=== PATIENT | female | born 1985 | race Two or more races ===

== ENCOUNTER 2020-04-07 09:06 | Outpatient (REF) | payer OTHER, SELFPAY ==
[2020-04-07 11:34] LABS: MANUAL DIFF FLAG NO
[2020-04-07 11:49] LABS: Basophils Percent Auto 0.7 % (0-2); Eosinophils Percent Auto 0.3 % (0-4); Hematocrit 39.8 % (37-47); Hemoglobin 13.2 g/dl (12.0-16.0); Imm Gran Abs Auto 0.01 X10*3/uL (0.00-0.03); Imm Gran Pct Auto 0.2 % (0.0-0.4); Lymphocytes Absolute Auto 1.6 X10*3/uL (1.2-4.9); Lymphocytes Percent Auto 26.5 % (20-40); Mean Corpuscular HGB Conc 33.2 g/dl (31.0-35.0); Mean Corpuscular Hemoglobin 29.9 pg (27.0-33.0); Mean Platelet Volume 12.8 fL (9.4-12.3); Monocytes Absolute Auto 0.4 X10*3/uL (0.1-1.2); Monocytes Percent Auto 7.3 % (2-11); Neutrophils Absolute Auto 3.8 X10*3/uL (2.0-8.3); Platelet Count 195 X10*3/uL (160-400); Red Blood Count 4.42 X10*6/uL (4.20-5.50); Red Cell Distribution Width 11.9 % (11.0-16.0); White Blood Count 5.9 X10*3/uL (4.8-10.8)
[2020-04-07 11:56] LABS: Alanine Aminotransferase 12 U/L (0-31); Albumin Level 4.3 g/dL (3.5-5.0); Alkaline Phosphatase 89 U/L (39-117); Anion Gap 10 (12-20); Aspartate Amino Transferase 13 U/L (5-31); Bilirubin Total 0.4 mg/dL (0.0-1.0); Blood Urea Nitrogen 14 mg/dL (9-16); C Reactive Protein 0.13 mg/dL (< or = 0.50); Calcium 9.6 mg/dL (8.4-10.2); Carbon Dioxide 27 mmol/L (22-29); Chloride 104 mmol/L (96-108); Estimated Glomerular Filt Rate > 60; Glucose Random 84 mg/dL (60-115); Potassium 4.2 mmol/l (3.3-5.1); Sodium 137 mmol/L (135-145); Total Protein 7.4 g/dL (6.5-8.0)
[2020-04-07 11:59] LABS: Glucose Urine UA NEG (NEG); Leukocyte Esterase Urine NEG (NEG); Nitrite Urine NEG (NEG); PH 6.5 (5.0-8.0); Specific Gravity - Urine 1.025 (1.005-1.025); Urine Blood TRACE (NEG); Urine Ketones NEG (NEG); Urine Protein NEG (NEG-TRACE)
[2020-04-07 12:04] LABS: Appearance Urine CLEAR; Color Urine YELLOW
[2020-04-07 12:40] LABS: RBC Urine 0-2 /HPF (0); Squamous Epithelial Cell Urine 1+ /LPF; WBC Urine 0 /HPF (0-4)
[2020-04-07 13:25] LABS: Erythrocyte Sedimentation Rate 5 MM/HR (0-20)
[2020-04-08 12:31] LABS: Complement C3 155 mg/dL (83-193)
[2020-04-09 11:57] LABS: Anti DNA DS Antibody <1 IU/mL
== END 2020-04-07 09:07 | disposition home or self-care (01) ==
LOC: HO.LAB 09:06
PROVIDERS: PCP Physician Assistant; Referring Provider Physician Assistant; Visit Provider Student in an Organized Health Care Education/Training Program
DX: M35.01 Sjogren syndrome with keratoconjunctivitis (principal)
CPT/HCPCS: 36415; 80053; 81001; 85025; 85652; 86140; 86160; 86225

== ENCOUNTER 2020-08-06 16:37 | Outpatient (REF) | payer OTHER, SELFPAY ==
[2020-08-06 18:04] LABS: MANUAL DIFF FLAG NO
[2020-08-06 18:06] LABS: Basophils Absolute Auto 0.1 X10*3/uL (0.0-0.2); Basophils Percent Auto 0.6 % (0-2); Eosinophils Percent Auto 0.2 % (0-4); Hemoglobin 13.4 g/dl (12.0-16.0); Imm Gran Abs Auto 0.03 X10*3/uL (0.00-0.03); Imm Gran Pct Auto 0.3 % (0.0-0.4); Lymphocytes Percent Auto 20.2 % (20-40); Mean Corpuscular HGB Conc 32.7 g/dl (31.0-35.0); Mean Corpuscular Hemoglobin 29.9 pg (27.0-33.0); Mean Corpuscular Volume 91.5 fL (80-98); Mean Platelet Volume 12.5 fL (9.4-12.3); Monocytes Absolute Auto 0.6 X10*3/uL (0.1-1.2); Monocytes Percent Auto 5.9 % (2-11); Neutrophils Absolute Auto 7.2 X10*3/uL (2.0-8.3); Neutrophils Percent Auto 72.8 % (45-73); Platelet Count 244 X10*3/uL (160-400); Red Blood Count 4.48 X10*6/uL (4.20-5.50); Red Cell Distribution Width 12.2 % (11.0-16.0); White Blood Count 9.8 X10*3/uL (4.8-10.8)
[2020-08-06 18:30] LABS: Alanine Aminotransferase 11 U/L (0-31); Albumin Level 4.2 g/dL (3.5-5.0); Alkaline Phosphatase 76 U/L (39-117); Anion Gap 13 (12-20); Aspartate Amino Transferase 15 U/L (5-31); Bilirubin Total 0.3 mg/dL (0.0-1.0); Blood Urea Nitrogen 14 mg/dL (9-16); C Reactive Protein 0.23 mg/dL (< or = 0.50); Calcium 9.4 mg/dL (8.4-10.2); Carbon Dioxide 26 mmol/L (22-29); Chloride 107 mmol/L (96-108); Estimated Glomerular Filt Rate > 60; Glucose Random 90 mg/dL (60-115); Potassium 4.6 mmol/L (3.3-5.1); Sodium 141 mmol/L (135-145); Total Protein 7.5 g/dL (6.5-8.0)
[2020-08-06 19:37] LABS: Erythrocyte Sedimentation Rate 7 MM/HR (0-20)
== END 2020-08-06 16:38 | disposition home or self-care (01) ==
LOC: HO.LAB 16:37
PROVIDERS: PCP Physician Assistant; Referring Provider Physician Assistant; Visit Provider Student in an Organized Health Care Education/Training Program
DX: M35.01 Sjogren syndrome with keratoconjunctivitis (principal)
CPT/HCPCS: 36415; 80053; 85025; 85652; 86140

== ENCOUNTER → 2020-08-20 15:24 | Outpatient (BNVA) | payer OTHER, SELFPAY | PROVIDERS: PCP Physician Assistant; Visit Provider Internal Medicine Cardiovascular Disease | DX: Z13.89 Encounter for screening for other disorder (principal) | CPT/HCPCS: 93005 ==

== ENCOUNTER 2020-09-24 13:18 | Outpatient (REF) | payer OTHER, SELFPAY ==
[2020-09-25 09:44] LABS: CT PCR NOT DETECTED (Not Detect.); NG PCR NOT DETECTED (Not Detect.)
[2020-09-25 11:56] LABS: BV Int Neg Control Negative (Negative); BV Int Pos Control Positive (Positive)
[2020-09-30 02:31] LABS: HPV mRNA E6/E7 rflx Not Detected (Not Detected)
== END 2020-09-24 13:19 | disposition home or self-care (01) ==
LOC: HO.LAB 13:18
PROVIDERS: PCP Physician Assistant; Visit Provider Advanced Practice Midwife
DX: Z01.419 Encounter for gynecological examination (general) (routine) without abnormal findings (principal); Z11.3 Encounter for screening for infections with a predominantly sexual mode of transmission; Z11.51 Encounter for screening for human papillomavirus (HPV); I49.3 Ventricular premature depolarization; R55 Syncope and collapse; M35.00 Sjogren syndrome, unspecified; Z88.2 Allergy status to sulfonamides; Z88.8 Allergy status to other drugs, medicaments and biological substances; Z97.5 Presence of (intrauterine) contraceptive device; Z79.899 Other long term (current) drug therapy
CPT/HCPCS: 87480; 87491; 87510; 87591; 87624; 87660; 88142

== ENCOUNTER 2020-12-11 16:07 | Outpatient (REF) | payer OTHER, SELFPAY ==
[2020-12-11 17:01] LABS: MANUAL DIFF FLAG NO
[2020-12-11 17:08] LABS: Basophils Percent Auto 0.7 % (0-2); Eosinophils Percent Auto 0.3 % (0-4); Hematocrit 38.9 % (37-47); Hemoglobin 12.8 g/dl (12.0-16.0); Imm Gran Abs Auto 0.01 X10*3/uL (0.00-0.03); Imm Gran Pct Auto 0.2 % (0.0-0.4); Lymphocytes Percent Auto 32.4 % (20-40); Mean Corpuscular HGB Conc 32.9 g/dl (31.0-35.0); Mean Corpuscular Volume 91.3 fL (80-98); Mean Platelet Volume 12.2 fL (9.4-12.3); Monocytes Absolute Auto 0.5 X10*3/uL (0.1-1.2); Neutrophils Absolute Auto 3.6 X10*3/uL (2.0-8.3); Neutrophils Percent Auto 58.4 % (45-73); Platelet Count 215 X10*3/uL (160-400); Red Blood Count 4.26 X10*6/uL (4.20-5.50); Red Cell Distribution Width 12.4 % (11.0-16.0); White Blood Count 6.1 X10*3/uL (4.8-10.8)
[2020-12-11 17:25] LABS: Glucose Urine UA NEG (NEG); Leukocyte Esterase Urine NEG (NEG); Nitrite Urine NEG (NEG); Specific Gravity - Urine >= 1.030 (1.005-1.025); Urine Blood NEG (NEG); Urine Ketones 5 MG/DL (NEG); Urine Protein NEG (NEG-TRACE)
[2020-12-11 17:29] LABS: Appearance Urine CLEAR; Color Urine YELLOW
[2020-12-11 17:35] LABS: Alanine Aminotransferase 15 U/L (0-31); Albumin Level 4.2 g/dL (3.5-5.0); Alkaline Phosphatase 69 U/L (39-117); Anion Gap 14 (12-20); Aspartate Amino Transferase 18 U/L (5-31); Bilirubin Total 0.2 mg/dL (0.0-1.0); Blood Urea Nitrogen 12 mg/dL (9-16); C Reactive Protein 0.17 mg/dL (< or = 0.50); Calcium 9.8 mg/dL (8.4-10.2); Carbon Dioxide 26 mmol/L (22-29); Chloride 106 mmol/L (96-108); Estimated Glomerular Filt Rate 59; Glucose Random 93 mg/dL (60-115); Potassium 4.3 mmol/L (3.3-5.1); Sodium 142 mmol/L (135-145); Total Protein 7.5 g/dL (6.5-8.0)
[2020-12-11 17:38] LABS: Alanine Aminotransferase 14 U/L (0-31); Albumin Level 4.2 g/dL (3.5-5.0); Alkaline Phosphatase 69 U/L (39-117); Anion Gap 13 (12-20); Aspartate Amino Transferase 19 U/L (5-31); Bilirubin Total < 0.2 mg/dL (0.0-1.0); Blood Urea Nitrogen 13 mg/dL (9-16); Calcium 9.7 mg/dL (8.4-10.2); Carbon Dioxide 25 mmol/L (22-29); Chloride 107 mmol/L (96-108); Estimated Glomerular Filt Rate 57; Glucose Fasting 95 mg/dL (60-99); Potassium 4.4 mmol/L (3.3-5.1); Sodium 141 mmol/L (135-145); Total Protein 7.5 g/dL (6.5-8.0)
[2020-12-11 17:39] LABS: Mucus Urine 3+ /LPF; RBC Urine 0 /HPF (0); Squamous Epithelial Cell Urine 3+ /LPF; WBC Urine 0 /HPF (0-4)
[2020-12-11 17:57] LABS: Erythrocyte Sedimentation Rate 4 MM/HR (0-20)
[2020-12-12 07:26] LABS: Estimated Average Glucose 88 mg/dL; Hemoglobin A1c % 4.7 %
[2020-12-12 14:07] LABS: Anti DNA DS Antibody <1 IU/mL
[2020-12-14 10:37] LABS: Complement C3 162 mg/dL (83-193)
== END 2020-12-11 16:08 | disposition home or self-care (01) ==
LOC: HO.LAB 16:07
PROVIDERS: Physician Assistant; Visit Provider Student in an Organized Health Care Education/Training Program
DX: M35.01 Sjogren syndrome with keratoconjunctivitis (principal); I10 Essential (primary) hypertension; Z79.899 Other long term (current) drug therapy; Z13.1 Encounter for screening for diabetes mellitus; Z13.29 Encounter for screening for other suspected endocrine disorder
CPT/HCPCS: 36415; 80053; 81001; 83036; 84443; 85025; 85652; 86140; 86160; 86225

== ENCOUNTER 2021-05-10 09:47 | Outpatient (REF) | payer OTHER, SELFPAY ==
[2021-05-10 10:27] LABS: Hematocrit 41.2 % (37.0-47.0); Hemoglobin 13.2 g/dl (12.0-16.0); Mean Corpuscular Hemoglobin 29.3 pg (27.0-33.0); Mean Corpuscular Volume 91.6 fL (80.0-98.0); Mean Platelet Volume 12.1 fL (9.4-12.3); Platelet Count 186 X10*3/uL (160-400); Red Cell Distribution Width 12.4 % (11.0-16.0); White Blood Count 7.1 X10*3/uL (4.8-10.8)
[2021-05-10 11:01] LABS: Estimated Average Glucose 94 mg/dL; Hemoglobin A1c % 4.9 %
[2021-05-10 11:13] LABS: Alanine Aminotransferase 12 U/L (0-31); Alkaline Phosphatase 88 U/L (39-117); Anion Gap 11 (12-20); Aspartate Amino Transferase 16 U/L (5-31); Bilirubin Total 0.6 mg/dL (0.0-1.0); Blood Urea Nitrogen 12 mg/dL (9-16); Calcium 9.3 mg/dL (8.4-10.2); Carbon Dioxide 26 mmol/L (22-29); Chloride 106 mmol/L (96-108); Estimated Glomerular Filt Rate > 60; Glucose Fasting 81 mg/dL (60-99); Iron 154 mcg/dL (30-160); Percent Iron Saturation 38 % (15-50); Potassium 4.5 mmol/L (3.3-5.1); Sodium 138 mmol/L (135-145); Total Iron Binding Capacity 404 mcg/dL (228-428); Total Protein 7.3 g/dL (6.5-8.0); Unsaturated Iron Binding 250 ug/dL
[2021-05-10 11:20] LABS: TSH reflex Free T4 0.83 uIU/mL (0.32-4.0)
== END 2021-05-10 09:48 | disposition home or self-care (01) ==
LOC: HO.LAB 09:47
PROVIDERS: PCP Physician Assistant; Visit Provider Physician Assistant
DX: D50.9 Iron deficiency anemia, unspecified (principal); R23.8 Other skin changes; Z13.1 Encounter for screening for diabetes mellitus; Z13.29 Encounter for screening for other suspected endocrine disorder
CPT/HCPCS: 36415; 80053; 83036; 83540; 84443; 85027

== ENCOUNTER → 2021-10-01 08:30 | Outpatient (BNVA) | payer OTHER, SELFPAY | PROVIDERS: PCP Physician Assistant; Visit Provider Advanced Practice Midwife | DX: Z13.89 Encounter for screening for other disorder (principal) ==

== ENCOUNTER 2021-11-27 07:11 | Outpatient (REF) | payer OTHER, SELFPAY ==
[2021-11-27 07:57] LABS: Hematocrit 38.9 % (37.0-47.0); Hemoglobin 12.7 g/dl (12.0-16.0); Mean Corpuscular HGB Conc 32.6 g/dl (31.0-35.0); Mean Corpuscular Volume 91.7 fL (80.0-98.0); Mean Platelet Volume 12.3 fL (9.4-12.3); Platelet Count 195 X10*3/uL (160-400); Red Blood Count 4.24 X10*6/uL (4.20-5.50); Red Cell Distribution Width 12.6 % (11.0-16.0); White Blood Count 5.4 X10*3/uL (4.8-10.8)
[2021-11-27 08:36] LABS: Alanine Aminotransferase 16 U/L (0-31); Albumin Level 3.9 g/dL (3.5-5.0); Alkaline Phosphatase 74 U/L (39-117); Anion Gap 12 (12-20); Aspartate Amino Transferase 17 U/L (5-31); Bilirubin Total 0.5 mg/dL (0.0-1.0); Blood Urea Nitrogen 15 mg/dL (9-16); Calcium 9.6 mg/dL (8.4-10.2); Carbon Dioxide 26 mmol/L (22-29); Chloride 107 mmol/L (96-108); Estimated Glomerular Filt Rate 59; Glucose Fasting 91 mg/dL (60-99); Potassium 4.9 mmol/L (3.3-5.1); Sodium 140 mmol/L (135-145); Total Protein 7.4 g/dL (6.5-8.0)
[2021-11-27 09:00] LABS: HCG Quantitative < 2 mIU/mL; TSH reflex Free T4 1.42 uIU/mL (0.32-4.0)
== END 2021-11-27 07:12 | disposition home or self-care (01) ==
LOC: HO.LAB 07:11
PROVIDERS: PCP Physician Assistant; Visit Provider Physician Assistant
DX: Z13.29 Encounter for screening for other suspected endocrine disorder (principal); I10 Essential (primary) hypertension; M35.01 Sjogren syndrome with keratoconjunctivitis; G43.909 Migraine, unspecified, not intractable, without status migrainosus
CPT/HCPCS: 36415; 80053; 84443; 84702; 85027

== ENCOUNTER 2022-02-25 09:48 | Outpatient (REF) | payer OTHER, SELFPAY ==
[2022-02-25 17:25] LABS: CT PCR NOT DETECTED (Not Detect.); NG PCR NOT DETECTED (Not Detect.)
== END 2022-02-25 09:49 | disposition home or self-care (01) ==
LOC: HO.LNP 09:48
PROVIDERS: PCP Physician Assistant; Visit Provider Advanced Practice Midwife
DX: Z30.430 Encounter for insertion of intrauterine contraceptive device (principal); Z32.02 Encounter for pregnancy test, result negative
CPT/HCPCS: 58300; 81025; 87491; 87591; J7298

== ENCOUNTER 2022-03-19 07:04 | Outpatient (REF) | payer OTHER, SELFPAY ==
--- NOTE | ~2022-03-19 | XR_ITS ---
EXAMINATION: XR ANKLE, RIGHT XR ANKLE, LEFT XR FOOT, RIGHT XR FOOT, LEFT CLINICAL INFORMATION: Pain in the joints of the bilateral ankles and feet. COMPARISON: None. TECHNIQUE: AP, lateral, and mortise views of each ankle and AP, lateral, and oblique views of each foot. FINDINGS: RIGHT ANKLE: No fracture. Alignment is anatomic. Ankle mortise is symmetric. Joint spaces are maintained. No ankle joint effusion. Soft tissues are normal. LEFT ANKLE: No fracture. Alignment is anatomic. Ankle mortise is symmetric. Joint spaces are maintained. No ankle joint effusion. Soft tissues are normal. RIGHT FOOT: Tiny marginal osteophytes are present at the 1st MTP joint. No joint space narrowing. Bone mineralization is normal. No fracture. Alignment is anatomic. No erosions. Moderate sized enthesopathic spur is present at the plantar fascial origin on the calcaneus. LEFT FOOT: Moderate hallux valgus on this non-weightbearing study. Bipartite medial hallux sesamoid. No fractures. Bone mineralization is normal. Joint spaces are well preserved. No erosions. Small enthesopathic spurs are present at the Achilles tendon insertion and plantar fascial origin on the calcaneus. XR/XR ankle RT min 3V IMPRESSION: Small bilateral calcaneal enthesopathic spurs. 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 Hallux valgus at the left foot. Normal radiographic appearance of the ankles.
--- NOTE | ~2022-03-19 | XR_ITS ---
EXAMINATION: XR ANKLE, RIGHT XR ANKLE, LEFT XR FOOT, RIGHT XR FOOT, LEFT CLINICAL INFORMATION: Pain in the joints of the bilateral ankles and feet. COMPARISON: None. TECHNIQUE: AP, lateral, and mortise views of each ankle and AP, lateral, and oblique views of each foot. FINDINGS: RIGHT ANKLE: No fracture. Alignment is anatomic. Ankle mortise is symmetric. Joint spaces are maintained. No ankle joint effusion. Soft tissues are normal. LEFT ANKLE: No fracture. Alignment is anatomic. Ankle mortise is symmetric. Joint spaces are maintained. No ankle joint effusion. Soft tissues are normal. RIGHT FOOT: Tiny marginal osteophytes are present at the 1st MTP joint. No joint space narrowing. Bone mineralization is normal. No fracture. Alignment is anatomic. No erosions. Moderate sized enthesopathic spur is present at the plantar fascial origin on the calcaneus. LEFT FOOT: Moderate hallux valgus on this non-weightbearing study. Bipartite medial hallux sesamoid. No fractures. Bone mineralization is normal. Joint spaces are well preserved. No erosions. Small enthesopathic spurs are present at the Achilles tendon insertion and plantar fascial origin on the calcaneus. XR/XR foot LT 2V IMPRESSION: Small bilateral calcaneal enthesopathic spurs. 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 Hallux valgus at the left foot. Normal radiographic appearance of the ankles.
--- NOTE | ~2022-03-19 | XR_ITS ---
EXAMINATION: XR ANKLE, RIGHT XR ANKLE, LEFT XR FOOT, RIGHT XR FOOT, LEFT CLINICAL INFORMATION: Pain in the joints of the bilateral ankles and feet. COMPARISON: None. TECHNIQUE: AP, lateral, and mortise views of each ankle and AP, lateral, and oblique views of each foot. FINDINGS: RIGHT ANKLE: No fracture. Alignment is anatomic. Ankle mortise is symmetric. Joint spaces are maintained. No ankle joint effusion. Soft tissues are normal. LEFT ANKLE: No fracture. Alignment is anatomic. Ankle mortise is symmetric. Joint spaces are maintained. No ankle joint effusion. Soft tissues are normal. RIGHT FOOT: Tiny marginal osteophytes are present at the 1st MTP joint. No joint space narrowing. Bone mineralization is normal. No fracture. Alignment is anatomic. No erosions. Moderate sized enthesopathic spur is present at the plantar fascial origin on the calcaneus. LEFT FOOT: Moderate hallux valgus on this non-weightbearing study. Bipartite medial hallux sesamoid. No fractures. Bone mineralization is normal. Joint spaces are well preserved. No erosions. Small enthesopathic spurs are present at the Achilles tendon insertion and plantar fascial origin on the calcaneus. XR/XR ankle LT min 3V IMPRESSION: Small bilateral calcaneal enthesopathic spurs. 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 Hallux valgus at the left foot. Normal radiographic appearance of the ankles.
--- NOTE | ~2022-03-19 | XR_ITS ---
EXAMINATION: XR ANKLE, RIGHT XR ANKLE, LEFT XR FOOT, RIGHT XR FOOT, LEFT CLINICAL INFORMATION: Pain in the joints of the bilateral ankles and feet. COMPARISON: None. TECHNIQUE: AP, lateral, and mortise views of each ankle and AP, lateral, and oblique views of each foot. FINDINGS: RIGHT ANKLE: No fracture. Alignment is anatomic. Ankle mortise is symmetric. Joint spaces are maintained. No ankle joint effusion. Soft tissues are normal. LEFT ANKLE: No fracture. Alignment is anatomic. Ankle mortise is symmetric. Joint spaces are maintained. No ankle joint effusion. Soft tissues are normal. RIGHT FOOT: Tiny marginal osteophytes are present at the 1st MTP joint. No joint space narrowing. Bone mineralization is normal. No fracture. Alignment is anatomic. No erosions. Moderate sized enthesopathic spur is present at the plantar fascial origin on the calcaneus. LEFT FOOT: Moderate hallux valgus on this non-weightbearing study. Bipartite medial hallux sesamoid. No fractures. Bone mineralization is normal. Joint spaces are well preserved. No erosions. Small enthesopathic spurs are present at the Achilles tendon insertion and plantar fascial origin on the calcaneus. XR/XR foot RT 2V IMPRESSION: Small bilateral calcaneal enthesopathic spurs. 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 Hallux valgus at the left foot. Normal radiographic appearance of the ankles.
[2022-03-19 08:03] LABS: Alanine Aminotransferase 13 U/L (0-31); Albumin Level 4.1 g/dL (3.5-5.0); Alkaline Phosphatase 72 U/L (39-117); Anion Gap 14 (12-20); Aspartate Amino Transferase 16 U/L (5-31); Bilirubin Total 0.3 mg/dL (0.0-1.0); Blood Urea Nitrogen 18 mg/dL (9-16); C Reactive Protein 0.13 mg/dL (< or = 0.50); Calcium 9.5 mg/dL (8.4-10.2); Carbon Dioxide 23 mmol/L (22-29); Chloride 108 mmol/L (96-108); Estimated Glomerular Filt Rate > 60; Glucose Random 91 mg/dL (60-115); Rheumatoid Factor 58.8 IU/mL (<15.0); Sodium 141 mmol/L (135-145); Total Protein 7.4 g/dL (6.5-8.0)
[2022-03-19 08:21] LABS: Erythrocyte Sedimentation Rate 8 MM/HR (0-20)
[2022-03-19 08:23] LABS: Thyroid Stimulating Hormone 1.54 uIU/mL (0.32-4.0)
[2022-03-19 09:17] LABS: Appearance Urine Clear; Color Urine Yellow; Glucose Urine UA Negative (Negative); Leukocyte Esterase Urine Trace (Negative); Nitrite Urine Negative (Negative); PH 5.5 (5.0-9.0); Specific Gravity - Urine 1.025 (1.005-1.025); UMIC TRIGGER UA YES; Urine Blood Moderate (2+) (Negative); Urine Ketones 15 mg/dL (Negative); Urine Protein Negative (Neg-Trace)
[2022-03-19 09:32] LABS: Bacteria Urine None Seen (None Seen); Hyaline Casts Urine 0-2 /LPF (0-2); WBC Urine 0-5 /HPF (0-5)
[2022-03-19 09:49] LABS: Creatinine Urine 171.35 mg/dL; Protein/Creatinine Ratio, Ur 0.07 (<0.2); Total Protein Urine Random 12 mg/dL (<12)
[2022-03-21 12:07] LABS: Complement C3 151 mg/dL (83-193)
[2022-03-21 16:21] LABS: Anti Nuclear Antibody Screen POSITIVE (NEGATIVE)
[2022-03-21 17:01] LABS: Cyclic Citrullinated Peptide <16 UNITS
[2022-03-21 21:07] LABS: Prot Elec - Albumin 3.9 g/dL (3.8-4.8); Prot Elec - Alpha1 0.3 g/dL (0.2-0.3); Prot Elec - Alpha2 0.6 g/dL (0.5-0.9); Prot Elec - Beta 1 0.5 g/dL (0.4-0.6); Prot Elec - Beta 2 0.5 g/dL (0.2-0.5); Prot Elec - Gamma 1.3 g/dL (0.8-1.7)
[2022-03-22 09:03] LABS: IgA 365 mg/dL (47-310); IgG 1394 mg/dL (600-1640); IgM 88 mg/dL (50-300)
[2022-03-22 22:52] LABS: Anti DNA DS Antibody <1 IU/mL; Antibody to SS-A Antigen >8.0 POS AI (<1.0 NEG); Antibody to SS-B Antigen <1.0 NEG AI (<1.0 NEG); SM/Ribonucleoprotein Ab <1.0 NEG AI (<1.0 NEG); Smith Protein <1.0 NEG AI (<1.0 NEG)
[2022-03-23 07:12] LABS: Beta-2 Glycoprotein IgA <2.0 U/mL (<20.0); Beta-2 Glycoprotein IgG <2.0 U/mL (<20.0); Beta-2 Glycoprotein IgM <2.0 U/mL (<20.0)
[2022-03-24 06:05] LABS: Cardiolipin IgG Ab <2.0 GPL-U/mL; Cardiolipin IgM Ab <2.0 MPL-U/mL
[2022-03-30 11:56] LABS: Cryoglobulin, Qual NONE DETECTED ((NDT))
[2022-04-06 11:36] LABS: PTT (LAC) Screen 39 sec (<=40)
== END 2022-03-19 07:05 | disposition home or self-care (01) ==
LOC: HO.XRAY 07:04
PROVIDERS: PCP Physician Assistant; Visit Provider Student in an Organized Health Care Education/Training Program
DX: M35.00 Sjogren syndrome, unspecified (principal); M25.571 Pain in right ankle and joints of right foot; M25.572 Pain in left ankle and joints of left foot
CPT/HCPCS: 36415; 73610; 73620; 80053; 81001; 82595; 82784; 84156; 84165; 84443; 85597; 85613; 85652; 85730; 86038; 86039; 86140; 86146; 86147; 86160; 86200; 86225; 86235; 86334; 86431

== ENCOUNTER 2022-04-14 11:17 | Outpatient (REF) | payer OTHER, SELFPAY ==
--- NOTE | ~2022-04-14 | US_ITS ---
EXAMINATION: US PELVIS COMPLETE US PELVIS ENDOVAGINAL CLINICAL INFORMATION: IUD insertion COMPARISON: None. TECHNIQUE: Transabdominal and transvaginal images of the pelvis were obtained. FINDINGS: UTERUS: Anteverted. Normal size and contour, measuring 8.2 x 4.9 x 7.0 cm (cervix to fundus x AP x transverse). Uniform, homogeneous endometrium measures 0.5 cm in width. Satisfactorily positioned IUD is seen in the endometrial canal. RIGHT OVARY: Normal size and echogenicity measuring 2.8 x 1.3 x 1.4 cm. LEFT OVARY: Normal size and echogenicity measuring 3.8 x 2.8 x 3.4 cm. FREE FLUID: No pelvic free fluid. US/US pelvic and transvaginal IMPRESSION: Normally positioned IUD seen in the endometrial canal.
== END 2022-04-14 11:18 | disposition home or self-care (01) ==
LOC: HO.US 11:17
PROVIDERS: Visit Provider Advanced Practice Midwife
DX: Z30.430 Encounter for insertion of intrauterine contraceptive device (principal); Z30.09 Encounter for other general counseling and advice on contraception
CPT/HCPCS: 76830; 76856

== ENCOUNTER 2022-05-11 13:53 | Outpatient (REF) | payer OTHER, SELFPAY ==
[2022-05-12 10:16] LABS: BV Int Neg Control Negative (Negative); BV Int Pos Control Positive (Positive)
== END 2022-05-11 13:54 | disposition home or self-care (01) ==
LOC: HO.LNP 13:53
PROVIDERS: Visit Provider Advanced Practice Midwife
DX: B37.9 Candidiasis, unspecified (principal)
CPT/HCPCS: 87480; 87510; 87660

== ENCOUNTER 2022-06-25 07:14 | Outpatient (REF) | payer OTHER, SELFPAY ==
[2022-06-25 07:28] LABS: MANUAL DIFF FLAG NO
[2022-06-25 08:00] LABS: Basophils Absolute Auto 0.1 X10*3/uL (0.0-0.2); Basophils Percent Auto 0.8 % (0-2); Eosinophils Percent Auto 0.1 % (0-4); Hematocrit 39.2 % (37.0-47.0); Hemoglobin 12.8 g/dl (12.0-16.0); Imm Gran Abs Auto 0.02 X10*3/uL (0.00-0.03); Imm Gran Pct Auto 0.3 % (0.0-0.4); Lymphocytes Absolute Auto 0.7 X10*3/uL (1.2-4.9); Lymphocytes Percent Auto 9.1 % (20-40); Mean Corpuscular HGB Conc 32.7 g/dl (31.0-35.0); Mean Corpuscular Hemoglobin 29.8 pg (27.0-33.0); Mean Corpuscular Volume 91.2 fL (80.0-98.0); Mean Platelet Volume 12.6 fL (9.4-12.3); Monocytes Absolute Auto 0.7 X10*3/uL (0.1-1.2); Monocytes Percent Auto 8.8 % (2-11); Neutrophils Absolute Auto 6.2 x10*3/uL (2.0-8.3); Neutrophils Percent Auto 80.9 % (45-73); Platelet Count 171 X10*3/uL (160-400); Red Cell Distribution Width 12.4 % (11.0-16.0); White Blood Count 7.7 X10*3/uL (4.8-10.8)
[2022-06-25 08:19] LABS: Appearance Urine Clear; Color Urine Yellow; Glucose Urine UA Negative (Negative); Leukocyte Esterase Urine Negative (Negative); Nitrite Urine Negative (Negative); Specific Gravity - Urine >= 1.030 (1.005-1.025); Urine Blood Negative (Negative); Urine Ketones Trace mg/dL (Negative); Urine Protein Trace mg/dL (Neg-Trace)
[2022-06-25 08:24] LABS: Bacteria Urine None Seen (None Seen); Hyaline Casts Urine 0-2 /LPF (0-2); RBC Urine 0-2 /HPF (0-2); WBC Urine 0-5 /HPF (0-5)
[2022-06-25 08:24] LABS: Alanine Aminotransferase 13 U/L (0-31); Albumin Level 4.3 g/dL (3.5-5.0); Alkaline Phosphatase 81 U/L (39-117); Anion Gap 10 (12-20); Aspartate Amino Transferase 16 U/L (5-31); Bilirubin Total 0.4 mg/dL (0.0-1.0); Blood Urea Nitrogen 14 mg/dL (9-16); C Reactive Protein 0.66 mg/dL (< or = 0.50); Calcium 9.6 mg/dL (8.4-10.2); Carbon Dioxide 26 mmol/L (22-29); Chloride 108 mmol/L (96-108); Estimated Glomerular Filt Rate > 60; Glucose Random 93 mg/dL (60-115); Potassium 3.8 mmol/L (3.3-5.1); Rheumatoid Factor 45.9 IU/mL (<15.0); Sodium 140 mmol/L (135-145); Total Protein 7.4 g/dL (6.5-8.0)
[2022-06-25 08:49] LABS: Creatinine Urine 260.93 mg/dL; Protein/Creatinine Ratio, Ur 0.06 (<0.2); Total Protein Urine Random 16 mg/dL (<12)
[2022-06-25 09:24] LABS: Erythrocyte Sedimentation Rate 8 MM/HR (0-20)
[2022-06-28 07:59] LABS: Complement C3 71 mg/dL (83-193)
[2022-07-01 09:32] LABS: Anti DNA DS Antibody <1 IU/mL
== END 2022-06-25 07:15 | disposition home or self-care (01) ==
LOC: HO.LAB 07:14
PROVIDERS: PCP Physician Assistant; Visit Provider Student in an Organized Health Care Education/Training Program
DX: M35.01 Sjogren syndrome with keratoconjunctivitis (principal)
CPT/HCPCS: 36415; 80053; 81001; 84156; 85025; 85652; 86140; 86160; 86225; 86431

== ENCOUNTER → 2022-07-01 07:24 | Outpatient (BNVA) | payer OTHER, SELFPAY | PROVIDERS: PCP Physician Assistant; Visit Provider Student in an Organized Health Care Education/Training Program | DX: Z13.89 Encounter for screening for other disorder (principal) ==

== ENCOUNTER 2022-07-15 08:40 | Inpatient (IN) | payer OTHER, SELFPAY ==
--- NOTE | ~2022-07-15 | US_ITS ---
EXAMINATION: US ABDOMEN LIMITED CLINICAL INFORMATION: Abnormal liver function tests. COMPARISON: None TECHNIQUE: Real-time imaging of the right upper quadrant abdominal viscera. FINDINGS: PANCREAS: Normal. LIVER: Normal. The liver is normal in size. The liver contour is normal. Parenchymal echogenicity is normal. No focal hepatic lesion. There is no intrahepatic biliary duct dilatation seen. GALLBLADDER: Normal. The gallbladder is physiologically distended without evidence of stones, sludge, polyps, wall thickening or pericholecystic fluid. COMMON BILE DUCT: Normal in caliber measuring 0.3 cm in diameter. RIGHT KIDNEY: Normal. No hydronephrosis. No renal calculi or focal parenchymal lesions. The kidney measures 10.3 cm in maximum dimension. FREE FLUID: None. US/US abdomen limited IMPRESSION: Normal right upper quadrant ultrasound.
[2022-07-15 08:48] VITALS: BP 118/36; PULSE 96; RESP 20; TEMP 36.7; O2SAT 98; BMI 22.1
--- NOTE | 2022-07-15 09:05 | ED_ITS ---
HPI - General Adult General Chief complaint: General Medical <KETURAH Quan Last Filed: 07/15/22 13:53> Stated complaint: fever dizzy body swelling <KETURAH Quan Last Filed: 07/15/22 13:53> Time Seen by Provider: 07/15/22 09:03 <KETURAH Quan Last Filed: 07/15/22 13:53> Source: patient <KETURAH Quan Last Filed: 07/15/22 13:53> Mode of arrival: ambulatory <KETURAH Quan Last Filed: 07/15/22 13:53> Limitations: no limitations <KETURAH Quan Last Filed: 07/15/22 13:53> History of Present Illness HPI narrative: 37-year-old female with history of lupus, migraines, GERD, history of acute hepatitis and superficial perivascular dermatitis (on biopsy) due to allergic reaction to Bactrim and Macrobid back in 2019 who presents to the ER for evaluation of a diffuse red, itchy rash all over her body that she noticed yesterday. She states her legs started itching yesterday and then she noticed a blotchy and itchy rash in the inner portion of her right arm. She states the only new medicine she took lately was Aleve because her Radioisotope Technologist does not want her taking ibuprofen any more. She states this morning she developed dizziness and lightheadedness, she had one episode of vomiting. The rash is now all over her body today, red, raised and itchy. She has no facial swelling or oral involvement. No SOB or wheezing. No chest pain. <KETURAH Quan Last Filed: 07/15/22 13:53> MD complaint: rash, dizziness <KETURAH Quan Last Filed: 07/15/22 13:53> Onset (ago): day(s) <KETURAH Quan Last Filed: 07/15/22 13:53> Location: chest, back, abdomen, left, right, upper extremity and lower extremity <KETURAH Quan Last Filed: 07/15/22 13:53> Severity: severe <KETURAH Quan Last Filed: 07/15/22 13:53> Quality: other (itching) <KETURAH Quan - Last Filed: 07/15/22 13:53> Pain Consistency: constant <KETURAH Quan - Last Filed: 07/15/22 13:53> Relieving factors: none <KETURAH Quan - Last Filed: 07/15/22 13:53> Exacerbating factors: none <KETURAH Quan - Last Filed: 07/15/22 13:53> Associated symptoms: nausea/vomiting and weakness <KETURAH Quan - Last Filed: 07/15/22 13:53> Treatments prior to arrival: none <KETURAH Quan - Last Filed: 07/15/22 13:53> Related Data Home medications: Home Medications Medication Instructions Recorded Confirmed etonogestrel 68 mg subdermal See Rx Instructions .Route .COMPLEX 04/07/20 07/15/22 implant (Nexplanon) levonorgestrel 20 mcg/24 hours (8 See Rx Instructions .Route .COMPLEX 05/11/22 07/15/22 yrs) 52 mg intrauterine device (Mirena) multivitamin 1 tab PO DAILY 07/15/22 07/15/22 naproxen sodium 220 mg tablet 220 mg PO Q12H PRN Pain or 07/15/22 07/15/22 (Aleve) inflammation sumatriptan succinate 25 mg tablet 25 mg PO Q2H PRN Migraine Headache 07/15/22 07/15/22 (Imitrex) Previous Rx's Medication Instructions Recorded calcium carbonate 600 mg-vitamin 1 tab PO DAILY 90 days #90 tabs 09/28/21 D3 10 mcg (400 unit) tablet (Calcium 600 + D(3)) blood pressure monitor (Blood #1 ea 11/23/21 Pressure Kit) famotidine 20 mg tablet 20 mg PO BEDTIME #90 tabs 03/09/22 hydroxychloroquine 200 mg tablet 300 mg PO DAILY #30 tabs 05/04/22 amlodipine 2.5 mg tablet 2.5 mg PO DAILY 30 days #30 tabs 06/06/22 <KETURAH Quan Last Filed: 07/15/22 13:53> Allergies/adverse reactions: Allergies Allergy/AdvReac Type Severity Reaction Status Date / Time sulfasalazine Allergy Severe redness Verified 07/15/22 08:54 and itching Sulfa (Sulfonamide Allergy Rash Verified 07/15/22 08:54 Antibiotics) <KETURAH Quan - Last Filed: 07/15/22 13:53> Review of Systems Review of Systems: Yes all other systems are reviewed and are negative <KETURAH Quan - Last Filed: 07/15/22 13:53> FOR[facility]LY [facility] Past Medical History Medical History: Medical History Cervical cancer screening Hypertension Migraines PVCs (premature ventricular contractions) Vasovagal syncope <KETURAH Quan - Last Filed: 07/15/22 13:53> Surgical History: Surgical History History of surgical biopsy <KETURAH Quan - Last Filed: 07/15/22 13:53> Family History Family History: Family History Father No problems noted. Mother Bipolar 1 disorder Chronic mental illness Family history of thyroid problem Maternal Grandmother Hypertension Maternal Grandfather No problems noted. Maternal Aunt CAD (coronary artery disease) Sister Depression Bipolar 1 disorder Brother Depression Depression with anxiety <KETURAH Quan - Last Filed: 07/15/22 13:53> Social History Social History: Social History Household Members: Family Housing: House Alcohol intake: current Alcohol intake frequency: a few times a month Alcohol type: wine Patient Tobacco Use Status: Never used Tobacco Smoked in Last 30 Days: No e-Cigarette/Vaping Use: Never Used Second Hand Smoke Exposure: Yes Use of substances other than those prescribed or required for medical reasons: No Advance Directives: No Advance Directives Information Provided: Yes Patient : No Current occupational status: employed 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 [employer] Cognitive needs: No Hearing needs: No Vision needs: Yes <KETURAH Quan - Last Filed: 07/15/22 13:53> Physical Exam ED Vital Signs: Vital Signs - 24 hr 07/15/22 08:48 07/15/22 09:12 07/15/22 10:30 Temperature 98.0 F Pulse Rate 96 93 73 Respiratory Rate 20 15 Blood Pressure 118/36 L 109/51 L 108/48 L Pulse Oximetry 98 100 Oxygen Delivery Method Room Air 07/15/22 10:32 07/15/22 10:32 07/15/22 13:16 Temperature Pulse Rate 79 80 84 Respiratory Rate 15 Blood Pressure 107/53 L 105/53 L 111/62 Pulse Oximetry 98 Oxygen Delivery Method Room Air BMI result Body Mass Index 22.1 <KETURAH Qaun - Last Filed: 07/15/22 13:53> Vital Signs - 24 hr 07/15/22 08:48 07/15/22 09:12 07/15/22 10:30 Temperature 98.0 F Pulse Rate 96 93 73 Respiratory Rate 20 15 Blood Pressure 118/36 L 109/51 L 108/48 L Pulse Oximetry 98 100 Oxygen Delivery Method Room Air 07/15/22 10:32 07/15/22 10:32 07/15/22 13:16 Temperature Pulse Rate 79 80 84 Respiratory Rate 15 Blood Pressure 107/53 L 105/53 L 111/62 Pulse Oximetry 98 Oxygen Delivery Method Room Air BMI result Body Mass Index 22.1 <Fabio Denton MD - Last Filed: 07/15/22 16:15> Appearance: Alert. Oriented X3. No acute distress. Eyes: Pupils equal, round and reactive to light. ENT: Pharynx normal. normal inspection of the oral mucosa, no oral lesions. Neck: Normal inspection. Neck supple. CVS: Normal heart rate and rhythm. Pulses normal. Respiratory: No respiratory distress. Breath sounds normal. Abdomen: Soft and nontender. +BS x4 negative Calderon sign Skin: diffuse, erythematous, warm rash from the neck down, blanches. more involved on the extremities. bilateral AC areas with hypopigmented patches and nonblanching flat purpura like lesions. palms are erythematous without skin p eeling. Extremities: No lower extremity edema. Diffuse rash present Neuro: Oriented X 3. No motor deficit. No sensory deficit. <KETURAH Quan - Last Filed: 07/15/22 13:53> Course Course Course Narrative: 29-year-old female with history of lupus presenting to the ER for evaluation of a diffuse erythematous, itchy rash on her body that started yesterday. Similar experience back in 2019 and was thought to be related to antibiotics, sulfa and Macrobid. She was treated with prolonged course of steroids over the course of several weeks. She had significant hepatitis with jaundice and scleral icterus at that time. No scleral icterus, jaundice or hepatosplenomegaly palpated on examination today. will get lab workup, treat with IV steroids and IV Benadryl. <KETURAH Quan - Last Filed: 07/15/22 13:53> Reevaluation(s) Reevaluation #1: No improvement in her symptoms after the Solu-Medrol and Benadryl. LFTs significantly elevated. Right upper quadrant ultrasound is normal. Will plan to admit for further management. <KETURAH Quan - Last Filed: 07/15/22 13:53> Medications Administered Discontinued Medications Generic Name Dose Route Start Last Admin Trade Name Freq PRN Reason Stop Dose Admin Diphenhydramine HCl 50 mg 07/15/22 09:19 07/15/22 09:28 Diphenhydramine Hcl 50 Mg/Ml Vial IVPUSH 07/15/22 09:20 50 mg ONCE ONE Administration Famotidine 20 mg 07/15/22 09:19 07/15/22 09:28 Famotidine/Pf 20 Mg/2 Ml Vial IVPUSH 07/15/22 09:20 20 mg ONCE ONE Administration Sodium Chloride 1,000 mls @ 999 mls/hr 07/15/22 09:15 07/15/22 10:15 Ns IVCONT 07/15/22 10:15 Infused .Q1H1M RAFAELA Infusion Sodium Chloride 1,000 mls @ 999 mls/hr 07/15/22 14:00 07/15/22 15:45 Ns IVCONT 07/15/22 15:00 Infused .Q1H1M RAFAELA Infusion Methylprednisolone Sodium Succinate 125 mg 07/15/22 09:19 07/15/22 09:28 Methylprednisolone Sod Succ 125 Mg/2 Ml Vial IVPUSH 07/15/22 09:20 125 mg ONCE ONE Administration Ondansetron HCl 4 mg 07/15/22 09:06 07/15/22 09:25 Ondansetron Hcl 4 Mg/2 Ml Vial IVPUSH 07/15/22 09:07 4 mg ONCE ONE Administration <KETURAH Quan - Last Filed: 07/15/22 13:53> Medications Administered Discontinued Medications Generic Name Dose Route Start Last Admin Trade Name Alicia PRN Reason Stop Dose Admin Diphenhydramine HCl 50 mg 07/15/22 09:19 07/15/22 09:28 Diphenhydramine Hcl 50 Mg/Ml Vial IVPUSH 07/15/22 09:20 50 mg ONCE ONE Administration Famotidine 20 mg 07/15/22 09:19 07/15/22 09:28 Famotidine/Pf 20 Mg/2 Ml Vial IVPUSH 07/15/22 09:20 20 mg ONCE ONE Administration Sodium Chloride 1,000 mls @ 999 mls/hr 07/15/22 09:15 07/15/22 10:15 Ns IVCONT 07/15/22 10:15 Infused .Q1H1M RAFAELA Infusion Sodium Chloride 1,000 mls @ 999 mls/hr 07/15/22 14:00 07/15/22 15:45 Ns IVCONT 07/15/22 15:00 Infused .Q1H1M RAFAELA Infusion Methylprednisolone Sodium Succinate 125 mg 07/15/22 09:19 07/15/22 09:28 Methylprednisolone Sod Succ 125 Mg/2 Ml Vial IVPUSH 07/15/22 09:20 125 mg ONCE ONE Administration Ondansetron HCl 4 mg 07/15/22 09:06 07/15/22 09:25 Ondansetron Hcl 4 Mg/2 Ml Vial IVPUSH 07/15/22 09:07 4 mg ONCE ONE Administration <Fabio Denton MD - Last Filed: 07/15/22 16:15> Medical Decision Making Differential Diagnosis Differential Diagnoses: The differential diagnosis associated with the presentation includes <KETURAH Quan - Last Filed: 07/15/22 13:53> Dermatitis, vasculitis, allergic reaction, lupus flare, other rheumatologic process, less likley TENS or [place], DRESS syndrome <KETURAH Quan - Last Filed: 07/15/22 13:53> Admission/Observation Consideration of admission/observation: Escalation of care including admission/observation considered <KETURAH Quan - Last Filed: 07/15/22 13:53> requiring admission for monitoring of her liver function tests and response to medications <KETURAH Quan - Last Filed: 07/15/22 13:53> Consult Healthcare Provider Management of the patient was discussed with: Hospitalist <KETURAH Quan - Last Filed: 07/15/22 13:53> Lab Data MDM Lab Attestation statement: I reviewed the patient's lab results. <KETURAH Quan - Last Filed: 07/15/22 13:53> LINK with transaminitis <KETURAH Quan - Last Filed: 07/15/22 13:53> Result Diagrams: 07/15/22 09:24 07/15/22 09:24 <KETURAH Quan - Last Filed: 07/15/22 13:53> Labs: Lab Results 07/15/22 07/15/22 07/15/22 Range/Units 09:23 09:23 09:24 WBC 10.2 (4.8-10.8) X10*3/uL RBC 4.56 (4.20-5.50) X10*6/uL Hgb 13.7 (12.0-16.0) g/dl Hct 41.3 (37.0-47.0) % MCV 90.6 (80.0-98.0) fL MCH 30.0 (27.0-33.0) pg MCHC 33.2 (31.0-35.0) g/dl RDW 13.2 (11.0-16.0) % Plt Count 162 (160-400) X10*3/uL MPV 11.5 (9.4-12.3) fL Immature Gran % (Auto) 0.6 H (0.0-0.4) % Neut % (Auto) 92.8 H (45-73) % Lymph % (Auto) 1.9 L (20-40) % Izard % (Auto) 3.0 (2-11) % Eos % (Auto) 1.6 (0-4) % Baso % (Auto) 0.1 (0-2) % Lymph # (Auto) 0.2 L (1.2-4.9) X10*3/uL [place] # (Auto) 0.3 (0.1-1.2) X10*3/uL Eos # (Auto) 0.2 (0.0-0.4) X10*3/uL Baso # (Auto) 0.0 (0.0-0.2) X10*3/uL Abs Immat Gran (auto) 0.06 H (0.00-0.03) X10*3/uL Absolute Neuts (auto) 9.5 H (2.0-8.3) x10*3/uL Absolute Nucleated RBC 0.000 (0.0-0.012) X10*3/uL Nucleated RBC % (auto) 0.0 (0.0-0.2) /100WBC Smear Tech's Comments VERIFIED Sodium (135-145) mmol/L Potassium (3.3-5.1) mmol/L Chloride (96-108) mmol/L Carbon Dioxide (22-29) mmol/L Anion Gap (12-20) BUN (9-16) mg/dL Creatinine (0.5-1.4) mg/dL Estim Creat Clear Calc Estimated GFR Random Glucose (60-115) mg/dL Calcium (8.4-10.2) mg/dL Magnesium (1.6-2.6) mg/dL Total Bilirubin (0.0-1.0) mg/dL Direct Bilirubin (0.0-0.5) mg/dL AST (5-31) U/L ALT (0-31) U/L Alkaline Phosphatase (39-117) U/L Lactate Dehydrogenase (122-220) U/L Total Creatine Kinase (26-140) U/L C-Reactive Protein (< or = 0.50) mg/dL Total Protein (6.5-8.0) g/dL Albumin (3.5-5.0) g/dL Urine Color Urine Appearance Urine pH (5.0-9.0) Ur Specific [place] (1.005-1.025) Urine Protein (Neg-Trace) mg/dL Urine Glucose (UA) (Negative) mg/dL Urine Ketones (Negative) mg/dL Urine Blood (Negative) Urine Nitrite (Negative) Ur Leukocyte Esterase (Negative) Urine RBC (0-2) /HPF Urine WBC (0-5) /HPF Ur Squamous Epith Cells (0-2) /HPF Ur Transition Epith Cell Ur Renal Epithelial Cell Urine Bacteria (None Seen) Hyaline Casts (0-2) /LPF Urine Test (NEGATIVE) Urine Opiates Screen (Not Detect) Urine Fentanyl Screen (Not Detect) Ur Barbiturates Screen (Not Detect) Ur Phencyclidine Scrn (Not Detect) Ur Amphetamines Screen (Not Detect) U Benzodiazepines Scrn (Not Detect) Urine Cocaine Screen (Not Detect) U Marijuana (THC) Screen (Not Detect) COVID-19 (SAUL) Negative (Negative) COVID-19 Clin Com See Note Influenza Type A (HARRY) Negative (Negative) Influenza Type B (HARRY) Negative (Negative) Influenza A & B Note See Note 07/15/22 07/15/22 07/15/22 Range/Units 09:24 10:42 10:42 WBC (4.8-10.8) X10*3/uL RBC (4.20-5.50) X10*6/uL Hgb (12.0-16.0) g/dl Hct (37.0-47.0) % MCV (80.0-98.0) fL MCH (27.0-33.0) pg MCHC (31.0-35.0) g/dl RDW (11.0-16.0) % Plt Count (160-400) X10*3/uL MPV (9.4-12.3) fL Immature Gran % (Auto) (0.0-0.4) % Neut % (Auto) (45-73) % Lymph % (Auto) (20-40) % [place] % (Auto) (2-11) % Eos % (Auto) (0-4) % Baso % (Auto) (0-2) % Lymph # (Auto) (1.2-4.9) X10*3/uL [place] # (Auto) (0.1-1.2) X10*3/uL Eos # (Auto) (0.0-0.4) X10*3/uL Baso # (Auto) (0.0-0.2) X10*3/uL Abs Immat Gran (auto) (0.00-0.03) X10*3/uL Absolute Neuts (auto) (2.0-8.3) x10*3/uL Absolute Nucleated RBC (0.0-0.012) X10*3/uL Nucleated RBC % (auto) (0.0-0.2) /100WBC Smear Tech's Comments Sodium 138 (135-145) mmol/L Potassium 4.9 D (3.3-5.1) mmol/L Chloride 107 (96-108) mmol/L Carbon Dioxide 23 (22-29) mmol/L Anion Gap 13 (12-20) BUN 21 H (9-16) mg/dL Creatinine 1.68 H (0.5-1.4) mg/dL Estim Creat Clear Calc 40.8 Estimated GFR 34 Random Glucose 134 H (60-115) mg/dL Calcium 9.1 (8.4-10.2) mg/dL Magnesium 1.8 (1.6-2.6) mg/dL Total Bilirubin 1.2 H (0.0-1.0) mg/dL Direct Bilirubin 0.6 H (0.0-0.5) mg/dL AST 517 H (5-31) U/L ALT 834 H (0-31) U/L Alkaline Phosphatase 185 H (39-117) U/L Lactate Dehydrogenase 617 H (122-220) U/L Total Creatine Kinase 74 (26-140) U/L C-Reactive Protein 12.85 H (< or = 0.50) mg/dL Total Protein 6.5 (6.5-8.0) g/dL Albumin 3.5 (3.5-5.0) g/dL Urine Color Dark Yellow Urine Appearance Cloudy Urine pH 7.5 (5.0-9.0) Ur Specific [place] 1.020 (1.005-1.025) Urine Protein 100 (2+) H (Neg-Trace) mg/dL Urine Glucose (UA) Negative (Negative) mg/dL Urine Ketones Trace (Negative) mg/dL Urine Blood Small (1+) H (Negative) Urine Nitrite Negative (Negative) Ur Leukocyte Esterase Moderate (2+) H (Negative) Urine RBC 0-2 (0-2) /HPF Urine WBC >50 H (0-5) /HPF Ur Squamous Epith Cells 6-10 (0-2) /HPF Ur Transition Epith Cell Present Ur Renal Epithelial Cell Present Urine Bacteria None Seen (None Seen) Hyaline Casts 6-10 (0-2) /LPF Urine Test (NEGATIVE) Urine Opiates Screen Not Detected (Not Detect) Urine Fentanyl Screen Not Detected (Not Detect) Ur Barbiturates Screen Not Detected (Not Detect) Ur Phencyclidine Scrn Not Detected (Not Detect) Ur Amphetamines Screen Not Detected (Not Detect) U Benzodiazepines Scrn Not Detected (Not Detect) Urine Cocaine Screen Not Detected (Not Detect) U Marijuana (THC) Screen Not Detected (Not Detect) COVID-19 (SAUL) (Negative) COVID-19 Clin Com Influenza Type A (HARRY) (Negative) Influenza Type B (HARRY) (Negative) Influenza A & B Note 07/15/22 Range/Units 10:42 WBC (4.8-10.8) X10*3/uL RBC (4.20-5.50) X10*6/uL Hgb (12.0-16.0) g/dl Hct (37.0-47.0) % MCV (80.0-98.0) fL MCH (27.0-33.0) pg MCHC (31.0-35.0) g/dl RDW (11.0-16.0) % Plt Count (160-400) X10*3/uL MPV (9.4-12.3) fL Immature Gran % (Auto) (0.0-0.4) % Neut % (Auto) (45-73) % Lymph % (Auto) (20-40) % [place] % (Auto) (2-11) % Eos % (Auto) (0-4) % Baso % (Auto) (0-2) % Lymph # (Auto) (1.2-4.9) X10*3/uL [place] # (Auto) (0.1-1.2) X10*3/uL Eos # (Auto) (0.0-0.4) X10*3/uL Baso # (Auto) (0.0-0.2) X10*3/uL Abs Immat Gran (auto) (0.00-0.03) X10*3/uL Absolute Neuts (auto) (2.0-8.3) x10*3/uL Absolute Nucleated RBC (0.0-0.012) X10*3/uL Nucleated RBC % (auto) (0.0-0.2) /100WBC Smear Tech's Comments Sodium (135-145) mmol/L Potassium (3.3-5.1) mmol/L Chloride (96-108) mmol/L Carbon Dioxide (22-29) mmol/L Anion Gap (12-20) BUN (9-16) mg/dL Creatinine (0.5-1.4) mg/dL Estim Creat Clear Calc Estimated GFR Random Glucose (60-115) mg/dL Calcium (8.4-10.2) mg/dL Magnesium (1.6-2.6) mg/dL Total Bilirubin (0.0-1.0) mg/dL Direct Bilirubin (0.0-0.5) mg/dL AST (5-31) U/L ALT (0-31) U/L Alkaline Phosphatase (39-117) U/L Lactate Dehydrogenase (122-220) U/L Total Creatine Kinase (26-140) U/L C-Reactive Protein (< or = 0.50) mg/dL Total Protein (6.5-8.0) g/dL Albumin (3.5-5.0) g/dL Urine Color Urine Appearance Urine pH (5.0-9.0) Ur Specific [place] (1.005-1.025) Urine Protein (Neg-Trace) mg/dL Urine Glucose (UA) (Negative) mg/dL Urine Ketones (Negative) mg/dL Urine Blood (Negative) Urine Nitrite (Negative) Ur Leukocyte Esterase (Negative) Urine RBC (0-2) /HPF Urine WBC (0-5) /HPF Ur Squamous Epith Cells (0-2) /HPF Ur Transition Epith Cell Ur Renal Epithelial Cell Urine Bacteria (None Seen) Hyaline Casts (0-2) /LPF Urine Test NEGATIVE (NEGATIVE) Urine Opiates Screen (Not Detect) Urine Fentanyl Screen (Not Detect) Ur Barbiturates Screen (Not Detect) Ur Phencyclidine Scrn (Not Detect) Ur Amphetamines Screen (Not Detect) U Benzodiazepines Scrn (Not Detect) Urine Cocaine Screen (Not Detect) U Marijuana (THC) Screen (Not Detect) COVID-19 (SAUL) (Negative) COVID-19 Clin Com Influenza Type A (HARRY) (Negative) Influenza Type B (HARRY) (Negative) Influenza A & B Note <KETURAH Quan - Last Filed: 07/15/22 13:53> Lab Results 07/15/22 07/15/22 07/15/22 Range/Units 09:23 09:23 09:24 WBC 10.2 (4.8-10.8) X10*3/uL RBC 4.56 (4.20-5.50) X10*6/uL Hgb 13.7 (12.0-16.0) g/dl Hct 41.3 (37.0-47.0) % MCV 90.6 (80.0-98.0) fL MCH 30.0 (27.0-33.0) pg MCHC 33.2 (31.0-35.0) g/dl RDW 13.2 (11.0-16.0) % Plt Count 162 (160-400) X10*3/uL MPV 11.5 (9.4-12.3) fL Immature Gran % (Auto) 0.6 H (0.0-0.4) % Neut % (Auto) 92.8 H (45-73) % Lymph % (Auto) 1.9 L (20-40) % [place] % (Auto) 3.0 (2-11) % Eos % (Auto) 1.6 (0-4) % Baso % (Auto) 0.1 (0-2) % Lymph # (Auto) 0.2 L (1.2-4.9) X10*3/uL [place] # (Auto) 0.3 (0.1-1.2) X10*3/uL Eos # (Auto) 0.2 (0.0-0.4) X10*3/uL Baso # (Auto) 0.0 (0.0-0.2) X10*3/uL Abs Immat Gran (auto) 0.06 H (0.00-0.03) X10*3/uL Absolute Neuts (auto) 9.5 H (2.0-8.3) x10*3/uL Absolute Nucleated RBC 0.000 (0.0-0.012) X10*3/uL Nucleated RBC % (auto) 0.0 (0.0-0.2) /100WBC Smear Tech's Comments VERIFIED Sodium (135-145) mmol/L Potassium (3.3-5.1) mmol/L Chloride (96-108) mmol/L Carbon Dioxide (22-29) mmol/L Anion Gap (12-20) BUN (9-16) mg/dL Creatinine (0.5-1.4) mg/dL Estim Creat Clear Calc Estimated GFR Random Glucose (60-115) mg/dL Calcium (8.4-10.2) mg/dL Magnesium (1.6-2.6) mg/dL Total Bilirubin (0.0-1.0) mg/dL Direct Bilirubin (0.0-0.5) mg/dL AST (5-31) U/L ALT (0-31) U/L Alkaline Phosphatase (39-117) U/L Lactate Dehydrogenase (122-220) U/L Total Creatine Kinase (26-140) U/L C-Reactive Protein (< or = 0.50) mg/dL Total Protein (6.5-8.0) g/dL Albumin (3.5-5.0) g/dL Urine Color Urine Appearance Urine pH (5.0-9.0) Ur Specific [place] (1.005-1.025) Urine Protein (Neg-Trace) mg/dL Urine Glucose (UA) (Negative) mg/dL Urine Ketones (Negative) mg/dL Urine Blood (Negative) Urine Nitrite (Negative) Ur Leukocyte Esterase (Negative) Urine RBC (0-2) /HPF Urine WBC (0-5) /HPF Ur Squamous Epith Cells (0-2) /HPF Ur Transition Epith Cell Ur Renal Epithelial Cell Urine Bacteria (None Seen) Hyaline Casts (0-2) /LPF Urine Test (NEGATIVE) Urine Opiates Screen (Not Detect) Urine Fentanyl Screen (Not Detect) Ur Barbiturates Screen (Not Detect) Ur Phencyclidine Scrn (Not Detect) Ur Amphetamines Screen (Not Detect) U Benzodiazepines Scrn (Not Detect) Urine Cocaine Screen (Not Detect) U Marijuana (THC) Screen (Not Detect) COVID-19 (SAUL) Negative (Negative) COVID-19 Clin Com See Note Influenza Type A (HARRY) Negative (Negative) Influenza Type B (HARRY) Negative (Negative) Influenza A & B Note See Note 07/15/22 07/15/22 07/15/22 Range/Units 09:24 10:42 10:42 WBC (4.8-10.8) X10*3/uL RBC (4.20-5.50) X10*6/uL Hgb (12.0-16.0) g/dl Hct (37.0-47.0) % MCV (80.0-98.0) fL MCH (27.0-33.0) pg MCHC (31.0-35.0) g/dl RDW (11.0-16.0) % Plt Count (160-400) X10*3/uL MPV (9.4-12.3) fL Immature Gran % (Auto) (0.0-0.4) % Neut % (Auto) (45-73) % Lymph % (Auto) (20-40) % [place] % (Auto) (2-11) % Eos % (Auto) (0-4) % Baso % (Auto) (0-2) % Lymph # (Auto) (1.2-4.9) X10*3/uL [place] # (Auto) (0.1-1.2) X10*3/uL Eos # (Auto) (0.0-0.4) X10*3/uL Baso # (Auto) (0.0-0.2) X10*3/uL Abs Immat Gran (auto) (0.00-0.03) X10*3/uL Absolute Neuts (auto) (2.0-8.3) x10*3/uL Absolute Nucleated RBC (0.0-0.012) X10*3/uL Nucleated RBC % (auto) (0.0-0.2) /100WBC Smear Tech's Comments Sodium 138 (135-145) mmol/L Potassium 4.9 D (3.3-5.1) mmol/L Chloride 107 (96-108) mmol/L Carbon Dioxide 23 (22-29) mmol/L Anion Gap 13 (12-20) BUN 21 H (9-16) mg/dL Creatinine 1.68 H (0.5-1.4) mg/dL Estim Creat Clear Calc 40.8 Estimated GFR 34 Random Glucose 134 H (60-115) mg/dL Calcium 9.1 (8.4-10.2) mg/dL Magnesium 1.8 (1.6-2.6) mg/dL Total Bilirubin 1.2 H (0.0-1.0) mg/dL Direct Bilirubin 0.6 H (0.0-0.5) mg/dL AST 517 H (5-31) U/L ALT 834 H (0-31) U/L Alkaline Phosphatase 185 H (39-117) U/L Lactate Dehydrogenase 617 H (122-220) U/L Total Creatine Kinase 74 (26-140) U/L C-Reactive Protein 12.85 H (< or = 0.50) mg/dL Total Protein 6.5 (6.5-8.0) g/dL Albumin 3.5 (3.5-5.0) g/dL Urine Color Dark Yellow Urine Appearance Cloudy Urine pH 7.5 (5.0-9.0) Ur Specific [place] 1.020 (1.005-1.025) Urine Protein 100 (2+) H (Neg-Trace) mg/dL Urine Glucose (UA) Negative (Negative) mg/dL Urine Ketones Trace (Negative) mg/dL Urine Blood Small (1+) H (Negative) Urine Nitrite Negative (Negative) Ur Leukocyte Esterase Moderate (2+) H (Negative) Urine RBC 0-2 (0-2) /HPF Urine WBC >50 H (0-5) /HPF Ur Squamous Epith Cells 6-10 (0-2) /HPF Ur Transition Epith Cell Present Ur Renal Epithelial Cell Present Urine Bacteria None Seen (None Seen) Hyaline Casts 6-10 (0-2) /LPF Urine Test (NEGATIVE) Urine Opiates Screen Not Detected (Not Detect) Urine Fentanyl Screen Not Detected (Not Detect) Ur Barbiturates Screen Not Detected (Not Detect) Ur Phencyclidine Scrn Not Detected (Not Detect) Ur Amphetamines Screen Not Detected (Not Detect) U Benzodiazepines Scrn Not Detected (Not Detect) Urine Cocaine Screen Not Detected (Not Detect) U Marijuana (THC) Screen Not Detected (Not Detect) COVID-19 (SAUL) (Negative) COVID-19 Clin Com Influenza Type A (HARRY) (Negative) Influenza Type B (HARRY) (Negative) Influenza A & B Note 07/15/22 Range/Units 10:42 WBC (4.8-10.8) X10*3/uL RBC (4.20-5.50) X10*6/uL Hgb (12.0-16.0) g/dl Hct (37.0-47.0) % MCV (80.0-98.0) fL MCH (27.0-33.0) pg MCHC (31.0-35.0) g/dl RDW (11.0-16.0) % Plt Count (160-400) X10*3/uL MPV (9.4-12.3) fL Immature Gran % (Auto) (0.0-0.4) % Neut % (Auto) (45-73) % Lymph % (Auto) (20-40) % [place] % (Auto) (2-11) % Eos % (Auto) (0-4) % Baso % (Auto) (0-2) % Lymph # (Auto) (1.2-4.9) X10*3/uL [place] # (Auto) (0.1-1.2) X10*3/uL Eos # (Auto) (0.0-0.4) X10*3/uL Baso # (Auto) (0.0-0.2) X10*3/uL Abs Immat Gran (auto) (0.00-0.03) X10*3/uL Absolute Neuts (auto) (2.0-8.3) x10*3/uL Absolute Nucleated RBC (0.0-0.012) X10*3/uL Nucleated RBC % (auto) (0.0-0.2) /[employer] Smear Tech's Comments Sodium (135-145) mmol/L Potassium (3.3-5.1) mmol/L Chloride (96-108) mmol/L Carbon Dioxide (22-29) mmol/L Anion Gap (12-20) BUN (9-16) mg/dL Creatinine (0.5-1.4) mg/dL Estim Creat Clear Calc Estimated GFR Random Glucose (60-115) mg/dL Calcium (8.4-10.2) mg/dL Magnesium (1.6-2.6) mg/dL Total Bilirubin (0.0-1.0) mg/dL Direct Bilirubin (0.0-0.5) mg/dL AST (5-31) U/L ALT (0-31) U/L Alkaline Phosphatase (39-117) U/L Lactate Dehydrogenase (122-220) U/L Total Creatine Kinase (26-140) U/L C-Reactive Protein (< or = 0.50) mg/dL Total Protein (6.5-8.0) g/dL Albumin (3.5-5.0) g/dL Urine Color Urine Appearance Urine pH (5.0-9.0) Ur Specific [place] (1.005-1.025) Urine Protein (Neg-Trace) mg/dL Urine Glucose (UA) (Negative) mg/dL Urine Ketones (Negative) mg/dL Urine Blood (Negative) Urine Nitrite (Negative) Ur Leukocyte Esterase (Negative) Urine RBC (0-2) /HPF Urine WBC (0-5) /HPF Ur Squamous Epith Cells (0-2) /HPF Ur Transition Epith Cell Ur Renal Epithelial Cell Urine Bacteria (None Seen) Hyaline Casts (0-2) /LPF Urine Test NEGATIVE (NEGATIVE) Urine Opiates Screen (Not Detect) Urine Fentanyl Screen (Not Detect) Ur Barbiturates Screen (Not Detect) Ur Phencyclidine Scrn (Not Detect) Ur Amphetamines Screen (Not Detect) U Benzodiazepines Scrn (Not Detect) Urine Cocaine Screen (Not Detect) U Marijuana (THC) Screen (Not Detect) COVID-19 (SAUL) (Negative) COVID-19 Clin Com Influenza Type A (HARRY) (Negative) Influenza Type B (HARRY) (Negative) Influenza A & B Note <Fabio Denton MD - Last Filed: 07/15/22 16:15> Independent Interpretation I performed an independent interpretation of an: EKG <KETURAH Quan - Last Filed: 07/15/22 13:53> Interpretation: normal sinus rhythm, ventricular rate 77 beats per minute, normal MI interval, normal QTC, no ST segment elevations or depressions. <KETURAH Quan - Last Filed: 07/15/22 13:53> Radiology Impression Discussion of test interpretation with radiology: I have reviewed the radiologist's reading. <KETURAH Quan - Last Filed: 07/15/22 13:53> Radiologist Impression: IMPRESSION: Normal right upper quadrant ultrasound. <KETURAH Quan - Last Filed: 07/15/22 13:53> Prescription Management I considered prescription management with: Pain Medication, Antiviral and Antibiotic <KETURAH Quan - Last Filed: 07/15/22 13:53> No indication for antibiotics or antivirals given no infectious source was identified. Benadryl and steroids used to treat her symptoms. <KETURAH Quan - Last Filed: 07/15/22 13:53> Chronic Conditions Patient?s care impacted by: Other ( Lupus, autoimmune disease) <KETURAH Quan - Last Filed: 07/15/22 13:53> Attestation Attending Attestation: I personally reviewed PA/resident/nurse practitioner note. I reviewed a all results and treatment plan. I agree with the assessment and plan. I personally participated in all aspects of care including history, physical disposition. I agree with disposition <Fabio Denton MD - Last Filed: 07/15/22 16:15> Critical Care Time Critical Care Time Critical Care Time: Yes <KETURAH Quan - Last Filed: 07/15/22 13:53> Total Critical Care Time: 35 <KETURAH Quan - Last Filed: 07/15/22 13:53> Attestation: I have personally provided critical care time exclusive of time spent on separately billable procedures. Time includes review of lab data, radiology results, discussion with consultants, and monitoring for potential decompensation. Intervention performed as documented. <KETURAH Quan - Last Filed: 07/15/22 13:53> Discharge Plan Discharge Clinical Impression: Acute hepatitis, Dermatitis, LINK (acute kidney injury) <KETURAH Quan - Last Filed: 07/15/22 13:53> Patient Disposition: Admitted As Inpatient <KETURAH Quan - Last Filed: 07/15/22 13:53>
--- NOTE | 2022-07-15 09:06 | ECG_ITS ---
Test Reason : DIZZINESS Blood Pressure : / mmHG Vent. Rate : 077 BPM Atrial Rate : 077 BPM P-R Int : 156 ms QRS Dur : 072 ms QT Int : 390 ms P-R-T Axes : 068 031 030 degrees QTc Int : 441 ms Normal sinus rhythm Possible Left atrial enlargement Borderline ECG No previous ECGs available Referred By: Kia Schmidt Electronically Signed By:SUSHILA HOLLIS MD
[2022-07-15 09:12] VITALS: BP 109/51; PULSE 93; RESP 15; O2SAT 100
[2022-07-15] MEDS: 0.9 % Sodium Chloride 1,000 ML 999 ML IVCONT ×2 (09:25→14:44)
[2022-07-15] MEDS: ondansetron HCL 4 MG/2 ML VIAL IVPUSH (09:25)
[2022-07-15] MEDS: Famotidine/PF 20 MG/2 ML VIAL IVPUSH (09:28)
[2022-07-15] MEDS: diphenhydrAMINE HCL 50 MG/ML VIAL IVPUSH (09:28)
[2022-07-15] MEDS: methylPREDNISolone Sod Succ 125 MG/2 ML VIAL IVPUSH (09:28)
[2022-07-15 09:30] LABS: Basophils Percent Auto 0.1 % (0-2); Eosinophils Absolute Auto 0.2 X10*3/uL (0.0-0.4); Eosinophils Percent Auto 1.6 % (0-4); Hematocrit 41.3 % (37.0-47.0); Hemoglobin 13.7 g/dl (12.0-16.0); Imm Gran Abs Auto 0.06 X10*3/uL (0.00-0.03); Imm Gran Pct Auto 0.6 % (0.0-0.4); Lymphocytes Absolute Auto 0.2 X10*3/uL (1.2-4.9); Lymphocytes Percent Auto 1.9 % (20-40); MANUAL DIFF FLAG SCAN; Mean Corpuscular HGB Conc 33.2 g/dl (31.0-35.0); Mean Corpuscular Volume 90.6 fL (80.0-98.0); Mean Platelet Volume 11.5 fL (9.4-12.3); Monocytes Absolute Auto 0.3 X10*3/uL (0.1-1.2); Neutrophils Absolute Auto 9.5 x10*3/uL (2.0-8.3); Neutrophils Percent Auto 92.8 % (45-73); Platelet Count 162 X10*3/uL (160-400); Red Blood Count 4.56 X10*6/uL (4.20-5.50); Red Cell Distribution Width 13.2 % (11.0-16.0); SCAN SMEAR FLAG 1; White Blood Count 10.2 X10*3/uL (4.8-10.8)
[2022-07-15 09:46] LABS: Alanine Aminotransferase 834 U/L (0-31); Albumin Level 3.5 g/dL (3.5-5.0); Alkaline Phosphatase 185 U/L (39-117); Anion Gap 13 (12-20); Aspartate Amino Transferase 517 U/L (5-31); Bilirubin Direct 0.6 mg/dL (0.0-0.5); Bilirubin Total 1.2 mg/dL (0.0-1.0); Blood Urea Nitrogen 21 mg/dL (9-16); Calcium 9.1 mg/dL (8.4-10.2); Carbon Dioxide 23 mmol/L (22-29); Chloride 107 mmol/L (96-108); Creatinine Clr Calc Pharmacy 40.8; Estimated Glomerular Filt Rate 34; Glucose Random 134 mg/dL (60-115); Magnesium 1.8 mg/dL (1.6-2.6); Potassium 4.9 mmol/L (3.3-5.1); Sodium 138 mmol/L (135-145); Total Protein 6.5 g/dL (6.5-8.0)
[2022-07-15 09:46] LABS: COVID-19 Test Negative (Negative); IDNOW Serial# 9DB6401D
[2022-07-15 09:47] LABS: IDNOW Serial# BCCEAD1C; Influenza A Negative (Negative); Influenza B2 Negative (Negative)
[2022-07-15 09:56] LABS: SLIDE REVIEW VERIFIED
[2022-07-15 10:30] VITALS: BP 108/48; PULSE 73
[2022-07-15 10:32] VITALS: BP 105/53; BP 107/53; PULSE 79; PULSE 80
[2022-07-15 10:53] LABS: Appearance Urine Cloudy; Color Urine Dark Yellow; Glucose Urine UA Negative (Negative); Leukocyte Esterase Urine Moderate (2+) (Negative); Nitrite Urine Negative (Negative); PH 7.5 (5.0-9.0); UMIC TRIGGER UACC YES; Urine Blood Small (1+) (Negative); Urine Ketones Trace mg/dL (Negative); Urine Protein 100 (2+) mg/dL (Neg-Trace)
[2022-07-15 11:01] LABS: Amphetamine Screen Urine Not Detected (Not Detect); Barbiturates, Urine Not Detected (Not Detect); Benzodiazepines Screen Urine Not Detected (Not Detect); Cannabinoid Screen Urine Not Detected (Not Detect); Cocaine Screen Urine Not Detected (Not Detect); Fentanyl, urine Not Detected (Not Detect); Opiate Screen Urine Not Detected (Not Detect); Phencyclidine Screen Urine Not Detected (Not Detect)
[2022-07-15 11:05] LABS: Lactate Dehydrogenase 617 U/L (122-220)
[2022-07-15 11:08] LABS: Bacteria Urine None Seen (None Seen); RBC Urine 0-2 /HPF (0-2); Renal Epithelial Cells Urine Present; Transitional Epi Cells Urine Present; UACC Culture Trigger YES; WBC Urine >50 /HPF (0-5)
[2022-07-15 11:17] LABS: UPreg QC Valid YES; Urine Pregnancy NEGATIVE (NEGATIVE)
[2022-07-15 13:16] VITALS: BP 111/62; PULSE 84; RESP 15; O2SAT 98
[2022-07-15 14:11] LABS: C Reactive Protein 12.85 mg/dL (< or = 0.50)
--- NOTE | 2022-07-15 14:13 | PHA.MEDREC ---
Pharmacy Consult ? Medication Reconciliation Pharmacy has completed the medication reconciliation. Spoke to patient.
--- NOTE | 2022-07-15 14:46 | P.HPHOSP_ITS ---
History of Present Illness Date of Service: 07/15/22 <KETURAH Olguin - Last Filed: 07/15/22 15:56> Attending physician on admission: Kelsey Kearney <KETURAH Olguin - Last Filed: 07/15/22 15:56> Chief Complaint: Diffuse red rash on body <KETURAH Olguin - Last Filed: 07/15/22 15:56> Pt is a 37-year-old female with a PMH significant for?autoimmune disorder previously diagnosed as Sjogren's in 2010 now 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 Patient states that she woke up yesterday feeling ill: febrile at 103, fevers, chills, nausea, vomiting, lightheadedness, and dizziness. Patient also noticed a red, itchy rash in the cubital fossae region of her arms bilaterally. Rash since spread diffusely to her inner thighs, back, and abdomen. There is no facial involvement. Patient feels that her lips are swollen, but denies any difficulty swallowing or breathing. Patient denies chest pain/pressure, palpitations. No SOB, abdominal pain. Patient notes that her brim cutter recently had her switch from ibuprofen to naproxen for joint pain. Patient states she normally only takes ibuprofen 1-2 times per month, but she began taking Aleve this Monday for joint pain and continued until yesterday. Of note patient developed a similar rash in October 2018, 6 weeks after she started sulfasalazine. She was admitted to the hospital and developed transaminitis. Skin biopsy showed possible drug reaction. Patient was treated with IV steroids and rash improved. Patient states that her current condition feels and seems similar to then. Pt currently has no acute complaints other than her rash. In the ED patient was hypotensive at 118/36. Labs were significant for WBC WNL, creatinine elevated at 1.68, transaminitis with AST of 517 and ALT 834 and alk- phos of 185, lactate dehydrogenase of 617, C reactive protein of 12.85, ERCP pending, haptoglobin pending. UA clear for UTI. Abdominal ultrasound was negative. EKG showed normal sinus rhythm with no evidence of acute ischemia. Pt was treated with IVF, diphenhydramine, and Solu-Medrol. Pt will be admitted to the hospital for evaluation and treatment of drug-induced transaminitis, LINK, and rash with IVF and IV steroids. <KETURAH Olguin - Last Filed: 07/15/22 15:56> Review of Systems Review of Systems: Diffuse red, itchy rash Nausea, vomiting, fever, chills Lightheadedness, dizziness No chest pain/pressure, palpitations Denies shortness of breath, dysphagia No abdominal pain <KETURAH Olguin - Last Filed: 07/15/22 15:56> Yes all other systems are reviewed and are negative <KETURAH Olguin - Last Filed: 07/15/22 15:56> [facility] Medical History: Medical History Cervical cancer screening Hypertension Migraines PVCs (premature ventricular contractions) Vasovagal syncope <KETURAH Olguin - Last Filed: 07/15/22 15:56> Family History: Family History Father No problems noted. Mother Bipolar 1 disorder Chronic mental illness Family history of thyroid problem Maternal Grandmother Hypertension Maternal Grandfather No problems noted. Maternal Aunt CAD (coronary artery disease) Sister Depression Bipolar 1 disorder Brother Depression Depression with anxiety <KETURAH Olguin - Last Filed: 07/15/22 15:56> Surgical History: Surgical History History of surgical biopsy <KETURAH Olguin Last Filed: 07/15/22 15:56> Social History: Social History Household Members: Family Housing: House Alcohol intake: current Alcohol intake frequency: a few times a month Alcohol type: wine Patient Tobacco Use Status: Never used Tobacco Smoked in Last 30 Days: No e-Cigarette/Vaping Use: Never Used Second Hand Smoke Exposure: Yes Use of substances other than those prescribed or required for medical reasons: No Advance Directives: No Advance Directives Information Provided: Yes Patient : No service: No Current occupational status: employed 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 [employer] Cognitive needs: No Hearing needs: No Vision needs: Yes <KETURAH Olguin - Last Filed: 07/15/22 15:56> Meds Allergies/Adverse reactions: Allergies Allergy/AdvReac Type Severity Reaction Status Date / Time sulfasalazine Allergy Severe redness Verified 07/15/22 08:54 and itching Sulfa (Sulfonamide Allergy Rash Verified 07/15/22 08:54 Antibiotics) <KETURAH Olguin - Last Filed: 07/15/22 15:56> Active Medications: Current Medications Sodium Chloride (Ns) 1,000 mls @ 999 mls/hr IVCONT .Q1H1M RAFAELA Stop: 07/15/22 15:00 Last Admin: 07/15/22 14:44 Dose: 999 mls/hr Pharmacy Consult (Consult Rx Perform Med Rec) 1 each MISCELLANE ONCE PRN PRN Reason: Consult order <KETURAH Olguin - Last Filed: 07/15/22 15:56> Home medications: Home Medications Medication Instructions Recorded Confirmed Last Taken Type etonogestrel 68 mg subdermal See Rx Instructions .Route .COMPLEX 04/07/20 07/15/22 Unknown History implant (Nexplanon) levonorgestrel 20 mcg/24 hours (8 See Rx Instructions .Route .COMPLEX 05/11/22 07/15/22 Unknown History yrs) 52 mg intrauterine device (Mirena) multivitamin 1 tab PO DAILY 07/15/22 07/15/22 07/14/22 History naproxen sodium 220 mg tablet 220 mg PO Q12H PRN Pain or 07/15/22 07/15/22 07/14/22 History (Aleve) inflammation sumatriptan succinate 25 mg tablet 25 mg PO Q2H PRN Migraine Headache 07/15/22 07/15/22 Unknown History (Imitrex) <KETURAH Olguin - Last Filed: 07/15/22 15:56> Physical Exam Vital Signs and Narrative: Vital Signs: Last Vital Signs Temp 98.0 F 07/15/22 08:48 Pulse 84 07/15/22 13:16 Resp 15 07/15/22 13:16 BP 111/62 07/15/22 13:16 Pulse Ox 98 07/15/22 13:16 O2 Del Method 07/15/22 13:16 BMI result Body Mass Index 22.1 <KETURAH Olguin - Last Filed: 07/15/22 15:56> Constitutional: Alert, in no acute distress. Mental Status: Oriented to person, place and time. Eyes: Pupils are equal, round, and reactive to light. Ear, Nose, and Throat: Oropharynx clear, mucous dry. Ears and nose without deformities. Trachea midline. Respiratory: Clear to auscultation bilaterally. No wheezing, rales, or rhonchi. Cardiovascular: S1, S2 regular. No murmurs, rubs, or gallops. Gastrointestinal: Abdomen soft, non-tender, non-distended. Normal bowel sounds. Neurologic: Cranial nerves II-XI are grossly intact. No focal neurological deficits. Moves all extremities spontaneously. Skin: Diffuse, erythematous, maculopapular rash from the neck to feet, especially in AC bilatereally, inner thighs, back, and abdomen. As picture below: Musculoskeletal: No cyanosis or clubbing. Extremities: No edema. Psychiatric: Normal mood and affect. <KETURAH Olguin - Last Filed: 07/15/22 15:56> Results Labs CBC and Chem 7: 07/15/22 09:24 07/15/22 09:24 <KETUARH Olguin - Last Filed: 07/15/22 15:56> Labs: Laboratory Results - last 24 hr 07/15/22 07/15/22 07/15/22 09:23 09:23 09:24 MCV 90.6 MCH 30.0 MCHC 33.2 RDW 13.2 Plt Count 162 MPV 11.5 Immature Gran % (Auto) 0.6 H Neut % (Auto) 92.8 H Lymph % (Auto) 1.9 L [place] % (Auto) 3.0 Eos % (Auto) 1.6 Baso % (Auto) 0.1 Lymph # (Auto) 0.2 L [place] # (Auto) 0.3 Eos # (Auto) 0.2 Baso # (Auto) 0.0 Abs Immat Gran (auto) 0.06 H Absolute Neuts (auto) 9.5 H Absolute Nucleated RBC 0.000 Nucleated RBC % (auto) 0.0 Smear Tech's Comments VERIFIED Anion Gap Estim Creat Clear Calc Estimated GFR Random Glucose Calcium Magnesium Total Bilirubin Direct Bilirubin AST ALT Alkaline Phosphatase Lactate Dehydrogenase Total Creatine Kinase C-Reactive Protein Total Protein Albumin Urine Color Urine Appearance Urine pH Ur Specific [place] Urine Protein Urine Glucose (UA) Urine Ketones Urine Blood Urine Nitrite Ur Leukocyte Esterase Urine RBC Urine WBC Ur Squamous Epith Cells Ur Transition Epith Cell Ur Renal Epithelial Cell Urine Bacteria Hyaline Casts Urine Test Urine Opiates Screen Urine Fentanyl Screen Ur Barbiturates Screen Ur Phencyclidine Scrn Ur Amphetamines Screen U Benzodiazepines Scrn Urine Cocaine Screen U Marijuana (THC) Screen COVID-19 (SAUL) Negative COVID-19 Clin Com See Note Influenza Type A (HARRY) Negative Influenza Type B (HARRY) Negative Influenza A & B Note See Note 07/15/22 07/15/22 07/15/22 09:24 10:42 10:42 MCV MCH MCHC RDW Plt Count MPV Immature Gran % (Auto) Neut % (Auto) Lymph % (Auto) [place] % (Auto) Eos % (Auto) Baso % (Auto) Lymph # (Auto) [place] # (Auto) Eos # (Auto) Baso # (Auto) Abs Immat Gran (auto) Absolute Neuts (auto) Absolute Nucleated RBC Nucleated RBC % (auto) Smear Tech's Comments Anion Gap 13 Estim Creat Clear Calc 40.8 Estimated GFR 34 Random Glucose 134 H Calcium 9.1 Magnesium 1.8 Total Bilirubin 1.2 H Direct Bilirubin 0.6 H AST 517 H ALT 834 H Alkaline Phosphatase 185 H Lactate Dehydrogenase 617 H Total Creatine Kinase 74 C-Reactive Protein 12.85 H Total Protein 6.5 Albumin 3.5 Urine Color Dark Yellow Urine Appearance Cloudy Urine pH 7.5 Ur Specific [place] 1.020 Urine Protein 100 (2+) H Urine Glucose (UA) Negative Urine Ketones Trace Urine Blood Small (1+) H Urine Nitrite Negative Ur Leukocyte Esterase Moderate (2+) H Urine RBC 0-2 Urine WBC >50 H Ur Squamous Epith Cells 6-10 Ur Transition Epith Cell Present Ur Renal Epithelial Cell Present Urine Bacteria None Seen Hyaline Casts 6-10 Urine Test Urine Opiates Screen Not Detected Urine Fentanyl Screen Not Detected Ur Barbiturates Screen Not Detected Ur Phencyclidine Scrn Not Detected Ur Amphetamines Screen Not Detected U Benzodiazepines Scrn Not Detected Urine Cocaine Screen Not Detected U Marijuana (THC) Screen Not Detected COVID-19 (SAUL) COVID-19 Clin Com Influenza Type A (HARRY) Influenza Type B (HARRY) Influenza A & B Note 07/15/22 10:42 MCV MCH MCHC RDW Plt Count MPV Immature Gran % (Auto) Neut % (Auto) Lymph % (Auto) [place] % (Auto) Eos % (Auto) Baso % (Auto) Lymph # (Auto) [place] # (Auto) Eos # (Auto) Baso # (Auto) Abs Immat Gran (auto) Absolute Neuts (auto) Absolute Nucleated RBC Nucleated RBC % (auto) Smear Tech's Comments Anion Gap Estim Creat Clear Calc Estimated GFR Random Glucose Calcium Magnesium Total Bilirubin Direct Bilirubin AST ALT Alkaline Phosphatase Lactate Dehydrogenase Total Creatine Kinase C-Reactive Protein Total Protein Albumin Urine Color Urine Appearance Urine pH Ur Specific [place] Urine Protein Urine Glucose (UA) Urine Ketones Urine Blood Urine Nitrite Ur Leukocyte Esterase Urine RBC Urine WBC Ur Squamous Epith Cells Ur Transition Epith Cell Ur Renal Epithelial Cell Urine Bacteria Hyaline Casts Urine Test NEGATIVE Urine Opiates Screen Urine Fentanyl Screen Ur Barbiturates Screen Ur Phencyclidine Scrn Ur Amphetamines Screen U Benzodiazepines Scrn Urine Cocaine Screen U Marijuana (THC) Screen COVID-19 (SAUL) COVID-19 Clin Com Influenza Type A (HARRY) Influenza Type B (HARRY) Influenza A & B Note <KETURAH Olguin - Last Filed: 07/15/22 15:56> Imaging Radiologist's Impressions: Impressions Abdomen Ultrasound 07/15/22 12:05 IMPRESSION: Normal right upper quadrant ultrasound. <KETURAH Olguin - Last Filed: 07/15/22 15:56> Assessment and Plan (1) Drug-induced skin rash: Status: Acute <KETURAH Olguin - Last Filed: 07/15/22 15:56> (2) LINK (acute kidney injury): Status: Acute <KETURAH Olguin - Last Filed: 07/15/22 15:56> (3) SLE (systemic lupus erythematosus): Status: Acute <KETURAH Olguin - Last Filed: 07/15/22 15:56> (4) Transaminitis: Status: Acute <KETURAH Olguin - Last Filed: 07/15/22 15:56> Pt is a 37-year-old female with a PMH significant for?autoimmune disorder previously diagnosed as Sjogren's in 2010 now 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 Pt will be admitted to the hospital for evaluation and treatment of drug-induced transaminitis, LINK, and rash with IVF and IV steroids. Diffuse, erythematous skin rash Likely drug-induced reaction from naproxen, less likely SLE IV Solu-Medrol 40 mg q6 IVF Hold hydroxychloroquine Check C3 &C4 levels Check ESR, haptoglobin Check protein creatinine ratio Transaminitis Likely drug-induced hepatotoxicity from naproxen Treat as above with IVF and IV steroids Follow labs LINK Likely multifactorial from GI losses from vomiting, naproxen nephrotoxicity IVF Follow labs HTN BP a little soft Hold amlodipine Full Code Attending:?Dr. Kearney DVT Prophylaxis: None, pt ambulatory Pt will require a hospitalization of at least two nights for evaluation and treatment of drug-induced transaminitis, LINK, and rash with IVF and IV steroids. . <KETURAH Olguin - Last Filed: 07/15/22 15:56> Pt is a 37-year-old female with a PMH significant for?autoimmune disorder previously diagnosed as Sjogren's in 2010 now 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 Pt will be admitted to the hospital for evaluation and treatment of drug-induced transaminitis, LINK, and rash with IVF and IV steroids. Diffuse, erythematous skin rash Likely drug-induced reaction from aleve, question related to SLE IV Solu-Medrol 40 mg q6 IVF Hold hydroxychloroquine Check C3 &C4 levels, ESR, haptoglobin Check protein creatinine ratio Transaminitis Likely drug-induced hepatotoxicity from aleve, renal ultrasound negative Treat as above with IVF and IV steroids Follow labs LINK Likely multifactorial from GI losses from vomiting, naproxen nephrotoxicity IVF Follow labs HTN BP a little soft Hold amlodipine Full Code Attending:?Dr. Kearney DVT Prophylaxis: None, pt ambulatory Pt will require a hospitalization of at least two nights for evaluation and treatment of drug-induced transaminitis, LINK, and rash with IVF and IV steroids. . <Kelsey Kearney MD - Last Filed: 07/15/22 16:48> Time Spent With Patient Time: Total time managing care of this patient today ____ minutes. <KETURAH Olguin - Last Filed: 07/15/22 15:56> Quality Stroke Does the patient have a stroke diagnosis?: No <KETURAH Olguin - Last Filed: 07/15/22 15:56> VTE Prior VTE?: No <KETURAH Olguin - Last Filed: 07/15/22 15:56> VTE Risk Level:: Medical - low <KETURAH Olguin - Last Filed: 07/15/22 15:56> VTE Device Contraindication: Treatment Not Indicated <KETURAH Olguin - Last Filed: 07/15/22 15:56> VTE Drug Contraindication: Treatment Not Indicated <KETURAH Olguin - Last Filed: 07/15/22 15:56>
[2022-07-15 16:18] LABS: Erythrocyte Sedimentation Rate 18 MM/HR (0-20)
[2022-07-15] MEDS: Lactated Ringers 1,000 ML 100 ML IVCONT (16:23)
[2022-07-15] MEDS: 0.9 % Sodium Chloride Flush 3 ML SYRINGE IVFLUSH ×2 (16:23→20:30)
[2022-07-15] MEDS: methylPREDNISolone Sod Succ 40 MG/ML VIAL IVPUSH ×2 (16:23→20:30)
[2022-07-15 16:24] LABS: Alanine Aminotransferase 737 U/L (0-31); Albumin Level 3.5 g/dL (3.5-5.0); Alkaline Phosphatase 172 U/L (39-117); Anion Gap 15 (12-20); Aspartate Amino Transferase 348 U/L (5-31); Bilirubin Total 0.9 mg/dL (0.0-1.0); Blood Urea Nitrogen 18 mg/dL (9-16); Calcium 8.6 mg/dL (8.4-10.2); Carbon Dioxide 17 mmol/L (22-29); Chloride 110 mmol/L (96-108); Creatinine Clr Calc Pharmacy 52.4; Estimated Glomerular Filt Rate 45; Glucose Random 100 mg/dL (60-115); Potassium 4.5 mmol/L (3.3-5.1); Sodium 137 mmol/L (135-145); Total Protein 6.6 g/dL (6.5-8.0)
--- NOTE | 2022-07-15 16:34 | MHC.CM.PN ---
CM met with admitted patient pending transfer to room 374. A&Ox4. Independent. 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 Lives with Hawk Dennis. No DME/Services. HCP on file. HCP Tutu Ulrich ([phone]). D/C plan: Home without services. Pt will drive herself home. CM will follow for discharge needs.
--- NOTE | 2022-07-15 16:54 | PC.NURSE ---
Report called and given to floor RN. Patient transport paged.
[2022-07-15 17:28] VITALS: BMI 25.0
[2022-07-15 20:00] VITALS: BP 120/62; PULSE 65; RESP 18; TEMP 36.2; O2SAT 98
[2022-07-15] MEDS: Famotidine 20 MG TABLET PO (20:30)
[2022-07-16] MEDS: diphenhydrAMINE HCL 50 MG/ML VIAL IVPUSH (01:44)
[2022-07-16] MEDS: methylPREDNISolone Sod Succ 40 MG/ML VIAL IVPUSH ×3 (02:31→16:36)
[2022-07-16] MEDS: Lactated Ringers 1,000 ML 100 ML IVCONT ×2 (02:33→10:47)
[2022-07-16 04:00] VITALS: BP 117/70; PULSE 75; RESP 18; TEMP 36.2; O2SAT 100
[2022-07-16 08:00] VITALS: BP 123/75; PULSE 69; RESP 18; TEMP 36.6; O2SAT 99
[2022-07-16 08:12] LABS: Alanine Aminotransferase 717 U/L (0-31); Albumin Level 3.7 g/dL (3.5-5.0); Alkaline Phosphatase 179 U/L (39-117); Anion Gap 12 (12-20); Aspartate Amino Transferase 269 U/L (5-31); Bilirubin Direct 0.2 mg/dL (0.0-0.5); Bilirubin Total 0.4 mg/dL (0.0-1.0); Blood Urea Nitrogen 17 mg/dL (9-16); Calcium 9.3 mg/dL (8.4-10.2); Carbon Dioxide 19 mmol/L (22-29); Chloride 112 mmol/L (96-108); Creatinine Clr Calc Pharmacy 62.4; Estimated Glomerular Filt Rate 56; Glucose Random 127 mg/dL (60-115); Potassium 4.1 mmol/L (3.3-5.1); Sodium 139 mmol/L (135-145); Total Protein 6.8 g/dL (6.5-8.0)
[2022-07-16 08:53] LABS: HBS Num1 0.47 mIU/mL (0-7.99); HBc Num1 0.16 S/CO (0.00-0.79); HBsAGNum1 0.47 S/CO (0.00-0.99); Hepatitis A Antibody IgM 0.45 Index (0-0.79); Hepatitis B Core Antibody Nonreactive (Nonreactive); Hepatitis B Surface Antigen Negative (Negative); ~HepC Num1 0.36 S/CO (0.00-0.79); ~Hepatitis A Antibody IgM Nonreactive (Nonreactive); ~Hepatitis B Surface Antibody NONREACTIVE (Nonreactive); ~Hepatitis C Antibody Nonreactive (Nonreactive)
[2022-07-16] MEDS: Calcium + Vitamin D 250 MG TABLET 500 MG PO (09:09)
[2022-07-16] MEDS: 0.9 % Sodium Chloride Flush 3 ML SYRINGE IVFLUSH ×3 (09:09→20:19)
[2022-07-16] MEDS: Multivitamin TABLET 1 TAB PO (09:10)
--- NOTE | 2022-07-16 11:17 | P.PNIM_ITS ---
Subjective Subjective Date of Service: 07/16/22 Interval History: Complain of generalized itch, or no worsening of rash, no new lesions, no nausea, no vomiting, no other acute issues overnight, tolerating diet, no fevers, no chills, no lightheadedness, or dizziness. Review of Systems Review of Systems: Yes all other systems are reviewed and are negative Physical Exam Vital Signs: Vital Signs: Last Vital Signs Temp 97.9 F 07/16/22 08:00 Pulse 69 07/16/22 08:00 Resp 18 07/16/22 08:00 BP 123/75 07/16/22 08:00 Pulse Ox 99 07/16/22 08:00 O2 Del Method 07/16/22 08:00 BMI result Body Mass Index 25.0 Const: Other: General awake alert, in mild distress due to itching. Neck supple . CVS regular rate rhythm, Respiratory lungs clear to auscultation, no respiratory distress, no wheeze, no rhonchi. Gastrointestinal abdomen soft, nontender, bowel sounds audible, no guarding , no rigidity. Extremities no edema. Neuro nonfocal Musculoskeletal no deformity Skin diffuse maculopapular rash both upper lower extremities trunk, no vesicles Objective Data Active Medications Acetaminophen (Acetaminophen 325 Mg Tablet) 650 mg PO Q6H PRN PRN Reason: Pain, Mild (Pain Scale 1-3) Calcium Carbonate/Cholecalciferol (Calcium + Vitamin D 250 Mg Tablet) 500 mg PO DAILY [facility] Last Admin: 07/16/22 09:09 Dose: 500 mg Documented By: JORDAN Docusate Sodium (Docusate Sodium 100 Mg Capsule) 100 mg PO DAILY PRN PRN Reason: Constipation Famotidine (Famotidine 20 Mg Tablet) 20 mg PO BEDTIME [facility] Last Admin: 07/15/22 20:30 Dose: 20 mg Documented By: YARELIS Lactated Ringer's (Lr) 1,000 mls @ 100 mls/hr IVCONT .Q10H [facility] Last Admin: 07/16/22 10:47 Dose: 100 mls/hr Documented By: JORDAN Methylprednisolone Sodium Succinate (Methylprednisolone Sod Succ 40 Mg/Ml Vial) 40 mg IVPUSH Q6H [facility] Last Admin: 07/16/22 09:10 Dose: 40 mg Documented By: JORDAN Multivitamins/Vitamin C (Multivitamin Tablet) 1 tab PO DAILY [facility] Last Admin: 07/16/22 09:10 Dose: 1 tab Documented By: JORDAN Ondansetron HCl (Ondansetron Hcl 4 Mg/2 Ml Vial) 4 mg IVPUSH Q8H PRN PRN Reason: Nausea and Vomiting Pharmacy Consult (Consult Rx Perform Med Rec) 1 each MISCELLANE ONCE PRN PRN Reason: Consult order Sodium Chloride (0.9 % Sodium Chloride Flush 3 Ml Syringe) 3 ml IVFLUSH QSHIFT [facility] Last Admin: 07/16/22 09:09 Dose: 3 ml Documented By: JORDAN Sumatriptan Succinate (Sumatriptan Succinate 25 Mg Tablet) 25 mg PO Q2H PRN PRN Reason: Migraine Headache Labs 07/15/22 09:24 07/16/22 07:47 Labs: Laboratory Results - last 24 hr 07/15/22 07/15/22 07/15/22 09:24 09:26 10:42 ESR Anion Gap Estim Creat Clear Calc Estimated GFR Random Glucose Calcium Total Bilirubin Direct Bilirubin AST ALT Alkaline Phosphatase C-Reactive Protein 12.85 H Total Protein Albumin Urine Test NEGATIVE Hepatitis A IgM Ab Nonreactive Hep Bs Antigen Negative Hep Bs Antibody NONREACTIVE Hep B Core Total Ab Nonreactive Hepatitis C Ab (EIA) Nonreactive 07/15/22 07/15/22 07/16/22 14:32 15:51 07:47 ESR 18 Anion Gap 15 12 Estim Creat Clear Calc 52.4 62.4 Estimated GFR 45 56 Random Glucose 100 127 H Calcium 8.6 9.3 D Total Bilirubin 0.9 0.4 Direct Bilirubin 0.2 AST 348 H 269 H ALT 737 H 717 H Alkaline Phosphatase 172 H 179 H C-Reactive Protein Total Protein 6.6 6.8 Albumin 3.5 3.7 Urine Test Hepatitis A IgM Ab Hep Bs Antigen Hep Bs Antibody Hep B Core Total Ab Hepatitis C Ab (EIA) Microbiology Microbiology Results: Microbiology 07/15/22 Unknown Urine Culture - Final Urine clean catch - Urine scherer top Lactobacillus species Assessment and Plan (1) Transaminitis: Status: Acute (2) Drug-induced skin rash: Status: Acute (3) Acute hepatitis: Status: Acute Plan 37-year-old female with a PMH significant for?autoimmune disorder previously diagnosed as Sjogren's in 2010 now 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 Pt will be admitted to the hospital for evaluation and treatment of drug-induced transaminitis, LINK, and rash with IVF and IV steroids. Diffuse, erythematous skin rash Likely drug-induced reaction from aleve, question related to SLE Persistent diffuse rash and itching but no worsening, on IV Solu-Medrol 40 mg q6, will change to t.i.d. hydroxychloroquine on hold add calamine lotion C3 &C4 levels pending, ESR 18, haptoglobin pending, CRP 12.85 elevated,urine protein creatinine ratio ordered but not collected but since renal function improved with IV fluid less likely lupus related rash and renal injury If patient shows improvement in next 24 hours will discharge home on prednisone 40 mg daily, with outpatient follow-up with Rheumatology Transaminitis Likely drug-induced hepatotoxicity from aleve, renal ultrasound negative, hepatitis serology pending, LFTs trending down, Follow labs LINK Likely multifactorial from GI losses from vomiting, naproxen nephrotoxicity Renal function normalized, will DC IV fluids HTN BP a little soft, Hold amlodipine Full Code DVT Prophylaxis: Low risk early ambulation Pt will require a hospitalization for evaluation and treatment of drug-induced transaminitis, LINK, and rash on IV steroids. . Time Spent With Patient Time: Total time managing care of this patient today ____ minutes. Quality Stroke Does the patient have a stroke diagnosis?: No VTE Prior VTE?: No VTE Risk Level:: Medical - low VTE Device Contraindication: Treatment Not Indicated VTE Drug Contraindication: Treatment Not Indicated
[2022-07-16 13:36] VITALS: BP 127/61; PULSE 77
[2022-07-16] MEDS: SUMAtriptan succinate 25 MG TABLET PO (13:39)
[2022-07-16] MEDS: Acetaminophen 325 MG TABLET 650 MG PO (13:40)
[2022-07-16] MEDS: Calamine/Zinc Oxide LOTION 177 ML BOTTLE 1 APPL TOPICAL (14:09)
[2022-07-16 15:11] VITALS: BP 140/64; PULSE 69; RESP 15; TEMP 36.4; O2SAT 100
[2022-07-16 15:18] LABS: Creatinine Urine 181.52 mg/dL; Protein/Creatinine Ratio, Ur 0.45 (<0.2); Total Protein Urine Random 81 mg/dL (<12)
[2022-07-16] MEDS: amLODIPine Besylate 2.5 MG TABLET PO (16:36)
[2022-07-16 19:28] VITALS: BP 116/66; PULSE 76; RESP 16; TEMP 36.6; O2SAT 99
[2022-07-16] MEDS: Famotidine 20 MG TABLET PO (20:21)
[2022-07-17] MEDS: methylPREDNISolone Sod Succ 40 MG/ML VIAL IVPUSH ×2 (00:20→08:53)
[2022-07-17] MEDS: Melatonin 3 MG TABLET 6 MG PO (00:52)
[2022-07-17 03:44] VITALS: BP 125/62; PULSE 59; RESP 18; TEMP 36.8; O2SAT 98
[2022-07-17 06:39] LABS: Alanine Aminotransferase 663 U/L (0-31); Albumin Level 3.2 g/dL (3.5-5.0); Alkaline Phosphatase 141 U/L (39-117); Anion Gap 11 (12-20); Aspartate Amino Transferase 206 U/L (5-31); Bilirubin Direct < 0.2 mg/dL (0.0-0.5); Bilirubin Total 0.2 mg/dL (0.0-1.0); Blood Urea Nitrogen 23 mg/dL (9-16); Calcium 9.4 mg/dL (8.4-10.2); Carbon Dioxide 22 mmol/L (22-29); Chloride 112 mmol/L (96-108); Estimated Glomerular Filt Rate > 60; Glucose Random 133 mg/dL (60-115); Potassium 4.5 mmol/L (3.3-5.1); Sodium 140 mmol/L (135-145)
[2022-07-17 08:00] VITALS: BP 139/66; PULSE 85; RESP 18; TEMP 36.5; O2SAT 99
[2022-07-17] MEDS: Calcium + Vitamin D 250 MG TABLET 500 MG PO (08:53)
[2022-07-17] MEDS: 0.9 % Sodium Chloride Flush 3 ML SYRINGE IVFLUSH (08:53)
[2022-07-17] MEDS: Multivitamin TABLET 1 TAB PO (08:53)
[2022-07-17] MEDS: amLODIPine Besylate 2.5 MG TABLET PO (08:53)
--- NOTE | 2022-07-17 09:43 | P.DS_ITS ---
DS: Providers Provider Date of Service: 07/17/22 Date of admission: 07/15/22 14:48 Date of discharge: 07/17/22 Primary care physician: Vignesh Lauren PA-C DS: Diagnosis Discharge Diagnosis (1) Drug-induced skin rash: Status: Acute (2) Transaminitis: Status: Acute (3) Acute hepatitis: Status: Acute DS: Summary Hospital Course Hospital Course: 37-year-old female patient with past medical history is significant for possible mild lupus, with prior history of drug rash with transaminitis likely related to sulfaselazine treated with steroids with good response, presented to [facility] with 24 hour history of gradually progressing rash that started on upper extremities and gradually spread to entire body including trunk, both upper and lower extremities back with no significant itching, rashes associated with fever dizziness, nausea, vomiting and weakness, patient denied shortness of breath, cough, , no abdominal pain, workup in the ER showed elevated creatinine of 1.68 with a baseline creatinine of 1 normal CBC CRP and ESR are pending UA showed high-protein no bacteria, patient denied urinary symptoms, patient treated in the emergency room with IV steroids, Benadryl, Pepcid and IV fluid. Rash maculopapular diffuse, no pustules, sparing face, dorsum of hands, arms ,and feet Hospital Course Patient was admitted to the general medical floor and started on IV Solu-Medrol 60 mg q.6 hours. Over the course the next 24 hours rash had markedly improved; creatinine on admission was 1.68 both volume creatinine normalizes 0.98 day of discharge. Labs including serum complement level are pending at the time of discharge. At this time she is medically acceptable for discharge and will be discharged with prednisone taper. She is to follow-up with horse racer in 1 week for further instructions and or treatment Time Spent with Patient Time attestation: Total time managing care of this patient today ____ minutes. Discharge coordination time: Greater than 30 minutes Quality: Safe Use of Opioids Does Pt have an Active Cancer Diagnosis on the Problem List?: No Quality: Stroke Does the patient have a stroke diagnosis?: No Physical Exam Vital Signs: Vital Signs: Last Vital Signs Temp 97.7 F 07/17/22 08:00 Pulse 85 07/17/22 08:00 Resp 18 07/17/22 08:00 BP 139/66 07/17/22 08:00 Pulse Ox 99 07/17/22 08:00 O2 Del Method 07/17/22 08:00 BMI result Body Mass Index 25.0 Const: Other: Awake alert no acute distress Resp: Other: Clear to auscultation bilaterally no rales rhonchi or wheezes Cardio: Other: No S4; positive S1-S2; no S3 murmurs rubs or gallops Skin: Other: Macular papular rash improved based on admission photo Extrem: Other: No edema bilaterally DS: Data Data Completed and Pending Labs on day of discharge: Laboratory Results - last 24 hr 07/15/22 07/16/22 07/17/22 09:26 14:50 05:24 Sodium 140 Potassium 4.5 Chloride 112 H Carbon Dioxide 22 Anion Gap 11 L BUN 23 H Creatinine 0.98 Estim Creat Clear Calc 70.0 Estimated GFR > 60 Random Glucose 133 H Calcium 9.4 Total Bilirubin 0.2 Direct Bilirubin < 0.2 AST 206 H ALT 663 H Alkaline Phosphatase 141 H Total Protein 6.0 L Albumin 3.2 L U Random Total Protein 81 H Urine Creatinine 181.52 Protein/Creatinin Ratio 0.45 H Hepatitis A IgM Ab Nonreactive Hep Bs Antigen Negative Hep Bs Antibody NONREACTIVE Hep B Core Total Ab Nonreactive Hepatitis C Ab (EIA) Nonreactive Discharge Plan Discharge Anticipated Discharge Date/Time: 07/17/22 09:33 Patient Disposition: Home, Self-Care Discharge Diagnosis: Drug rash Referrals: Vignesh Lauren PA-C [Primary Care Provider] - 1 Week Discharge Medications: New diphenhydramine HCl 25 mg Capsule 25 mg PO Q6H PRN (Reason: itching) Qty: 30 0RF calamine-zinc oxide 8-8 % Lotion 1 appl topical QID PRN (Reason: Itching) Qty: 177 0RF Protocol: Apply to: Apply to: extremity prednisone 10 mg tablet See Rx Instructions .Route .COMPLEX Qty: 45 0RF Rx Instructions: 10 mg orally; 5 tabs p.o. daily x3 days; 4 tabs p.o. daily x3 days; 3 tabs daily x3 days; 2 tabs daily x3 days; 1 tab daily x3 days Continued calcium carbonate-vitamin D3 [Calcium 600 + D(3)] 600 mg-10 mcg (400 unit) tablet 1 tab PO DAILY 90 Days Qty: 90 2RF famotidine 20 mg tablet 20 mg PO BEDTIME Qty: 90 1RF hydroxychloroquine 200 mg tablet 300 mg PO DAILY Qty: 30 1RF Rx Instructions: take with food amlodipine 2.5 mg tablet 2.5 mg PO DAILY 30 Days Qty: 30 3RF Rx Instructions: take with food multivitamin Tablet 1 tab PO DAILY sumatriptan succinate [Imitrex] 25 mg tablet 25 mg PO Q2H PRN (Reason: Migraine Headache) Rx Instructions: take 1 tab at onset of headache; if no relief may repeat 1 tab after at least 2 hrs; max = 4 tabs/24 hr PO (DME) blood pressure monitor [Blood Pressure Kit] Kit See Rx Instructions .Route Qty: 1 0RF Rx Instructions: As directed Nexplanon 68 mg implant See Rx Instructions .ROUTE .COMPLEX Rx Instructions: 1 subdermally Mirena 20 mcg/24 hours (8 yrs) 52 mg intrauterine device See Rx Instructions .ROUTE .COMPLEX Rx Instructions: 1 intrauterinely Discontinued naproxen sodium [Aleve] 220 mg Tablet 220 mg PO Q12H PRN (Reason: Pain or inflammation) Discharge Orders: Discharge Order (Routine); Ordered 07/17/22 Ordered By: Martin Schaefer Diet: Advance to usual diet Activity on Discharge: As tolerated Stand Alone Forms: Patient Portal Discharge page Care Plan Goals: Complete prednisone taper as ordered Health Concerns: Follow-up with her horse racer in 1 week. Call for appointment Plan of Treatment: You will need repeat labs in 1 week; they can be ordered by your horse racer Assessment: See discharge summary
--- NOTE | 2022-07-17 09:55 | MHC.CM.PN ---
PT TO DC HOME TODAY WITH NO SERVICES SHE WILL DRIVE HERSELF HOME
[2022-07-18 11:48] LABS: Complement C3 135 mg/dL (83-193)
[2022-07-18 14:48] LABS: Haptoglobin 160 mg/dL (43-212)
== END 2022-07-17 11:16 | disposition home or self-care (01) | DRG 385 ==
LOC: HO.ED 13:52 → HO.EDOVER 15:00 → HO.S3 16:10
PROVIDERS: Hospitalist; Physician Assistant; Admitting Provider Student in an Organized Health Care Education/Training Program; Emergency Provider Emergency Medicine; PCP Physician Assistant; Visit Provider Hospitalist
DX: L27.0 Generalized skin eruption due to drugs and medicaments taken internally (principal); N17.9 Acute kidney failure, unspecified; M32.9 Systemic lupus erythematosus, unspecified; T39.315A Adverse effect of propionic acid derivatives, initial encounter; G43.909 Migraine, unspecified, not intractable, without status migrainosus; B17.9 Acute viral hepatitis, unspecified; I10 Essential (primary) hypertension; M35.00 Sjogren syndrome, unspecified; Z20.822 Contact with and (suspected) exposure to COVID-19; Z88.2 Allergy status to sulfonamides; Z79.899 Other long term (current) drug therapy
CPT/HCPCS: 36415; 76705; 80048; 80053; 80076; 80307; 81001; 81025; 82550; 83010; 83615; 83735; 84156; 85025; 85652; 86140; 86160; 86704; 86706; 86709; 86803; 87086; 87340; 87502; 87635; 93005; 99285; J1200; J2405; J2920; J2930

== ENCOUNTER 2022-08-02 05:57 | Outpatient (REF) | payer OTHER, SELFPAY ==
[2022-08-02 06:04] LABS: MANUAL DIFF FLAG NO
[2022-08-02 07:28] LABS: Basophils Absolute Auto 0.1 X10*3/uL (0.0-0.2); Basophils Percent Auto 0.7 % (0-2); Eosinophils Absolute Auto 0.1 X10*3/uL (0.0-0.4); Eosinophils Percent Auto 0.4 % (0-4); Hematocrit 40.1 % (37.0-47.0); Imm Gran Abs Auto 0.05 X10*3/uL (0.00-0.03); Imm Gran Pct Auto 0.4 % (0.0-0.4); Lymphocytes Percent Auto 37.3 % (20-40); Mean Corpuscular HGB Conc 32.4 g/dl (31.0-35.0); Mean Corpuscular Hemoglobin 30.6 pg (27.0-33.0); Mean Corpuscular Volume 94.4 fL (80.0-98.0); Mean Platelet Volume 11.9 fL (9.4-12.3); Monocytes Absolute Auto 0.8 X10*3/uL (0.1-1.2); Monocytes Percent Auto 5.6 % (2-11); Neutrophils Absolute Auto 7.4 x10*3/uL (2.0-8.3); Neutrophils Percent Auto 55.6 % (45-73); Platelet Count 205 X10*3/uL (160-400); Red Blood Count 4.25 X10*6/uL (4.20-5.50); Red Cell Distribution Width 13.1 % (11.0-16.0); White Blood Count 13.3 X10*3/uL (4.8-10.8)
[2022-08-02 07:33] LABS: Appearance Urine Clear; Color Urine Yellow; Glucose Urine UA Negative (Negative); Leukocyte Esterase Urine Trace (Negative); Nitrite Urine Negative (Negative); Specific Gravity - Urine 1.025 (1.005-1.025); UMIC TRIGGER UA YES; Urine Blood Negative (Negative); Urine Ketones Negative (Negative); Urine Protein Negative (Neg-Trace)
[2022-08-02 07:38] LABS: Bacteria Urine 1+ (None Seen); Hyaline Casts Urine 0-2 /LPF (0-2); RBC Urine 0-2 /HPF (0-2); WBC Urine 0-5 /HPF (0-5)
[2022-08-02 08:05] LABS: Protein/Creatinine Ratio, Ur 0.05 (<0.2); Total Protein Urine Random 9 mg/dL (<12)
[2022-08-02 08:07] LABS: Erythrocyte Sedimentation Rate 2 MM/HR (0-20)
[2022-08-02 08:08] LABS: Alanine Aminotransferase 22 U/L (0-31); Albumin Level 3.9 g/dL (3.5-5.0); Alkaline Phosphatase 74 U/L (39-117); Anion Gap 15 (12-20); Aspartate Amino Transferase 12 U/L (5-31); Bilirubin Total 0.5 mg/dL (0.0-1.0); Blood Urea Nitrogen 22 mg/dL (9-16); C Reactive Protein < 0.04 mg/dL (< or = 0.50); Carbon Dioxide 24 mmol/L (22-29); Chloride 105 mmol/L (96-108); Estimated Glomerular Filt Rate > 60; Glucose Random 79 mg/dL (60-115); Potassium 4.2 mmol/L (3.3-5.1); Sodium 140 mmol/L (135-145); Total Protein 6.4 g/dL (6.5-8.0)
[2022-08-03 17:03] LABS: Complement C3 125 mg/dL (83-193)
[2022-08-03 22:43] LABS: Anti DNA DS Antibody <1 IU/mL
[2022-08-10 14:19] LABS: TPMT Activity 13
== END 2022-08-02 05:58 | disposition home or self-care (01) ==
LOC: HO.LAB 05:57
PROVIDERS: Absent Provider Student in an Organized Health Care Education/Training Program; PCP Physician Assistant; Visit Provider Nurse Practitioner Family
DX: M32.9 Systemic lupus erythematosus, unspecified (principal); Z51.81 Encounter for therapeutic drug level monitoring; Z79.624 Long term (current) use of inhibitors of nucleotide synthesis
CPT/HCPCS: 36415; 80053; 81001; 82657; 84156; 85025; 85652; 86140; 86160; 86225

== ENCOUNTER → 2022-08-19 12:56 | Outpatient (BNVA) | payer OTHER, SELFPAY | PROVIDERS: PCP Physician Assistant; Visit Provider Student in an Organized Health Care Education/Training Program | DX: Z13.89 Encounter for screening for other disorder (principal) ==

== ENCOUNTER 2022-09-17 07:06 | Outpatient (REF) | payer OTHER, SELFPAY ==
[2022-09-17 07:17] LABS: MANUAL DIFF FLAG NO
[2022-09-17 07:39] LABS: Basophils Percent Auto 0.6 % (0-2); Eosinophils Percent Auto 0.4 % (0-4); Hemoglobin 12.4 g/dl (12.0-16.0); Imm Gran Abs Auto 0.02 X10*3/uL (0.00-0.03); Imm Gran Pct Auto 0.4 % (0.0-0.4); Lymphocytes Absolute Auto 1.5 X10*3/uL (1.2-4.9); Mean Corpuscular HGB Conc 32.6 g/dl (31.0-35.0); Mean Corpuscular Hemoglobin 30.7 pg (27.0-33.0); Mean Corpuscular Volume 94.1 fL (80.0-98.0); Mean Platelet Volume 11.7 fL (9.4-12.3); Monocytes Absolute Auto 0.6 X10*3/uL (0.1-1.2); Monocytes Percent Auto 10.7 % (2-11); Neutrophils Percent Auto 57.9 % (45-73); Platelet Count 201 X10*3/uL (160-400); Red Blood Count 4.04 X10*6/uL (4.20-5.50); Red Cell Distribution Width 13.6 % (11.0-16.0); White Blood Count 5.1 X10*3/uL (4.8-10.8)
[2022-09-17 08:08] LABS: Alanine Aminotransferase 10 U/L (0-31); Alkaline Phosphatase 60 U/L (39-117); Anion Gap 14 (12-20); Aspartate Amino Transferase 13 U/L (5-31); Bilirubin Total 0.5 mg/dL (0.0-1.0); Blood Urea Nitrogen 17 mg/dL (9-16); C Reactive Protein 0.11 mg/dL (< or = 0.50); Calcium 9.1 mg/dL (8.4-10.2); Carbon Dioxide 24 mmol/L (22-29); Chloride 110 mmol/L (96-108); Estimated Glomerular Filt Rate > 60; Glucose Random 90 mg/dL (60-115); Potassium 4.1 mmol/L (3.3-5.1); Sodium 144 mmol/L (135-145); Total Protein 6.5 g/dL (6.5-8.0)
[2022-09-17 08:21] LABS: Erythrocyte Sedimentation Rate 5 MM/HR (0-20)
[2022-09-20 15:08] LABS: Mitochondrial Antibodies NEGATIVE (NEGATIVE)
[2022-09-21 14:59] LABS: Smooth Muscle Antibody <20 U (<20)
[2022-09-21 22:39] LABS: Liver Kidney Microsomal Ab <=20.0 U (<=20.0)
[2022-09-26 15:28] LABS: Cytosolic 5'nuc 1A Ab IgG <5 Units; Ej Ab <11 SI (<11); HMGCR Ab IgG <2 CU (<20); Jo-1 Ab <11 SI (<11); MDA5 Ab <11 SI (<11); Mi-2 alpha Ab <11 SI (<11); Mi-2 beta Ab <11 SI (<11); NXP-2 (MJ) Ab <11 SI (<11); Oj Ab <11 SI (<11); Pl-12 Ab <11 SI (<11); Pl-7 Ab <11 SI (<11); SRP Ab <11 SI (<11); TIF1 gamma Ab <11 SI (<11)
== END 2022-09-17 07:07 | disposition home or self-care (01) ==
LOC: HO.LAB 07:06
PROVIDERS: PCP Physician Assistant; Visit Provider Student in an Organized Health Care Education/Training Program
DX: M32.9 Systemic lupus erythematosus, unspecified (principal); R74.01 Elevation of levels of liver transaminase levels
CPT/HCPCS: 36415; 80053; 83516; 83520; 84182; 85025; 85652; 86015; 86140; 86235; 86255; 86256; 86376

== ENCOUNTER 2022-09-24 06:59 | Outpatient (REF) | payer OTHER, SELFPAY ==
[2022-09-24 07:17] LABS: MANUAL DIFF FLAG NO
[2022-09-24 07:37] LABS: Basophils Percent Auto 0.8 % (0-2); Eosinophils Percent Auto 0.8 % (0-4); Hemoglobin 13.2 g/dl (12.0-16.0); Imm Gran Abs Auto 0.01 X10*3/uL (0.00-0.03); Imm Gran Pct Auto 0.2 % (0.0-0.4); Lymphocytes Absolute Auto 1.7 X10*3/uL (1.2-4.9); Lymphocytes Percent Auto 34.1 % (20-40); Mean Corpuscular Hemoglobin 31.4 pg (27.0-33.0); Mean Platelet Volume 11.8 fL (9.4-12.3); Monocytes Absolute Auto 0.5 X10*3/uL (0.1-1.2); Neutrophils Absolute Auto 2.7 x10*3/uL (2.0-8.3); Neutrophils Percent Auto 54.1 % (45-73); Platelet Count 227 X10*3/uL (160-400); Red Blood Count 4.21 X10*6/uL (4.20-5.50); Red Cell Distribution Width 13.5 % (11.0-16.0); White Blood Count 4.9 X10*3/uL (4.8-10.8)
[2022-09-24 07:55] LABS: Alanine Aminotransferase 11 U/L (0-31); Albumin Level 4.1 g/dL (3.5-5.0); Alkaline Phosphatase 65 U/L (39-117); Anion Gap 11 (12-20); Aspartate Amino Transferase 15 U/L (5-31); Bilirubin Total 0.5 mg/dL (0.0-1.0); Blood Urea Nitrogen 24 mg/dL (9-16); C Reactive Protein 0.12 mg/dL (< or = 0.50); Carbon Dioxide 26 mmol/L (22-29); Chloride 106 mmol/L (96-108); Estimated Glomerular Filt Rate 52; Glucose Random 81 mg/dL (60-115); Potassium 4.1 mmol/L (3.3-5.1); Sodium 139 mmol/L (135-145); Total Protein 6.7 g/dL (6.5-8.0)
[2022-09-24 08:35] LABS: Appearance Urine Clear; Color Urine Yellow; Glucose Urine UA Negative (Negative); Leukocyte Esterase Urine Trace (Negative); Nitrite Urine Negative (Negative); Specific Gravity - Urine 1.025 (1.005-1.025); UMIC TRIGGER UA YES; Urine Blood Negative (Negative); Urine Ketones Negative (Negative); Urine Protein Negative (Neg-Trace)
[2022-09-24 08:39] LABS: Bacteria Urine None Seen (None Seen); Hyaline Casts Urine 0-2 /LPF (0-2); RBC Urine 0-2 /HPF (0-2); Squamous Epithelial Cell Urine 0-2 /HPF (0-2); WBC Urine 0-5 /HPF (0-5)
[2022-09-24 08:48] LABS: Erythrocyte Sedimentation Rate 3 MM/HR (0-20)
[2022-09-24 09:11] LABS: Creatinine Urine 219.45 mg/dL; Protein/Creatinine Ratio, Ur 0.04 (<0.2); Total Protein Urine Random 9 mg/dL (<12)
[2022-09-26 11:12] LABS: Complement C3 151 mg/dL (83-193)
[2022-09-26 15:13] LABS: Anti DNA DS Antibody <1 IU/mL
== END 2022-09-24 07:00 | disposition home or self-care (01) ==
LOC: HO.LAB 06:59
PROVIDERS: Student in an Organized Health Care Education/Training Program; PCP Physician Assistant; Visit Provider Physician Assistant
DX: M32.9 Systemic lupus erythematosus, unspecified (principal)
CPT/HCPCS: 36415; 80053; 81001; 84156; 85025; 85652; 86140; 86160; 86225

== ENCOUNTER 2022-10-28 11:51 | Outpatient (REF) | payer OTHER, SELFPAY ==
[2022-10-28 13:02] LABS: MANUAL DIFF FLAG NO
[2022-10-28 14:20] LABS: Appearance Urine Clear; Color Urine Yellow; Glucose Urine UA Negative (Negative); Leukocyte Esterase Urine Negative (Negative); Nitrite Urine Negative (Negative); Specific Gravity - Urine 1.015 (1.005-1.025); Urine Blood Negative (Negative); Urine Ketones Negative (Negative); Urine Protein Negative (Neg-Trace)
[2022-10-28 14:22] LABS: Basophils Percent Auto 0.5 % (0-2); Eosinophils Percent Auto 0.3 % (0-4); Hematocrit 40.9 % (37.0-47.0); Hemoglobin 13.6 g/dl (12.0-16.0); Imm Gran Abs Auto 0.02 X10*3/uL (0.00-0.03); Imm Gran Pct Auto 0.3 % (0.0-0.4); Lymphocytes Absolute Auto 1.3 X10*3/uL (1.2-4.9); Lymphocytes Percent Auto 17.5 % (20-40); Mean Corpuscular HGB Conc 33.3 g/dl (31.0-35.0); Mean Corpuscular Hemoglobin 31.3 pg (27.0-33.0); Mean Corpuscular Volume 94.2 fL (80.0-98.0); Mean Platelet Volume 12.4 fL (9.4-12.3); Monocytes Absolute Auto 0.5 X10*3/uL (0.1-1.2); Monocytes Percent Auto 7.4 % (2-11); Neutrophils Absolute Auto 5.4 x10*3/uL (2.0-8.3); Platelet Count 212 X10*3/uL (160-400); Red Blood Count 4.34 X10*6/uL (4.20-5.50); Red Cell Distribution Width 12.3 % (11.0-16.0); White Blood Count 7.3 X10*3/uL (4.8-10.8)
[2022-10-28 14:23] LABS: Bacteria Urine None Seen (None Seen); Hyaline Casts Urine 0-2 /LPF (0-2); RBC Urine 0-2 /HPF (0-2); Squamous Epithelial Cell Urine 0-2 /HPF (0-2); WBC Urine 0-5 /HPF (0-5)
[2022-10-28 15:42] LABS: Alanine Aminotransferase 12 U/L (0-31); Albumin Level 4.4 g/dL (3.5-5.0); Alkaline Phosphatase 72 U/L (39-117); Anion Gap 12 (12-20); Aspartate Amino Transferase 15 U/L (5-31); Bilirubin Total 0.4 mg/dL (0.0-1.0); Blood Urea Nitrogen 18 mg/dL (9-16); C Reactive Protein < 0.10 mg/dL (< or = 0.50); Calcium 9.7 mg/dL (8.4-10.2); Carbon Dioxide 27 mmol/L (22-29); Chloride 106 mmol/L (96-108); Estimated Glomerular Filt Rate 60; Glucose Random 72 mg/dL (60-115); Potassium 4.6 mmol/L (3.3-5.1); Sodium 140 mmol/L (135-145); Total Protein 7.2 g/dL (6.5-8.0)
[2022-10-28 15:49] LABS: Creatinine Urine 70.01 mg/dL; Total Protein Urine Random < 7 mg/dL (<12)
[2022-10-31 17:18] LABS: Anti DNA DS Antibody <1 IU/mL
[2022-10-31 19:28] LABS: Complement C3 67 mg/dL (83-193)
== END 2022-10-28 11:52 | disposition home or self-care (01) ==
LOC: HO.LAB 11:51
PROVIDERS: PCP Physician Assistant; Visit Provider Student in an Organized Health Care Education/Training Program
DX: M32.9 Systemic lupus erythematosus, unspecified (principal); Z79.899 Other long term (current) drug therapy
CPT/HCPCS: 36415; 80053; 81001; 84156; 85025; 86140; 86160; 86225

== ENCOUNTER 2022-11-11 06:03 | Outpatient (REF) | payer OTHER, SELFPAY ==
[2022-11-11 06:21] LABS: MANUAL DIFF FLAG NO
[2022-11-11 07:27] LABS: Basophils Percent Auto 0.4 % (0-2); Eosinophils Percent Auto 0.4 % (0-4); Hematocrit 43.5 % (37.0-47.0); Hemoglobin 14.2 g/dl (12.0-16.0); Imm Gran Abs Auto 0.04 X10*3/uL (0.00-0.03); Imm Gran Pct Auto 0.4 % (0.0-0.4); Lymphocytes Absolute Auto 3.8 X10*3/uL (1.2-4.9); Lymphocytes Percent Auto 34.9 % (20-40); Mean Corpuscular HGB Conc 32.6 g/dl (31.0-35.0); Mean Corpuscular Hemoglobin 31.1 pg (27.0-33.0); Mean Corpuscular Volume 95.2 fL (80.0-98.0); Mean Platelet Volume 12.2 fL (9.4-12.3); Monocytes Absolute Auto 0.6 X10*3/uL (0.1-1.2); Monocytes Percent Auto 5.2 % (2-11); Neutrophils Absolute Auto 6.4 x10*3/uL (2.0-8.3); Neutrophils Percent Auto 58.7 % (45-73); Platelet Count 218 X10*3/uL (160-400); Red Blood Count 4.57 X10*6/uL (4.20-5.50); Red Cell Distribution Width 12.1 % (11.0-16.0); White Blood Count 10.8 X10*3/uL (4.8-10.8)
[2022-11-11 08:01] LABS: Alanine Aminotransferase 12 U/L (0-31); Alkaline Phosphatase 64 U/L (39-117); Anion Gap 10 (12-20); Aspartate Amino Transferase 13 U/L (5-31); Bilirubin Total 0.5 mg/dL (0.0-1.0); Blood Urea Nitrogen 15 mg/dL (9-16); Calcium 9.7 mg/dL (8.4-10.2); Carbon Dioxide 30 mmol/L (22-29); Chloride 105 mmol/L (96-108); Estimated Glomerular Filt Rate > 60; Glucose Random 106 mg/dL (60-115); Potassium 4.3 mmol/L (3.3-5.1); Sodium 141 mmol/L (135-145); Total Protein 6.7 g/dL (6.5-8.0)
== END 2022-11-11 06:04 | disposition home or self-care (01) ==
LOC: HO.LAB 06:03
PROVIDERS: PCP Physician Assistant; Visit Provider Student in an Organized Health Care Education/Training Program
DX: M32.9 Systemic lupus erythematosus, unspecified (principal)
CPT/HCPCS: 36415; 80053; 85025

== ENCOUNTER 2022-12-02 08:29 | Outpatient (REF) | payer OTHER, SELFPAY ==
[2022-12-02 08:50] LABS: MANUAL DIFF FLAG NO
[2022-12-02 09:24] LABS: Basophils Absolute Auto 0.1 X10*3/uL (0.0-0.2); Basophils Percent Auto 0.7 % (0-2); Eosinophils Absolute Auto 0.1 X10*3/uL (0.0-0.4); Eosinophils Percent Auto 0.8 % (0-4); Hematocrit 40.6 % (37.0-47.0); Hemoglobin 13.6 g/dl (12.0-16.0); Imm Gran Abs Auto 0.01 X10*3/uL (0.00-0.03); Imm Gran Pct Auto 0.1 % (0.0-0.4); Lymphocytes Absolute Auto 1.9 X10*3/uL (1.2-4.9); Lymphocytes Percent Auto 26.4 % (20-40); Mean Corpuscular HGB Conc 33.5 g/dl (31.0-35.0); Mean Corpuscular Hemoglobin 31.4 pg (27.0-33.0); Mean Corpuscular Volume 93.8 fL (80.0-98.0); Mean Platelet Volume 11.9 fL (9.4-12.3); Monocytes Absolute Auto 0.5 X10*3/uL (0.1-1.2); Monocytes Percent Auto 6.8 % (2-11); Neutrophils Absolute Auto 4.7 x10*3/uL (2.0-8.3); Neutrophils Percent Auto 65.2 % (45-73); Platelet Count 219 X10*3/uL (160-400); Red Blood Count 4.33 X10*6/uL (4.20-5.50); Red Cell Distribution Width 11.8 % (11.0-16.0); White Blood Count 7.2 X10*3/uL (4.8-10.8)
[2022-12-02 09:26] LABS: Appearance Urine Clear; Color Urine Dark Yellow; Glucose Urine UA Negative (Negative); Leukocyte Esterase Urine Moderate (2+) (Negative); Nitrite Urine Negative (Negative); PH 5.5 (5.0-9.0); Specific Gravity - Urine 1.025 (1.005-1.025); UMIC TRIGGER UA YES; Urine Blood Negative (Negative); Urine Ketones Trace mg/dL (Negative); Urine Protein Negative (Neg-Trace)
[2022-12-02 09:30] LABS: Bacteria Urine Trace (None Seen); Hyaline Casts Urine 0-2 /LPF (0-2); RBC Urine 0-2 /HPF (0-2); WBC Urine 21-50 /HPF (0-5)
[2022-12-02 10:08] LABS: Creatinine Urine 250.17 mg/dL; Protein/Creatinine Ratio, Ur 0.05 (<0.2); Total Protein Urine Random 13 mg/dL (<12)
[2022-12-02 10:11] LABS: Alanine Aminotransferase 10 U/L (0-31); Alkaline Phosphatase 63 U/L (39-117); Anion Gap 10 (12-20); Aspartate Amino Transferase 13 U/L (5-31); Bilirubin Total 0.6 mg/dL (0.0-1.0); Blood Urea Nitrogen 15 mg/dL (9-16); C Reactive Protein 0.12 mg/dL (< or = 0.50); Calcium 9.9 mg/dL (8.4-10.2); Carbon Dioxide 26 mmol/L (22-29); Chloride 106 mmol/L (96-108); Estimated Glomerular Filt Rate > 60; Glucose Random 84 mg/dL (60-115); Potassium 4.3 mmol/L (3.3-5.1); Sodium 138 mmol/L (135-145); Total Protein 6.8 g/dL (6.5-8.0)
[2022-12-02 10:14] LABS: Erythrocyte Sedimentation Rate 5 MM/HR (0-20)
[2022-12-05 18:03] LABS: Complement C3 142 mg/dL (83-193)
[2022-12-06 13:28] LABS: Anti DNA DS Antibody <1 IU/mL
== END 2022-12-02 08:30 | disposition home or self-care (01) ==
LOC: HO.LAB 08:29
PROVIDERS: PCP Physician Assistant; Visit Provider Student in an Organized Health Care Education/Training Program
DX: M32.9 Systemic lupus erythematosus, unspecified (principal)
CPT/HCPCS: 36415; 80053; 81001; 84156; 85025; 85652; 86140; 86160; 86225

== ENCOUNTER 2022-12-17 07:09 | Outpatient (REF) | payer OTHER, SELFPAY ==
[2022-12-17 07:31] LABS: MANUAL DIFF FLAG NO
[2022-12-17 07:51] LABS: Basophils Percent Auto 0.8 % (0-2); Eosinophils Absolute Auto 0.1 X10*3/uL (0.0-0.4); Hemoglobin 12.2 g/dl (12.0-16.0); Imm Gran Abs Auto 0.04 X10*3/uL (0.00-0.03); Imm Gran Pct Auto 0.8 % (0.0-0.4); Lymphocytes Absolute Auto 1.6 X10*3/uL (1.2-4.9); Lymphocytes Percent Auto 32.5 % (20-40); Mean Corpuscular Hemoglobin 32.2 pg (27.0-33.0); Mean Corpuscular Volume 97.6 fL (80.0-98.0); Mean Platelet Volume 11.5 fL (9.4-12.3); Monocytes Absolute Auto 0.4 X10*3/uL (0.1-1.2); Monocytes Percent Auto 7.1 % (2-11); Neutrophils Absolute Auto 2.9 x10*3/uL (2.0-8.3); Neutrophils Percent Auto 57.8 % (45-73); Platelet Count 202 X10*3/uL (160-400); Red Blood Count 3.79 X10*6/uL (4.20-5.50); Red Cell Distribution Width 12.4 % (11.0-16.0); White Blood Count 5.1 X10*3/uL (4.8-10.8)
[2022-12-17 08:16] LABS: Alanine Aminotransferase 16 U/L (0-31); Alkaline Phosphatase 60 U/L (39-117); Anion Gap 11 (12-20); Aspartate Amino Transferase 19 U/L (5-31); Bilirubin Total 1.1 mg/dL (0.0-1.0); Blood Urea Nitrogen 14 mg/dL (9-16); Calcium 9.9 mg/dL (8.4-10.2); Carbon Dioxide 27 mmol/L (22-29); Chloride 106 mmol/L (96-108); Estimated Glomerular Filt Rate > 60; Glucose Random 87 mg/dL (60-115); Potassium 3.9 mmol/L (3.3-5.1); Sodium 140 mmol/L (135-145); Total Protein 6.8 g/dL (6.5-8.0)
[2022-12-17 10:00] LABS: Appearance Urine Clear; Color Urine Dark Yellow; Glucose Urine UA Negative (Negative); Leukocyte Esterase Urine Small (1+) (Negative); Nitrite Urine Negative (Negative); PH 6.5 (5.0-9.0); Specific Gravity - Urine 1.025 (1.005-1.025); UMIC TRIGGER UA YES; Urine Blood Negative (Negative); Urine Ketones Negative (Negative); Urine Protein Negative (Neg-Trace)
[2022-12-17 10:02] LABS: Bacteria Urine 1+ (None Seen); Hyaline Casts Urine 0-2 /LPF (0-2); RBC Urine 0-2 /HPF (0-2)
[2022-12-17 10:42] LABS: Creatinine Urine 244.02 mg/dL; Protein/Creatinine Ratio, Ur 0.05 (<0.2); Total Protein Urine Random 11 mg/dL (<12)
[2022-12-19 18:49] LABS: Anti DNA DS Antibody <1 IU/mL
[2022-12-20 18:47] LABS: Complement C3 124 mg/dL (83-193)
== END 2022-12-17 07:10 | disposition home or self-care (01) ==
LOC: HO.LAB 07:09
PROVIDERS: PCP Physician Assistant; Visit Provider Student in an Organized Health Care Education/Training Program
DX: M32.9 Systemic lupus erythematosus, unspecified (principal)
CPT/HCPCS: 36415; 80053; 81001; 84156; 85025; 86160; 86225

== ENCOUNTER 2023-01-19 08:52 | Outpatient (AMB) | payer OTHER, SELFPAY ==
[2023-01-19 09:00] VITALS: BP 134/72; PULSE 78; O2SAT 98; BMI 25.8
--- NOTE | 2023-01-19 09:00 | A.OFFPC_ITS ---
Vital Signs 01/19/23 09:00 Height 5 ft 5 in Weight 155 lb BMI 25.8 BP 134/72 Blood Pressure Location Lt brachial Position Sitting Pulse 78 Pulse Source Pulse Oximeter Pulse Oximetry (%) 98 Oxygen Delivery Method Room Air Intake Visit Reasons: Annual Exam Allergies naproxen [From Aleve] Allergy (Severe, Verified 01/19/23 09:12) Rash sulfasalazine Allergy (Severe, Verified 01/19/23 09:12) redness and itching Sulfa (Sulfonamide Antibiotics) Allergy (Verified 01/19/23 09:12) Rash methotrexate Adverse Reaction (Intermediate, Verified 01/19/23 09:12) Fatigued Medication List - Last Reconciled 01/19/23 by Vignesh Lauren PA-C amlodipine 2.5 mg PO DAILY 30 days azathioprine 150 mg (3 x 50 mg) PO DAILY blood pressure monitor (Blood Pressure Kit) As directed calamine-zinc oxide 8-8 % 1 appl See Protocol topical QID PRN calcium carbonate-vitamin D3 600 mg-10 mcg (400 unit) (Calcium 600 + D(3)) 1 tab PO DAILY 90 days etonogestrel (Nexplanon) 1 subdermally famotidine 20 mg PO BEDTIME folic acid 1 mg PO DAILY levonorgestrel (Mirena) 1 intrauterinely multivitamin 1 tab PO DAILY prednisone Take 3 tabs by mouth once daily for 1 week then 2 tabs daily for 1 week then stay on 1 tab daily sumatriptan succinate (Imitrex) 25 mg PO Q2H PRN 30 days Tobacco use date assessed: 07/22/22 Dental Screening Dental Screen Date: 01/19/23 Did you have a dental visit in the last 12 months?: Yes Did you have a dental problem in the last 6 months where you did not have access to dental care?: No Was dental information given to patient?: Patient has dentist HPI Annual Exam HPI Details Patient is a 37-year-old female here today for annual physical. Patient has a fast history significant for sjogrens syndrome, migraines, autoimmune hepatitis, PVCs, presyncope Did have a hospital admission for acute rash and renal compromise in the setting of taking hydroxychloroquine and Aleve. Unclear cause of rash. Concern--> concerned about a skin lesion over her right cheek and raise skin lesion over the left upper forehead. Not interested in seeing Dermatology at this time. Also reports over the last 3 months having intermittent episodes mom itchy palms and soles. No notable rashes or edema. ? . ?? ?SLE/? Sjodrens:? She is not have followed by Rheumatology and has started a disease modifying drug (azathioprine)..? ? Also advised on use of artificial tears for dry eyes. Has also been started on long-term prednisone taper ?. Hypertension: Blood pressure today in office slightly elevated, has been going through a lot of personal issues at home. ? .. ? .. ? GERD: Patient reports famotidine has been working for her nighttime GERD symptoms. ? .. Vaccine: UTD with COVID vaccine , UTD with flu, up-to-date tetanus vaccine .. Security Orderly:? 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 Mother Bipolar 1 disorder Chronic mental illness Family history of thyroid problem Maternal Grandmother Hypertension Maternal Grandfather No problems noted. 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 1. Little interest or pleasure in doing things: several days 2. Feeling down, depressed, or hopeless: nearly every day 3. Trouble falling or staying asleep, or sleeping too much: several days 4. Feeling tired or having little energy: nearly every day 5. Poor appetite or overeating: not at all 6. Feeling bad about yourself - or that you are a failure or have let yourself or your family down: not at all 7. Trouble concentrating on things, such as reading the newspaper or watching television: more than half the days 8. Moving or speaking so slowly that other people could have noticed. Or the opposite - being so fidgety or restless that you have been moving around a lot more than usual: not at all 9. Thoughts that you would be better off or of hurting yourself in some way: not at all Total score: 10 Depression Screening Interpretation: Negative [id number] - PHQ-9 Billing: Yes Source: Developed by Drs. Luis Barahona, Kadie Senior, Shahid Baez and colleagues, with an educational minor from [employer]. Thrive Questionnaire Date Thrive assessed: 07/22/22 AUDIT C Alcohol Use Questionnaire (AUDIT-C) 1. How often do you have a drink containing alcohol?: 2-4 times a month 2. How many drinks containing alcohol do you have on a typical day when you are drinking?: 3 or 4 3. How often do you have six or more drinks on one occasion?: Never Total Score: 3 Score Reviewed/Action Taken: No LUCA-7 AMB Questionnaire LUCA-7 Date LUCA - 7 assessed: 07/22/22 Source: Developed by Drs. Luis Barahona, Kadie Senior, Shahid Baez and colleagues, with an educational minor from [employer]. Review of Systems Const Denies body aches, Denies chills, Denies excessive sweating, Denies fatigue, Denies fever(s) and Denies headache(s) Eyes Denies blurry vision ENT Denies dysphagia, Denies vertigo, Denies dizziness, Denies headache(s), Denies hearing loss and Denies tinnitus Card Denies chest pain, Denies chest pain with activity, Denies syncope, Denies irregular heart rhythm and Denies dyspnea Resp Denies chest congestion, Denies cough, Denies hemoptysis, Denies dyspnea and Denies wheezing GI Denies abdominal pain, Denies melena, Denies hematochezia, Denies coffee ground emesis, Denies dysphagia, Denies diarrhea, Denies nausea and Denies vomiting Denies urinary frequency, Denies dysuria, Denies urinary hesitancy and Denies urinary urgency Musc Denies arthralgias, Denies limited range of motion, Denies muscle cramps and Denies muscle weakness Skin/Breast Denies rash and Denies skin ulcer Neuro Denies Abnormal speech present, Denies confusion, Denies vertigo, Denies dizziness, Denies syncope, Denies headache(s), Denies memory loss and Denies seizure-like activity Psych Denies anxiety, Denies confusion, Denies depression, Denies memory loss, Denies panic attacks and Denies paranoia Endo Denies excessive sweating, Denies fatigue, Denies flushing, Denies polydipsia and Denies polyuria Aller/Immun Denies wheezing Physical exam (Primary Care) Vital Signs: Last Vital Signs Pulse 78 01/19/23 09:00 BP 134/72 01/19/23 09:00 Pulse Ox 98 01/19/23 09:00 Oxygen Delivery Method Room Air 01/19/23 09:00 BMI result Body Mass Index 25.8 Tobacco/Smoking Status: Tobacco use Status Tobacco use date assessed 07/22/22 01/19/23 09:07 Patient Tobacco Use Status Never used Tobacco 01/19/23 09:15 e-Cigarette/Vaping Use Never Used 01/19/23 09:15 PHQ-9: PHQ-9 Score PHQ-9: Total score 10 01/19/23 09:20 Depression Screening Interpretation: Negative Thrive Assessment: Date of Thrive Assessment Date Thrive assessed 07/22/22 01/19/23 09:07 Const General: cooperative, comfortable, no acute distress, alert and awake; No confusion Orientation/consciousness: oriented to person, oriented to place, patient oriented x3 and No confusion HENMT Head: Yes normocephalic Ears: external ears normal and TM's normal bilaterally Face and sinus: No sinus tenderness Mouth: Normal oral and palatal mucosa present and tongue normal Teeth and gingiva: dentition normal and gingiva normal Throat: Yes posterior oropharynx normal, Yes tonsils normal and Yes uvula midline Eyes Conjunctivae: conjunctivae normal Sclerae: sclerae normal Pupils: Equal, round and reactive pupils present EOM: EOMs intact bilaterally Direct Ophthalmoscopy: No no photophobia Neck Neck: Yes no lymphadenopathy, No tender and Yes no JVD Thyroid: Thyroid normal Carotids: no bruits Chest Chest palpation & inspection: no tenderness Resp Effort & Inspection: normal respiratory effort, no audible wheezes, not labored and no stridor Auscultation: no crackles, no rales, no rhonchi and no wheezes Cardio Jugular venous distension: no JVD Rate: regular rate, not bradycardic and not tachycardic Rhythm: regular rhythm Bruits: no carotid bruits Peripheral pulses: Peripheral pulses 2+ throughout GI Inspection: Yes normal to inspection, No abdominal wall ecchymosis and No visible herniation Palpation (GI): Soft to palpation, nontender, no guarding, not rigid and No hepatosplenomegaly present Auscultation: normoactive bowel sounds General: Yes no CVA tenderness Back/Spine/Pelvis Back: no CVA tenderness and No back tenderness Cervical Spine: cervical ROM normal Thoracic/Lumbar Spine: thoracic and lumbar spine normal to inspection, straight leg raise negative bilaterally, No thoraco-lumbar ROM limited and No lumbar spinal tenderness Skin Lesions: no lesions Rashes: no rashes Wounds: no wounds Neuro General: oriented to person, oriented to place, patient oriented x3, CN's II-XI intact bilaterally and No confusion Cranial nerves: Yes Equal, round and reactive pupils present and Yes Normal accommodation reflex present Cognition (Neuro): normal cognition Speech: No Abnormal speech present Gait exam (Neuro): Normal gait present Motor exam (neuro): 5/5 motor strength present throughout Extrem Right upper extremity: full ROM; no cyanosis Left upper extremity: full ROM; no cyanosis Right lower extremity: no edema Left lower extremity: no edema Psych Appearance: grossly normal Mental Status: mental status grossly normal Affect: normal affect Attitude: cooperative Thought process: Normal thought process present Assessment and Plan Assessment & Plan (1) Annual physical exam: Code(s): Z00.00 - Encounter for general adult medical examination without abnormal findings (2) HTN (hypertension): Code(s): I10 - Essential (primary) hypertension Qualifiers: Hypertension type: primary hypertension Qualified Code(s): I10 - Essential (primary) hypertension Plan: Patient's blood pressure acceptable today in office. Will continue her current dose of amlodipine with goal blood pressure be below 140/90 (3) SLE (systemic lupus erythematosus): Code(s): M32.9 - Systemic lupus erythematosus, unspecified Qualifiers: Systemic lupus erythematosus type: unspecified Systemic lupus erythematosus organ involvement: unspecified Qualified Code(s): M32.9 - Systemic lupus erythematosus, unspecified Plan: Patient now regularly followed by Rheumatology. Has been started on disease m odifying drug. Continues to have pains in fatigued (4) Easy bruising: Code(s): R23.8 - Other skin changes Plan: Worried about her easy bruising, though seem to be in areas of minor trauma. Will check a CBC and iron. (5) Skin lesion of cheek: Code(s): L98.9 - Disorder of the skin and subcutaneous tissue, unspecified Plan: As per HPI will continue to watch and wait to see if any concerning evolution of the skin lesions. Orders: Orders Basic Metabolic Panel Today M32.9 - Systemic lupus erythematosus, unspecified IRON PROFILE Today D50.9 - Iron deficiency anemia, unspecified, R23.8 - Other skin changes Liver Panel Today M32.9 - Systemic lupus erythematosus, unspecified Complete Blood Count no Diff Today R23.8 - Other skin changes Medications: Refilled amlodipine take with food 2.5 mg PO DAILY 30 days 30 tabs 3RF I10 - Essential (primary) hypertension Coding Level of Care Code Est Pt Prev Care 18-39y([id number]) Diagnoses Annual physical exam Z00.00 HTN (hypertension) I10 Hypertension type: primary hypertension SLE (systemic lupus erythematosus) M32.9 Systemic lupus erythematosus type: unspecified Systemic lupus erythematosus organ involvement: unspecified Easy bruising R23.8 Skin lesion of cheek L98.9
== END 2023-01-19 09:47 | disposition home or self-care (01) ==
PROVIDERS: Visit Provider Physician Assistant
DX: Z00.00 Encounter for general adult medical examination without abnormal findings (principal); I10 Essential (primary) hypertension; M32.9 Systemic lupus erythematosus, unspecified; R23.8 Other skin changes; L98.9 Disorder of the skin and subcutaneous tissue, unspecified
CPT/HCPCS: 99395

== ENCOUNTER 2023-01-21 07:07 | Outpatient (REF) | payer OTHER, SELFPAY ==
[2023-01-21 07:19] LABS: MANUAL DIFF FLAG NO
[2023-01-21 07:50] LABS: Basophils Absolute Auto 0.1 X10*3/uL (0.0-0.2); Basophils Percent Auto 1.1 % (0-2); Eosinophils Percent Auto 0.7 % (0-4); Hematocrit 39.1 % (37.0-47.0); Hemoglobin 12.8 g/dl (12.0-16.0); Imm Gran Abs Auto 0.01 X10*3/uL (0.00-0.03); Imm Gran Pct Auto 0.2 % (0.0-0.4); Lymphocytes Absolute Auto 1.5 X10*3/uL (1.2-4.9); Lymphocytes Percent Auto 27.1 % (20-40); Mean Corpuscular HGB Conc 32.7 g/dl (31.0-35.0); Mean Corpuscular Hemoglobin 31.7 pg (27.0-33.0); Mean Corpuscular Volume 96.8 fL (80.0-98.0); Mean Platelet Volume 11.5 fL (9.4-12.3); Monocytes Absolute Auto 0.4 X10*3/uL (0.1-1.2); Monocytes Percent Auto 7.3 % (2-11); Neutrophils Absolute Auto 3.5 x10*3/uL (2.0-8.3); Neutrophils Percent Auto 63.6 % (45-73); Platelet Count 223 X10*3/uL (160-400); Red Blood Count 4.04 X10*6/uL (4.20-5.50); Red Cell Distribution Width 12.9 % (11.0-16.0); White Blood Count 5.5 X10*3/uL (4.8-10.8)
[2023-01-21 08:23] LABS: Alanine Aminotransferase 17 U/L (0-31); Albumin Level 4.1 g/dL (3.5-5.0); Alkaline Phosphatase 58 U/L (39-117); Anion Gap 13 (12-20); Aspartate Amino Transferase 18 U/L (5-31); Bilirubin Direct 0.1 mg/dL (0.0-0.5); Bilirubin Total 0.4 mg/dL (0.0-1.0); Blood Urea Nitrogen 17 mg/dL (9-16); Calcium 9.4 mg/dL (8.4-10.2); Carbon Dioxide 24 mmol/L (22-29); Chloride 107 mmol/L (96-108); Estimated Glomerular Filt Rate > 60; Glucose Random 87 mg/dL (60-115); Iron 50 mcg/dL (30-160); Percent Iron Saturation 17 % (15-50); Potassium 4.8 mmol/L (3.3-5.1); Sodium 139 mmol/L (135-145); Total Iron Binding Capacity 288 mcg/dL (228-428); Unsaturated Iron Binding 238 ug/dL
== END 2023-01-21 07:08 | disposition home or self-care (01) ==
LOC: HO.LAB 07:07
PROVIDERS: PCP Physician Assistant; Visit Provider Physician Assistant
DX: D50.9 Iron deficiency anemia, unspecified (principal); R23.8 Other skin changes; M32.9 Systemic lupus erythematosus, unspecified; R53.81 Other malaise
CPT/HCPCS: 36415; 80053; 80076; 82248; 83540; 84443; 85025

== ENCOUNTER 2023-03-13 05:56 | Outpatient (REF) | payer OTHER, SELFPAY ==
[2023-03-13 07:37] LABS: Hematocrit 40.8 % (37.0-47.0); Hemoglobin 13.7 g/dl (12.0-16.0); Mean Corpuscular HGB Conc 33.6 g/dl (31.0-35.0); Mean Corpuscular Hemoglobin 32.9 pg (27.0-33.0); Mean Corpuscular Volume 97.8 fL (80.0-98.0); Mean Platelet Volume 11.7 fL (9.4-12.3); Platelet Count 210 X10*3/uL (160-400); Red Blood Count 4.17 X10*6/uL (4.20-5.50); White Blood Count 8.6 X10*3/uL (4.8-10.8)
[2023-03-13 08:51] LABS: Anion Gap 8 (12-20); Blood Urea Nitrogen 14 mg/dL (9-16); Calcium 9.1 mg/dL (8.4-10.2); Carbon Dioxide 26 mmol/L (22-29); Chloride 109 mmol/L (96-108); Estimated Glomerular Filt Rate > 60; Glucose Random 82 mg/dL (60-115); Potassium 4.4 mmol/L (3.3-5.1); Sodium 139 mmol/L (135-145)
== END 2023-03-13 05:57 | disposition home or self-care (01) ==
LOC: HO.LAB 05:56
PROVIDERS: PCP Physician Assistant; Referring Provider Student in an Organized Health Care Education/Training Program; Visit Provider Physician Assistant
DX: M32.9 Systemic lupus erythematosus, unspecified (principal); R23.8 Other skin changes
CPT/HCPCS: 36415; 80048; 85027

== ENCOUNTER 2023-03-14 09:33 | Outpatient (AMB) | payer OTHER, SELFPAY ==
[2023-03-14 09:35] VITALS: BP 132/80; PULSE 90; TEMP 36.6; O2SAT 99; BMI 25.4
--- NOTE | 2023-03-14 09:35 | A.OFFVIS_ITS ---
Intake Vital Signs 03/14/23 09:35 Height 5 ft 5 in Weight 152 lb 8.958 oz BMI 25.4 BP 132/80 Blood Pressure Location Rt brachial Position Sitting Pulse 90 Pulse Source Pulse Oximeter Temp 97.9 F Temp Source Skin Pulse Oximetry (%) 99 Intake Visit Reasons: SLE/overbook if needed Intake Note: Pt seen today for SLE follow up Mri Supervisor Required: No Accompanied by: Self / Same As Patient Allergies naproxen [From Aleve] Allergy (Severe, Verified 03/14/23 09:37) Rash sulfasalazine Allergy (Severe, Verified 03/14/23 09:37) redness and itching Sulfa (Sulfonamide Antibiotics) Allergy (Verified 03/14/23 09:37) Rash methotrexate Adverse Reaction (Intermediate, Verified 03/14/23 09:37) Fatigued Medication List - Last Reconciled 03/14/23 by Yaron Klein MD amlodipine 2.5 mg PO DAILY 30 days azathioprine 150 mg (3 x 50 mg) PO DAILY blood pressure monitor (Blood Pressure Kit) As directed calamine-zinc oxide 8-8 % 1 appl See Protocol topical QID PRN calcium carbonate-vitamin D3 600 mg-10 mcg (400 unit) (Calcium 600 + D(3)) 1 tab PO DAILY 90 days etonogestrel (Nexplanon) 1 subdermally famotidine 20 mg PO BEDTIME levonorgestrel (Mirena) 1 intrauterinely multivitamin 1 tab PO DAILY prednisone 5 mg PO DAILY sumatriptan succinate (Imitrex) 25 mg PO Q2H PRN 30 days HPI HPI Comments History of Present Illness Details 38 yoF with SLE presents for follow-up. Currently on prednisone 5 mg daily. She has been on escalating doses of azathioprine. Currently she has been on 150 mg daily. On prednisone 5 mg daily. Mentions that she gets mild stomach upset with azathioprine that resolved with continuing to eat. Patient states that she is doing well overall. In terms of her pain she denies any significant joint pain. She gets pain in her back and shoulders, improved with stretching and walking around. Denies any skin rashes. Denies any swollen joints. She cannot take any NSAIDs due to risk of flare. Yesterday she had some pain in her right upper quadrant that lasted 2 seconds then travel to her left upper quadrant that lasted 2 seconds. States that she went back to exercising. However last week she was fatigued in bed for like 6 days. Prior history: Patient developed rash end of October 2018, 6 weeks after she started sulfasalazine. She was admitted to the hospital and developed transaminitis, she has skin biopsy which showed possible drug reaction. She was put on steroids and the rash improved. She still gets itchy and dry skin. She is to see dermatology soon. [facility] Medical History SLE (systemic lupus erythematosus) Hypertension Migraines Cervical cancer screening PVCs (premature ventricular contractions) Vasovagal syncope Surgical History History of surgical biopsy Family History Father No problems noted. Mother Bipolar 1 disorder Chronic mental illness Family history of thyroid problem Maternal Grandmother Hypertension Maternal Grandfather No problems noted. 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[employer] Cognitive needs: No Hearing needs: No Vision needs: Yes Female Reproductive History Menstrual Age of Menarche: 11 Review of Systems Const Reports weight gain ENT Details: Denies any oral ulcers Card Reports no additional complaints Resp Reports no additional complaints Musc Reports back pain, Reports myalgias and Reports arthralgias Skin/Breast Details: acne Reports system reviewed and no additional complaints, except as documented and Denies rash Luis A/Lymph Reports no additional complaints Physical Exam Vital Signs: Last Vital Signs Temp 97.9 F 03/14/23 09:35 Pulse 90 03/14/23 09:35 BP 132/80 03/14/23 09:35 Pulse Ox 99 03/14/23 09:35 BMI result Body Mass Index 25.4 Const Other: Moist oral mucosa, no oral ulcers General: cooperative, healthy appearing, comfortable and no acute distress Nutritional Appearance: average body habitus Orientation/consciousness: patient oriented x3 Limitations: no limitations HEENT Head: Yes normocephalic and Yes atraumatic Mouth: moist mucous membranes Resp Effort & Inspection: normal respiratory effort and able to speak in complete s entences Auscultation: clear to auscultation bilaterally Cardio Rate: regular rate Rhythm: regular rhythm Heart sounds: S1 normal heart sound present and S2 normal heart sound present GI Inspection: No distended Palpation (GI): Soft to palpation and nontender Neuro General: patient oriented x3 Extrem Other: No active synovitis today No significant fibromyalgia tender points hyperextensible thumbs Normal nailfold capillaroscopy Results Reviewed Results Reviewed: Skin biopsy right arm 11/2018 DIAGNOSIS Skin, right arm, excision: Superficial perivascular dermatitis (see Comment); special stain for fungal organisms is pending; negative for malignancy. Comment: The findings are non-specific. Possible etiologies include but are not limited to: cutaneous drug eruption, urticarial reaction, viral exanthem, fungal infection, rosacea and pruritic plaques of . Clinical correlation is suggested. ADDENDUM This addendum is issued to report results of PAS special stain. PAS stain is negative for fungal organisms. 0 Assessment & Plan Assessment & Plan (1) SLE (systemic lupus erythematosus): Code(s): M32.9 - Systemic lupus erythematosus, unspecified Qualifiers: Systemic lupus erythematosus type: unspecified Systemic lupus erythematosus organ involvement: unspecified Qualified Code(s): M32.9 - Systemic lupus erythematosus, unspecified Plan: This is a 38-year-old female with SLE (+++SSA, intermittently low C3 and C4, arthralgias, skin rash) presents for follow-up In 2018 she was on hydroxychloroquine and sulfasalazine and she developed a rash with transaminitis, she had a skin biopsy which showed possible drug reaction, she was started on steroids with resolution of her rash and sulfasalazine and hydroxychloroquine were stopped.? Hydroxychloroquine was resumed 02/2022. In 06/2022 patient was admitted to the hospital with diffuse erythematous skin rash, fevers, inflammatory arthritis and transaminitis, symptoms rapidly resolved with steroid taper. This was 2 days after patient started Aleve It is unclear at this point whether patient's rash is due to drug reaction to Aleve verses a lupus rash. Labs when admitted also showed mild proteinuria 450 mg in addition to high WBC (possible concomitant UTI) Rashes, transaminitis and proteinuria all resolved with prednisone. I believe her SLE flares with NSAIDs & Sulfa hydroxychloroquine was discontinued. It does not seem to have helped the patient much. She also gets GI upset with it. Patient could not tolerate methotrexate due to fatigue, lightheadedness, GI upset, which resolved on discontinuation Today patient is doing well on azathioprine 150 mg daily and prednisone 5 mg daily. Cbc and CMP are unremarkable, unfortunately inflammatory markers, urine testing C3, C4 and dsDNA were not drawn. Will order. Continue azathioprine 150 mg daily. Reduce prednisone to 2.5 mg daily alternating with 5 mg daily for 1 month then reduce to 2.5 mg daily. Labs before next visit in 2 months (2) Encounter for monitoring azathioprine therapy: Code(s): Z51.81 - Encounter for therapeutic drug level monitoring; Z79.624 - skilled nursing (current) use of inhibitors of nucleotide synthesis Plan: Monitor safety labs. Her TPMT is normal Plan I spent 25 minutes reviewing patient's chart, evaluating patient, ordering diagnostic workup, counseling patient and documenting in the chart Orders: Orders Complement C4 2 Months M32.9 - Systemic lupus erythematosus, unspecified Protein Creatinine Ratio, Ur 2 Months M32.9 - Systemic lupus erythematosus, unspecified Complete Blood Count Auto Diff 2 Months M32.9 - Systemic lupus erythematosus, unspecified Erythrocyte Sedimentation Rate 2 Months M32.9 - Systemic lupus erythematosus, unspecified Complement C3 Today M32.9 - Systemic lupus erythematosus, unspecified Complement C4 Today M32.9 - Systemic lupus erythematosus, unspecified Erythrocyte Sedimentation Rate Today M32.9 - Systemic lupus erythematosus, unspecified Anti DNA DS Antibody 2 Months M32.9 - Systemic lupus erythematosus, unspecified Complement C3 2 Months M32.9 - Systemic lupus erythematosus, unspecified UA w Microscopic 2 Months M32.9 - Systemic lupus erythematosus, unspecified Comprehensive Met. Panel 2 Months M32.9 - Systemic lupus erythematosus, unspecified C Reactive Protein 2 Months M32.9 - Systemic lupus erythematosus, unspecified C Reactive Protein Today M32.9 - Systemic lupus erythematosus, unspecified Anti DNA DS Antibody Today M32.9 - Systemic lupus erythematosus, unspecified Medications: New prednisone Take 2 tabs daily alternating with 1 tab daily for 1 month then stay on 1 tab daily 75 tabs 1RF Discontinued folic acid Discontinued Reason: Doctor's Order 1 mg PO DAILY 90 tabs 1RF Coding Level of Care Code Est Pt Level 4 (56232) Diagnoses Systemic lupus erythematosus, unspecified SLE type, unspecified organ involvement status M32.9 Systemic lupus erythematosus type: unspecified Systemic lupus erythematosus organ involvement: unspecified Encounter for monitoring azathioprine therapy Z51.81; Z79.629
== END 2023-03-14 10:12 | disposition home or self-care (01) ==
PROVIDERS: PCP Physician Assistant; Visit Provider Student in an Organized Health Care Education/Training Program
DX: M32.9 Systemic lupus erythematosus, unspecified (principal); Z51.81 Encounter for therapeutic drug level monitoring; Z79.624 Long term (current) use of inhibitors of nucleotide synthesis
CPT/HCPCS: 99214

== ENCOUNTER → 2023-03-14 09:33 | Outpatient (BNVA) | payer OTHER, SELFPAY | PROVIDERS: PCP Physician Assistant; Visit Provider Student in an Organized Health Care Education/Training Program ==

== ENCOUNTER 2023-03-18 09:28 | Outpatient (REF) | payer OTHER, SELFPAY ==
[2023-03-18 10:03] LABS: MANUAL DIFF FLAG NO
[2023-03-18 10:54] LABS: Basophils Percent Auto 0.8 % (0-2); Eosinophils Percent Auto 0.4 % (0-4); Hematocrit 39.4 % (37.0-47.0); Hemoglobin 13.4 g/dl (12.0-16.0); Imm Gran Abs Auto 0.01 X10*3/uL (0.00-0.03); Imm Gran Pct Auto 0.2 % (0.0-0.4); Lymphocytes Absolute Auto 1.4 X10*3/uL (1.2-4.9); Lymphocytes Percent Auto 25.5 % (20-40); Mean Corpuscular Hemoglobin 33.7 pg (27.0-33.0); Monocytes Absolute Auto 0.4 X10*3/uL (0.1-1.2); Monocytes Percent Auto 7.5 % (2-11); Neutrophils Absolute Auto 3.5 x10*3/uL (2.0-8.3); Neutrophils Percent Auto 65.6 % (45-73); Platelet Count 203 X10*3/uL (160-400); Red Blood Count 3.98 X10*6/uL (4.20-5.50); White Blood Count 5.3 X10*3/uL (4.8-10.8)
[2023-03-18 11:07] LABS: Appearance Urine Clear; Color Urine Yellow; Glucose Urine UA Negative (Negative); Leukocyte Esterase Urine Small (1+) (Negative); Nitrite Urine Negative (Negative); Specific Gravity - Urine 1.025 (1.005-1.025); UMIC TRIGGER UA YES; Urine Blood Negative (Negative); Urine Ketones Negative (Negative); Urine Protein Negative (Neg-Trace)
[2023-03-18 11:13] LABS: Bacteria Urine Trace (None Seen); Hyaline Casts Urine 0-2 /LPF (0-2); RBC Urine 0-2 /HPF (0-2)
[2023-03-18 11:31] LABS: Erythrocyte Sedimentation Rate 5 MM/HR (0-20)
[2023-03-18 11:37] LABS: Protein/Creatinine Ratio, Ur 0.06 (<0.2); Total Protein Urine Random 12 mg/dL (<12)
[2023-03-18 11:42] LABS: Alanine Aminotransferase 26 U/L (0-31); Albumin Level 4.1 g/dL (3.5-5.0); Alkaline Phosphatase 66 U/L (39-117); Anion Gap 14 (12-20); Aspartate Amino Transferase 17 U/L (5-31); Bilirubin Total 0.6 mg/dL (0.0-1.0); Blood Urea Nitrogen 13 mg/dL (9-16); C Reactive Protein 0.18 mg/dL (< or = 0.50); Calcium 9.2 mg/dL (8.4-10.2); Carbon Dioxide 24 mmol/L (22-29); Chloride 107 mmol/L (96-108); Estimated Glomerular Filt Rate > 60; Glucose Random 86 mg/dL (60-115); Potassium 4.5 mmol/L (3.3-5.1); Sodium 140 mmol/L (135-145)
[2023-03-20 19:48] LABS: Anti DNA DS Antibody <1 IU/mL
[2023-03-21 12:04] LABS: Complement C3 137 mg/dL (83-193)
== END 2023-03-18 09:29 | disposition home or self-care (01) ==
LOC: HO.LAB 09:28
PROVIDERS: PCP Physician Assistant; Visit Provider Student in an Organized Health Care Education/Training Program
DX: M32.9 Systemic lupus erythematosus, unspecified (principal)
CPT/HCPCS: 36415; 80053; 81001; 82570; 84156; 85025; 85652; 86140; 86160; 86225

== ENCOUNTER 2023-04-10 09:52 | Emergency (ER) | payer OTHER, SELFPAY ==
--- NOTE | ~2023-04-10 | US_ITS ---
EXAMINATION: US PELVIS CLINICAL INFORMATION: Pelvic pain LMP: Unknown COMPARISON: Pelvic ultrasound 04/14/2022 TECHNIQUE: Ultrasound of the pelvis is performed using both transabdominal and transvaginal transducers along with Doppler. Transvaginal imaging is performed due to inadequate visualization transabdominally. FINDINGS: Uterus: The uterus is anteverted and measures 9.5 x 4.6 x 5.1 cm. The endometrial thickness is 0.3 mm. IUD seen in correct position. The uterus is smooth in contour and has normal myometrial echogenicity. No visible fibroid. Adnexa: Both ovaries are visualized. There is normal arterial and venous flow to both ovaries. There is normal color flow to the adnexa. There is no ovarian torsion. There is no pelvic ascites or fluid collection. Right ovary measures 5.2 x 3.8 x 4.1 cm. 4.1 x 3.3 x 3.4 cm simple cyst is seen. This is considered a benign follicular cyst. No follow-up imaging is recommended. Left ovary measures 2.7 x 1.2 x 1.6 cm. 2.7. The left ovary is normal in appearance. US/US pelvic and transvaginal IMPRESSION: 1. Normal uterus and left ovary. 2. 4.1 cm simple right ovarian cyst. This is considered a benign follicular cyst. No follow-up imaging is recommended. 3. 3. Normal arterial and venous flow to both ovaries 4. IUD appears in proper position.
--- NOTE | ~2023-04-10 | US_ITS ---
EXAMINATION: US PELVIS OVARIAN DOPPLER CLINICAL INFORMATION: Pelvic pain LMP: Unknown COMPARISON: Pelvic ultrasound 04/14/2022 TECHNIQUE: Ultrasound of the pelvis is performed using both transabdominal and transvaginal transducers along with Doppler. Transvaginal imaging is performed due to inadequate visualization transabdominally. FINDINGS: Uterus: The uterus is anteverted and measures 9.5 x 4.6 x 5.1 cm. The endometrial thickness is 0.3 mm. IUD seen in correct position. The uterus is smooth in contour and has normal myometrial echogenicity. No visible fibroid. Adnexa: Both ovaries are visualized. There is normal arterial and venous flow to both ovaries. There is normal color flow to the adnexa. There is no ovarian torsion. There is no pelvic ascites or fluid collection. Right ovary measures 5.2 x 3.8 x 4.1 cm. 4.1 x 3.3 x 3.4 cm simple cyst is seen. This is considered a benign follicular cyst. No follow-up imaging is recommended. Left ovary measures 2.7 x 1.2 x 1.6 cm. 2.7. The left ovary is normal in appearance. US/US pelvic ovarian doppler IMPRESSION: 1. Normal uterus and left ovary. 2. 4.1 cm simple right ovarian cyst. This is considered a benign follicular cyst. No follow-up imaging is recommended. 3. Normal arterial and venous flow to both ovaries. 4. IUD appears in proper position.
[2023-04-10 09:55] VITALS: BP 140/71; PULSE 90; RESP 16; TEMP 36.5; O2SAT 99; BMI 25.3
[2023-04-10 10:16] LABS: MANUAL DIFF FLAG NO
[2023-04-10 10:17] LABS: Basophils Percent Auto 0.5 % (0-2); Eosinophils Percent Auto 0.1 % (0-4); Hematocrit 39.8 % (37.0-47.0); Hemoglobin 13.7 g/dl (12.0-16.0); Imm Gran Abs Auto 0.03 X10*3/uL (0.00-0.03); Imm Gran Pct Auto 0.4 % (0.0-0.4); Lymphocytes Absolute Auto 1.5 X10*3/uL (1.2-4.9); Lymphocytes Percent Auto 18.5 % (20-40); Mean Corpuscular HGB Conc 34.4 g/dl (31.0-35.0); Mean Corpuscular Hemoglobin 34.1 pg (27.0-33.0); Mean Platelet Volume 11.3 fL (9.4-12.3); Monocytes Absolute Auto 0.5 X10*3/uL (0.1-1.2); Monocytes Percent Auto 6.6 % (2-11); Neutrophils Absolute Auto 5.9 x10*3/uL (2.0-8.3); Neutrophils Percent Auto 73.9 % (45-73); Platelet Count 201 X10*3/uL (160-400); Red Blood Count 4.02 X10*6/uL (4.20-5.50); Red Cell Distribution Width 12.9 % (11.0-16.0); White Blood Count 7.9 X10*3/uL (4.8-10.8)
[2023-04-10 10:33] LABS: Alanine Aminotransferase 7 U/L (0-31); Albumin Level 4.1 g/dL (3.5-5.0); Alkaline Phosphatase 66 U/L (39-117); Anion Gap 10 (12-20); Aspartate Amino Transferase 13 U/L (5-31); Bilirubin Direct 0.2 mg/dL (0.0-0.5); Bilirubin Total 0.5 mg/dL (0.0-1.0); Blood Urea Nitrogen 15 mg/dL (9-16); Calcium 9.4 mg/dL (8.4-10.2); Carbon Dioxide 27 mmol/L (22-29); Chloride 106 mmol/L (96-108); Creatinine Clr Calc Pharmacy 80.9; Estimated Glomerular Filt Rate > 60; Glucose Random 107 mg/dL (60-115); Lipase 34 U/L (8-78); Potassium 4.2 mmol/L (3.3-5.1); Sodium 139 mmol/L (135-145); Total Protein 7.1 g/dL (6.5-8.0)
--- NOTE | 2023-04-10 10:36 | PC.NURSE ---
Pt reporting lower abdominal pain, described as cramping that radiates to each side. Pt reports she does not get a period at this time d/t having a IUD/nexplanon in place. reports APAP helped with pain this morning. This has been going on for 3 days. Awaiting to be seen by provider at this time
--- NOTE | 2023-04-10 11:10 | ED.ABDPAIN ---
HPI - Abdominal Pain General Chief Complaint: Abdominal Pain Stated Complaint: lower abd pain Time Seen by Provider: 04/10/23 10:15 Source: patient Mode of arrival: ambulatory Limitations: no limitations History of Present Illness HPI narrative: 38-year-old female came in for evaluation pelvic pain and lower abdominal cramps pain is mainly suprapubic is mostly radiates to the left adnexal area sometimes radiate to the right adnexal area pain started 3 days ago, described as intermittent last for few minutes each episode, no apparent relieving factor or aggravating factors, no dysuria, no frequency urination, no vaginal bleed or vaginal discharge plan, no fever, no chills, no nausea or vomiting. Last bowel movement was normal this morning. Related Data Home Medications Medication Instructions Recorded Confirmed etonogestrel 68 mg subdermal See Rx Instructions .Route .COMPLEX 04/07/20 03/14/23 implant (Nexplanon) levonorgestrel 21 mcg/24 hours (8 See Rx Instructions .Route .COMPLEX 05/11/22 03/14/23 yrs) 52 mg intrauterine device (Mirena) multivitamin 1 tab PO DAILY 07/15/22 03/14/23 Previous Rx's Medication Instructions Recorded blood pressure monitor (Blood #1 ea 11/23/21 Pressure Kit) calamine 8 %-zinc oxide 8 % lotion 1 appl topical QID PRN Itching 07/17/22 #177 mL sumatriptan succinate 25 mg tablet 25 mg PO Q2H PRN Migraine Headache 08/15/22 (Imitrex) 30 days #9 tabs famotidine 20 mg tablet 20 mg PO BEDTIME #90 tabs 10/05/22 calcium carbonate 600 mg-vitamin 1 tab PO DAILY 90 days #90 tabs 10/15/22 D3 10 mcg (400 unit) tablet (Calcium 600 + D(3)) amlodipine 2.5 mg tablet 2.5 mg PO DAILY 30 days #30 tabs 01/19/23 azathioprine 50 mg tablet 150 mg (3 x 50 mg) PO DAILY #270 03/14/23 tabs prednisone 2.5 mg tablet See Rx Instructions PO .COMPLEX 03/14/23 #75 tabs nitrofurantoin 100 mg PO BID #14 caps 04/10/23 monohydrate/macrocrystals 100 mg capsule (Macrobid) Allergies Allergy/AdvReac Type Severity Reaction Status Date / Time naproxen [From Aleve] Allergy Severe Rash Verified 03/14/23 09:37 sulfasalazine Allergy Severe redness Verified 03/14/23 09:37 and itching Sulfa (Sulfonamide Allergy Rash Verified 03/14/23 09:37 Antibiotics) methotrexate AdvReac Intermediate Fatigued Verified 03/14/23 09:37 Review of Systems Review of Systems All other systems are reviewed and are negative Constitutional: Reports as per HPI and Reports no additional constitutional complaints Eyes: Reports as per HPI and Reports no additional eye complaints Reports system reviewed and no additional complaints, except as documented Cardiovascular: Reports as per HPI and Reports no additional cardiovascular complaints Respiratory: Reports as per HPI and Reports no additional respiratory complaints Gastrointestinal: Reports as per HPI and Reports no additional gastrointestinal complaints Genitourinary: Reports no additional female genitourinary complaints Musculoskeletal: Reports no additional musculoskeletal complaints Skin/Breast: Reports system reviewed and no additional complaints, except as docu Psychiatric: Reports no additional psychiatric complaints Endocrine: Reports no additional endocrine complaints Hematologic/Lymphatic: Reports no additional hematologic/lymphatic complaints Allergic/Immunologic: Reports no additional allergic/immunologic complaints Reports system reviewed and no additional complaints, except as documented and Reports Abnormal speech present [facility] Past Medical History Medical History SLE (systemic lupus erythematosus) Hypertension Migraines Cervical cancer screening PVCs (premature ventricular contractions) Vasovagal syncope Surgical History History of surgical biopsy Family History Family History Father No problems noted. Mother Bipolar 1 disorder Chronic mental illness Family history of thyroid problem Maternal Grandmother Hypertension Maternal Grandfather No problems noted. Maternal Aunt CAD (coronary artery disease) Sister Depression Bipolar 1 disorder Brother Depression Depression with anxiety Social History Social History Household Members: Spouse Housing: House Do you presently have visiting nurse or other home services: No Alcohol intake: current Alcohol intake frequency: a few times a month Alcohol type: wine Patient Tobacco Use Status: Never used Tobacco Smoked in Last 30 Days: No e-Cigarette/Vaping Use: Never Used Second Hand Smoke Exposure: No Use of substances other than those prescribed or required for medical reasons: No Advance Directives: No service: No Current occupational status: employed 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 Blood pressure elevated. Heart rate normal. Respiratory rate normal. Temperature normal. Oxygen saturation normal. Appearance: Alert. Oriented X3. No acute distress. Head: Normal external exam. Normocephalic. Atraumatic. No Rao signs noted. No raccoon eyes noted Eyes: PERRLA. EOMI. Conjunctiva and sclera normal. Eyelids normal. ENT: TM's Normal. Pharynx normal. Uvula midline. Moist mucous membranes. No trismus noted. No drooling noted. No muffled voice noted. Neck: Normal inspection. Neck supple. FROM. No adenopathy. Thyroid Normal. No meningeal signs. No neck mass noted. CVS: Normal heart rate and rhythm. Heart sound normal. No murmurs noted. Pulses normal throughout. Respiratory: No respiratory distress. Painless inspiration. Breath sounds normal. No wheezes/rales/rhonchi noted. Chest nontender. No accessory muscle usage noted or decreased air movement noted. Abdomen: Soft and nontender. Bowel sounds normal in all 4 quadrants. No distention noted. No organomegaly noted. No visible injury noted. Pelvic exam: Deferred for pelvic ultrasound. Back: No CVA tenderness. Full range of motion noted. Skin: Skin warm and dry. Normal skin color. Normal skin turgor. No rashes/lesions/lacerations noted. Extremities: No lower extremity edema. Extremities exhibit normal range of motion. Extremities nontender. Neuro: Oriented X 3. Cranial nerve exam: II-XII are grossly intact No motor deficit. No sensory deficit. Reflexes normal. Course Reevaluation(s) Reevaluation #1: Right pelvic pain ultrasound revealed right ovarian cyst with no convincing evidence of ovarian torsion. NSAIDs and follow-up with payroll specialist. Time: 12:53 Medical Decision Making Differential Diagnosis Differential Diagnoses: The differential diagnosis associated with the presentation includes (UTI, , electrolyte abnormality, ovarian cyst, ovarian torsion, severe anemia.) Admission/Observation Consideration of admission/observation: Escalation of care including admission/observation considered Lab Data MDM Lab Attestation statement: I reviewed the patient's lab results. 04/10/23 10:12 04/10/23 10:12 Labs: Lab Results 04/10/23 04/10/23 Range/Units 10:12 11:06 WBC 7.9 (4.8-10.8) X10*3/uL RBC 4.02 L (4.20-5.50) X10*6/uL Hgb 13.7 (12.0-16.0) g/dl Hct 39.8 (37.0-47.0) % MCV 99.0 H (80.0-98.0) fL MCH 34.1 H (27.0-33.0) pg MCHC 34.4 (31.0-35.0) g/dl RDW 12.9 (11.0-16.0) % Plt Count 201 (160-400) X10*3/uL MPV 11.3 (9.4-12.3) fL Immature Gran % (Auto) 0.4 (0.0-0.4) % Neut % (Auto) 73.9 H (45-73) % Lymph % (Auto) 18.5 L (20-40) % Barnes % (Auto) 6.6 (2-11) % Eos % (Auto) 0.1 (0-4) % Baso % (Auto) 0.5 (0-2) % Lymph # (Auto) 1.5 (1.2-4.9) X10*3/uL Barnes # (Auto) 0.5 (0.1-1.2) X10*3/uL Eos # (Auto) 0.0 (0.0-0.4) X10*3/uL Baso # (Auto) 0.0 (0.0-0.2) X10*3/uL Abs Immat Gran (auto) 0.03 (0.00-0.03) X10*3/uL Absolute Neuts (auto) 5.9 (2.0-8.3) x10*3/uL Absolute Nucleated RBC 0.000 (0.0-0.012) X10*3/uL Nucleated RBC % (auto) 0.0 (0.0-0.2) /100WBC Sodium 139 (135-145) mmol/L Potassium 4.2 (3.3-5.1) mmol/L Chloride 106 (96-108) mmol/L Carbon Dioxide 27 (22-29) mmol/L Anion Gap 10 L (12-20) BUN 15 (9-16) mg/dL Creatinine 0.91 (0.5-1.4) mg/dL Estim Creat Clear Calc 80.9 Estimated GFR > 60 Random Glucose 107 (60-115) mg/dL Calcium 9.4 (8.4-10.2) mg/dL Total Bilirubin 0.5 (0.0-1.0) mg/dL Direct Bilirubin 0.2 (0.0-0.5) mg/dL AST 13 (5-31) U/L ALT 7 (0-31) U/L Alkaline Phosphatase 66 (39-117) U/L Total Protein 7.1 (6.5-8.0) g/dL Albumin 4.1 (3.5-5.0) g/dL Lipase 34 (8-78) U/L Urine Color Dark Yellow Urine Appearance Clear Urine pH 6.0 (5.0-9.0) Ur Specific [place] >= 1.030 H (1.005-1.025) Urine Protein Negative (Neg-Trace) mg/dL Urine Glucose (UA) Negative (Negative) mg/dL Urine Ketones Trace (Negative) mg/dL Urine Blood Negative (Negative) Urine Nitrite Negative (Negative) Ur Leukocyte Esterase Moderate (2+) H (Negative) Urine Test NEGATIVE (NEGATIVE) Independent Interpretation I performed an independent interpretation of an: Ultrasound (Pelvic ultrasound:1. Normal uterus and left ovary. 2. 4.1 cm simple right ovarian cyst. This is considered a benign follicular cyst. No follow-up imaging is recommended. 3. 3. Normal arterial and venous flow to both ovaries 4. IUD appears in proper position. ) Radiology Impression Discussion of test interpretation with radiology: I have reviewed the radiologist's reading. Discharge Plan Discharge Clinical Impression: Cyst of right ovary UTI (urinary tract infection) Qualifiers: Urinary tract infection type: acute cystitis Hematuria presence: without hematuria Qualified Code(s): N30.00 - Acute cystitis without hematuria Patient Disposition: Home, Self-Care Instructions: Ovarian Cyst (ED) Prescriptions: New nitrofurantoin monohyd/m-cryst [Macrobid] 100 mg capsule 100 mg PO BID Qty: 14 0RF Rx Instructions: must administer with a meal/food No Action sumatriptan succinate [Imitrex] 25 mg tablet 25 mg PO Q2H PRN (Reason: Migraine Headache) 30 Days Qty: 9 1RF Rx Instructions: take 1 tab at onset of headache; if no relief may repeat 1 tab after at least 2 hrs; max = 4 tabs/24 hr PO famotidine 20 mg tablet 20 mg PO BEDTIME Qty: 90 1RF calcium carbonate-vitamin D3 [Calcium 600 + D(3)] 600 mg-10 mcg (400 unit) tablet 1 tab PO DAILY 90 Days Qty: 90 2RF azathioprine 50 mg tablet 150 mg PO DAILY Qty: 270 0RF multivitamin Tablet 1 tab PO DAILY calamine-zinc oxide 8-8 % Lotion 1 appl topical QID PRN (Reason: Itching) Qty: 177 0RF Protocol: Apply to: Apply to: extremity amlodipine 2.5 mg tablet 2.5 mg PO DAILY 30 Days Qty: 30 3RF Rx Instructions: take with food (DME) blood pressure monitor [Blood Pressure Kit] Kit See Rx Instructions .Route Qty: 1 0RF Rx Instructions: As directed Nexplanon 68 mg implant See Rx Instructions .ROUTE .COMPLEX Rx Instructions: 1 subdermally Mirena 20 mcg/24 hours (8 yrs) 52 mg intrauterine device See Rx Instructions .ROUTE .COMPLEX Rx Instructions: 1 intrauterinely prednisone 2.5 mg tablet See Rx Instructions PO .COMPLEX Qty: 75 1RF Rx Instructions: Take 2 tabs daily alternating with 1 tab daily for 1 month then stay on 1 tab daily Referrals: Vignesh Lauren PA-C [Primary Care Provider] - Dae Lipscomb MD [Physician] -
[2023-04-10 11:12] LABS: Appearance Urine Clear; Color Urine Dark Yellow; Glucose Urine UA Negative (Negative); Leukocyte Esterase Urine Moderate (2+) (Negative); Nitrite Urine Negative (Negative); Specific Gravity - Urine >= 1.030 (1.005-1.025); UMIC TRIGGER UACC YES; Urine Blood Negative (Negative); Urine Ketones Trace mg/dL (Negative); Urine Protein Negative (Neg-Trace)
[2023-04-10 11:16] LABS: UPreg QC Valid YES; Urine Pregnancy NEGATIVE (NEGATIVE)
[2023-04-10 12:48] VITALS: BP 127/66; PULSE 73; RESP 12; O2SAT 100
[2023-04-10 12:53] LABS: Bacteria Urine Trace (None Seen); Hyaline Casts Urine 0-2 /LPF (0-2); RBC Urine 0-2 /HPF (0-2); UACC Culture Trigger YES
[2023-04-10] MEDS: Nitrofurantoin Monohyd/M-Cryst 100 MG CAPSULE PO (13:05)
--- NOTE | 2023-04-10 13:06 | PC.NURSE ---
pt medicated per MAR.
== END 2023-04-10 13:07 | disposition home or self-care (01) ==
PROVIDERS: Emergency Provider Emergency Medicine; PCP Physician Assistant
DX: N83.201 Unspecified ovarian cyst, right side (principal); N30.00 Acute cystitis without hematuria; R10.2 Pelvic and perineal pain; Z79.899 Other long term (current) drug therapy
CPT/HCPCS: 36415; 76830; 76856; 80048; 80076; 81001; 81025; 83690; 85025; 87086; 93975; 99284

== ENCOUNTER 2023-04-15 15:25 | Emergency (ER) | payer OTHER, SELFPAY ==
[2023-04-15 16:16] VITALS: BP 149/79; PULSE 84; RESP 18; TEMP 36.8; O2SAT 100; BMI 25.0
--- NOTE | 2023-04-15 16:17 | ED.GENADULT ---
HPI - General Adult General Chief complaint: Skin/Abscess/Foreign Body Stated complaint: Body rash, nausea Time Seen by Provider: 04/15/23 16:51 Source: patient, RN notes reviewed and old records reviewed Mode of arrival: ambulatory History of Present Illness HPI narrative: 38-year-old female with a past medical history of lupus, prior drug rash with transaminitis suspected from sulfasalazine, GERD, migraines, ovarian cyst with recent UTI started on Macrobid on 04/10/23, presenting to the ED complaining of diffuse pruritic erythematous rash to trunk, bilateral upper and lower extremities x3 days. Admits rash initially started on forearms and spread. Admits to similar rash in the past associated with drug reaction. Denies other new or recent changes in medications other than recently prescribed Macrobid. Admits to mild continued suprapubic discomfort. Denies known tick/insect bites, travel, fever, SOB/CP, wheezing, throat closing sensation. Onset (ago): day(s) Related Data Home Medications Medication Instructions Recorded Confirmed etonogestrel 68 mg subdermal See Rx Instructions .Route .COMPLEX 04/07/20 03/14/23 implant (Nexplanon) levonorgestrel 21 mcg/24 hours (8 See Rx Instructions .Route .COMPLEX 05/11/22 03/14/23 yrs) 52 mg intrauterine device (Mirena) multivitamin 1 tab PO DAILY 07/15/22 03/14/23 Previous Rx's Medication Instructions Recorded blood pressure monitor (Blood #1 ea 11/23/21 Pressure Kit) calamine 8 %-zinc oxide 8 % lotion 1 appl topical QID PRN Itching 07/17/22 #177 mL sumatriptan succinate 25 mg tablet 25 mg PO Q2H PRN Migraine Headache 08/15/22 (Imitrex) 30 days #9 tabs calcium carbonate 600 mg-vitamin 1 tab PO DAILY 90 days #90 tabs 10/15/22 D3 10 mcg (400 unit) tablet (Calcium 600 + D(3)) azathioprine 50 mg tablet 150 mg (3 x 50 mg) PO DAILY #270 03/14/23 tabs prednisone 2.5 mg tablet See Rx Instructions PO .COMPLEX 03/14/23 #75 tabs famotidine 20 mg tablet 20 mg PO BEDTIME #90 tabs 04/11/23 amlodipine 2.5 mg tablet 2.5 mg PO DAILY #90 tabs 04/12/23 cefuroxime axetil 250 mg tablet 250 mg PO BID 5 days #10 tabs 04/15/23 cetirizine 10 mg tablet (Zyrtec) 10 mg PO DAILY PRN allergy 04/15/23 symptoms #14 tabs diphenhydramine HCl 25 mg capsule 25 mg PO TID PRN itching #14 caps 04/15/23 (Benadryl) prednisone 10 mg tablet 10 mg PO DAILY #20 tabs 04/15/23 Allergies Allergy/AdvReac Type Severity Reaction Status Date / Time naproxen [From Aleve] Allergy Severe Rash Verified 04/15/23 16:20 sulfasalazine Allergy Severe redness Verified 04/15/23 16:20 and itching nitrofurantoin Allergy Rash Verified 04/15/23 17:09 [From Macrobid] Sulfa (Sulfonamide Allergy Rash Verified 04/15/23 16:20 Antibiotics) methotrexate AdvReac Intermediate Fatigued Verified 04/15/23 16:20 Review of Systems Review of Systems: Constitutional: No Fever, No Chills, No Fatigue, No Malaise ENT/Mouth: No Ear Pain, No Nasal Congestion, No Hoarseness, No sore throat, No Swallowing Difficulty Eyes: No Eye Pain, No Swelling, No Redness, No Vision Changes Cardiovascular: No Chest Pain, No SOB, No Edema, No Palpitations Respiratory: No Cough, No Sputum, No Dyspnea Gastrointestinal: No Nausea, No Vomiting, No Diarrhea, No Constipation, +Abdominal pain Genitourinary: No Dysuria, No Urinary Frequency, No Hematuria, No Flank Pain, No Urinary Flow Changes Musculoskeletal: No joint pain, No Myalgias, No Joint Swelling Skin: No Skin Lesions, +rash Neuro: No Weakness, No Numbness, No Paresthesias, No Headache Yes all other systems are reviewed and are negative Constitutional: Constitutional: Reports as per [facility] Past Medical History Attestation statement: The following information was validated with the patient. Source: old records reviewed Medical History SLE (systemic lupus erythematosus) Hypertension Migraines Cervical cancer screening PVCs (premature ventricular contractions) Vasovagal syncope Surgical History History of surgical biopsy Family History Family History Father No problems noted. Mother Bipolar 1 disorder Chronic mental illness Family history of thyroid problem Maternal Grandmother Hypertension Maternal Grandfather No problems noted. 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 [employer] Cognitive needs: No Hearing needs: No Vision needs: Yes Physical Exam ED Vital Signs: Vital Signs - 24 hr 04/15/23 16:16 04/15/23 18:23 Temperature 98.2 F Pulse Rate 84 82 Respiratory Rate 18 18 Blood Pressure 149/79 H 136/81 Pulse Oximetry 100 99 Oxygen Delivery Method Room Air Room Air BMI result Body Mass Index 25.0 Const General: cooperative, healthy appearing and no acute distress Orientation/consciousness: patient oriented x3 Limitations: no limitations HENMT Head: Yes normal to inspection and Yes atraumatic Ears: hearing grossly normal bilaterally and external ears normal General nose exam: Normal external nose present Face and sinus: Yes normal facial exam Mouth: no audible dysphonia, no drooling and no muffled voice Throat: Yes posterior oropharynx normal, Yes uvula midline, No peritonsillar mass, No uvula laterally displaced and No uvular edema Eyes General: appearance normal, both eyes and all related structures EOM: EOMs intact bilaterally Neck Neck: Yes normal visual inspection and Yes no meningeal signs Resp Effort & Inspection: normal respiratory effort, no respiratory distress and no stridor Auscultation: clear to auscultation bilaterally and no wheezes Cardio Rate: regular rate Heart sounds: S1 normal heart sound present and S2 normal heart sound present GI Inspection: Yes normal to inspection Palpation (GI): Soft to palpation, Tenderness to palpation present (GI) suprapubicly, no guarding and not rigid Skin Other: + diffuse macular papular rash noted to trunk, back, bilateral upper extremities and bilateral lower extremities. No mucous membrane, palm or sole involvement. No sloughing/vesicles or pustules Wounds: no wounds Neuro General: patient oriented x3, tone normal and no meningeal signs Cranial nerves: Yes CN's II-XII intact bilaterally Gait exam (Neuro): Normal gait present Extrem General: Yes normal to inspection Course Course Course Narrative: This is a rapid medical exam: Additional HPI, ROS, PE not included below will be deferred to primary provider. Patient is a 38-year-old female with history of SLE, HTN, GERD, migraines, PVCs presenting to the ED with a diffuse pruritic rash after being prescribed nitrofurantoin for a rash on Monday. Has taken benadryl with little relief. Denies any dyspnea, or swelling of lips/tingue, denies tightness to throat or chest. Diffuse erythematous maculopapular rash noted to trunk, arms in triage, no angioedema, no uvula edema. Complains of pain in joints related to lupus but states rash in not painful. -1802--no leukocytosis. H&H stable. ESR/CRP WNL. Labs otherwise unremarkable, LFTs WNL -COVID and strep negative. > discussed with patient rash is likely from Macrobid. Should discontinue Macrobid, will initiate Ceftin. Recommended close follow-up with her endless steamer tender and OBGYN/PCP Results discussed with patient including worrisome signs and symptoms and strict return precautions, and when to return to the emergency department. They verbalized understanding and feel safe for discharge at this time. Medications Administered Discontinued Medications Generic Name Dose Route Start Last Admin Trade Name Freq PRN Reason Stop Dose Admin Diphenhydramine HCl 50 mg 04/15/23 17:04 04/15/23 17:33 Diphenhydramine Hcl 50 Mg/Ml Vial IVPUSH 04/15/23 17:05 50 mg ONCE ONE Administration Famotidine 20 mg 04/15/23 17:04 04/15/23 17:33 Famotidine/Pf 20 Mg/2 Ml Vial IVPUSH 04/15/23 17:05 20 mg ONCE ONE Administration Sodium Chloride 1,000 mls @ 999 mls/hr 04/15/23 17:15 04/15/23 17:23 Ns IV 04/15/23 18:15 999 mls/hr .Q1H1M RAFAELA Administration Methylprednisolone Sodium Succinate 125 mg 04/15/23 17:04 04/15/23 17:23 Methylprednisolone Sod Succ 125 Mg/2 Ml Vial IVPUSH 04/15/23 17:05 125 mg ONCE ONE Administration Medical Decision Making Medical Decision Making [facility] Narrative: 38-year-old female with a past medical history of lupus, prior drug rash with transaminitis suspected from sulfasalazine, GERD, migraines, ovarian cyst with recent UTI started on Macrobid on 04/10/23, presenting to the ED complaining of diffuse pruritic erythematous rash to trunk, bilateral upper and lower extremities x3 days. On exam vital signs stable, NAD, nontoxic appearing, no respiratory distress or evidence of anaphylaxis, handling secretions, physical exam as above with diffuse macular papular rash noted without mucous membrane or palm/sole involvement. No sloughing. Concern for drug reaction/allergic reaction vs ?Scarlet fever vs lupus flare. Low suspicion for SJS/TENS Upon chart review appears patient may have known allergy to Macrobid from note in June of 2022, however Macrobid not listed on patient's allergies. This could be source of rash with recent initiation of Macrobid on 04/10 Plan: Labs, COVID and rapid strep testing, IV Solu-Medrol/Benadryl/Pepcid Please refer to course for remaining clinical decision making, interpretation of labs/imaging results, and discussions with consultants and/or family members. Differential Diagnosis Differential Diagnoses: The differential diagnosis associated with the presentation includes As above Admission/Observation Consideration of admission/observation: Escalation of care including admission/observation considered Lab Data [facility] Lab Attestation statement: I reviewed the patient's lab results. 04/15/23 17:16 04/15/23 17:16 Labs: Lab Results 04/15/23 Range/Units 17:16 WBC 7.2 (4.8-10.8) X10*3/uL RBC 3.95 L (4.20-5.50) X10*6/uL Hgb 13.4 (12.0-16.0) g/dl Hct 39.1 (37.0-47.0) % MCV 99.0 H (80.0-98.0) fL MCH 33.9 H (27.0-33.0) pg MCHC 34.3 (31.0-35.0) g/dl RDW 12.7 (11.0-16.0) % Plt Count 208 (160-400) X10*3/uL MPV 11.0 (9.4-12.3) fL Immature Gran % (Auto) 0.3 (0.0-0.4) % Neut % (Auto) 81.2 H (45-73) % Lymph % (Auto) 10.0 L (20-40) % Barbour % (Auto) 6.7 (2-11) % Eos % (Auto) 1.5 (0-4) % Baso % (Auto) 0.3 (0-2) % Lymph # (Auto) 0.7 L (1.2-4.9) X10*3/uL Barbour # (Auto) 0.5 (0.1-1.2) X10*3/uL Eos # (Auto) 0.1 (0.0-0.4) X10*3/uL Baso # (Auto) 0.0 (0.0-0.2) X10*3/uL Abs Immat Gran (auto) 0.02 (0.00-0.03) X10*3/uL Absolute Neuts (auto) 5.8 (2.0-8.3) x10*3/uL Absolute Nucleated RBC 0.000 (0.0-0.012) X10*3/uL Nucleated RBC % (auto) 0.0 (0.0-0.2) /100WBC ESR 3 (0-20) MM/HR Sodium 139 (135-145) mmol/L Potassium 4.1 (3.3-5.1) mmol/L Chloride 105 (96-108) mmol/L Carbon Dioxide 25 (22-29) mmol/L Anion Gap 13 (12-20) BUN 14 (9-16) mg/dL Creatinine 0.89 (0.5-1.4) mg/dL Estim Creat Clear Calc 76.3 Estimated GFR > 60 Random Glucose 85 (60-115) mg/dL Calcium 9.9 (8.4-10.2) mg/dL Magnesium 1.8 (1.6-2.6) mg/dL Total Bilirubin 0.4 (0.0-1.0) mg/dL Direct Bilirubin 0.1 (0.0-0.5) mg/dL AST 20 (5-31) U/L ALT 10 (0-31) U/L Alkaline Phosphatase 65 (39-117) U/L C-Reactive Protein 0.19 (< or = 0.50) mg/dL Total Protein 7.6 (6.5-8.0) g/dL Albumin 4.4 (3.5-5.0) g/dL Lipase 33 (8-78) U/L COVID-19 (SAUL) Negative (Negative) COVID-19 Clin Com See Note S. pyogenes GrpA HARRY Negative (Negative) External Record Review External record reviewed: Inpatient record, Office record, Outpatient record, Prior outpatient labs, Prior outpatient radiology, Primary care record and Outside ED record Tests considered The following testing was considered but not selected: As above Discharge Plan Discharge Clinical Impression: Allergic drug rash Patient Disposition: Home, Self-Care Instructions: Acute Rash (ED) Additional Instructions: Your blood work was reassuring. Please stop taking previously prescribed antibiotic, Macrobid and start taking Ceftin for your UTI Prednisone will help with rash, this is a steroid In addition take Benadryl and Zyrtec, Benadryl will make you drowsy Call your endless steamer tender worsening Monday for close follow-up. Please follow-up with your PCP and OBGYN If symptoms persist or worsen you develop any shortness of breath, throat closing sensation, wheezing, persistent abdominal pain return to the ED Prescriptions: New diphenhydramine HCl [Benadryl] 25 mg capsule 25 mg PO TID PRN (Reason: itching) Qty: 14 0RF cetirizine [Zyrtec] 10 mg tablet 10 mg PO DAILY PRN (Reason: allergy symptoms) Qty: 14 0RF prednisone 10 mg tablet 10 mg PO DAILY Qty: 20 0RF Taper: Prednisone 40 mg daily for 3 Days and 0 Hour 30 mg daily for 3 Days and 0 Hour 20 mg daily for 3 Days and 0 Hour 10 mg daily for 3 Days and 0 Hour Rx Instructions: prednisone 10 mg: take 4 tablets (40 mg) for 2 days; 3 tablets (30 mg) for 2 days; 2 (20mg) tablets for 2 days and then 1 (10mg) tablet for 2 days cefuroxime axetil 250 mg tablet 250 mg PO BID 5 Days Qty: 10 0RF Discontinued nitrofurantoin monohyd/m-cryst [Macrobid] 100 mg capsule 100 mg PO BID Qty: 14 0RF Rx Instructions: must administer with a meal/food No Action sumatriptan succinate [Imitrex] 25 mg tablet 25 mg PO Q2H PRN (Reason: Migraine Headache) 30 Days Qty: 9 1RF Rx Instructions: take 1 tab at onset of headache; if no relief may repeat 1 tab after at least 2 hrs; max = 4 tabs/24 hr PO calcium carbonate-vitamin D3 [Calcium 600 + D(3)] 600 mg-10 mcg (400 unit) tablet 1 tab PO DAILY 90 Days Qty: 90 2RF azathioprine 50 mg tablet 150 mg PO DAILY Qty: 270 0RF famotidine 20 mg tablet 20 mg PO BEDTIME Qty: 90 1RF amlodipine 2.5 mg tablet 2.5 mg PO DAILY Qty: 90 1RF multivitamin Tablet 1 tab PO DAILY calamine-zinc oxide 8-8 % Lotion 1 appl topical QID PRN (Reason: Itching) Qty: 177 0RF Protocol: Apply to: Apply to: extremity (DME) blood pressure monitor [Blood Pressure Kit] Kit See Rx Instructions .Route Qty: 1 0RF Rx Instructions: As directed Nexplanon 68 mg implant See Rx Instructions .ROUTE .COMPLEX Rx Instructions: 1 subdermally Mirena 20 mcg/24 hours (8 yrs) 52 mg intrauterine device See Rx Instructions .ROUTE .COMPLEX Rx Instructions: 1 intrauterinely prednisone 2.5 mg tablet See Rx Instructions PO .COMPLEX Qty: 75 1RF Rx Instructions: Take 2 tabs daily alternating with 1 tab daily for 1 month then stay on 1 tab daily [place] [facility] [place] [facility] [place] Group[place] [facility] [Outside] Vignesh Lauren PA-C [Primary Care Provider] - 2 days
[2023-04-15 17:21] LABS: MANUAL DIFF FLAG NO
[2023-04-15] MEDS: methylPREDNISolone Sod Succ 125 MG/2 ML VIAL IVPUSH (17:23)
[2023-04-15] MEDS: 0.9 % Sodium Chloride 1,000 ML 999 ML IV (17:23)
[2023-04-15 17:25] LABS: Basophils Percent Auto 0.3 % (0-2); Eosinophils Absolute Auto 0.1 X10*3/uL (0.0-0.4); Eosinophils Percent Auto 1.5 % (0-4); Hematocrit 39.1 % (37.0-47.0); Hemoglobin 13.4 g/dl (12.0-16.0); Imm Gran Abs Auto 0.02 X10*3/uL (0.00-0.03); Imm Gran Pct Auto 0.3 % (0.0-0.4); Lymphocytes Absolute Auto 0.7 X10*3/uL (1.2-4.9); Mean Corpuscular HGB Conc 34.3 g/dl (31.0-35.0); Mean Corpuscular Hemoglobin 33.9 pg (27.0-33.0); Monocytes Absolute Auto 0.5 X10*3/uL (0.1-1.2); Monocytes Percent Auto 6.7 % (2-11); Neutrophils Absolute Auto 5.8 x10*3/uL (2.0-8.3); Neutrophils Percent Auto 81.2 % (45-73); Platelet Count 208 X10*3/uL (160-400); Red Blood Count 3.95 X10*6/uL (4.20-5.50); Red Cell Distribution Width 12.7 % (11.0-16.0); White Blood Count 7.2 X10*3/uL (4.8-10.8)
[2023-04-15] MEDS: Famotidine/PF 20 MG/2 ML VIAL IVPUSH (17:33)
[2023-04-15] MEDS: diphenhydrAMINE HCL 50 MG/ML VIAL IVPUSH (17:33)
[2023-04-15 17:39] LABS: IDNOW Serial# 6674DD1D; Strep A Nucleic Acid Negative (Negative)
[2023-04-15 17:42] LABS: COVID-19 Test Negative (Negative); IDNOW Serial# 9DB6401D
[2023-04-15 17:46] LABS: Alanine Aminotransferase 10 U/L (0-31); Albumin Level 4.4 g/dL (3.5-5.0); Alkaline Phosphatase 65 U/L (39-117); Anion Gap 13 (12-20); Aspartate Amino Transferase 20 U/L (5-31); Bilirubin Direct 0.1 mg/dL (0.0-0.5); Bilirubin Total 0.4 mg/dL (0.0-1.0); Blood Urea Nitrogen 14 mg/dL (9-16); C Reactive Protein 0.19 mg/dL (< or = 0.50); Calcium 9.9 mg/dL (8.4-10.2); Carbon Dioxide 25 mmol/L (22-29); Chloride 105 mmol/L (96-108); Creatinine Clr Calc Pharmacy 76.3; Estimated Glomerular Filt Rate > 60; Glucose Random 85 mg/dL (60-115); Lipase 33 U/L (8-78); Magnesium 1.8 mg/dL (1.6-2.6); Potassium 4.1 mmol/L (3.3-5.1); Sodium 139 mmol/L (135-145); Total Protein 7.6 g/dL (6.5-8.0)
[2023-04-15 18:01] LABS: Erythrocyte Sedimentation Rate 3 MM/HR (0-20)
[2023-04-15 18:23] VITALS: BP 136/81; PULSE 82; RESP 18; O2SAT 99
== END 2023-04-15 18:52 | disposition home or self-care (01) ==
PROVIDERS: Physician Assistant; Emergency Provider Emergency Medicine; PCP Physician Assistant
DX: L27.0 Generalized skin eruption due to drugs and medicaments taken internally (principal); T37.8X5A Adverse effect of other specified systemic anti-infectives and antiparasitics, initial encounter; Y92.9 Unspecified place or not applicable; Z11.52 Encounter for screening for COVID-19
CPT/HCPCS: 36415; 80048; 80076; 83690; 83735; 85025; 85652; 86140; 87635; 87651; 96361; 96374; 96375; 99284; J1200; J2930

== ENCOUNTER 2023-04-18 13:49 | Outpatient (REF) | payer OTHER, SELFPAY ==
[2023-04-19 11:30] LABS: CT PCR NOT DETECTED (Not Detect.); NG PCR NOT DETECTED (Not Detect.)
[2023-04-19 13:41] LABS: BV Int Neg Control Negative (Negative); BV Int Pos Control Positive (Positive)
== END 2023-04-18 13:50 | disposition home or self-care (01) ==
LOC: HO.LNP 13:49
PROVIDERS: PCP Physician Assistant; Visit Provider Advanced Practice Midwife
DX: M32.9 Systemic lupus erythematosus, unspecified (principal); Z20.2 Contact with and (suspected) exposure to infections with a predominantly sexual mode of transmission; Z97.5 Presence of (intrauterine) contraceptive device
CPT/HCPCS: 0353U; 87480; 87510; 87660

== ENCOUNTER 2023-04-18 13:49 | Outpatient (AMB) | payer OTHER, SELFPAY ==
--- NOTE | 2023-04-18 13:56 | MHC.OFFVIS ---
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: No Information Interpreted: non-clinical & clinical Business Relations Manager: Business Relations Manager Present (Aidyn) Allergies naproxen [From Aleve] Allergy (Severe, Verified 04/18/23 14:01) Rash sulfasalazine Allergy (Severe, Verified 04/18/23 14:01) redness and itching nitrofurantoin [From Macrobid] Allergy (Verified 04/18/23 14:01) Rash Sulfa (Sulfonamide Antibiotics) Allergy (Verified 04/18/23 14:01) Rash methotrexate Adverse Reaction (Intermediate, Verified 04/18/23 14:01) Fatigued Medication List - Last Reconciled 04/18/23 by Lori May CNM amlodipine 2.5 mg PO DAILY azathioprine 150 mg (3 x 50 mg) PO DAILY blood pressure monitor (Blood Pressure Kit) As directed calamine-zinc oxide 8-8 % 1 appl See Protocol topical QID PRN calcium carbonate-vitamin D3 600 mg-10 mcg (400 unit) (Calcium 600 + D(3)) 1 tab PO DAILY 90 days cefuroxime axetil 250 mg PO BID 5 days cetirizine (Zyrtec) 10 mg PO DAILY PRN diphenhydramine HCl (Benadryl) 25 mg PO TID PRN etonogestrel (Nexplanon) 1 subdermally famotidine 20 mg PO BEDTIME levonorgestrel (Mirena) 1 intrauterinely multivitamin 1 tab PO DAILY prednisone 10 mg See Taper PO DAILY prednisone Take 2 tabs daily alternating with 1 tab daily for 1 month then stay on 1 tab daily sumatriptan succinate (Imitrex) 25 mg PO Q2H PRN 30 days Post menopausal: No Patient : No HPI Er follow up HPI Details Patient is here for follow-up from the emergency room. She was seen in the emergency room last week when she went with right lower quadrant pain she had an ultrasound that showed a physiological cyst in her right ovary and she was referred for follow-up here. Additionally she was diagnosed as with a UTI and giving Macrodantin. Several days later she had a rash on her body and she went to the emergency room on Monday and they told her she was probably having allergic reaction to the antibiotic and they discontinued that 1 and gave her a different 1. She started that medication on Monday it is cefurixme, and she has to take it for 5 days. They also prescribed a taper of prednisone and Benadryl and Zyrtec for the rash Patient also has lupus and is frequently on prednisone and is in fact usually on maintenance prednisone of deferring doses. Per her recounting. Patient also has a Mirena IU S that was inserted last year per patient request plan was to remove the Nexplanon which had been in since 2017. At the time when she came in for a follow-up visit she was concerned that her partner might be having some sort of reaction to her having the Mirena at least there was some sort of problem and she wanted to defer taking out the Nexplanon until she was sure. She has not made that follow-up appointment and so she currently still has the Nexplanon in her left arm and the Mirena. Review of the ultrasound today shows that it was completely normal with the normal placement of the IUD and a right simple physiologic ovarian cyst that did not require follow-up. Additionally the urine culture from 04/11 is negative. I told her at this visit that she does not need to be taking the antibiotic that was the replacement antibiotic anymore. She has a follow-up visit with her leather scrubber in April and she also has follow-up visits with her primary care provider. I told her to let them know of all of the medications that she had been on . Pelvic exam today was completely within normal limits the Nexplanon is still palpable in her left arm the Mirena strings are easily visible within her cervix her uterus is small midposition mobile nontender there is no adnexal tenderness. Patient is to schedule her Nexplanon removal I reassured the patient of her normal findings and showed them in the computer to her. There is no evidence of a rash today or scars from previous rashes. I recommend she increase use of her moisture lotion and water intake. [facility] Medical History SLE (systemic lupus erythematosus) Hypertension Migraines Cervical cancer screening PVCs (premature ventricular contractions) Vasovagal syncope Surgical History History of surgical biopsy Family History Father No problems noted. Mother Bipolar 1 disorder Chronic mental illness Family history of thyroid problem Maternal Grandmother Hypertension Maternal Grandfather No problems noted. 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 Fair to good tone with Kegel Kegel's encouraged. External Female Exam: normal external appearance Speculum Exam - Vagina: normal appearance of the vagina and normal vaginal discharge Speculum Exam - Cervix: normal appearance of the cervix Bimanual exam- vagina & uterus: normal bimanual exam, uterine size normal, consistency normal, uterine mobility normal, uterine shape normal and non-tender Bimanual Exam- Adnexa, other: normal adnexae, no masses and No adnexal tenderness Results Reviewed Results Reviewed: [address] [address] Ultrasound Report Signed Patient: Wolf Elias MR#: [id number] : 1985 Acct:[id number] Age/Sex: 38 / F ADM Date: 04/10/23 Loc: HO.ED Attending Dr: Ordering Physician: Hermila Guillaume MD Date of Service: 04/10/23 Procedure(s): US pelvic and transvaginal Accession Number(s): [id number] cc: Hermila Guillaume MD; Vignesh Lauren PA-C~ EXAMINATION: US PELVIS CLINICAL INFORMATION: Pelvic pain LMP: Unknown COMPARISON: Pelvic ultrasound 04/14/2022 TECHNIQUE: Ultrasound of the pelvis is performed using both transabdominal and transvaginal transducers along with Doppler. Transvaginal imaging is performed due to inadequate visualization transabdominally. FINDINGS: Uterus: The uterus is anteverted and measures 9.5 x 4.6 x 5.1 cm. The endometrial thickness is 0.3 mm. IUD seen in correct position. The uterus is smooth in contour and has normal myometrial echogenicity. No visible fibroid. Adnexa: Both ovaries are visualized. There is normal arterial and venous flow to both ovaries. There is normal color flow to the adnexa. There is no ovarian torsion. There is no pelvic ascites or fluid collection. Right ovary measures 5.2 x 3.8 x 4.1 cm. 4.1 x 3.3 x 3.4 cm simple cyst is seen. This is considered a benign follicular cyst. No follow-up imaging is recommended. Left ovary measures 2.7 x 1.2 x 1.6 cm. 2.7. The left ovary is normal in appearance. US/US pelvic and transvaginal IMPRESSION: 1. Normal uterus and left ovary. 2. 4.1 cm simple right ovarian cyst. This is considered a benign follicular cyst. No follow-up imaging is recommended. 3. 3. Normal arterial and venous flow to both ovaries 4. IUD appears in proper position. Dictated By: Blanca Davis MD Signed By: <Electronically signed by Blanca Davis MD in OV> 04/10/23 1208 DD/ 1141 Name: Wolf Elias Age/Sex: 38/F : 1985 Unit#: [id number] Attend Dr: Hermila Guillaume MD Re04/10/23 Status: DEP ER Location: .ED Disch: Specimen: [id number] Collected: 04/10/23-UNK Status: COMP Req#: [id number] Received: 04/10/23-1305 Source: [facility] Desc: Urine scherer Subm Dr: Hermila Guillaume MD Ordered: Urine Culture Procedure Result Verified Site Urine Culture Final 04/11/23 No growth. Assessment & Plan Assessment & Plan (1) SLE (systemic lupus erythematosus): Code(s): M32.9 - Systemic lupus erythematosus, unspecified Qualifiers: Systemic lupus erythematosus type: unspecified Systemic lupus erythematosus organ involvement: unspecified Qualified Code(s): M32.9 - Systemic lupus erythematosus, unspecified (2) Hospital discharge follow-up: Code(s): Z09 - Encounter for follow-up examination after completed treatment for conditions other than malignant neoplasm (3) Presence of 52 mg levonorgestrel-releasing intrauterine device (IUD): Comment: Mirena IUS inserted 02/25/22, plan was to remove Nexplanon at follow-up visit, but patient delayed removal... .... Code(s): Z97.5 - Presence of (intrauterine) contraceptive device (4) Nexplanon in place: Comment: First inserted 03/23/2018 by YANIRA [email or web address], due for replacement.... 04/18/2023 has been due for removal since placement of Mirena IU S at previous visit, patient needs to schedule removal. Code(s): Z97.5 - Presence of (intrauterine) contraceptive device Plan Patient is here for follow-up from the emergency room. She was seen in the emergency room last week when she went with right lower quadrant pain she had an ultrasound that showed a physiological cyst in her right ovary and she was referred for follow-up here. Additionally she was diagnosed as with a UTI and giving Macrodantin. Several days later she had a rash on her body and she went to the emergency room on Monday and they told her she was probably having allergic reaction to the antibiotic and they discontinued that 1 and gave her a different 1. She started that medication on Monday it is cefurixme, and she has to take it for 5 days. They also prescribed a taper of prednisone and Benadryl and Zyrtec for the rash Patient also has lupus and is frequently on prednisone and is in fact usually on maintenance prednisone of deferring doses. Per her recounting. Patient also has a Mirena IU S that was inserted last year per patient request plan was to remove the Nexplanon which had been in since 2017. At the time when she came in for a follow-up visit she was concerned that her partner might be having some sort of reaction to her having the Mirena at least there was some sort of problem and she wanted to defer taking out the Nexplanon until she was sure. She has not made that follow-up appointment and so she currently still has the Nexplanon in her left arm and the Mirena. Review of the ultrasound today shows that it was completely normal with the normal placement of the IUD and a right simple physiologic ovarian cyst that did not require follow-up. Additionally the urine culture from 04/11 is negative. I told her at this visit that she does not need to be taking the antibiotic that was the replacement antibiotic anymore. She has a follow-up visit with her leather scrubber in April and she also has follow-up visits with her primary care provider. I told her to let them know of all of the medications that she had been on . Pelvic exam today was completely within normal limits the Nexplanon is still palpable in her left arm the Mirena strings are easily visible within her cervix her uterus is small midposition mobile nontender there is no adnexal tenderness. Patient is to schedule her Nexplanon removal I reassured the patient of her normal findings and showed them in the computer to her. There is no evidence of a rash today or scars from previous rashes. I recommend she increase use of her moisture lotion and water intake. Orders: Orders CT NG by PCR Today Z20.2 - Contact with and (suspected) exposure to infections with a predominantly sexual mode of transmission Bacterial Vaginosis Panel Today Z20.2 - Contact with and (suspected) exposure to infections with a predominantly sexual mode of transmission Coding Level of Care Code Est Pt Level 3 (24667) New Pt Prev Care 5-11yr(15123) Diagnoses Systemic lupus erythematosus, unspecified SLE type, unspecified organ involvement status M32.9 Systemic lupus erythematosus type: unspecified Systemic lupus erythematosus organ involvement: unspecified Hospital discharge follow-up Z09 Presence of 52 mg levonorgestrel-releasing intrauterine device (IUD) Z97.[address] Z97.5
[2023-04-18 13:58] VITALS: BP 142/92; BMI 25.6
== END 2023-04-20 09:44 | disposition home or self-care (01) ==
PROVIDERS: PCP Physician Assistant; Visit Provider Advanced Practice Midwife
DX: M32.9 Systemic lupus erythematosus, unspecified (principal); Z09 Encounter for follow-up examination after completed treatment for conditions other than malignant neoplasm; Z97.5 Presence of (intrauterine) contraceptive device
CPT/HCPCS: 99214

== ENCOUNTER 2023-04-27 09:27 | Outpatient (AMB) | payer OTHER, SELFPAY ==
[2023-04-27 09:32] VITALS: BP 122/82; BMI 25.6
--- NOTE | 2023-04-27 09:32 | MHC.OFFVIS ---
Intake Vital Signs 04/27/23 09:32 Height 5 ft 5 in Weight 154 lb BMI 25.6 BP 122/82 Intake Visit Reasons: Nexplanon Removal Intake Note: Nexplanon in left arm Hotel Front Desk Agent: Hotel Front Desk Agent Present (Monique) Allergies naproxen [From Aleve] Allergy (Severe, Verified 04/27/23 09:36) Rash sulfasalazine Allergy (Severe, Verified 04/27/23 09:36) redness and itching nitrofurantoin [From Macrobid] Allergy (Verified 04/27/23 09:36) Rash Sulfa (Sulfonamide Antibiotics) Allergy (Verified 04/27/23 09:36) Rash methotrexate Adverse Reaction (Intermediate, Verified 04/27/23 09:36) Fatigued Medication List - Last Reconciled 04/27/23 by Lori May CNM amlodipine 2.5 mg PO DAILY azathioprine 150 mg (3 x 50 mg) PO DAILY blood pressure monitor (Blood Pressure Kit) As directed calcium carbonate-vitamin D3 600 mg-10 mcg (400 unit) (Calcium 600 + D(3)) 1 tab PO DAILY 90 days cetirizine (Zyrtec) 10 mg PO DAILY PRN etonogestrel (Nexplanon) 1 subdermally famotidine 20 mg PO BEDTIME levonorgestrel (Mirena) 1 intrauterinely multivitamin 1 tab PO DAILY prednisone Take 2 tabs daily alternating with 1 tab daily for 1 month then stay on 1 tab daily sumatriptan succinate (Imitrex) 25 mg PO Q2H PRN 30 days HPI Nexplanon Removal HPI Details Patient is here for Nexplanon removal she has had a Mirena for quite a while now but she was delaying removal of the Nexplanon until she was sure the Cernium was going to work for her and then other things intervened. She has been prepared for this for a while she has no worries or concerns. She is getting just light spotting with the Mirena now [facility] Medical History SLE (systemic lupus erythematosus) Hypertension Migraines Cervical cancer screening PVCs (premature ventricular contractions) Vasovagal syncope Surgical History History of surgical biopsy Family History Father No problems noted. Mother Bipolar 1 disorder Chronic mental illness Family history of thyroid problem Maternal Grandmother Hypertension Maternal Grandfather No problems noted. 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 The insertion site was located: 8-10cm from the medial epicondyle notch of the humerus, posterior to the sulcus, between the triceps and biceps muscle. The area of the previous implant was identified and the distal tip located. This area was cleansed with an alcohol prep and 3 ml of 1% Lidocaine on a 25 gauge needle and syringe was utilized for adequate anesthesia to the insertion site. After ascertaining adequate anesthesia, the area was prepped with Betadine solution. The skin over the distal tip was incised with a #11 blade scalpel and the capsule was located and entered freeing the implant from the canal. The implant was removed with a gentle tug using a mosquito clamp and removed intact. Direct pressure was applied to the insertion site for hemostasis, minimal bleeding was observed. Steri strips, Tegaderm covering, gauze pads, and Dilma wrap dressing were secured with paper tape. The implant was palpable underneath the skin by myself and the patient. The patient tolerated the procedure well and left the office in good condition. 64653 - Removal Assessment & Plan Assessment & Plan (1) Encounter for Nexplanon removal: Code(s): Z30.46 - Encounter for surveillance of implantable subdermal contraceptive Plan Patient was instructed to keep the pressure dressing on for at least 3 hours but in her case throughout the day and I do not recommend that she play volleyball using that arm tonight as she has planned. I recommend she keep the Tegaderm on for at least 3 days. If there were any signs of infection or other difficulty to go to the emergency room but I do not expect this pressure had been kept for several minutes until bleeding subsided is so minimal bleeding is expected patient tolerated procedure extremely well.. Reviewed use of the Mirena and issues with return to fertility should she notice signs at the 5 year point. Orders: Orders AMB Nexplanon/Implanon Insertion/Removal - Practice Supplied Today Z30.46 - Encounter for surveillance of implantable subdermal contraceptive Coding Level of Care Code Est Pt Level 3 (19271) Diagnoses Encounter for Nexplanon removal Z30.46 CPT Codes Details - Contraception: 69911 - Removal ([id number])
== END 2023-04-27 11:19 | disposition home or self-care (01) ==
PROVIDERS: PCP Physician Assistant; Visit Provider Advanced Practice Midwife
DX: Z30.46 Encounter for surveillance of implantable subdermal contraceptive (principal)
CPT/HCPCS: 11982

== ENCOUNTER → 2023-04-27 09:27 | Outpatient (BNVA) | payer OTHER, SELFPAY | PROVIDERS: PCP Physician Assistant; Visit Provider Advanced Practice Midwife | DX: Z30.46 Encounter for surveillance of implantable subdermal contraceptive (principal) | CPT/HCPCS: 11982 ==

== ENCOUNTER 2023-05-05 17:07 | Outpatient (REF) | payer OTHER, SELFPAY ==
[2023-05-09 18:09] LABS: Complement C3 139 mg/dL (83-193)
[2023-05-09 19:58] LABS: Anti DNA DS Antibody <1 IU/mL
== END 2023-05-05 17:08 | disposition home or self-care (01) ==
LOC: HO.LAB 17:07
PROVIDERS: PCP Physician Assistant; Visit Provider Student in an Organized Health Care Education/Training Program
DX: M32.9 Systemic lupus erythematosus, unspecified (principal)
CPT/HCPCS: 36415; 86160; 86225

== ENCOUNTER 2023-05-09 09:20 | Outpatient (AMB) | payer OTHER, SELFPAY ==
[2023-05-09 09:22] VITALS: BP 120/84; TEMP 36.4; BMI 25.8
--- NOTE | 2023-05-09 09:22 | A.OFFVIS_ITS ---
Intake Vital Signs 05/09/23 09:22 Height 5 ft 5 in Weight 154 lb 12.232 oz BMI 25.8 BP 120/84 Blood Pressure Location Rt brachial Position Sitting Temp 97.6 F Temp Source Skin Intake Visit Reasons: SLE Intake Note: Pt last seen 03/14/23, presents today for follow up and test results. Seen in [facility] [place] ED twice since last visit. 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 Machine Operator Required: No Accompanied by: Self / Same As Patient Allergies naproxen [From Aleve] Allergy (Severe, Verified 05/09/23 09:23) Rash sulfasalazine Allergy (Severe, Verified 05/09/23 09:23) redness and itching nitrofurantoin [From Macrobid] Allergy (Verified 05/09/23 09:23) Rash Sulfa (Sulfonamide Antibiotics) Allergy (Verified 05/09/23 09:23) Rash methotrexate Adverse Reaction (Intermediate, Verified 05/09/23 09:23) Fatigued Medication List - Last Reconciled 05/09/23 by Yaron Klein MD amlodipine 2.5 mg PO DAILY azathioprine 150 mg (3 x 50 mg) PO DAILY blood pressure monitor (Blood Pressure Kit) As directed calcium carbonate-vitamin D3 600 mg-10 mcg (400 unit) (Calcium 600 + D(3)) 1 tab PO DAILY 90 days cetirizine (Zyrtec) 10 mg PO DAILY PRN etonogestrel (Nexplanon) 1 subdermally famotidine 20 mg PO BEDTIME levonorgestrel (Mirena) 1 intrauterinely multivitamin 1 tab PO DAILY prednisone Take 2 tabs daily alternating with 1 tab daily for 1 month then stay on 1 tab daily sumatriptan succinate (Imitrex) 25 mg PO Q2H PRN 30 days HPI HPI Comments History of Present Illness Details 38 yoF with SLE presents for follow-up. She is on prednisone 2.5 mg daily and azathioprine 150 mg daily. She states that last month she went to the ER with lower pelvic pain and discomfort. She had a pelvic ultrasound done wh ich showed a small ovarian cyst. Urinalysis showed wbc's. She was diagnosed with a UTI and prescribed Macrobid. Presented to the ER a few days later with rashes on her trunk and forearms. Itchy, no fevers or joint pain. She was prescribed a prednisone taper with resolution of the rash. The rash was attributed to nitrofurantoin. She eventually followed up with OBGYN and was told that the cyst will be monitored. States that over the last 2 months has been episodes of days of generalized fatigue, dizziness, she denies any fevers or chills. Denies any mouth sores or rashes others that episode last month. She has to take azathioprine in the middle of her meals otherwise she gets GI upset. Prior history: Patient developed rash end of October 2018, 6 weeks after she started s ulfasalazine. She was admitted to the hospital and developed transaminitis, she has skin biopsy which showed possible drug reaction. She was put on steroids and the rash improved. She still gets itchy and dry skin. She is to see dermatology soon. [facility] Medical History SLE (systemic lupus erythematosus) Hypertension Migraines Cervical cancer screening PVCs (premature ventricular contractions) Vasovagal syncope Surgical History History of surgical biopsy Family History Father No problems noted. Mother Bipolar 1 disorder Chronic mental illness Family history of thyroid problem Maternal Grandmother Hypertension Maternal Grandfather No problems noted. 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[employer] Cognitive needs: No Hearing needs: No Vision needs: Yes Female Reproductive History Menstrual Age of Menarche: 11 Review of Systems Const Reports body aches, Reports fatigue and Reports weakness ENT Details: Denies any oral ulcers Reports dizziness Card Reports no additional complaints Resp Reports no additional complaints Denies hematuria and Reports pelvic pain Musc Reports myalgias and Reports arthralgias Skin/Breast Details: acne Reports system reviewed and no additional complaints, except as documented and Denies rash Neuro Reports dizziness and Reports weakness Psych Denies depression Endo Reports fatigue Luis A/Lymph Reports no additional complaints Physical Exam Vital Signs: Last Vital Signs Temp 97.6 F 05/09/23 09:22 BP 120/84 05/09/23 09:22 BMI result Body Mass Index 25.8 Const Other: Moist oral mucosa, no oral ulcers General: cooperative, healthy appearing, comfortable and no acute distress Nutritional Appearance: average body habitus Orientation/consciousness: patient oriented x3 Limitations: no limitations HEENT Head: Yes normocephalic and Yes atraumatic Mouth: moist mucous membranes Resp Effort & Inspection: normal respiratory effort and able to speak in complete sentences Auscultation: clear to auscultation bilaterally Cardio Rate: regular rate Rhythm: regular rhythm Heart sounds: S1 normal heart sound present and S2 normal heart sound present GI Inspection: No distended Palpation (GI): Soft to palpation and nontender Neuro General: patient oriented x3 Extrem Other: No active synovitis today No significant fibromyalgia tender points hyperextensible thumbs Normal nailfold capillaroscopy Results Reviewed Results Reviewed: Skin biopsy right arm 11/2018 DIAGNOSIS Skin, right arm, excision: Superficial perivascular dermatitis (see Comment); special stain for fungal organisms is pending; negative for malignancy. Comment: The findings are non-specific. Possible etiologies include but are not limited to: cutaneous drug eruption, urticarial reaction, viral exanthem, fungal infection, rosacea and pruritic plaques of . Clinical correlation is suggested. ADDENDUM This addendum is issued to report results of PAS special stain. PAS stain is negative for fungal organisms. Assessment & Plan Assessment & Plan (1) SLE (systemic lupus erythematosus): Code(s): M32.9 - Systemic lupus erythematosus, unspecified Qualifiers: Systemic lupus erythematosus type: unspecified Systemic lupus erythematosus organ involvement: unspecified Qualified Code(s): M32.9 - Systemic lupus erythematosus, unspecified Plan: This is a 38-year-old female with SLE (+++SSA, intermittently low C3 and C4, arthralgias, skin rash) presents for follow-up In 2019 she was on hydroxychloroquine and sulfasalazine and she developed a rash with transaminitis, she had a skin biopsy which showed possible drug reaction, she was started on steroids with resolution of her rash and sulfasalazine and hydroxychloroquine were stopped.? Hydroxychloroquine was resumed 02/2022. In 06/2022 patient was admitted to the hospital with diffuse erythematous skin rash, fevers, inflammatory arthritis and transaminitis, symptoms rapidly resolved with steroid taper. This was [address] patient started Aleve It is unclear at this point whether patient's rash is due to drug reaction to Aleve verses a lupus rash. Labs when admitted also showed mild proteinuria 450 mg in addition to high WBC (possible concomitant UTI) Rashes, transaminitis and proteinuria all resolved with prednisone. I believe her SLE flares with NSAIDs & Sulfa hydroxychloroquine was discontinued. It does not seem to have helped the patient much. She also gets GI upset with it. Patient could not tolerate methotrexate due to fatigue, lightheadedness, GI upset, which resolved on discontinuation Patient is currently on azathioprine 150 mg daily and prednisone 2.5 mg daily. Continues to get flares of generalized fatigue, dizziness, chills. Likely related to lupus. Will need to add DMARDs. Discussed risks and benefits of Benlysta. Patient agreed to proceed. Will start prior authorization for Benlysta. Continue azathioprine 150 mg daily and prednisone 2.5 mg daily. If patient is doing well. Plan to reduce azathioprine Labs before next visit in 2 months (2) Encounter for monitoring azathioprine therapy: Code(s): Z51.81 - Encounter for therapeutic drug level monitoring; Z79.624 - correction (current) use of inhibitors of nucleotide synthesis Plan: Monitor safety labs. Her TPMT is normal Plan I spent 35 minutes reviewing patient's chart, evaluating patient, ordering diagnostic workup, counseling patient and documenting in the chart Coding Level of Care Code Est Pt Level 4 (83501) Diagnoses Systemic lupus erythematosus, unspecified SLE type, unspecified organ involvement status M32.9 Systemic lupus erythematosus type: unspecified Systemic lupus erythematosus organ involvement: unspecified Encounter for monitoring azathioprine therapy Z51.81; Z79.624
== END 2023-05-09 09:51 | disposition home or self-care (01) ==
PROVIDERS: PCP Physician Assistant; Visit Provider Student in an Organized Health Care Education/Training Program
DX: M32.9 Systemic lupus erythematosus, unspecified (principal); Z51.81 Encounter for therapeutic drug level monitoring; Z79.624 Long term (current) use of inhibitors of nucleotide synthesis
CPT/HCPCS: 99214

== ENCOUNTER → 2023-05-09 09:20 | Outpatient (BNVA) | payer OTHER, SELFPAY | PROVIDERS: PCP Physician Assistant; Visit Provider Student in an Organized Health Care Education/Training Program ==

== ENCOUNTER 2023-05-31 10:26 | Outpatient (REF) | payer OTHER, SELFPAY ==
[2023-05-31 17:16] LABS: CT PCR NOT DETECTED (Not Detect.); NG PCR NOT DETECTED (Not Detect.)
[2023-06-01 13:07] LABS: BV Int Neg Control Negative (Negative); BV Int Pos Control Positive (Positive)
== END 2023-05-31 10:27 | disposition home or self-care (01) ==
LOC: HO.LAB 10:26
PROVIDERS: PCP Physician Assistant; Visit Provider Advanced Practice Midwife
DX: Z01.419 Encounter for gynecological examination (general) (routine) without abnormal findings (principal); Z20.2 Contact with and (suspected) exposure to infections with a predominantly sexual mode of transmission; Z97.5 Presence of (intrauterine) contraceptive device
CPT/HCPCS: 0353U; 87480; 87510; 87660

== ENCOUNTER 2023-05-31 10:26 | Outpatient (AMB) | payer OTHER, SELFPAY ==
--- NOTE | 2023-05-31 10:39 | MHC.OFFVIS ---
Intake Vital Signs 05/31/23 10:42 Height 5 ft 5 in Weight 154 lb BMI 25.6 BP 130/68 Intake Visit Reasons: discharge Home Therapy Teacher Required: No Allergies naproxen [From Aleve] Allergy (Severe, Verified 05/31/23 10:45) Rash sulfasalazine Allergy (Severe, Verified 05/31/23 10:45) redness and itching nitrofurantoin [From Macrobid] Allergy (Verified 05/31/23 10:45) Rash Sulfa (Sulfonamide Antibiotics) Allergy (Verified 05/31/23 10:45) Rash methotrexate Adverse Reaction (Intermediate, Verified 05/31/23 10:45) Fatigued Medication List - Last Reconciled 05/31/23 by Lori May CNM amlodipine 2.5 mg PO DAILY azathioprine 150 mg (3 x 50 mg) PO DAILY Benlysta (belimumab) 200 mg subcut QWEEK NS blood pressure monitor (Blood Pressure Kit) As directed calcium carbonate-vitamin D3 600 mg-10 mcg (400 unit) (Calcium 600 + D(3)) 1 tab PO DAILY 90 days cetirizine (Zyrtec) 10 mg PO DAILY PRN famotidine 20 mg PO BEDTIME levonorgestrel (Mirena) 1 intrauterinely multivitamin 1 tab PO DAILY prednisone Take 2 tabs daily alternating with 1 tab daily for 1 month then stay on 1 tab daily sumatriptan succinate (Imitrex) 25 mg PO Q2H PRN 30 days Is last menstrual period known: Yes (unknown) HPI discharge HPI Details Patient is here to check out a vaginal discharge she has the Mirena IU S she has had it for little over year and she recently had her Nexplanon removed about a month ago. She sexually active with her partner she is physically active and fit she has her volleyball championship games tomorrow for the end of the season. She has lupus and is on the medications that have just been changed for that and things are fairly well managed at this point. She is always very careful to avoid sun because of her sensitive skin. The discharge is yellow and she wants to get it checked for STDs just to be sure. Says there is a little bit of a smell. [facility] Medical History SLE (systemic lupus erythematosus) Hypertension Migraines Cervical cancer screening PVCs (premature ventricular contractions) Vasovagal syncope Surgical History History of surgical biopsy Family History Father No problems noted. Mother Bipolar 1 disorder Chronic mental illness Family history of thyroid problem Maternal Grandmother Hypertension Maternal Grandfather No problems noted. 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[employer] Cognitive needs: No Hearing needs: No Vision needs: Yes Female Reproductive History Menstrual Age of Menarche: 11 control method: progestin IUCD Physical Exam Vital Signs: Last Vital Signs BP 130/68 05/31/23 10:42 BMI result Body Mass Index 25.6 External Female Exam: normal external appearance, normal appearance of the urethra and other (Patient does have an extended right labia.) Speculum Exam - Vagina: normal appearance of the vagina and normal vaginal discharge (Mucousy discharge is very yellow in appearance but could be normal) Speculum Exam - Cervix: normal appearance of the cervix and Cervical os closed (Parous with Mirena strings visible) Assessment & Plan Assessment & Plan (1) Presence of 52 mg levonorgestrel-releasing intrauterine device (IUD): Comment: Mirena IUS inserted 02/25/22, plan was to remove Nexplanon at follow-up visit, but patient delayed removal... .... Code(s): Z97.5 - Presence of (intrauterine) contraceptive device (2) Encounter for screening examination for sexually transmitted disease: Code(s): Z11.3 - Encounter for screening for infections with a predominantly sexual mode of transmission Plan Discussed her health overall and her lupus and her physical fitness and how she is experiencing the Mirena IU S and her healing Nexplanon removal scar. Testing done for gonorrhea chlamydia trichomoniasis Gardnerella and Ramona discussed the possibilities also that the yellow coloration might be imparted slightly from microscopic spotting that sometimes can occur with the Mirena discoloring the mucus. Discussed that she can call for the results. She herself remind people to get on the portals for their insurance all day long at work but she has not gotten on the portal yet for herself she is considering it but reluctant. She declines other blood work for STIs. Coding Level of Care Code Est Pt Level 3 (12852) Diagnoses Presence of 52 mg levonorgestrel-releasing intrauterine device (IUD) Z97.5 Encounter for screening examination for sexually transmitted disease Z11.3
[2023-05-31 10:42] VITALS: BP 130/68; BMI 25.6
== END 2023-05-31 11:12 | disposition home or self-care (01) ==
PROVIDERS: PCP Physician Assistant; Visit Provider Advanced Practice Midwife
DX: Z97.5 Presence of (intrauterine) contraceptive device (principal); Z11.3 Encounter for screening for infections with a predominantly sexual mode of transmission
CPT/HCPCS: 99213

== ENCOUNTER 2023-07-15 08:34 | Outpatient (REF) | payer OTHER, SELFPAY ==
[2023-07-15 09:04] LABS: MANUAL DIFF FLAG NO
[2023-07-15 10:00] LABS: Basophils Percent Auto 0.5 % (0-2); Eosinophils Percent Auto 0.2 % (0-4); Hematocrit 38.9 % (37.0-47.0); Hemoglobin 13.3 g/dl (12.0-16.0); Imm Gran Abs Auto 0.01 X10*3/uL (0.00-0.03); Imm Gran Pct Auto 0.2 % (0.0-0.4); Lymphocytes Absolute Auto 1.2 X10*3/uL (1.2-4.9); Mean Corpuscular HGB Conc 34.2 g/dl (31.0-35.0); Mean Corpuscular Hemoglobin 33.8 pg (27.0-33.0); Mean Platelet Volume 12.1 fL (9.4-12.3); Monocytes Absolute Auto 0.4 X10*3/uL (0.1-1.2); Monocytes Percent Auto 6.4 % (2-11); Neutrophils Absolute Auto 4.8 x10*3/uL (2.0-8.3); Neutrophils Percent Auto 73.7 % (45-73); Platelet Count 222 X10*3/uL (160-400); Red Blood Count 3.93 X10*6/uL (4.20-5.50); Red Cell Distribution Width 11.8 % (11.0-16.0); White Blood Count 6.5 X10*3/uL (4.8-10.8)
[2023-07-15 10:07] LABS: Appearance Urine Clear; Color Urine Yellow; Glucose Urine UA Negative (Negative); Leukocyte Esterase Urine Small (1+) (Negative); Nitrite Urine Negative (Negative); UMIC TRIGGER UA YES; Urine Blood Negative (Negative); Urine Ketones Negative (Negative); Urine Protein Negative (Neg-Trace)
[2023-07-15 10:17] LABS: Alanine Aminotransferase 17 U/L (0-31); Albumin Level 4.2 g/dL (3.5-5.0); Alkaline Phosphatase 76 U/L (39-117); Anion Gap 12 (12-20); Aspartate Amino Transferase 17 U/L (5-31); Bilirubin Total 0.5 mg/dL (0.0-1.0); Blood Urea Nitrogen 13 mg/dL (9-16); Calcium 9.7 mg/dL (8.4-10.2); Carbon Dioxide 28 mmol/L (22-29); Chloride 105 mmol/L (96-108); Estimated Glomerular Filt Rate > 60; Glucose Random 85 mg/dL (60-115); Potassium 4.5 mmol/L (3.3-5.1); Sodium 140 mmol/L (135-145); Total Protein 7.3 g/dL (6.5-8.0)
[2023-07-15 10:30] LABS: Bacteria Urine None Seen (None Seen); Hyaline Casts Urine 0-2 /LPF (0-2); RBC Urine 0-2 /HPF (0-2); WBC Urine 0-5 /HPF (0-5)
[2023-07-15 10:40] LABS: Creatinine Urine 183.85 mg/dL; Protein/Creatinine Ratio, Ur 0.04 (<0.2); Total Protein Urine Random 8 mg/dL (<12)
[2023-07-15 10:43] LABS: Erythrocyte Sedimentation Rate 5 MM/HR (0-20)
[2023-07-17 18:04] LABS: Complement C3 55 mg/dL (83-193)
[2023-07-19 23:09] LABS: Anti DNA DS Antibody <1 IU/mL
== END 2023-07-15 08:35 | disposition home or self-care (01) ==
LOC: HO.LAB 08:34
PROVIDERS: PCP Physician Assistant; Visit Provider Student in an Organized Health Care Education/Training Program
DX: M32.9 Systemic lupus erythematosus, unspecified (principal)
CPT/HCPCS: 36415; 80053; 81001; 82570; 84156; 85025; 85652; 86160; 86225

== ENCOUNTER 2023-07-17 14:31 | Outpatient (REF) | payer OTHER, SELFPAY ==
[2023-07-19 20:24] LABS: TS Negative Control Passed; TS Panel A 0; TS Panel B 0; TS Positive Control Passed; TSpotTB Negative (Negative)
== END 2023-07-17 14:32 | disposition home or self-care (01) ==
LOC: HO.LAB 14:31
PROVIDERS: PCP Nurse Practitioner Family; Visit Provider Student in an Organized Health Care Education/Training Program
DX: Z11.7 Encounter for testing for latent tuberculosis infection (principal)
CPT/HCPCS: 36415; 86481

== ENCOUNTER 2023-07-19 10:10 | Outpatient (REF) | payer OTHER, SELFPAY ==
[2023-07-20 13:44] LABS: BV Int Neg Control Negative (Negative); BV Int Pos Control Positive (Positive)
== END 2023-07-19 10:11 | disposition home or self-care (01) ==
LOC: HO.LNP 10:10
PROVIDERS: Advanced Practice Midwife; PCP Physician Assistant; Visit Provider Student in an Organized Health Care Education/Training Program
DX: N89.8 Other specified noninflammatory disorders of vagina (principal); Z97.5 Presence of (intrauterine) contraceptive device
CPT/HCPCS: 87480; 87510; 87660

== ENCOUNTER 2023-07-19 10:10 | Outpatient (AMB) | payer OTHER, SELFPAY ==
--- NOTE | 2023-07-19 10:11 | A.OFFVIS_ITS ---
Intake Vital Signs 07/19/23 10:12 Height 5 ft 5 in Weight 155 lb 3.287 oz BMI 25.8 BP 130/80 Blood Pressure Location Lt brachial Position Sitting Pulse 68 Pulse Source Pulse Oximeter Temp 97.3 F Temp Source Skin Pulse Oximetry (%) 97 Oxygen Delivery Method Room Air Intake Visit Reasons: SLE Intake Note: Patient last seen 05/09/23 presents today for follow up and test results. Offset Plate Maker Required: No Accompanied by: Self / Same As Patient Allergies naproxen [From Aleve] Allergy (Severe, Verified 07/19/23 10:12) Rash sulfasalazine Allergy (Severe, Verified 07/19/23 10:12) redness and itching nitrofurantoin [From Macrobid] Allergy (Verified 07/19/23 10:12) Rash Sulfa (Sulfonamide Antibiotics) Allergy (Verified 07/19/23 10:12) Rash methotrexate Adverse Reaction (Intermediate, Verified 07/19/23 10:12) Fatigued Medication List - Last Reconciled 07/19/23 by Yaron Klein MD amlodipine 2.5 mg PO DAILY azathioprine 150 mg (3 x 50 mg) PO DAILY Benlysta (belimumab) 200 mg subcut QWEEK NS blood pressure monitor (Blood Pressure Kit) As directed calcium carbonate-vitamin D3 600 mg-10 mcg (400 unit) (Calcium 600 + D(3)) 1 tab PO DAILY 90 days cetirizine (Zyrtec) 10 mg PO DAILY PRN famotidine 20 mg PO BEDTIME levonorgestrel (Mirena) 1 intrauterinely multivitamin 1 tab PO DAILY prednisone Take 2 tabs daily alternating with 1 tab daily for 1 month then stay on 1 tab daily sumatriptan succinate (Imitrex) 25 mg PO Q2H PRN 30 days HPI HPI Comments History of Present Illness Details 38 yoF with SLE presents for follow-up. She is on prednisone 2.5 mg daily, azathioprine 150 mg daily and Benlysta was started 5 weeks ago. She states that she feels well overall. She gets some pain and stinging sensation when she injects the Benlysta. The next day she has mild nausea. Other than that she can not think of any side effects related to Benlysta. She has not had a fever or an infection recently. Denies any rashes or fevers. She continues to have body aches which are mostly on the left side, left ankle, left knee and left wrist. She believes that her body aches are generally improve overall. She is going for visual field testing today. Prior history: Patient developed rash end of October 2018, 6 weeks after she started sulfasalazine. She was admitted to the hospital and developed transaminitis, she has skin biopsy which showed possible drug reaction. She was put on steroids and the rash improved. She still gets itchy and dry skin. She is to see dermatology soon. [facility] Medical History SLE (systemic lupus erythematosus) Hypertension Migraines Cervical cancer screening PVCs (premature ventricular contractions) Vasovagal syncope Surgical History History of surgical biopsy Family History Father No problems noted. Mother Bipolar 1 disorder Chronic mental illness Family history of thyroid problem Maternal Grandmother Hypertension Maternal Grandfather No problems noted. 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: No Hearing needs: No Vision needs: Yes Female Reproductive History Menstrual Age of Menarche: 11 Review of Systems Const Reports body aches ENT Details: Denies any oral ulcers Card Reports no additional complaints Resp Reports no additional complaints Reports pelvic pain Musc Reports myalgias and Reports arthralgias Skin/Breast Details: acne Reports system reviewed and no additional complaints, except as documented and Denies rash Luis A/Lymph Reports no additional complaints Physical Exam Vital Signs: Last Vital Signs Temp 97.3 F 07/19/23 10:12 Pulse 68 07/19/23 10:12 BP 130/80 07/19/23 10:12 Pulse Ox 97 07/19/23 10:12 Oxygen Delivery Method Room Air 07/19/23 10:12 BMI result Body Mass Index 25.8 Const Other: Moist oral mucosa, no oral ulcers General: cooperative, healthy appearing, comfortable and no acute distress Nutritional Appearance: average body habitus Orientation/consciousness: patient oriented x3 Limitations: no limitations HEENT Head: Yes normocephalic and Yes atraumatic Mouth: moist mucous membranes Resp Effort & Inspection: normal respiratory effort and able to speak in complete sentences Auscultation: clear to auscultation bilaterally Cardio Rate: regular rate Rhythm: regular rhythm Heart sounds: S1 normal heart sound present and S2 normal heart sound present GI Inspection: No distended Palpation (GI): Soft to palpation and nontender Neuro General: patient oriented x3 Extrem Other: No active synovitis today No significant fibromyalgia tender points hyperextensible thumbs Normal nailfold capillaroscopy Results Reviewed Results Reviewed: Skin biopsy right arm 11/2018 DIAGNOSIS Skin, right arm, excision: Superficial perivascular dermatitis (see Comment); special stain for fungal organisms is pending; negative for malignancy. Comment: The findings are non-specific. Possible etiologies include but are not limited to: cutaneous drug eruption, urticarial reaction, viral exanthem, fungal infection, rosacea and pruritic plaques of . Clinical correlation is suggested. ADDENDUM This addendum is issued to report results of PAS special stain. PAS stain is negative for fungal organisms. Assessment & Plan Assessment & Plan (1) SLE (systemic lupus erythematosus): Comment: MTX DC 09/2022 (fatigue, lightheadedness, GI upset) Azathioprine 10/2022 partially effective Benlysta 04/2023 effective Code(s): M32.9 - Systemic lupus erythematosus, unspecified Qualifiers: Systemic lupus erythematosus type: unspecified Systemic lupus erythematosus organ involvement: unspecified Qualified Code(s): M32.9 - Systemic lupus erythematosus, unspecified Plan: This is a 38-year-old female with SLE (+++SSA, intermittently low C3 and C4, arthralgias, skin rash) presents for follow-up In 2018 she was on hydroxychloroquine and sulfasalazine and she developed a rash with transaminitis, she had a skin biopsy which showed possible drug reaction, she was started on steroids with resolution of her rash and sulfasalazine and hydroxychloroquine were stopped.? Hydroxychloroquine was resumed 02/2022. In 06/2022 patient was admitted to the hospital with diffuse erythematous skin rash, fevers, inflammatory arthritis and transaminitis, symptoms rapidly resolved with steroid taper. This was 2 days after patient started Aleve It is unclear at this point whether patient's rash is due to drug reaction to Aleve verses a lupus rash. Labs when admitted also showed mild proteinuria 450 mg in addition to high WBC (possible concomitant UTI) Rashes, transaminitis and proteinuria all resolved with prednisone. I believe her SLE flares with NSAIDs & Sulfa hydroxychloroquine was discontinued. It does not seem to have helped the patient much. She also gets GI upset with it. Patient could not tolerate methotrexate due to fatigue, lightheadedness, GI upset, which resolved on discontinuation Patient is currently on azathioprine 150 mg daily and prednisone 2.5 mg daily. Weekly subcu Benlysta was started 5 weeks ago. Patient is doing well today with no features of active SLE on exam. Labs however showed low C3 and C4. (patient's complements however do not seem to always correlate with her SLE flares) Increase prednisone to 10 mg daily for 1 week then 5 mg daily for 1 week then go back to 2.5 mg daily Continue with azathioprine 150 mg daily and Benlysta weekly. Labs before next visit in 3 months (2) Encounter for monitoring azathioprine therapy: Code(s): Z51.81 - Encounter for therapeutic drug level monitoring; Z79.624 - prison (current) use of inhibitors of nucleotide synthesis Plan: Monitor safety labs. Her TPMT is normal (3) High risk medication use: Code(s): Z79.899 - Other intermodal customer service (current) drug therapy Plan: Discussed risks and benefits of Benlysta. Advised patient that we do not have solid data with Benlysta regarding . Patient is not planning to get any time soon. She has an IUD for about a year and a half now. It has been effective. Advised patient to stop Benlysta if she gets Plan I spent 35 minutes reviewing patient's chart, evaluating patient, ordering diagnostic workup, counseling patient and documenting in the chart Orders: Orders Complete Blood Count Auto Diff 3 Months M32.9 - Systemic lupus erythematosus, unspecified Anti DNA DS Antibody 3 Months M32.9 - Systemic lupus erythematosus, unspecified Complement C4 3 Months M32.9 - Systemic lupus erythematosus, unspecified C Reactive Protein 3 Months M32.9 - Systemic lupus erythematosus, unspecified Erythrocyte Sedimentation Rate 3 Months M32.9 - Systemic lupus erythematosus, unspecified Protein Creatinine Ratio, Ur 3 Months M32.9 - Systemic lupus erythematosus, unspecified UA w Microscopic 3 Months M32.9 - Systemic lupus erythematosus, unspecified Comprehensive Met. Panel 3 Months M32.9 - Systemic lupus erythematosus, unspecified Complement C3 3 Months M32.9 - Systemic lupus erythematosus, unspecified Coding Level of Care Code Est Pt Level 4 (48369) Diagnoses Systemic lupus erythematosus, unspecified SLE type, unspecified organ involvement status M32.9 Systemic lupus erythematosus type: unspecified Systemic lupus erythematosus organ involvement: unspecified Encounter for monitoring azathioprine therapy Z51.81; Z79.624 High risk medication use Z79.805
[2023-07-19 10:12] VITALS: BP 130/80; PULSE 68; TEMP 36.3; O2SAT 97; BMI 25.8
== END 2023-07-19 10:33 | disposition home or self-care (01) ==
PROVIDERS: PCP Physician Assistant; Visit Provider Student in an Organized Health Care Education/Training Program
DX: M32.9 Systemic lupus erythematosus, unspecified (principal); Z51.81 Encounter for therapeutic drug level monitoring; Z79.624 Long term (current) use of inhibitors of nucleotide synthesis; Z79.899 Other long term (current) drug therapy
CPT/HCPCS: 99214

== ENCOUNTER 2023-07-19 10:52 | Outpatient (AMB) | payer OTHER, SELFPAY ==
[2023-07-19 11:08] VITALS: BMI 25.6
--- NOTE | 2023-07-19 11:08 | A.OFFVIS_ITS ---
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: No Information Interpreted: non-clinical & clinical Insurance Service Representative: Insurance Service Representative Present (Michelleyn) Allergies naproxen [From Aleve] Allergy (Severe, Verified 07/19/23 11:11) Rash sulfasalazine Allergy (Severe, Verified 07/19/23 11:11) redness and itching nitrofurantoin [From Macrobid] Allergy (Verified 07/19/23 11:11) Rash Sulfa (Sulfonamide Antibiotics) Allergy (Verified 07/19/23 11:11) Rash methotrexate Adverse Reaction (Intermediate, Verified 07/19/23 11:11) Fatigued Medication List - Last Reconciled 07/19/23 by Lori May CNM amlodipine 2.5 mg PO DAILY azathioprine 150 mg (3 x 50 mg) PO DAILY Benlysta (belimumab) 200 mg subcut QWEEK NS blood pressure monitor (Blood Pressure Kit) As directed calcium carbonate-vitamin D3 600 mg-10 mcg (400 unit) (Calcium 600 + D(3)) 1 tab PO DAILY 90 days cetirizine (Zyrtec) 10 mg PO DAILY PRN famotidine 20 mg PO BEDTIME levonorgestrel (Mirena) 1 intrauterinely multivitamin 1 tab PO DAILY prednisone Take 2 tabs daily alternating with 1 tab daily for 1 month then stay on 1 tab daily sumatriptan succinate (Imitrex) 25 mg PO Q2H PRN 30 days Is last menstrual period known: No (no menses Mirena) Post menopausal: No 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 She does complain of recurrence of odor sometimes after sex and sometimes more randomly. she has the Mirena in for a while now and she is happy with it.she had the nexplaon removed a few months ago. She gets a random pain on the right or the left that reminds her of when she went to the emergency room a few months back she was told that it was a small cyst that was nothing to worry about. [facility] Medical History SLE (systemic lupus erythematosus) Hypertension Migraines Cervical cancer screening PVCs (premature ventricular contractions) Vasovagal syncope Surgical History History of surgical biopsy Family History Father No problems noted. Mother Bipolar 1 disorder Chronic mental illness Family history of thyroid problem Maternal Grandmother Hypertension Maternal Grandfather No problems noted. 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[employer] Cognitive needs: No Hearing needs: No Vision needs: Yes Female Reproductive History Menstrual Age of Menarche: 11 control method: progestin IUCD Total pregnancies: 1 Full term: 1 Number of Living Children: 1 Date of last pap smear: 09/25/20 (negative) History of abnormal pap smear: No Physical Exam Vital Signs: BMI result Body Mass Index 25.6 Const General: healthy appearing, comfortable, no acute distress, well developed and alert Nutritional Appearance: average body habitus Orientation/consciousness: patient oriented x3 Limitations: no limitations HEENT Head: Yes normocephalic Neck Neck: Yes normal visual inspection Chest Chest palpation & inspection: normal inspection of the chest Breast/axilla inspection: normal inspection of the breasts and normal inspection of the axillae Breast/axilla palpation: normal palpation of the breasts and normal palpation of the axillae Resp Effort & Inspection: normal respiratory effort GI Inspection: Yes normal to inspection, No Abdominal wall edema and No distended Palpation (GI): Soft to palpation and nontender Other: Vagina pink moist there is abeige colored thick adherent mucus that might be resultant of recent sexual activity. Cervix is otherwise pink and smooth multiparous no lesions mobile nontender uterus midposition mobile nontender no adnexal tenderness elicited good tone with Kegel General: Yes bladder normal to palpation External Female Exam: normal external appearance and normal appearance of the urethra Speculum Exam - Vagina: normal appearance of the vagina, normal palpation and normal vaginal discharge Speculum Exam - Cervix: normal appearance of the cervix, normal palpation and nontender Bimanual exam- vagina & uterus: normal bimanual exam, normal palpation, uterine size normal, bladder normal to palpation, consistency normal, normal palpation, uterine mobility normal, uterine shape normal, No Cervical tenderness present, non-tender and no cervical motion tenderness Bimanual Exam- Adnexa, other: normal adnexae, no masses, normal and No adnexal tenderness Neuro General: patient oriented x3 Results Reviewed Results Reviewed: Patient: Wolf Elias MR#: [id number] : 1985 Acct:[id number] Age/Sex: 38 / F ADM Date: 04/10/23 Loc: .ED Attending Dr: Ordering Physician: Hermila Guillaume MD Date of Service: 04/10/23 Procedure(s): US pelvic and transvaginal Accession Number(s): [id number] cc: Hermila Guillaume MD; Vignesh Lauren PA-C~ EXAMINATION: US PELVIS CLINICAL INFORMATION: Pelvic pain LMP: Unknown COMPARISON: Pelvic ultrasound 04/14/2022 TECHNIQUE: Ultrasound of the pelvis is performed using both transabdominal and transvaginal transducers along with Doppler. Transvaginal imaging is performed due to inadequate visualization transabdominally. FINDINGS: Uterus: The uterus is anteverted and measures 9.5 x 4.6 x 5.1 cm. The endometrial thickness is 0.3 mm. IUD seen in correct position. The uterus is smooth in contour and has normal myometrial echogenicity. No visible fibroid. Adnexa: Both ovaries are visualized. There is normal arterial and venous flow to both ovaries. There is normal color flow to the adnexa. There is no ovarian torsion. There is no pelvic ascites or fluid collection. Right ovary measures 5.2 x 3.8 x 4.1 cm. 4.1 x 3.3 x 3.4 cm simple cyst is seen. This is considered a benign follicular cyst. No follow-up imaging is recommended. Left ovary measures 2.7 x 1.2 x 1.6 cm. 2.7. The left ovary is normal in appearance. US/US pelvic and transvaginal IMPRESSION: 1. Normal uterus and left ovary. 2. 4.1 cm simple right ovarian cyst. This is considered a benign follicular cyst. No follow-up imaging is recommended. 3. 3. Normal arterial and venous flow to both ovaries 4. IUD appears in proper position. Dictated By: Blanca Davis MD Signed By: <Electronically signed by Blanca Davis MD in OV> 04/10/23 1208 DD/ 1141 TD/TT: Yard Spotter: Assessment & Plan Assessment & Plan (1) Encounter for screening examination for sexually transmitted disease: Code(s): Z11.3 - Encounter for screening for infections with a predominantly sexual mode of transmission (2) SLE (systemic lupus erythematosus): Comment: MTX DC 09/2022 (fatigue, lightheadedness, GI upset) Azathioprine 10/2022 partially effective Benlysta 04/2023 effective Code(s): M32.9 - Systemic lupus erythematosus, unspecified Qualifiers: Systemic lupus erythematosus type: unspecified Systemic lupus erythematosus organ involvement: unspecified Qualified Code(s): M32.9 - Systemic lupus erythematosus, unspecified (3) Presence of 52 mg levonorgestrel-releasing intrauterine device (IUD): Comment: Mirena IUS inserted 02/25/22, plan was to remove Nexplanon at follow-up visit, but patient delayed removal... .... Code(s): Z97.5 - Presence of (intrauterine) contraceptive device (4) Cervical cancer screening: Comment: 09/24/20 pap= neg, neg hpv. Code(s): Z12.4 - Encounter for screening for malignant neoplasm of cervix (5) Obstetrical laceration: Comment: from 01/24/2009 delivery- flap of rt labia, not well approximated, and hanging down cleft toward rectum- causing pain and burning Code(s): O71.9 - Obstetric trauma, unspecified (6) Well woman exam with routine gynecological exam: Code(s): Z01.419 - Encounter for gynecological examination (general) (routine) without abnormal findings Plan -----Discussed in this visit the following: healthy balanced diet, regular and consistent exercise, getting recommended health screens, doing the best she can for her particular health concerns, kegel exercises, pap smear screening and followup recommendations, mammography screening and SBE, normal changes in cycles in her life stage--- . Discussed her lupus she has on a new medication for the last few weeks and she had some blood work done Monday and Monday to check on various parameters. She sometimes has pain on the right side or left side she also has pain in her hip and in her left ankle and she is never sure what is what she tries to do exercises to take care of them. Offered testing for STIs and she accepted she does feel she has a bad odor currently and that is problematic she has tried air but it has been very cold. She did have sex 2 days ago so it certainly possible that what ever is retrieved on testing today may be influenced by recent intercourse. We will await the test results other than that she can be seen in a year. She can go to the lab when she wishes to get her labs done. Discussed the usefulness of boric acid for malodorous discharge that might be consistent with BV if it happens very frequently. Discussed the pH changes that happen with intercourse. Discussed her other aches and pains recommend continue trying to move as much as she can Orders: Orders HIV Ab/Ag Today Z11.3 - Encounter for screening for infections with a predominantly sexual mode of transmission Hepatitis B Surface Antigen Today Z11.3 - Encounter for screening for infections with a predominantly sexual mode of transmission Hepatitis C Antibody Today Z11.3 - Encounter for screening for infections with a predominantly sexual mode of transmission Syphilis Screen Today Z11.3 - Encounter for screening for infections with a predominantly sexual mode of transmission Coding Level of Care Code Est Pt Prev Care 18-39y([id number]) Diagnoses Encounter for screening examination for sexually transmitted disease Z11.3 Systemic lupus erythematosus, unspecified SLE type, unspecified organ involvement status M32.9 Systemic lupus erythematosus type: unspecified Systemic lupus erythematosus organ involvement: unspecified Presence of 52 mg levonorgestrel-releasing intrauterine device (IUD) Z97.5 Cervical cancer screening Z12.4 Obstetrical laceration O71.9 Well woman exam with routine gynecological exam Z01.419
== END 2023-07-19 12:27 | disposition home or self-care (01) ==
LOC: HO.HWSM 10:52
PROVIDERS: PCP Physician Assistant; Visit Provider Advanced Practice Midwife
DX: Z01.419 Encounter for gynecological examination (general) (routine) without abnormal findings (principal); Z11.3 Encounter for screening for infections with a predominantly sexual mode of transmission; M32.9 Systemic lupus erythematosus, unspecified; Z97.5 Presence of (intrauterine) contraceptive device; Z12.4 Encounter for screening for malignant neoplasm of cervix; O71.9 Obstetric trauma, unspecified
CPT/HCPCS: 99395

== ENCOUNTER 2023-07-19 14:27 | Outpatient (REF) | payer OTHER, SELFPAY ==
[2023-07-20 03:29] LABS: CT PCR NOT DETECTED (Not Detect.); NG PCR NOT DETECTED (Not Detect.)
[2023-07-20 08:04] LABS: Syphilis Screen Nonreactive (Nonreactive)
[2023-07-20 08:12] LABS: HIV AB/AG Nonreactive (Nonreactive); HIV Num 1 0.05 S/CO (0.00-0.99); Hepatitis B Surface Antigen Negative (Negative); ~HepC Num1 0.35 S/CO (0.00-0.79); ~Hepatitis C Antibody Nonreactive (Nonreactive)
== END 2023-07-19 14:28 | disposition home or self-care (01) ==
LOC: HO.LAB 14:27
PROVIDERS: PCP Physician Assistant; Visit Provider Advanced Practice Midwife
DX: Z11.4 Encounter for screening for human immunodeficiency virus [HIV] (principal); N89.8 Other specified noninflammatory disorders of vagina; Z20.2 Contact with and (suspected) exposure to infections with a predominantly sexual mode of transmission
CPT/HCPCS: 0353U; 86780; 86803; 87340; 87389

== ENCOUNTER 2023-08-10 09:52 | Outpatient (AMB) | payer OTHER, SELFPAY ==
[2023-08-10 10:00] VITALS: BP 100/68; PULSE 78; O2SAT 100; BMI 25.6
--- NOTE | 2023-08-10 10:00 | A.OFFPC_ITS ---
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 Allergies naproxen [From Aleve] Allergy (Severe, Verified 08/10/23 10:21) Rash sulfasalazine Allergy (Severe, Verified 08/10/23 10:21) redness and itching nitrofurantoin [From Macrobid] Allergy (Verified 08/10/23 10:21) Rash Sulfa (Sulfonamide Antibiotics) Allergy (Verified 08/10/23 10:21) Rash methotrexate Adverse Reaction (Intermediate, Verified 08/10/23 10:21) Fatigued Medication List - Last Reconciled 08/10/23 by Vignesh Lauren PA-C amlodipine 2.5 mg PO DAILY azathioprine 150 mg (3 x 50 mg) PO DAILY Benlysta (belimumab) 200 mg subcut QWEEK NS blood pressure monitor (Blood Pressure Kit) As directed calcium carbonate-vitamin D3 600 mg-10 mcg (400 unit) (Calcium 600 + D(3)) 1 tab PO DAILY 90 days cetirizine (Zyrtec) 10 mg PO DAILY PRN famotidine 20 mg PO BEDTIME levonorgestrel (Mirena) 1 intrauterinely multivitamin 1 tab PO DAILY prednisone Take 2 tabs daily alternating with 1 tab daily for 1 month then stay on 1 tab daily sumatriptan succinate (Imitrex) 25 mg PO Q2H PRN 30 days Tobacco use date assessed: 08/10/23 HPI F/U High Blood Pressure HPI Details Patient is a 38-year-old female here today for a follow-up visit. . Patient has a fast history significant for sjogrens syndrome, migraines, autoimmune hepatitis, PVCs, presyncope ? . ?? ?SLE/? Sjodrens:? She is not have followed by Rheumatology and has started a new disease modifying drug.? Does report side effects from the medicine though are fairly tolerable. She still does report pain in her joints and some sleep is nice related to her lupus. Often having call lot of work due to being fatigued in into much pain. She uses Tylenol for her pain at this time. Has also been started on long-term prednisone taper ?. Hypertension: Blood pressure today in office acceptable today. Continues on amlodipine 2.5 mg. Advised to monitor blood pressure to ensure within appropriate range. ? .. ? GERD: Patient reports famotidine has been working for her nighttime GERD symptoms. [facility] Medical History SLE (systemic lupus erythematosus) Hypertension Migraines Cervical cancer screening PVCs (premature ventricular contractions) Vasovagal syncope Surgical History History of surgical biopsy Family History Father No problems noted. Mother Bipolar 1 disorder Chronic mental illness Family history of thyroid problem Maternal Grandmother Hypertension Maternal Grandfather No problems noted. 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 Luis Barahona, Kadie Senior, Shahid Baez and colleagues, with an educational minor from [employer]. Review of Systems Const Reports fatigue and Reports headache(s) Eyes Denies loss of vision ENT Denies vertigo, Denies dizziness, Reports headache(s) and Denies sore throat Card Denies chest pain, Denies leg edema and Denies lightheadedness Resp Denies cough, Denies hemoptysis and Denies wheezing GI Denies abdominal pain, Denies melena, Denies constipation, Denies diarrhea and Denies vomiting Denies urinary frequency, Denies dysuria and Denies urinary urgency Musc Reports arthralgias, Denies joint swelling, Denies numbness and Denies tingling Neuro Denies Abnormal speech present, Denies behavioral changes, Denies vertigo, Denies dizziness, Reports headache(s), Denies loss of vision, Denies memory loss, Denies numbness and Denies tingling Psych Denies anxiety, Denies behavioral changes, Denies depression, Denies memory loss and Denies panic attacks Endo Reports fatigue Luis A/Lymph Denies easy bleeding and Denies easy bruising Aller/Immun Denies wheezing Physical exam (Primary Care) Vital Signs: Last Vital Signs Pulse 78 08/10/23 10:00 BP 100/68 08/10/23 10:00 Pulse Ox 100 08/10/23 10:00 Oxygen Delivery Method Room Air 08/10/23 10:00 BMI result Body Mass Index 25.6 Tobacco/Smoking Status: Tobacco use Status Tobacco use date assessed 08/10/23 08/10/23 10:08 Patient Tobacco Use Status Never used Tobacco 08/10/23 10:08 e-Cigarette/Vaping Use Never Used 08/10/23 10:08 Thrive Assessment: Date of Thrive Assessment Date Thrive assessed 07/22/22 08/10/23 10:08 Const General: healthy appearing, no acute distress, alert and awake Nutritional Appearance: well nourished Orientation/consciousness: oriented to person, oriented to place and oriented to time HENMT Ears: TM's normal bilaterally General nose exam: Normal nasal mucous membranes and turbinates present Eyes Conjunctivae: conjunctivae normal Sclerae: sclerae normal Pupils: Equal, round and reactive pupils present Neck Neck: Yes no lymphadenopathy and Yes no JVD Thyroid: Thyroid normal Carotids: no bruits Resp Effort & Inspection: normal respiratory effort and not tachypneic Auscultation: no crackles, no rales, no rhonchi and no wheezes Cardio Rate: regular rate Rhythm: regular rhythm Heart sounds: no murmurs and normal S1 and S2 GI Palpation (GI): Soft to palpation, nontender, no hepatomegaly and no splenomegaly Auscultation: normal bowel sounds Skin General skin exam: no rashes or lesions noted and dry skin Neuro General: oriented to person, oriented to place and oriented to time Cranial nerves: Yes Equal, round and reactive pupils present Speech: No Abnormal speech present Gait exam (Neuro): Normal gait present Motor exam (neuro): no tremor noted Extrem Right upper extremity: full ROM Left upper extremity: full ROM Right lower extremity: full ROM; no edema Left lower extremity: full ROM; no edema Psych Mental Status: mental status grossly normal Speech and movement: Normal speech and movement present Affect: normal affect Attitude: cooperative Thought process: Normal thought process present Assessment and Plan Assessment & Plan (1) HTN (hypertension): Code(s): I10 - Essential (primary) hypertension Qualifiers: Hypertension type: primary hypertension Qualified Code(s): I10 - Essential (primary) hypertension Plan: Patient's blood pressure acceptable today in office. Will continue her current dose of amlodipine with goal blood pressure be below 140/90 (2) SLE (systemic lupus erythematosus): Comment: MTX DC 09/2022 (fatigue, lightheadedness, GI upset) Azathioprine 10/2022 partially effective Benlysta 04/2023 effective Code(s): M32.9 - Systemic lupus erythematosus, unspecified Qualifiers: Systemic lupus erythematosus organ involvement: unspecified Systemic lupus erythematosus type: unspecified Qualified Code(s): M32.9 - Systemic lupus erythematosus, unspecified Plan: Patient now regularly followed by Rheumatology. Has been started on disease modifying drug. Does report side effects of the medication though have been tolerable. Continues to have pains and fatigued. Most recent renal and liver functions have been stable. (3) Pain of left heel: Code(s): M79.672 - Pain in left foot Plan: Reports left heel pain when standing or walking. Of note did get x-ray of her left foot in 2021 that did show mild calcaneal spurs. Advised on conservative treatment chest stretches and cool compress along with trying shoe inserts. Medications: Refilled calcium carbonate-vitamin D3 600 mg-10 mcg (400 unit) (Calcium 600 + D(3)) 1 tab PO DAILY 90 days 90 tabs 2RF M35.01 - Sjogren syndrome with keratoconjunctivitis Coding Level of Care Code Est Pt Level 4 (47504) Diagnoses Primary hypertension I10 Hypertension type: primary hypertension Systemic lupus erythematosus, unspecified SLE type, unspecified organ invol vement status M32.9 Systemic lupus erythematosus organ involvement: unspecified Systemic lupus erythematosus type: unspecified Pain of left heel M79.760
== END 2023-08-10 10:49 | disposition home or self-care (01) ==
PROVIDERS: PCP Physician Assistant; Visit Provider Physician Assistant
DX: I10 Essential (primary) hypertension (principal); M32.9 Systemic lupus erythematosus, unspecified; M79.672 Pain in left foot
CPT/HCPCS: 99214

== ENCOUNTER 2023-09-28 13:58 | Outpatient (REF) | payer OTHER, SELFPAY ==
[2023-09-28 14:09] LABS: MANUAL DIFF FLAG NO
[2023-09-28 14:25] LABS: Basophils Percent Auto 0.7 % (0-2); Eosinophils Percent Auto 0.6 % (0-4); Hematocrit 36.5 % (37.0-47.0); Hemoglobin 12.7 g/dl (12.0-16.0); Imm Gran Abs Auto 0.01 X10*3/uL (0.00-0.03); Imm Gran Pct Auto 0.2 % (0.0-0.4); Lymphocytes Absolute Auto 1.5 X10*3/uL (1.2-4.9); Lymphocytes Percent Auto 27.1 % (20-40); Mean Corpuscular HGB Conc 34.8 g/dl (31.0-35.0); Mean Corpuscular Hemoglobin 34.5 pg (27.0-33.0); Mean Corpuscular Volume 99.2 fL (80.0-98.0); Mean Platelet Volume 11.2 fL (9.4-12.3); Monocytes Absolute Auto 0.5 X10*3/uL (0.1-1.2); Monocytes Percent Auto 8.4 % (2-11); Neutrophils Absolute Auto 3.4 x10*3/uL (2.0-8.3); Platelet Count 222 X10*3/uL (160-400); Red Blood Count 3.68 X10*6/uL (4.20-5.50); Red Cell Distribution Width 12.4 % (11.0-16.0); White Blood Count 5.4 X10*3/uL (4.8-10.8)
[2023-09-28 14:52] LABS: Alanine Aminotransferase 66 U/L (0-31); Alkaline Phosphatase 79 U/L (39-117); Anion Gap 8 (12-20); Aspartate Amino Transferase 49 U/L (5-31); Bilirubin Total 0.7 mg/dL (0.0-1.0); Blood Urea Nitrogen 13 mg/dL (9-16); C Reactive Protein < 0.10 mg/dL (< or = 0.50); Calcium 9.3 mg/dL (8.4-10.2); Carbon Dioxide 27 mmol/L (22-29); Chloride 106 mmol/L (96-108); Estimated Glomerular Filt Rate > 60; Glucose Random 79 mg/dL (60-115); Potassium 3.3 mmol/L (3.3-5.1); Sodium 138 mmol/L (135-145)
[2023-09-28 14:59] LABS: Erythrocyte Sedimentation Rate 6 MM/HR (0-20)
[2023-09-28 15:43] LABS: Appearance Urine Clear; Color Urine Yellow; Glucose Urine UA Negative (Negative); Leukocyte Esterase Urine Trace (Negative); Nitrite Urine Negative (Negative); UMIC TRIGGER UA YES; Urine Blood Small (1+) (Negative); Urine Ketones Negative (Negative); Urine Protein Negative (Neg-Trace)
[2023-09-28 15:52] LABS: Creatinine Urine 174.63 mg/dL; Protein/Creatinine Ratio, Ur 0.07 (<0.2); Total Protein Urine Random 13 mg/dL (<12)
[2023-09-28 16:01] LABS: Bacteria Urine None Seen (None Seen); Hyaline Casts Urine 0-2 /LPF (0-2); RBC Urine 0-2 /HPF (0-2); Squamous Epithelial Cell Urine 0-2 /HPF (0-2); WBC Urine 0-5 /HPF (0-5)
[2023-09-29 13:18] LABS: Anti DNA DS Antibody <1 IU/mL
[2023-10-03 07:13] LABS: Complement C3 84 mg/dL (83-193)
== END 2023-09-28 13:59 | disposition home or self-care (01) ==
LOC: HO.LAB 13:58
PROVIDERS: PCP Physician Assistant; Visit Provider Student in an Organized Health Care Education/Training Program
DX: M32.9 Systemic lupus erythematosus, unspecified (principal)
CPT/HCPCS: 36415; 80053; 81001; 82570; 84156; 85025; 85652; 86140; 86160; 86225

== ENCOUNTER 2023-10-04 08:20 | Outpatient (AMB) | payer OTHER, SELFPAY ==
--- NOTE | 2023-10-04 08:23 | A.OFFVIS_ITS ---
Intake Vital Signs 10/04/23 08:24 Height 5 ft 5 in Weight 151 lb 14.376 oz BMI 25.3 BP 116/70 Blood Pressure Location Rt brachial Position Sitting Pulse 82 Pulse Source Pulse Oximeter Pulse Oximetry (%) 98 Oxygen Delivery Method Room Air Intake Visit Reasons: SLE Intake Note: Pt last seen 07/19/23 presents today for follow up and test results. 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 Accompanied by: Significant Other Allergies naproxen [From Aleve] Allergy (Severe, Verified 10/04/23 08:29) Rash sulfasalazine Allergy (Severe, Verified 10/04/23 08:29) redness and itching nitrofurantoin [From Macrobid] Allergy (Verified 10/04/23 08:29) Rash Sulfa (Sulfonamide Antibiotics) Allergy (Verified 10/04/23 08:29) Rash methotrexate Adverse Reaction (Intermediate, Verified 10/04/23 08:29) Fatigued Medication List - Last Reconciled 10/04/23 by Yaron Klein MD amlodipine 2.5 mg PO DAILY azathioprine 150 mg (3 x 50 mg) PO DAILY Benlysta (belimumab) 200 mg subcut QWEEK NS blood pressure monitor (Blood Pressure Kit) As directed calcium carbonate-vitamin D3 600 mg-10 mcg (400 unit) (Calcium 600 + D(3)) 1 tab PO DAILY 90 days cetirizine (Zyrtec) 10 mg PO DAILY PRN famotidine 20 mg PO BEDTIME levonorgestrel (Mirena) 1 intrauterinely multivitamin 1 tab PO DAILY prednisone take 4 tabs daily for 2 weeks, 3 tabs daily for 2 weeks, 2 tabs daily for 2 weeks and remain on 1 tab daily sumatriptan succinate (Imitrex) 25 mg PO Q2H PRN 30 days HPI HPI Comments History of Present Illness Details 38 yoF with SLE presents for follow-up. She is on prednisone 2.5 mg daily, azathioprine 150 mg daily and Benlysta weekly. Patient stated that she has not been doing well recently. She has been having symptoms of generalized fatigue, feeling feverish, brain fog nauseous. Pains in her legs radiating up all the way into her back. Her symptoms have become more severe over the last 2 weeks and she has not been able to go to work. She believes that the Benlysta is not working. She continues to have some stomach upset with azathioprine but able to tolerate it. Prior history: Patient developed rash end of October 2018, 6 weeks after she started sulfasalazine. She was admitted to the hospital and developed transaminitis, she has skin biopsy which showed possible drug reaction. She was put on steroids and the rash improved. She still gets itchy and dry skin. She is to see dermatology soon. [facility] Medical History SLE (systemic lupus erythematosus) Hypertension Migraines Cervical cancer screening PVCs (premature ventricular contractions) Vasovagal syncope Surgical History History of surgical biopsy Family History Father No problems noted. Mother Bipolar 1 disorder Chronic mental illness Family history of thyroid problem Maternal Grandmother Hypertension Maternal Grandfather No problems noted. 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[employer] Cognitive needs: No Hearing needs: No Vision needs: Yes Female Reproductive History Menstrual Age of Menarche: 11 Review of Systems Const Reports body aches, Reports fatigue, Reports headache(s) and Reports weakness ENT Details: Denies any oral ulcers Reports headache(s) Card Reports no additional complaints Resp Reports no additional complaints GI Reports dyspepsia, Reports diarrhea and Reports nausea Musc Reports myalgias, Reports arthralgias and Denies joint swelling Skin/Breast Details: acne Reports system reviewed and no additional complaints, except as documented and Denies rash Neuro Reports headache(s) and Reports weakness Endo Reports fatigue Luis A/Lymph Reports no additional complaints Physical Exam Vital Signs: Last Vital Signs Pulse 82 10/04/23 08:24 BP 116/70 10/04/23 08:24 Pulse Ox 98 10/04/23 08:24 Oxygen Delivery Method Room Air 10/04/23 08:24 BMI result Body Mass Index 25.3 Const Other: Moist oral mucosa, no oral ulcers General: cooperative, healthy appearing, comfortable and no acute distress Nutritional Appearance: average body habitus Orientation/consciousness: patient oriented x3 Limitations: no limitations HEENT Head: Yes normocephalic and Yes atraumatic Mouth: moist mucous membranes Resp Effort & Inspection: normal respiratory effort and able to speak in complete sentences Auscultation: clear to auscultation bilaterally Cardio Rate: regular rate Rhythm: regular rhythm Heart sounds: S1 normal heart sound present and S2 normal heart sound present GI Inspection: No distended Palpation (GI): Soft to palpation and nontender Neuro General: patient oriented x3 Extrem Other: No active synovitis today No significant fibromyalgia tender points hyperextensible thumbs Normal nailfold capillaroscopy Results Reviewed Results Reviewed: Skin biopsy right arm 11/2018 DIAGNOSIS Skin, right arm, excision: Superficial perivascular dermatitis (see Comment); special stain for fungal organisms is pending; negative for malignancy. Comment: The findings are non-specific. Possible etiologies include but are not limited to: cutaneous drug eruption, urticarial reaction, viral exanthem, fungal infection, rosacea and pruritic plaques of . Clinical correlation is suggested. ADDENDUM This addendum is issued to report results of PAS special stain. PAS stain is negative for fungal organisms. Assessment & Plan Assessment & Plan (1) SLE (systemic lupus erythematosus): Comment: dx 2008 MTX DC 09/2022 (fatigue, lightheadedness, GI upset) Azathioprine 10/2022 partially effective Benlysta 04/2023 partially effective Code(s): M32.9 - Systemic lupus erythematosus, unspecified Qualifiers: Systemic lupus erythematosus type: unspecified Systemic lupus erythematosus organ involvement: unspecified Qualified Code(s): M32.9 - Systemic lupus erythematosus, unspecified Plan: This is a 38-year-old female with SLE (+++SSA, intermittently low C3 and C4, arthralgias, skin rash) presents for follow-up In 2018 she was on hydroxychloroquine and sulfasalazine and she developed a rash with transaminitis, she had a skin biopsy which showed possible drug reaction, she was started on steroids with resolution of her rash and sulfasalazine and hydroxychloroquine were stopped.? Hydroxychloroquine was resumed 02/2022. In 06/2022 patient was admitted to the hospital with diffuse erythematous skin rash, fevers, inflammatory arthritis and transaminitis, symptoms rapidly resolved with steroid taper. This was 2 days after patient started Aleve It is unclear at this point whether patient's rash is due to drug reaction to Aleve verses a lupus rash. Labs when admitted also showed mild proteinuria 450 mg in addition to high WBC (possible concomitant UTI) Rashes, transaminitis and proteinuria all resolved with prednisone. I believe her SLE flares with NSAIDs & Sulfa hydroxychloroquine was discontinued. It does not seem to have helped the patient much. She also gets GI upset with it. Patient could not tolerate methotrexate due to fatigue, lightheadedness, GI upset, which resolved on discontinuation Patient is currently on Benlysta subQ injection weekly, azathioprine 150 mg daily and prednisone 2.5 mg daily. She continues to have intermittent flare-ups of generalized fatigue, brain fog, feeling feverish, nauseous. Gets some nausea and stomach upset with azathioprine but remains tolerable. She has been out of work for the last 2 weeks due to her lupus symptoms. Blood work showed transaminitis which is typical of her SLE flares. [facility] paperwork completed Discussed with patient that likely the majority of her symptoms such as generalized fatigue, brain fog,..etc are related to mild lupus activity rather than a side effect of medications. Increase prednisone to 20 mg daily for two weeks, 15 mg daily for 2 weeks, 10 mg daily for 2 weeks then remain on 5 mg daily until next visit. Continue other meds as prescribed Labs before next visit in 3 months (2) Encounter for monitoring azathioprine therapy: Code(s): Z51.81 - Encounter for therapeutic drug level monitoring; Z79.624 - alf (current) use of inhibitors of nucleotide synthesis Plan: Monitor safety labs. 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 Advised patient that we do not have solid data with Benlysta regarding . Patient is not planning to get any time soon. She has an IUD for about a year and a half now. It has been effective. Advised patient to stop Benlysta if she gets Plan I spent 60 minutes reviewing patient's chart, evaluating patient, ordering diagnostic workup, counseling patient, completing FMLA paperwork and documenting in the chart Medications: New prednisone take 4 tabs daily for 2 weeks, 3 tabs daily for 2 weeks, 2 tabs daily for 2 weeks and remain on 1 tab daily 100 tabs 1RF Discontinued prednisone Discontinued Reason: Doctor's Order Take 2 tabs daily alternating with 1 tab daily for 1 month then stay on 1 tab daily 75 tabs 1RF Coding Level of Care Code Est Pt Level 5 (28877) Diagnoses Systemic lupus erythematosus, unspecified SLE type, unspecified organ involvement status M32.9 Systemic lupus erythematosus type: unspecified Systemic lupus erythematosus organ involvement: unspecified Encounter for monitoring azathioprine therapy Z51.81; Z79.624 High risk medication use Z79.890
[2023-10-04 08:24] VITALS: BP 116/70; PULSE 82; O2SAT 98; BMI 25.3
== END 2023-10-04 09:06 | disposition home or self-care (01) ==
PROVIDERS: PCP Physician Assistant; Visit Provider Student in an Organized Health Care Education/Training Program
DX: M32.9 Systemic lupus erythematosus, unspecified (principal); Z51.81 Encounter for therapeutic drug level monitoring; Z79.624 Long term (current) use of inhibitors of nucleotide synthesis; Z79.899 Other long term (current) drug therapy
CPT/HCPCS: 99215

== ENCOUNTER → 2023-10-04 08:20 | Outpatient (BNVA) | payer OTHER, SELFPAY | PROVIDERS: PCP Physician Assistant; Visit Provider Student in an Organized Health Care Education/Training Program ==

== ENCOUNTER 2024-01-04 08:40 | Outpatient (AMB) | payer OTHER, SELFPAY ==
--- NOTE | 2024-01-04 08:42 | A.OFFVIS_ITS ---
Vital Signs 01/04/24 08:46 Height 5 ft 5 in Weight 162 lb 0.636 oz BMI 27.0 BP 122/70 Blood Pressure Location Lt brachial Position Sitting Pulse 78 Pulse Source Pulse Oximeter Pulse Oximetry (%) 98 Oxygen Delivery Method Room Air Intake Visit Reasons: SLE/CM Intake Note: Patient presents for SLE. Feeling like injection is not working and my mood changes. Allergies naproxen [From Aleve] Allergy (Severe, Verified 01/04/24 08:46) Rash sulfasalazine Allergy (Severe, Verified 01/04/24 08:46) redness and itching nitrofurantoin [From Macrobid] Allergy (Verified 01/04/24 08:46) Rash Sulfa (Sulfonamide Antibiotics) Allergy (Verified 01/04/24 08:46) Rash belimumab [From Benlysta] Adverse Reaction (Intermediate, Verified 01/04/24 09 :55) Fatigue methotrexate Adverse Reaction (Intermediate, Verified 01/04/24 08:46) Fatigued Medication List - Last Reconciled 01/04/24 by Yaron Klein MD amlodipine 2.5 mg PO DAILY azathioprine 150 mg (3 x 50 mg) PO DAILY blood pressure monitor (Blood Pressure Kit) As directed calcium carbonate-vitamin D3 600 mg-10 mcg (400 unit) (Calcium 600 + D(3)) 1 tab PO DAILY 90 days cetirizine (Zyrtec) 10 mg PO DAILY PRN famotidine 20 mg PO BEDTIME levonorgestrel (Mirena) 1 intrauterinely multivitamin 1 tab PO DAILY prednisone 5 mg PO DAILY sumatriptan succinate (Imitrex) 25 mg PO Q2H PRN 30 days HPI Comments Details: 38 yoF with SLE presents for follow-up. She is on prednisone 5 mg daily, azathioprine 150 mg daily and Benlysta weekly. Patient stated that she has not been doing well recently. She feels that the Benlysta injection is not helping. It is making her tired, fatigued, does not want to get out of bed. She gets episodes of generalized fatigue, brain fog. She had to take a week off of work. She has not had any significant skin rashes, swollen joints fevers. Prior history: Patient developed rash end of October 2018, 6 weeks after she started sulfasalazine. She was admitted to the hospital and developed transaminitis, she has skin biopsy which showed possible drug reaction. She was put on steroids and the rash improved. She still gets itchy and dry skin. She is to see dermatology soon. [facility] Medical History SLE (systemic lupus erythematosus) Hypertension Migraines Cervical cancer screening PVCs (premature ventricular contractions) Vasovagal syncope Surgical History History of surgical biopsy Family History Father No problems noted. Mother Bipolar 1 disorder Chronic mental illness Family history of thyroid problem Maternal Grandmother Hypertension Maternal Grandfather No problems noted. 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[employer] Cognitive needs: No Hearing needs: No Vision needs: Yes Female Reproductive History Menstrual Age of Menarche: 11 Review of Systems Const Reports body aches, Reports fatigue and Reports weakness ENT Details: Denies any oral ulcers Card Reports no additional complaints Resp Reports no additional complaints Musc Reports myalgias, Reports arthralgias and Denies joint swelling Skin/Breast Reports system reviewed and no additional complaints, except as documented and Denies rash Neuro Reports weakness Endo Reports fatigue Luis A/Lymph Reports no additional complaints Physical Exam Vital Signs: Last Vital Signs Pulse 78 01/04/24 08:46 BP 122/70 01/04/24 08:46 Pulse Ox 98 01/04/24 08:46 Oxygen Delivery Method Room Air 01/04/24 08:46 BMI result Body Mass Index 27.0 Const Other: Moist oral mucosa, no oral ulcers General: cooperative, healthy appearing, comfortable and no acute distress Nutritional Appearance: average body habitus Orientation/consciousness: patient oriented x3 Limitations: no limitations HEENT Head: Yes normocephalic and Yes atraumatic Mouth: moist mucous membranes Resp Effort & Inspection: normal respiratory effort and able to speak in complete sentences Auscultation: clear to auscultation bilaterally Cardio Rate: regular rate Rhythm: regular rhythm Heart sounds: S1 normal heart sound present and S2 normal heart sound present GI Inspection: No distended Palpation (GI): Soft to palpation and nontender Skin Other: Very faint rash on cheeks Neuro General: patient oriented x3 Extrem Other: No active synovitis today No significant fibromyalgia tender points hyperextensible thumbs Normal nailfold capillaroscopy Results Reviewed Results Reviewed: Skin biopsy right arm 11/2018 DIAGNOSIS Skin, right arm, excision: Superficial perivascular dermatitis (see Comment); special stain for fungal organisms is pending; negative for malignancy. Comment: The findings are non-specific. Possible etiologies include but are not 0 limited to: cutaneous drug eruption, urticarial reaction, viral exanthem, fungal infection, rosacea and pruritic plaques of . Clinical correlation is suggested. ADDENDUM This addendum is issued to report results of PAS special stain. PAS stain is negative for fungal organisms. Assessment & Plan Assessment & Plan (1) SLE (systemic lupus erythematosus): Comment: dx 2008 MTX DC 09/2022 (fatigue, lightheadedness, GI upset) Azathioprine 10/2022 partially effective Benlysta 04/2023 partially effective. DC 12/2023 worsening fatigue Code(s): M32.9 - Systemic lupus erythematosus, unspecified Category: Medical Qualifiers: Systemic lupus erythematosus type: unspecified Systemic lupus erythematosus organ involvement: unspecified Qualified Code(s): M32.9 - Systemic lupus erythematosus, unspecified Plan: This is a 38-year-old female with SLE (+++SSA, intermittently low C3 and C4, arthralgias, skin rash) presents for follow-up In 2018 she was on hydroxychloroquine and sulfasalazine and she developed a rash with transaminitis, she had a skin biopsy which showed possible drug reaction, she was started on steroids with resolution of her rash and sulfasalazine and hydroxychloroquine were stopped.? Hydroxychloroquine was resumed 02/2022. In 06/2022 patient was admitted to the hospital with diffuse erythematous skin rash, fevers, inflammatory arthritis and transaminitis, symptoms rapidly resolved with steroid taper. This was 2 days after patient started Aleve It is unclear at this point whether patient's rash is due to drug reaction to Aleve verses a lupus rash. Labs when admitted also showed mild proteinuria 450 mg in addition to high WBC (possible concomitant UTI) Rashes, transaminitis and proteinuria all resolved with prednisone. I believe her SLE flares with NSAIDs & Sulfa hydroxychloroquine was discontinued. It does not seem to have helped the patient much. She also gets GI upset with it. Patient could not tolerate methotrexate due to fatigue, lightheadedness, GI upset, which resolved on discontinuation Patient is currently on Benlysta subQ injection weekly, azathioprine 150 mg daily and prednisone 5 mg daily. Patient feels like Benlysta has not been helping. She has been getting more fatigued. No energy. Difficulty getting up from bed. We will DC Benlysta today On evaluation I do not believe her SLE is active however I will check her SLE activity labs today. I think there is an element of fibromyalgia. Continue azathioprine 150 mg daily, prednisone 5 mg daily If other DMARDs are needed, I will consider [facility] today and before next visit in 3 months (2) Encounter for monitoring azathioprine therapy: Code(s): Z51.81 - Encounter for therapeutic drug level monitoring; Z79.624 - retirement (current) use of inhibitors of nucleotide synthesis Category: Medical Plan: Monitor safety labs. Her TPMT is normal (3) Fibromyalgia, primary: Code(s): M79.7 - Fibromyalgia Category: Medical Plan: Discussed management of fibromyalgia with patient. Is a noninflammatory, non- autoimmune central afferent processing disorder leading to a diffuse pain syndrome. I suggested evaluation by a therapist to evaluate for any underlying anxiety/depression. Try to follow sleep hygiene practices. Consider a referral for a sleep study to rule out LLOYD by her PCP . Patient would benefit from increased physical activity, either through formal physical therapy or by joining a gym. Advised patient that she should start activity slowly and increase as tolerated. Consider low-impact exercises such as walking, swimming, aqua therapy stretching, yoga. Plan I spent 46 minutes reviewing patient's chart, evaluating patient, ordering diagnostic workup, counseling patient, completing FMLA paperwork and documenting in the chart Orders: Orders Anti DNA DS Antibody 3 Months M32.9 - Systemic lupus erythematosus, unspecified Complement C4 3 Months M32.9 - Systemic lupus erythematosus, unspecified Erythrocyte Sedimentation Rate 3 Months M32.9 - Systemic lupus erythematosus, unspecified Protein Creatinine Ratio, Ur 3 Months M32.9 - Systemic lupus erythematosus, unspecified UA w Microscopic 3 Months M32.9 - Systemic lupus erythematosus, unspecified Complete Blood Count Auto Diff 3 Months M32.9 - Systemic lupus erythematosus, unspecified Comprehensive Met. Panel 3 Months M32.9 - Systemic lupus erythematosus, unspecified Complete Blood Count Auto Diff Today M32.9 - Systemic lupus erythematosus, unspecified Comprehensive Met. Panel Today M32.9 - Systemic lupus erythematosus, unspecified C Reactive Protein Today M32.9 - Systemic lupus erythematosus, unspecified Complement C4 Today M32.9 - Systemic lupus erythematosus, unspecified UA w Microscopic Today M32.9 - Systemic lupus erythematosus, unspecified Complement C3 3 Months M32.9 - Systemic lupus erythematosus, unspecified C Reactive Protein 3 Months M32.9 - Systemic lupus erythematosus, unspecified DNA Double Stranded-Crithidia 3 Months M32.9 - Systemic lupus erythematosus, unspecified Anti DNA DS Antibody Today M32.9 - Systemic lupus erythematosus, unspecified Complement C3 Today M32.9 - Systemic lupus erythematosus, unspecified Erythrocyte Sedimentation Rate Today M32.9 - Systemic lupus erythematosus, unspecified DNA Double Stranded-Crithidia Today M32.9 - Systemic lupus erythematosus, unspecified Protein Creatinine Ratio, Ur Today M32.9 - Systemic lupus erythematosus, unspecified Coding Level of Care Code Est Pt Level 4 (65371) Diagnoses Systemic lupus erythematosus, unspecified SLE type, unspecified organ involvement status M32.9 Systemic lupus erythematosus type: unspecified Systemic lupus erythematosus organ involvement: unspecified Encounter for monitoring azathioprine therapy Z51.81; Z79.624 Fibromyalgia, primary M79.7
[2024-01-04 08:46] VITALS: BP 122/70; PULSE 78; O2SAT 98; BMI 27.0
== END 2024-01-04 09:22 | disposition home or self-care (01) ==
PROVIDERS: PCP Physician Assistant; Visit Provider Student in an Organized Health Care Education/Training Program
DX: M32.9 Systemic lupus erythematosus, unspecified (principal); Z51.81 Encounter for therapeutic drug level monitoring; Z79.624 Long term (current) use of inhibitors of nucleotide synthesis; M79.7 Fibromyalgia
CPT/HCPCS: 99214

== ENCOUNTER 2024-01-04 08:40 | Outpatient (REF) | payer OTHER, SELFPAY ==
[2024-01-04 10:38] LABS: MANUAL DIFF FLAG NO
[2024-01-04 10:56] LABS: Basophils Percent Auto 0.4 % (0-2); Eosinophils Percent Auto 0.2 % (0-4); Hematocrit 40.2 % (37.0-47.0); Hemoglobin 14.1 g/dl (12.0-16.0); Imm Gran Abs Auto 0.03 X10*3/uL (0.00-0.03); Imm Gran Pct Auto 0.3 % (0.0-0.4); Lymphocytes Percent Auto 9.3 % (20-40); Mean Corpuscular HGB Conc 35.1 g/dl (31.0-35.0); Mean Corpuscular Hemoglobin 33.8 pg (27.0-33.0); Mean Corpuscular Volume 96.4 fL (80.0-98.0); Mean Platelet Volume 11.2 fL (9.4-12.3); Monocytes Absolute Auto 0.6 X10*3/uL (0.1-1.2); Monocytes Percent Auto 5.5 % (2-11); Neutrophils Absolute Auto 8.7 x10*3/uL (2.0-8.3); Neutrophils Percent Auto 84.3 % (45-73); Platelet Count 227 X10*3/uL (160-400); Red Blood Count 4.17 X10*6/uL (4.20-5.50); Red Cell Distribution Width 11.9 % (11.0-16.0); White Blood Count 10.3 X10*3/uL (4.8-10.8)
[2024-01-04 11:27] LABS: Alanine Aminotransferase 13 U/L (0-31); Albumin Level 4.2 g/dL (3.5-5.0); Alkaline Phosphatase 82 U/L (39-117); Anion Gap 10 (12-20); Aspartate Amino Transferase 15 U/L (5-31); Bilirubin Total 0.4 mg/dL (0.0-1.0); Blood Urea Nitrogen 14 mg/dL (9-16); Calcium 10.1 mg/dL (8.4-10.2); Carbon Dioxide 27 mmol/L (22-29); Chloride 106 mmol/L (96-108); Estimated Glomerular Filt Rate > 60; Glucose Random 82 mg/dL (60-115); Potassium 4.1 mmol/L (3.3-5.1); Sodium 139 mmol/L (135-145); Total Protein 7.3 g/dL (6.5-8.0)
[2024-01-04 11:41] LABS: Appearance Urine Clear; Color Urine Dark Yellow; Glucose Urine UA Negative (Negative); Leukocyte Esterase Urine Small (1+) (Negative); Nitrite Urine Negative (Negative); PH 5.5 (5.0-9.0); Specific Gravity - Urine 1.025 (1.005-1.025); UMIC TRIGGER UA YES; Urine Blood Negative (Negative); Urine Ketones Trace mg/dL (Negative); Urine Protein Negative (Neg-Trace)
[2024-01-04 11:47] LABS: Erythrocyte Sedimentation Rate 7 MM/HR (0-20)
[2024-01-04 12:04] LABS: Bacteria Urine None Seen (None Seen); Hyaline Casts Urine 0-2 /LPF (0-2); RBC Urine 0-2 /HPF (0-2); Squamous Epithelial Cell Urine 0-2 /HPF (0-2); WBC Urine 0-5 /HPF (0-5)
[2024-01-04 12:27] LABS: Creatinine Urine 197.39 mg/dL; Total Protein Urine Random < 7 mg/dL (<12)
[2024-01-05 13:33] LABS: Anti DNA DS Antibody <1 IU/mL
[2024-01-08 08:48] LABS: Complement C3 143 mg/dL (83-193)
[2024-01-12 15:33] LABS: DNAds, Crithidia Antibody Negative (Negative)
== END 2024-01-04 08:41 | disposition home or self-care (01) ==
LOC: HO.LAB 08:40
PROVIDERS: PCP Physician Assistant; Visit Provider Student in an Organized Health Care Education/Training Program
DX: M32.9 Systemic lupus erythematosus, unspecified (principal); M79.7 Fibromyalgia; Z79.624 Long term (current) use of inhibitors of nucleotide synthesis
CPT/HCPCS: 36415; 80053; 81001; 82570; 84156; 85025; 85652; 86140; 86160; 86225; 86255

== ENCOUNTER 2024-01-11 07:44 | Outpatient (AMB) | payer OTHER, SELFPAY ==
[2024-01-11 08:06] VITALS: BP 126/82; BMI 26.3
--- NOTE | 2024-01-11 08:06 | A.OFFPC_ITS ---
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: No Accompanied by: Self / Same As Patient Allergies naproxen [From Aleve] Allergy (Severe, Verified 01/11/24 08:14) Rash sulfasalazine Allergy (Severe, Verified 01/11/24 08:14) redness and itching nitrofurantoin [From Macrobid] Allergy (Verified 01/11/24 08:14) Rash Sulfa (Sulfonamide Antibiotics) Allergy (Verified 01/11/24 08:14) Rash belimumab [From Benlysta] Adverse Reaction (Intermediate, Verified 01/11/24 08:14) Fatigue methotrexate Adverse Reaction (Intermediate, Verified 01/11/24 08:14) Fatigued Medication List - Last Reconciled 01/11/24 by Vignesh Lauren PA-C amlodipine 2.5 mg PO DAILY azathioprine 150 mg (3 x 50 mg) PO DAILY blood pressure monitor (Blood Pressure Kit) As directed calcium carbonate-vitamin D3 600 mg-10 mcg (400 unit) (Calcium 600 + D(3)) 1 tab PO DAILY 90 days famotidine 20 mg PO BEDTIME levonorgestrel (Mirena) 1 intrauterinely multivitamin 1 tab PO DAILY prednisone 5 mg PO DAILY sumatriptan succinate (Imitrex) 25 mg PO Q2H PRN 30 days Tobacco use date assessed: 08/10/23 Dental Screening Dental Screen Date: 01/11/24 Did you have a dental visit in the last 12 months?: Yes Did you have a dental problem in the last 6 months where you did not have access to dental care?: No Was dental information given to patient?: Patient has dentist HPI pe HPI Details Patient is a 38-year-old female here today for a follow-up visit. . Patient has a fast history significant for sjogrens syndrome, migraines, autoimmune hepatitis, PVCs, presyncope ?cocnerns--> Reports having cough and congestion over the last 3 weeks. Reports she has been using [id number] cough cold medication though has not been effective. She does report at times having a bit of wheeze. She denies having any fevers or productivity of the cough. ? . ?? ?SLE/? Sjodrens/fibromyalgia:? She is not have followed by Rheumatology and has started a new disease modifying drug.? Does report side effects from the medicine though are fairly tolerable. She still does report pain in her joints and some sleep is nice related to her lupus. Often having call lot of work due to being fatigued in into much pain. She uses Tylenol for her pain at this time. Has also been started on long-term prednisone taper ?. Hypertension: Blood pressure today in office acceptable today. Continues on amlodipine 2.5 mg. Advised to monitor blood pressure to ensure within appropriate range. ? .. ? GERD: Patient reports famotidine has been working for her nighttime GERD symptoms. Vaccine: UTD with COVID vaccine , UTD with flu, up-to-date tetanus vaccine .. 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 Mammogram-willing to get mammogram Laboratory Tests 11/27/21 07/15/22 07/15/22 07:22 09:24 15:51 RBC 4.24 Hgb Creatinine 1.68 H 1.31 C-Reactive Protein Complement C3 Complement C4 07/16/22 10/28/22 12/17/22 07:47 13:00 07:30 RBC 3.79 L Hgb 12.2 Creatinine 1.10 0.87 C-Reactive Protein Complement C3 67 L 124 Complement C4 09/28/23 01/04/24 14:08 10:31 RBC 4.17 L Hgb 14.1 Creatinine 0.81 C-Reactive Protein < 0.10 0.60 H Complement C3 Complement C4 13 L 21 PFSH Medical History SLE (systemic lupus erythematosus) Hypertension Migraines Cervical cancer screening PVCs (premature ventricular contractions) Vasovagal syncope Surgical History History of surgery History of surgical biopsy Family History Father No problems noted. Mother Bipolar 1 disorder Chronic mental illness Family history of thyroid problem Maternal Grandmother Hypertension Maternal Grandfather No problems noted. 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 1. Little interest or pleasure in doing things: several days 2. Feeling down, depressed, or hopeless: several days 3. Trouble falling or staying asleep, or sleeping too much: nearly every day 4. Feeling tired or having little energy: nearly every day 5. Poor appetite or overeating: several days 6. Feeling bad about yourself - or that you are a failure or have let yourself or your family down: not at all 7. Trouble concentrating on things, such as reading the newspaper or watching television: more than half the days 8. Moving or speaking so slowly that other people could have noticed. Or the opposite - being so fidgety or restless that you have been moving around a lot more than usual: nearly every day 9. Thoughts that you would be better off or of hurting yourself in some way: not at all Total score: 14 Source: Developed by Drs. Luis Barahona, Kadie Senior, Shahid Baez and colleagues, with an educational minor from [employer]. Thrive Questionnaire Date Thrive assessed: 01/11/24 I am a: Patient What is your living situation today?: I have a steady place to live Within the past 12 months, did the food you bought not last and you didn't have the money to get more?: Never true Within the past 12 months, did you worry whether your food would run out before you got money to buy more?: Never true Do you have trouble paying for medicines?: No Do you have trouble getting transportation to medical appointments?: No Do you have trouble paying your heating and electricity bill?: No Do you have trouble taking care of your child, family member or friend?: No Do you have trouble with day-to-day activities such as bathing, preparing meals, shopping, managing finances, etc.?: No Are you currently unemployed and looking for a job?: No Are you interested in more education?: No Please select the resources that you would like help with: None Currently or been in a relationship where the following occur: No concerns reported THRIVE Score: 0 AUDIT C Alcohol Use Questionnaire (AUDIT-C) 1. How often do you have a drink containing alcohol?: Never Total Score: 0 LUCA-7 AMB Questionnaire LUCA-7 Date LUCA - 7 assessed: 01/11/24 Feeling nervous, anxious, or on edge: 1 = Several days Not being able to stop or control worryin = Several days Worrying too much about different things: 3 = Nearly every day Trouble relaxin = Nearly every day Being so restless that it is hard to sit still: 0 = Not at all Becoming easily annoyed or irritable: 2 = More than half the days Feeling afraid as if something awful might happen: 0 = Not at all Total LUCA-7 score (0-4 normal; 5-9 mild; 10-14 moderate; 15-21 severe): 10 Source: Developed by Drs. Luis Barahona, Kadie Senior, Shahid Baez and colleagues, with an educational minor from [employer]. Review of Systems Const Denies body aches, Denies chills, Denies excessive sweating, Denies fatigue, Denies fever(s) and Denies headache(s) Eyes Denies blurry vision ENT Denies dysphagia, Denies vertigo, Denies dizziness, Denies headache(s), Denies hearing loss and Denies tinnitus Card Denies chest pain, Denies chest pain with activity, Denies syncope, Denies irregular heart rhythm and Denies dyspnea Resp Denies chest congestion, Reports cough, Denies hemoptysis, Denies dyspnea and Denies wheezing GI Denies abdominal pain, Denies melena, Denies hematochezia, Denies coffee ground emesis, Denies dysphagia, Denies diarrhea, Denies nausea and Denies vomiting Denies urinary frequency, Denies dysuria, Denies urinary hesitancy and Denies urinary urgency Musc Reports back pain, Reports arthralgias, Denies limited range of motion, Reports muscle cramps, Reports muscle weakness, Reports numbness and Reports radiating pain into limb Skin/Breast Denies rash and Denies skin ulcer Neuro Denies Abnormal speech present, Denies confusion, Denies vertigo, Denies dizziness, Denies syncope, Denies headache(s), Denies memory loss, Reports numbness and Denies seizure-like activity Psych Denies anxiety, Denies confusion, Denies depression, Denies memory loss, Denies panic attacks and Denies paranoia Endo Denies excessive sweating, Denies fatigue, Denies flushing, Denies polydipsia and Denies polyuria Aller/Immun Denies wheezing Physical exam (Primary Care) Vital Signs: Last Vital Signs BP 126/82 01/11/24 08:06 BMI result Body Mass Index 26.3 Tobacco/Smoking Status: Tobacco use Status Tobacco use date assessed 08/10/23 01/11/24 08:13 Patient Tobacco Use Status Never used Tobacco 01/11/24 08:19 e-Cigarette/Vaping Use Never Used 01/11/24 08:19 PHQ-9: PHQ-9 Score PHQ-9: Total score 14 01/11/24 08:24 Thrive Assessment: Date of Thrive Assessment Date Thrive assessed 01/11/24 01/11/24 08:13 Currently or been in a relationship where the following occur: No concerns reported Const General: cooperative, comfortable, no acute distress, alert and awake; No confusion Orientation/consciousness: oriented to person, oriented to place, patient oriented x3 and No confusion HENMT Head: Yes normocephalic Ears: external ears normal and TM's normal bilaterally Face and sinus: No sinus tenderness Mouth: Normal oral and palatal mucosa present and tongue normal Teeth and gingiva: dentition normal and gingiva normal Throat: Yes posterior oropharynx normal, Yes tonsils normal and Yes uvula midline Eyes Conjunctivae: conjunctivae normal Sclerae: sclerae normal Pupils: Equal, round and reactive pupils present EOM: EOMs intact bilaterally Direct Ophthalmoscopy: No no photophobia Neck Neck: Yes no lymphadenopathy, No tender and Yes no JVD Thyroid: Thyroid normal Carotids: no bruits Chest Chest palpation & inspection: no tenderness Resp Effort & Inspection: normal respiratory effort, no audible wheezes, not labored and no stridor Auscultation: no crackles, no rales, no rhonchi and no wheezes Cardio Jugular venous distension: no JVD Rate: regular rate, not bradycardic and not tachycardic Rhythm: regular rhythm Bruits: no carotid bruits Peripheral pulses: Peripheral pulses 2+ throughout GI Inspection: Yes normal to inspection, No abdominal wall ecchymosis and No vis ible herniation Palpation (GI): Soft to palpation, nontender, no guarding, not rigid and No hepatosplenomegaly present Auscultation: normoactive bowel sounds General: Yes no CVA tenderness Back/Spine/Pelvis Back: no CVA tenderness and No back tenderness Cervical Spine: cervical ROM normal Thoracic/Lumbar Spine: thoracic and lumbar spine normal to inspection, straight leg raise negative bilaterally, No thoraco-lumbar ROM limited and No lumbar spinal tenderness Skin Lesions: no lesions Rashes: no rashes Wounds: no wounds Neuro General: oriented to person, oriented to place, patient oriented x3, CN's II-XI intact bilaterally and No confusion Cranial nerves: Yes Equal, round and reactive pupils present and Yes Normal accommodation reflex present Cognition (Neuro): normal cognition Speech: No Abnormal speech present Gait exam (Neuro): Normal gait present Motor exam (neuro): 5/5 motor strength present throughout Extrem Right upper extremity: full ROM; no cyanosis Left upper extremity: full ROM; no cyanosis Right lower extremity: no edema Left lower extremity: no edema Psych Appearance: grossly normal Mental Status: mental status grossly normal Affect: normal affect Attitude: cooperative Thought process: Normal thought process present Assessment and Plan Assessment & Plan (1) Annual physical exam: Code(s): Z00.00 - Encounter for general adult medical examination without abnormal findings (2) HTN (hypertension): Code(s): I10 - Essential (primary) hypertension Qualifiers: Hypertension type: primary hypertension Qualified Code(s): I10 - Essential (primary) hypertension Plan: Patient's blood pressure acceptable today in office. Will continue her current dose of amlodipine with goal blood pressure be below 140/90 (3) SLE (systemic lupus erythematosus): Comment: dx 2007 MTX DC 09/2022 (fatigue, lightheadedness, GI upset) Azathioprine 10/2022 partially effective Benlysta 04/2023 partially effective. DC 12/2023 worsening fatigue Code(s): M32.9 - Systemic lupus erythematosus, unspecified Qualifiers: Systemic lupus erythematosus organ involvement: unspecified Systemic lupus erythematosus type: unspecified Qualified Code(s): M32.9 - Systemic lupus erythematosus, unspecified Plan: Patient now regularly followed by Rheumatology. Has been started on disease modifying drug. Does report side effects of the medication though have been tolerable. Continues to have pains and fatigued. Most recent renal and liver functions have been stable. (4) Migraines: Code(s): G43.909 - Migraine, unspecified, not intractable, without status migrainosus Qualifiers: Intractability: not intractable Migraine type: without aura Status migrainosus presence: without status migrainosus Qualified Code(s): G43.009 - Migraine without aura, not intractable, without status migrainosus Plan: Patient reports she does use sumatriptan on a p.r.n. basis. Her migraines have been fairly well controlled. (5) Breast cancer screening: Code(s): Z12.39 - Encounter for other screening for malignant neoplasm of breast Qualifiers: Breast cancer screening modality: mammogram Qualified Code(s): Z12.31 - Encounter for screening mammogram for malignant neoplasm of breast Plan: Patient will be 39 soon and willing to start getting mammograms. (6) Bronchitis: Code(s): J40 - Bronchitis, not specified as acute or chronic Plan: Reports over the last 3 weeks having a cough and some chest congestion. Has use [id number] cough cold medication though has not been effective. Will supply patient with an albuterol inhaler and advised to use antihistamine Zyrtec or Claritin. Orders: Orders XR chest 2V Today J40 - Bronchitis, not specified as acute or chronic MM screening mammo BI Today Z12.31 - Encounter for screening mammogram for malignant neoplasm of breast Comprehensive [place]. Panel Fast Today I10 - Essential (primary) hypertension Microalbumin, Random (w Creat) Today I10 - Essential (primary) hypertension Complete Blood Count no Diff Today I10 - Essential (primary) hypertension Medications: New albuterol sulfate 90 mcg/actuation 1 inh inhalation QID PRN 8.5 grams 0RF shortness of breath or wheezing 30 days J40 - Bronchitis, not specified as acute or chronic Patient Instructions: Goal: Blood pressure to be below 140/90 Barriers: Adherence to physical activity and healthy eating habits Coding Level of Care Code Est Pt Prev Care [id number]([id number]) Diagnoses Annual physical exam Z00.00 Primary hypertension I10 Hypertension type: primary hypertension Systemic lupus erythematosus, unspecified SLE type, unspecified organ involvement status M32.9 Systemic lupus erythematosus organ involvement: unspecified Systemic lupus erythematosus type: unspecified Migraine without aura and without status migrainosus, not intractable G43.009 Intractability: not intractable Migraine type: without aura Status migrainosus presence: without status migrainosus Encounter for screening mammogram for malignant neoplasm of breast Z12.31 Breast cancer screening modality: mammogram Bronchitis J40
== END 2024-01-11 08:42 | disposition home or self-care (01) ==
PROVIDERS: PCP Physician Assistant; Visit Provider Physician Assistant
DX: Z00.00 Encounter for general adult medical examination without abnormal findings (principal); I10 Essential (primary) hypertension; M32.9 Systemic lupus erythematosus, unspecified; G43.009 Migraine without aura, not intractable, without status migrainosus; Z12.31 Encounter for screening mammogram for malignant neoplasm of breast; J40 Bronchitis, not specified as acute or chronic
CPT/HCPCS: 99395

== ENCOUNTER 2024-01-13 09:25 | Outpatient (REF) | payer OTHER, SELFPAY ==
--- NOTE | ~2024-01-13 | XR_ITS ---
EXAMINATION: XR chest 2V CLINICAL INFORMATION: Reason for Exam J40 - Bronchitis, not specified as acute or chronic COMPARISON: No prior chest x-ray available in our system for comparison at the time of this dictation. TECHNIQUE: XR chest 2V, 2 Views Lungs and Dot: Both lungs are clear. Pleura: Normal. Costophrenic angles are sharp. No pneumothorax. Heart: The heart is normal in size. Mediastinum: The mediastinum is within normal limits.. Bones: Skeletal structures included are normal for patient's age. XR/XR chest 2V IMPRESSION: No radiographic evidence of acute cardiopulmonary disease.
[2024-01-13 10:05] LABS: Hematocrit 39.3 % (37.0-47.0); Hemoglobin 13.7 g/dl (12.0-16.0); Mean Corpuscular HGB Conc 34.9 g/dl (31.0-35.0); Mean Corpuscular Hemoglobin 33.8 pg (27.0-33.0); Mean Platelet Volume 11.3 fL (9.4-12.3); Platelet Count 229 X10*3/uL (160-400); Red Blood Count 4.05 X10*6/uL (4.20-5.50); White Blood Count 8.5 X10*3/uL (4.8-10.8)
[2024-01-13 11:00] LABS: Alanine Aminotransferase 9 U/L (0-31); Albumin Level 4.4 g/dL (3.5-5.0); Alkaline Phosphatase 80 U/L (39-117); Anion Gap 16 (12-20); Aspartate Amino Transferase 15 U/L (5-31); Bilirubin Total 0.8 mg/dL (0.0-1.0); Blood Urea Nitrogen 12 mg/dL (9-16); Calcium 10.3 mg/dL (8.4-10.2); Carbon Dioxide 25 mmol/L (22-29); Chloride 104 mmol/L (96-108); Estimated Glomerular Filt Rate > 60; Glucose Fasting 85 mg/dL (60-99); Potassium 3.6 mmol/L (3.3-5.1); Sodium 141 mmol/L (135-145); Total Protein 7.4 g/dL (6.5-8.0)
[2024-01-13 11:29] LABS: Microalbum/Creatinine Ratio Ur 7.2 ug/mg cr (<30)
== END 2024-01-13 09:26 | disposition home or self-care (01) ==
LOC: HO.XRAY 09:25
PROVIDERS: PCP Physician Assistant; Visit Provider Physician Assistant
DX: J40 Bronchitis, not specified as acute or chronic (principal); I10 Essential (primary) hypertension
CPT/HCPCS: 36415; 71046; 80053; 82043; 82570; 85027

== ENCOUNTER 2024-01-24 09:19 | Outpatient (REF) | payer OTHER, SELFPAY ==
--- NOTE | ~2024-01-24 | MM_ITS ---
EXAMINATION: MM SCREENING DIGITAL BREAST TOMOSYNTHESIS, BILATERAL CLINICAL INFORMATION: Screening. Asymptomatic. COMPARISON: Mammography: This is a baseline mammogram. TECHNIQUE: Digital breast tomosynthesis is performed in both the craniocaudal and mediolateral oblique views along with computer-aided detection (CAD). Synthesized 2D images are generated from the tomosynthesis. FINDINGS: The breasts are heterogeneously dense, which may obscure small masses (ACR BI-RADS breast composition Category c). There are no significant masses, abnormal calcifications, or other abnormalities. MM/MM tomosynthesis screening BI IMPRESSION: No mammographic evidence of malignancy. ASSESSMENT: BI-RADS BI-RADS 1 - Negative RECOMMENDATION: Routine annual mammography screening. 1 year F/U This examination should not preclude the clinical evaluation of a suspicious palpable abnormality. This patient's information was entered into a reminder system with a target due date for their next mammogram.
== END 2024-01-24 09:20 | disposition home or self-care (01) ==
LOC: HO.MAMMO 09:19
PROVIDERS: PCP Physician Assistant; Visit Provider Physician Assistant
DX: Z12.31 Encounter for screening mammogram for malignant neoplasm of breast (principal)
CPT/HCPCS: 77063; 77067

== ENCOUNTER → 2024-01-24 09:30 | Outpatient (BNV) | payer OTHER, SELFPAY | PROVIDERS: PCP Physician Assistant; Visit Provider Radiology Diagnostic Radiology | DX: Z12.31 Encounter for screening mammogram for malignant neoplasm of breast (principal) | CPT/HCPCS: 77063; 77067 ==

== ENCOUNTER 2024-01-30 17:59 | Emergency (ER) | payer OTHER, SELFPAY ==
[2024-01-30 18:19] VITALS: BP 136/65; PULSE 67; RESP 16; TEMP 36.8; O2SAT 98; BMI 26.7
--- NOTE | 2024-01-30 20:32 | ED.EYEPROB ---
HPI - Eye Problem General Chief complaint: Eye Problems Stated complaint: ?Scratch to R eye Time Seen by Provider: 01/30/24 20:32 Source: patient Mode of arrival: ambulatory Limitations: no limitations History of Present Illness ED Provider: TRACEE HARVEY PA-C HPI Narrative: 39 year old female with pmhx significant for lupus, GERD, migraines presents to the ED today with left eye pain s/p scratching her left eye. Admits to fb and burning sensation. She wears glasses. Denies wearing contacts. Denies vision changes or discharge from the eye. Denies trauma/ injury to the eye. Related Data Home Medications ?Medication ?Instructions ?Recorded ?Confirmed levonorgestrel 21 mcg/24 hr (up to See Rx Instructions .Route .COMPLEX 05/11/22 01/11/24 8 years) 52 mg intrauterine device (Mirena) multivitamin 1 tab PO DAILY 07/15/22 01/11/24 Previous Rx's ?Medication ?Instructions ?Recorded blood pressure monitor (Blood #1 ea 11/23/21 Pressure Kit) famotidine 20 mg tablet 20 mg PO BEDTIME #90 tabs 04/11/23 calcium carbonate 600 mg-vitamin 1 tab PO DAILY 90 days #90 tabs 08/10/23 D3 10 mcg (400 unit) tablet (Calcium 600 + D(3)) sumatriptan succinate 25 mg tablet 25 mg PO Q2H PRN Migraine Headache 11/24/23 (Imitrex) 30 days #9 tabs prednisone 5 mg tablet 5 mg PO DAILY #60 tabs 11/27/23 azathioprine 50 mg tablet 150 mg (3 x 50 mg) PO DAILY #270 12/06/23 tabs albuterol sulfate 90 mcg/actuation 1 inh inhalation QID PRN shortness 01/11/24 aerosol inhaler of breath or wheezing 30 days #8.5 grams amlodipine 2.5 mg tablet 2.5 mg PO DAILY #90 tabs 01/11/24 erythromycin 5 mg/gram (0.5 %) eye 1 appl ophthalmic-Left QID #3.5 01/30/24 ointment grams Allergies Allergy/AdvReac Type Severity Reaction Status Date / Time naproxen [From Aleve] Allergy Severe Rash Verified 01/30/24 18:20 sulfasalazine Allergy Severe redness Verified 01/30/24 18:20 and itching nitrofurantoin Allergy Rash Verified 01/30/24 18:20 [From Macrobid] Sulfa (Sulfonamide Allergy Rash Verified 01/30/24 18:20 Antibiotics) belimumab [From Benlysta] AdvReac Intermediate Fatigue Verified 01/30/24 18:20 methotrexate AdvReac Intermediate Fatigued Verified 01/30/24 18:20 Review of Systems Review of Systems: Constitutional: No fever, chills, fatigue, night sweats, weight changes ENT/Mouth: No ear pain, hearing loss, nasal congestion, sinus pain, rhinorrhea, sore throat Eyes: No swelling, redness, vision changes, discharge, +left eye pain Cardio: No chest pain, palpitations, ESPARZA, orthopnea, peripheral edema Pulm: No SOB, cough, sputum, wheezing, dyspnea, hemoptysis GI: No nausea, vomiting, hematemesis, abdominal pain, diarrhea, constipation, hematochezia, melena : No irregular bleeding, dysuria, frequency, urgency, hesitancy, hematuria, flank pain, urinary flow changes, urinary incontinence or retention MSK: No back pain, neck pain, joint pain, myalgias Skin: No lesions, rashes Neuro: No weakness, numbness, paresthesias, LOC, dizziness, headache Psych: No anxiety/panic, depression, SI/HI, AH/VH All other systems reviewed and are negative. [facility] Past Medical History Attestation statement: The following information was validated with the patient. Source: old records reviewed and nursing notes reviewed Medical History SLE (systemic lupus erythematosus) Hypertension Migraines Cervical cancer screening PVCs (premature ventricular contractions) Vasovagal syncope Surgical History History of surgery History of surgical biopsy Family History Family History Father No problems noted. Mother Bipolar 1 disorder Chronic mental illness Family history of thyroid problem Maternal Grandmother Hypertension Maternal Grandfather No problems noted. 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 [employer] Current occupational exposures/hazards: No Cognitive needs: No Hearing needs: No Vision needs: Yes Physical Exam Vital Signs: Vital Signs: Last Vital Signs Temp 98.2 F 01/30/24 18:19 Pulse 67 01/30/24 18:19 Resp 16 01/30/24 18:19 BP 136/65 01/30/24 18:19 Pulse Ox 98 01/30/24 18:19 O2 Del Method Room Air 01/30/24 18:19 BMI result Body Mass Index 26.7 Vital signs stable, afebrile Const: General: cooperative, healthy appearing, comfortable and no acute distress Orientation/consciousness: patient oriented x3 Limitations: no limitations HEENT: Head: Yes normal to inspection, Yes No palpable skull fracture present, Yes normocephalic and Yes atraumatic Eyes: Other: No periorbital swelling. No enophthalmous or exopthalmous. EOMs intact without pain or entrapment. PERRLA. Positive photophobia. No obvious foreign body or abrasion. Small conjunctival hemorrhage noted to 8:00. No hazy cornea. Visual acuity OD 20/25, OS 20/20, b/l 20/20 IOP OD 17, IOP OS 15. On tetracaine exam, no reuptake to suggest abrasion or fb. no ulceration. no dendritic lesions. No fb noted on eversion of eyelid. Neck: Neck: Yes normal visual inspection, Yes full ROM and Yes no lymphadenopathy Resp: Effort & Inspection: normal respiratory effort and able to speak in complete sentences Auscultation: clear to auscultation bilaterally Cardio: Rate: regular rate Rhythm: regular rhythm Skin: General skin exam: no rashes or lesions noted Neuro: General: patient oriented x3 and gait normal Course Course Course Narrative: 2055-- No obvious FB or abrasion. there is small conjunctival hemorrhage noted to 8:00. Erythromycin ointment sent to pharmacy for treatment. Informed patient that they will need to follow-up with automotive accessory installer. Referral provided. Patient has remained stable throughout ED visit today. Discussed worrisome signs and symptoms and when to return to the ED. All questions answered at this time. Patient is agreeable with disposition and stable for discharge. Medications Administered Discontinued Medications Generic Name Dose Route Start Last Admin Trade Name Alicia PRN Reason Stop Dose Admin Fluorescein Sodium 1 strip 01/30/24 18:22 01/30/24 20:40 Fluorescein Sodium Strip EYE-LEFT 01/30/24 18:23 1 strip ONCE ONE Administration Tetracaine HCl 1 drop 01/30/24 18:22 01/30/24 20:40 Tetracaine Hcl/Pf 0.5% Oph Silvina 4 Ml Drops EYE-LEFT 01/30/24 18:23 1 drop ONCE ONE Administration Medical Decision Making Medical Decision Making MDM Narrative: 39 year old female with pmhx significant for lupus, GERD, migraines presents to the ED today with left eye pain s/p scratching her left eye. Vital signs stable. Afebrile. She is nontoxic-appearing and in no acute distress. On exam, No periorbital swelling. No enophthalmous or exopthalmous. EOMs intact without pain or entrapment. PERRLA. Positive photophobia. No obvious foreign body or abrasion. Small conjunctival hemorrhage noted to 8:00. No hazy cornea. Visual acuity OD 20/25, OS 20/20, b/l 20/20 IOP OD 17, IOP OS 15. On tetracaine exam, no reuptake to suggest abrasion or fb. no ulceration. no dendritic lesions. No fb noted on eversion of eyelid. Differential diagnosis includes corneal abrasion, corneal ulceration, corneal FB, conjunctivitis. Lower suspicion for iritis, keratitis. Unlikely pre-septal cellulitis, orbital cellulitis, acute angle closure glaucoma. Plan for tetracaine/fluorescein examination, IOP, VA, and disposition. Differential Diagnosis Differential Diagnoses: The differential diagnosis associated with the presentation includes as above. Admission/Observation Not indicated. External Record Review External record reviewed: Inpatient record Prescription Management I considered prescription management with: Antibiotic (erythromycin ointment) Social Determinants Patient?s care significantly limited by Social Determinants of Health including: Other Social Determinant of Health Critical Care Time Critical Care Time Critical Care Time: No Discharge Plan Discharge Clinical Impression: Conjunctivitis, Conjunctival hemorrhage of left eye Patient Disposition: Home, Self-Care Instructions: Subconjunctival Hemorrhage (ED), Conjunctivitis (ED) Additional Instructions: You were seen in the ED today for left eye pain. There was no identifiable abrasion or foreign body. Erythromycin has been sent to your pharmacy. Apply this to your eye 4 times daily for 7 days. Please follow up with eye doctor this week. If you do not have an eye doctor, a referral has been provided to you. Return with new or worsening symptoms. In the case of an emergency call 911. Prescriptions: New erythromycin 5 mg/gram (0.5 %) ointment 1 appl ophthalmic-Left QID Qty: 3.5 0RF No Action famotidine 20 mg tablet 20 mg PO BEDTIME Qty: 90 1RF sumatriptan succinate [Imitrex] 25 mg tablet 25 mg PO Q2H PRN (Reason: Migraine Headache) 30 Days Qty: 9 1RF Rx Instructions: take 1 tab at onset of headache; if no relief may repeat 1 tab after at least 2 hrs; max = 4 tabs/24 hr PO prednisone 5 mg tablet 5 mg PO DAILY Qty: 60 1RF azathioprine 50 mg tablet 150 mg PO DAILY Qty: 270 0RF amlodipine 2.5 mg tablet 2.5 mg PO DAILY Qty: 90 3RF multivitamin Tablet 1 tab PO DAILY calcium carbonate-vitamin D3 [Calcium 600 + D(3)] 600 mg-10 mcg (400 unit) tablet 1 tab PO DAILY 90 Days Qty: 90 2RF (DME) blood pressure monitor [Blood Pressure Kit] Kit See Rx Instructions .Route Qty: 1 0RF Rx Instructions: As directed albuterol sulfate 90 mcg/actuation HFA aerosol inhaler 1 inh inhalation QID PRN (Reason: shortness of breath or wheezing) 30 Days Qty: 8.5 0RF Mirena 20 mcg/24 hours (8 yrs) 52 mg intrauterine device See Rx Instructions .ROUTE .COMPLEX Rx Instructions: 1 intrauterinely Referrals: Vignesh Lauren PA-C [Primary Care Provider] - Martin Mclean [Physician] - Print Language: Taiwanese
[2024-01-30] MEDS: Tetracaine HCl/PF 0.5% Oph Sol 4 ML DROPS 1 DROP EYE-LEFT (20:40)
[2024-01-30] MEDS: Fluorescein Sodium STRIP 1 STRIP EYE-LEFT (20:40)
[2024-01-30 21:00] VITALS: BP 124/65; PULSE 66; RESP 16; TEMP 36.7; O2SAT 98
== END 2024-01-30 21:00 | disposition home or self-care (01) ==
PROVIDERS: Emergency Provider Internal Medicine; PCP Physician Assistant
DX: H57.12 Ocular pain, left eye (principal); M32.9 Systemic lupus erythematosus, unspecified; I10 Essential (primary) hypertension; Z79.899 Other long term (current) drug therapy
CPT/HCPCS: 99282; 99283

== ENCOUNTER → 2024-03-06 08:45 | Outpatient (REF) | payer OTHER, SELFPAY | LOC: HO.SL 08:45 | PROVIDERS: PCP Physician Assistant; Visit Provider Physician Assistant | DX: R06.81 Apnea, not elsewhere classified (principal) | CPT/HCPCS: 95806 ==

== ENCOUNTER → 2024-03-06 09:00 | Outpatient (BNV) | payer OTHER, SELFPAY | PROVIDERS: PCP Physician Assistant; Visit Provider Internal Medicine | DX: R06.83 Snoring (principal); G47.10 Hypersomnia, unspecified | CPT/HCPCS: 95806 ==

== ENCOUNTER 2024-04-11 11:25 | Outpatient (AMB) | payer OTHER, SELFPAY ==
--- NOTE | 2024-04-11 11:27 | MHC.OFFVIS ---
Vital Signs 04/11/24 11:30 Height 5 ft 5 in Weight 162 lb 14.746 oz BMI 27.1 BP 112/70 Blood Pressure Location Lt brachial Position Sitting Respiration 16 Pulse 87 Pulse Source Pulse Oximeter Pulse Oximetry (%) 98 Oxygen Delivery Method Room Air Intake Visit Reasons: SLE/CM Intake Note: Patient presents for SLE. Allergies naproxen [From Aleve] Allergy (Severe, Verified 04/11/24 11:29) Rash sulfasalazine Allergy (Severe, Verified 04/11/24 11:29) redness and itching nitrofurantoin [From Macrobid] Allergy (Verified 04/11/24 11:29) Rash Sulfa (Sulfonamide Antibiotics) Allergy (Verified 04/11/24 11:29) Rash belimumab [From Benlysta] Adverse Reaction (Intermediate, Verified 04/11/24 11:29) Fatigue methotrexate Adverse Reaction (Intermediate, Verified 04/11/24 11:29) Fatigued Medication List - Last Reconciled 04/11/24 by Yaron Klein MD albuterol sulfate 90 mcg/actuation 1 inh inhalation QID PRN 30 days amlodipine 2.5 mg PO DAILY azathioprine 150 mg (3 x 50 mg) PO DAILY blood pressure monitor (Blood Pressure Kit) As directed calcium carbonate-vitamin D3 600 mg-10 mcg (400 unit) (Calcium 600 + D(3)) 1 tab PO DAILY 90 days duloxetine 60 mg (2 x 30 mg) PO BEDTIME erythromycin 1 appl ophthalmic-Left QID famotidine 20 mg PO BEDTIME levonorgestrel (Mirena) 1 intrauterinely loratadine 10 mg PO DAILY 90 days multivitamin 1 tab PO DAILY prednisone 5 mg PO DAILY sumatriptan succinate (Imitrex) 25 mg PO Q2H PRN 30 days HPI Comments Details: 39 yoF with SLE presents for follow-up. She is on prednisone 5 mg daily, azathioprine 150 mg daily. She states that she has been doing reasonably well overall. She states that she gets fatigued about 2 days a week. She may take the morning off of work and work in the afternoon. She works from home. Not had any fevers, skin rashes, swollen joints. She continues to have achiness in her thighs and arms. She started taking duloxetine 30 mg nightly. She had some GI upset and nausea with it, it is improved now when she takes it with meals. She states that it helps her sleep better. She was not aware she was supposed to take 2 tablets at night. Started doing that 10 days ago. Patient developed rash end of October 2018, 6 weeks after she started sulfasalazine. She was admitted to the hospital and developed transaminitis, she has skin biopsy which showed possible drug reaction. She was put on steroids and the rash improved. She still gets itchy and dry skin. She is to see dermatology soon. [facility], [facility] Medical History SLE (systemic lupus erythematosus) Hypertension Migraines Cervical cancer screening PVCs (premature ventricular contractions) Vasovagal syncope Surgical History History of surgery History of surgical biopsy Family History Father No problems noted. Mother Bipolar 1 disorder Chronic mental illness Family history of thyroid problem Maternal Grandmother Hypertension Maternal Grandfather No problems noted. 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 [employer] Current occupational exposures/hazards: No Cognitive needs: No Hearing needs: No Vision needs: Yes Female Reproductive History Menstrual Age of Menarche: 11 Review of Systems Const Reports body aches, Reports fatigue and Reports weakness ENT Details: Denies any oral ulcers Card Reports no additional complaints Resp Reports no additional complaints Musc Reports myalgias and Denies joint swelling Skin/Breast Reports system reviewed and no additional complaints, except as documented and Denies rash Neuro Reports weakness Endo Reports fatigue Luis A/Lymph Reports no additional complaints Physical Exam Vital Signs: Last Vital Signs Pulse 87 04/11/24 11:30 Resp 16 04/11/24 11:30 BP 112/70 04/11/24 11:30 Pulse Ox 98 04/11/24 11:30 Oxygen Delivery Method Room Air 04/11/24 11:30 BMI result Body Mass Index 27.1 Const Other: Moist oral mucosa, no oral ulcers General: cooperative, healthy appearing, comfortable and no acute distress Nutritional Appearance: average body habitus Orientation/consciousness: patient oriented x3 Limitations: no limitations HEENT Head: Yes normocephalic and Yes atraumatic Mouth: moist mucous membranes Resp Effort & Inspection: normal respiratory effort and able to speak in complete sentences Auscultation: clear to auscultation bilaterally Cardio Rate: regular rate Rhythm: regular rhythm Heart sounds: S1 normal heart sound present and S2 normal heart sound present GI Inspection: No distended Palpation (GI): Soft to palpation and nontender Skin General skin exam: no rashes or lesions noted Neuro General: patient oriented x3 Extrem Other: No active synovitis today No significant fibromyalgia tender points hyperextensible thumbs Normal nailfold capillaroscopy Results Reviewed Results Reviewed: Skin biopsy right arm 11/2018 DIAGNOSIS Skin, right arm, excision: Superficial perivascular dermatitis (see Comment); special stain for fungal organisms is pending; negative for malignancy. Comment: The findings are non-specific. Possible etiologies include but are not limited to: cutaneous drug eruption, urticarial reaction, viral exanthem, fungal infection, rosacea and pruritic plaques of . Clinical correlation is suggested. ADDENDUM This addendum is issued to report results of PAS special stain. PAS stain is negative for fungal organisms. Assessment & Plan Assessment & Plan (1) SLE (systemic lupus erythematosus): Comment: dx 2008 MTX DC 09/2022 (fatigue, lightheadedness, GI upset) Azathioprine 10/2022 partially effective Benlysta 04/2023 partially effective. DC 12/2023 worsening fatigue Code(s): M32.9 - Systemic lupus erythematosus, unspecified Category: Medical Qualifiers: Systemic lupus erythematosus type: unspecified Systemic lupus erythematosus organ involvement: unspecified Qualified Code(s): M32.9 - Systemic lupus erythematosus, unspecified Plan: This is a 39-year-old female with SLE (+++SSA, intermittently low C3 and C4, arthralgias, skin rash) presents for follow-up In 2019 she was on hydroxychloroquine and sulfasalazine and she developed a rash with transaminitis, she had a skin biopsy which showed possible drug reaction, she was started on steroids with resolution of her rash and sulfasalazine and hydroxychloroquine were stopped.? Hydroxychloroquine was resumed 02/2022. In 06/2022 patient was admitted to the hospital with diffuse erythematous skin rash, fevers, inflammatory arthritis and transaminitis, symptoms rapidly resolved with steroid taper. This was 2 days after patient started Aleve It is unclear at this point whether patient's rash is due to drug reaction to Aleve verses a lupus rash. Labs when admitted also showed mild proteinuria 450 mg in addition to high WBC (possible concomitant UTI) Rashes, transaminitis and proteinuria all resolved with prednisone. I believe her SLE flares with NSAIDs & Sulfa hydroxychloroquine was discontinued. It does not seem to have helped the patient much. She also gets GI upset with it. Patient could not tolerate methotrexate due to fatigue, lightheadedness, GI upset, which resolved on discontinuation Patient is currently on azathioprine 150 mg daily and prednisone 5 mg daily. I think her lupus is very well controlled. I do not see any active rashes or synovitis on exam. Patient will do her monitoring labs today. I think the majority of her symptoms are related to fibromyalgia. Continue azathioprine 150 mg daily, prednisone 5 mg daily If other DMARDs are needed in the future, I will consider [facility] today and before next visit in 3 months (2) Encounter for monitoring azathioprine therapy: Code(s): Z51.81 - Encounter for therapeutic drug level monitoring; Z79.624 - termite helper (current) use of inhibitors of nucleotide synthesis Category: Medical Plan: Monitor safety labs. Her TPMT is normal (3) Fibromyalgia, primary: Code(s): M79.7 - Fibromyalgia Category: Medical Plan: Discussed management of fibromyalgia with patient. Is a noninflammatory, non-autoimmune central afferent processing disorder leading to a diffuse pain syndrome. I suggested evaluation by a therapist to evaluate for any underlying anxiety/depression. Try to follow sleep hygiene practices. Consider a referral for a sleep study to rule out LLOYD by her PCP . Patient would benefit from increased physical activity, either through formal physical therapy or by joining a gym. Advised patient that she should start activity slowly and increase as tolerated. Consider low-impact exercises such as walking, swimming, aqua therapy stretching, yoga. Patient started taking duloxetine 30 mg nightly last visit with some improvement at least helping her sleep. She was not aware she was supposed to take 60 mg nightly. She just started doing that a week ago. Continue with duloxetine 60 mg nightly Plan I spent 26 minutes reviewing patient's chart, evaluating patient, ordering diagnostic workup, counseling patient, completing [place] paperwork and documenting in the chart Orders: Orders Anti DNA DS Antibody 3 Months M32.9 - Systemic lupus erythematosus, unspecified Complement C4 3 Months M32.9 - Systemic lupus erythematosus, unspecified C Reactive Protein 3 Months M32.9 - Systemic lupus erythematosus, unspecified Erythrocyte Sedimentation Rate 3 Months M32.9 - Systemic lupus erythematosus, unspecified Protein Creatinine Ratio, Ur 3 Months M32.9 - Systemic lupus erythematosus, unspecified Comprehensive Met. Panel 3 Months M32.9 - Systemic lupus erythematosus, unspecified Complement C3 3 Months M32.9 - Systemic lupus erythematosus, unspecified UA w Microscopic 3 Months M32.9 - Systemic lupus erythematosus, unspecified Complete Blood Count Auto Diff 3 Months M32.9 - Systemic lupus erythematosus, unspecified Coding Level of Care Code Est Pt Level 4 (40657) Complex EM visit Add On G2211 Diagnoses Systemic lupus erythematosus, unspecified SLE type, unspecified organ involvement status M32.9 Systemic lupus erythematosus type: unspecified Systemic lupus erythematosus organ involvement: unspecified Encounter for monitoring azathioprine therapy Z51.81; Z79.624 Fibromyalgia, primary M79.7
[2024-04-11 11:30] VITALS: BP 112/70; PULSE 87; RESP 16; O2SAT 98; BMI 27.1
== END 2024-04-11 11:49 | disposition home or self-care (01) ==
PROVIDERS: PCP Physician Assistant; Visit Provider Student in an Organized Health Care Education/Training Program
DX: M32.9 Systemic lupus erythematosus, unspecified (principal); Z51.81 Encounter for therapeutic drug level monitoring; Z79.624 Long term (current) use of inhibitors of nucleotide synthesis; M79.7 Fibromyalgia
CPT/HCPCS: 99214

== ENCOUNTER → 2024-04-11 11:25 | Outpatient (BNVA) | payer OTHER, SELFPAY | PROVIDERS: PCP Physician Assistant; Visit Provider Student in an Organized Health Care Education/Training Program ==

== ENCOUNTER 2024-04-20 07:20 | Outpatient (REF) | payer OTHER, SELFPAY ==
[2024-04-20 07:53] LABS: MANUAL DIFF FLAG NO
[2024-04-20 08:18] LABS: Basophils Percent Auto 0.4 % (0-2); Eosinophils Percent Auto 0.5 % (0-4); Hematocrit 39.5 % (37.0-47.0); Hemoglobin 13.5 g/dl (12.0-16.0); Imm Gran Abs Auto 0.02 X10*3/uL (0.00-0.03); Imm Gran Pct Auto 0.3 % (0.0-0.4); Lymphocytes Absolute Auto 1.5 X10*3/uL (1.2-4.9); Lymphocytes Percent Auto 19.4 % (20-40); Mean Corpuscular HGB Conc 34.2 g/dl (31.0-35.0); Mean Corpuscular Hemoglobin 33.1 pg (27.0-33.0); Mean Corpuscular Volume 96.8 fL (80.0-98.0); Mean Platelet Volume 11.3 fL (9.4-12.3); Monocytes Absolute Auto 0.5 X10*3/uL (0.1-1.2); Monocytes Percent Auto 6.7 % (2-11); Neutrophils Absolute Auto 5.7 x10*3/uL (2.0-8.3); Neutrophils Percent Auto 72.7 % (45-73); Platelet Count 275 X10*3/uL (160-400); Red Blood Count 4.08 X10*6/uL (4.20-5.50); Red Cell Distribution Width 12.5 % (11.0-16.0); White Blood Count 7.9 X10*3/uL (4.8-10.8)
[2024-04-20 08:18] LABS: Appearance Urine Clear; Color Urine Yellow; Glucose Urine UA Negative (Negative); Leukocyte Esterase Urine Trace (Negative); Nitrite Urine Negative (Negative); UMIC TRIGGER UA YES; Urine Blood Negative (Negative); Urine Ketones Negative (Negative); Urine Protein Negative (Neg-Trace)
[2024-04-20 08:20] LABS: Bacteria Urine None Seen (None Seen); Hyaline Casts Urine 0-2 /LPF (0-2); RBC Urine 0-2 /HPF (0-2); Squamous Epithelial Cell Urine 0-2 /HPF (0-2)
[2024-04-20 08:53] LABS: Alanine Aminotransferase 20 U/L (0-31); Alkaline Phosphatase 83 U/L (39-117); Anion Gap 12 (12-20); Aspartate Amino Transferase 22 U/L (5-31); Bilirubin Total 0.2 mg/dL (0.0-1.0); Blood Urea Nitrogen 12 mg/dL (9-16); C Reactive Protein 0.31 mg/dL (< or = 0.50); Calcium 9.6 mg/dL (8.4-10.2); Carbon Dioxide 26 mmol/L (22-29); Chloride 105 mmol/L (96-108); Estimated Glomerular Filt Rate > 60; Glucose Random 95 mg/dL (60-115); Potassium 3.4 mmol/L (3.3-5.1); Sodium 140 mmol/L (135-145); Total Protein 7.2 g/dL (6.5-8.0)
[2024-04-20 08:53] LABS: Creatinine Urine 136.83 mg/dL; Total Protein Urine Random < 7 mg/dL (<12)
[2024-04-20 09:22] LABS: Erythrocyte Sedimentation Rate 7 MM/HR (0-20)
[2024-04-22 14:43] LABS: Anti DNA DS Antibody <1 IU/mL
[2024-04-22 19:04] LABS: Complement C3 141 mg/dL (83-193)
[2024-04-24 18:24] LABS: DNAds, Crithidia Antibody Negative (Negative)
== END 2024-04-20 07:21 | disposition home or self-care (01) ==
LOC: HO.LAB 07:20
PROVIDERS: PCP Physician Assistant; Visit Provider Student in an Organized Health Care Education/Training Program
DX: M32.9 Systemic lupus erythematosus, unspecified (principal)
CPT/HCPCS: 36415; 80053; 81001; 82570; 84156; 85025; 85652; 86140; 86160; 86225; 86255

== ENCOUNTER 2024-05-28 14:49 | Outpatient (AMB) | payer OTHER, SELFPAY ==
[2024-05-28 14:52] VITALS: BP 140/84; PULSE 92; O2SAT 98; BMI 28.4
--- NOTE | 2024-05-28 14:52 | A.OFFVIS_ITS ---
Vital Signs 05/28/24 14:52 Height 5 ft 5 in Weight 170 lb 13.732 oz BMI 28.4 BP 140/84 H Blood Pressure Location Rt brachial Position Sitting Pulse 92 Pulse Source Pulse Oximeter Pulse Oximetry (%) 98 Oxygen Delivery Method Room Air Intake Visit Reasons: sle Intake Note: Patient present today for SLE office visit. Partner Management Consultant Required: No Accompanied by: Self / Same As Patient Allergies naproxen [From Aleve] Allergy (Severe, Verified 05/28/24 14:57) Rash sulfasalazine Allergy (Severe, Verified 05/28/24 14:57) redness and itching nitrofurantoin [From Macrobid] Allergy (Verified 05/28/24 14:57) Rash Sulfa (Sulfonamide Antibiotics) Allergy (Verified 05/28/24 14:57) Rash belimumab [From Benlysta] Adverse Reaction (Intermediate, Verified 05/28/24 14:57) Fatigue methotrexate Adverse Reaction (Intermediate, Verified 05/28/24 14:57) Fatigued Medication List - Last Reconciled 05/28/24 by Yaron Klein MD albuterol sulfate 90 mcg/actuation 1 inh inhalation QID PRN 30 days amlodipine 2.5 mg PO DAILY azathioprine 150 mg (3 x 50 mg) PO DAILY blood pressure monitor (Blood Pressure Kit) As directed calcium carbonate-vitamin D3 600 mg-10 mcg (400 unit) (Calcium 600 + D(3)) 1 tab PO DAILY 90 days erythromycin 1 appl ophthalmic-Left QID famotidine 20 mg PO BEDTIME levonorgestrel (Mirena) 1 intrauterinely loratadine 10 mg PO DAILY 90 days multivitamin 1 tab PO DAILY prednisone 5 mg PO DAILY sumatriptan succinate (Imitrex) 25 mg PO Q2H PRN 30 days HPI Comments Details: 39 yoF with SLE presents for follow-up. She is on prednisone 5 mg daily, azathioprine 150 mg daily. She states that she continues to have GI upset, diarrhea with duloxetine. She states that she went on a trip to [place] before and since she came back she has been feeling fatigued, tired. She gets short of breath and muscle pains after taking 5 steps. Has been having headaches and brain fog. Has not been able to go to work. Patient developed rash end of October 2018, 6 weeks after she started sulfasalazine. She was admitted to the hospital and developed transaminitis, she has skin biopsy which showed possible drug reaction. She was put on steroids and the rash improved. She still gets itchy and dry skin. She is to see dermatology soon. [facility] Medical History SLE (systemic lupus erythematosus) Hypertension Migraines Cervical cancer screening PVCs (premature ventricular contractions) Vasovagal syncope Surgical History History of surgery History of surgical biopsy Family History Father No problems noted. Mother Bipolar 1 disorder Chronic mental illness Family history of thyroid problem Maternal Grandmother Hypertension Maternal Grandfather No problems noted. 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 [employer] Current occupational exposures/hazards: No Cognitive needs: No Hearing needs: No Vision needs: Yes Female Reproductive History Menstrual Age of Menarche: 11 Review of Systems Const Reports body aches, Reports fatigue and Reports weakness ENT Details: Denies any oral ulcers Card Reports no additional complaints Resp Reports no additional complaints Musc Reports myalgias and Denies joint swelling Skin/Breast Reports system reviewed and no additional complaints, except as documented and Denies rash Neuro Reports weakness Endo Reports fatigue Luis A/Lymph Reports no additional complaints Physical Exam Vital Signs: Last Vital Signs Pulse 92 05/28/24 14:52 BP 140/84 H 05/28/24 14:52 Pulse Ox 98 05/28/24 14:52 Oxygen Delivery Method Room Air 05/28/24 14:52 BMI result Body Mass Index 28.4 Const Other: Moist oral mucosa, no oral ulcers General: cooperative, healthy appearing, comfortable and no acute distress Nutritional Appearance: average body habitus Orientation/consciousness: patient oriented x3 Limitations: no limitations HEENT Head: Yes normocephalic and Yes atraumatic Mouth: moist mucous membranes Resp Effort & Inspection: normal respiratory effort and able to speak in complete sentences Auscultation: clear to auscultation bilaterally Cardio Rate: regular rate Rhythm: regular rhythm Heart sounds: S1 normal heart sound present and S2 normal heart sound present GI Inspection: No distended Palpation (GI): Soft to palpation and nontender Skin General skin exam: no rashes or lesions noted Neuro General: patient oriented x3 Extrem Other: No active synovitis today No significant fibromyalgia tender points hyperextensible thumbs Normal nailfold capillaroscopy Results Reviewed Results Reviewed: Skin biopsy right arm 11/2018 DIAGNOSIS Skin, right arm, excision: Superficial perivascular dermatitis (see Comment); special stain for fungal organisms is pending; negative for malignancy. Comment: The findings are non-specific. Possible etiologies include but are not limited to: cutaneous drug eruption, urticarial reaction, viral exanthem, fungal infection, rosacea and pruritic plaques of . Clinical correlation is suggested. ADDENDUM This addendum is issued to report results of PAS special stain. PAS stain is negative for fungal organisms. 0 Assessment & Plan Assessment & Plan (1) SLE (systemic lupus erythematosus): Comment: dx 2008 MTX DC 09/2022 (fatigue, lightheadedness, GI upset) Azathioprine 10/2022 partially effective Benlysta 04/2023 partially effective. DC 12/2023 worsening fatigue Code(s): M32.9 - Systemic lupus erythematosus, unspecified Category: Medical Qualifiers: Systemic lupus erythematosus type: unspecified Systemic lupus erythematosus organ involvement: unspecified Qualified Code(s): M32.9 - Systemic lupus erythematosus, unspecified Plan: This is a 39-year-old female with SLE (+++SSA, intermittently low C3 and C4, arthralgias, skin rash) presents for follow-up In 2018 she was on hydroxychloroquine and sulfasalazine and she developed a rash with transaminitis, she had a skin biopsy which showed possible drug reaction, she was started on steroids with resolution of her rash and sulfasalazine and hydroxychloroquine were stopped.? Hydroxychloroquine was resumed 02/2022. In 06/2022 patient was admitted to the hospital with diffuse erythematous skin rash, fevers, inflammatory arthritis and transaminitis, symptoms rapidly resolved with steroid taper. This was 2 days after patient started Aleve It is unclear at this point whether patient's rash is due to drug reaction to Aleve verses a lupus rash. Labs when admitted also showed mild proteinuria 450 mg in addition to high WBC (possible concomitant UTI) Rashes, transaminitis and proteinuria all resolved with prednisone. I believe her SLE flares with NSAIDs & Sulfa hydroxychloroquine was discontinued. It does not seem to have helped the pat ient much. She also gets GI upset with it. Patient could not tolerate methotrexate due to fatigue, lightheadedness, GI upset, which resolved on discontinuation Patient is currently on Benlysta, azathioprine 150 mg daily and prednisone 5 mg daily. I think her lupus is very well controlled. I do not see any active rashes or synovitis on exam. Patient will do her monitoring labs today. I th ink the majority of her symptoms are related to fibromyalgia. Continue current meds If other DMARDs are needed in the future, I will consider [facility] today and before next visit in 1 months (2) Encounter for monitoring azathioprine therapy: Code(s): Z51.81 - Encounter for therapeutic drug level monitoring; Z79.624 - termite helper (current) use of inhibitors of nucleotide synthesis Category: Medical Plan: Monitor safety labs. Her TPMT is normal (3) Fibromyalgia, primary: Code(s): M79.7 - Fibromyalgia Category: Medical Plan: Discussed management of fibromyalgia with patient. Is a noninflammatory, non- autoimmune central afferent processing disorder leading to a diffuse pain syndrome. I suggested evaluation by a therapist to evaluate for any underlying anxiety/depression. Try to follow sleep hygiene practices. Consider a referral for a sleep study to rule out LLOYD by her PCP . Patient would benefit from increased physical activity, either through formal physical therapy or by joining a gym. Advised patient that she should start activity slowly and increase as tolerated. Consider low-impact exercises such as walking, swimming, aqua therapy stretching, yoga. I had started patient on duloxetine. She has not been able to tolerate it. Stopped duloxetine Plan I spent 26 minutes reviewing patient's chart, evaluating patient, counseling patient, completing FMLA paperwork and documenting in the chart Coding Level of Care Code Est Pt Level 4 (43437) Diagnoses Systemic lupus erythematosus, unspecified SLE type, unspecified organ i nvolvement status M32.9 Systemic lupus erythematosus type: unspecified Systemic lupus erythematosus organ involvement: unspecified Encounter for monitoring azathioprine therapy Z51.81; Z79.624 Fibromyalgia, primary M79.7
== END 2024-05-28 15:55 | disposition home or self-care (01) ==
PROVIDERS: PCP Physician Assistant; Visit Provider Student in an Organized Health Care Education/Training Program
DX: M32.9 Systemic lupus erythematosus, unspecified (principal); Z51.81 Encounter for therapeutic drug level monitoring; Z79.624 Long term (current) use of inhibitors of nucleotide synthesis; M79.7 Fibromyalgia
CPT/HCPCS: 99214

== ENCOUNTER 2024-07-10 10:48 | Outpatient (AMB) | payer OTHER, SELFPAY ==
--- NOTE | 2024-07-10 11:17 | A.OFFVIS_ITS ---
Vital Signs 07/10/24 11:22 Height 5 ft 5 in Weight 162 lb 11.218 oz BMI 27.1 BP 140/100 H Blood Pressure Location Rt brachial Position Sitting Pulse 78 Pulse Source Pulse Oximeter Pulse Oximetry (%) 98 Oxygen Delivery Method Room Air Intake Visit Reasons: SLE/ Intake Note: Patient presents for SLE. Allergies naproxen [From Aleve] Allergy (Severe, Verified 07/10/24 11:21) Rash sulfasalazine Allergy (Severe, Verified 07/10/24 11:21) redness and itching nitrofurantoin [From Macrobid] Allergy (Verified 07/10/24 11:21) Rash Sulfa (Sulfonamide Antibiotics) Allergy (Verified 07/10/24 11:21) Rash belimumab [From Benlysta] Adverse Reaction (Intermediate, Verified 07/10/24 11:21) Fatigue methotrexate Adverse Reaction (Intermediate, Verified 07/10/24 11:21) Fatigued Medication List - Last Reconciled 07/10/24 by Yaron Klein MD albuterol sulfate 90 mcg/actuation 1 inh inhalation QID PRN 30 days amlodipine 2.5 mg PO DAILY azathioprine 150 mg (3 x 50 mg) PO DAILY blood pressure monitor (Blood Pressure Kit) As directed calcium carbonate-vitamin D3 600 mg-10 mcg (400 unit) (Calcium 600 + D(3)) 1 tab PO DAILY 90 days erythromycin 1 appl ophthalmic-Left QID famotidine 20 mg PO BEDTIME levonorgestrel (Mirena) 1 intrauterinely loratadine 10 mg PO DAILY 90 days multivitamin 1 tab PO DAILY prednisone 5 mg PO DAILY sumatriptan succinate (Imitrex) 25 mg PO Q2H PRN 30 days HPI Comments Details: 39 yoF with SLE presents for follow-up. She is on prednisone 5 mg daily, azathioprine 150 mg daily. She states that she feels her lupus is stable. She denies any rashes or swollen joints. She continues to feel generalized fatigue and not feeling well. She states that she has some problems at home she has been speaking to her Parts Representative. She is not willing to share further Patient developed rash end of October 2018, 6 weeks after she started sulfasalazine. She was admitted to the hospital and developed transaminitis, she has skin biopsy which showed possible drug reaction. She was put on steroids and the rash improved. She still gets itchy and dry skin. She is to see dermatology soon. [facility] Medical History SLE (systemic lupus erythematosus) Hypertension Migraines Cervical cancer screening PVCs (premature ventricular contractions) Vasovagal syncope Surgical History History of surgery History of surgical biopsy Family History Father No problems noted. Mother Bipolar 1 disorder Chronic mental illness Family history of thyroid problem Maternal Grandmother Hypertension Maternal Grandfather No problems noted. 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 [employer] Current occupational exposures/hazards: No Cognitive needs: No Hearing needs: No Vision needs: Yes Female Reproductive History Menstrual Age of Menarche: 11 Review of Systems Const Reports body aches, Reports fatigue and Reports weakness ENT Details: Denies any oral ulcers Card Reports no additional complaints Resp Reports no additional complaints Musc Reports myalgias and Denies joint swelling Skin/Breast Reports system reviewed and no additional complaints, except as documented and Denies rash Neuro Reports weakness Endo Reports fatigue Luis A/Lymph Reports no additional complaints Physical Exam Vital Signs: Last Vital Signs Pulse 78 07/10/24 11:22 BP 140/100 H 07/10/24 11:22 Pulse Ox 98 07/10/24 11:22 Oxygen Delivery Method Room Air 07/10/24 11:22 BMI result Body Mass Index 27.1 Const Other: Moist oral mucosa, no oral ulcers General: cooperative, healthy appearing, comfortable and no acute distress Nutritional Appearance: average body habitus Orientation/consciousness: patient oriented x3 Limitations: no limitations HEENT Head: Yes normocephalic and Yes atraumatic Mouth: moist mucous membranes Resp Effort & Inspection: normal respiratory effort and able to speak in complete sentences Auscultation: clear to auscultation bilaterally Cardio Rate: regular rate Rhythm: regular rhythm GI Inspection: No distended Palpation (GI): Soft to palpation and nontender Skin General skin exam: no rashes or lesions noted Neuro General: patient oriented x3 Extrem Other: No active synovitis today No significant fibromyalgia tender points hyperextensible thumbs Normal nailfold capillaroscopy Assessment & Plan Assessment & Plan (1) SLE (systemic lupus erythematosus): Comment: dx 2007 MTX DC 09/2022 (fatigue, lightheadedness, GI upset) Azathioprine 10/2022 partially effective Benlysta 04/2023 partially effective. DC 12/2023 worsening fatigue Code(s): M32.9 - Systemic lupus erythematosus, unspecified Category: Medical Qualifiers: Systemic lupus erythematosus type: unspecified Systemic lupus erythematosus organ involvement: unspecified Qualified Code(s): M32.9 - Systemic lupus erythematosus, unspecified Plan: This is a 39-year-old female with SLE (+++SSA, intermittently low C3 and C4, arthralgias, skin rash) presents for follow-up In 2018 she was on hydroxychloroquine and sulfasalazine and she developed a rash with transaminitis, she had a skin biopsy which showed possible drug reaction, she was started on steroids with resolution of her rash and sulfasalazine and hydroxychloroquine were stopped.? Hydroxychloroquine was resumed 02/2022. In 06/2022 patient was admitted to the hospital with diffuse erythematous skin rash, fevers, inflammatory arthritis and transaminitis, symptoms rapidly resolved with steroid taper. This was 2 days after patient started Aleve It was unclear at that point whether patient's rash was due to drug reaction to Aleve verses a lupus rash. Labs when admitted also showed mild proteinuria 450 mg in addition to high WBC (possible concomitant UTI) Rashes, transaminitis and proteinuria all resolved with prednisone. I believe her SLE flares with NSAIDs & Sulfa hydroxychloroquine was discontinued. It does not seem to have helped the patient much. She also gets GI upset with it. Patient could not tolerate methotrexate due to fatigue, lightheadedness, GI upset, which resolved on discontinuation Patient is currently on azathioprine 150 mg daily and prednisone 5 mg daily. I think her lupus is very well controlled. I do not see any active rashes or synovitis on exam. Patient will do her monitoring labs today. I think the majority of her symptoms are related to fibromyalgia. Continue current meds If other DMARDs are needed in the future, I will consider [facility] before next visit in 3 months (2) Encounter for monitoring azathioprine therapy: Code(s): Z51.81 - Encounter for therapeutic drug level monitoring; Z79.624 - long term care administrator (current) use of inhibitors of nucleotide synthesis Category: Medical Plan: Monitor safety labs. Her TPMT is normal (3) Fibromyalgia, primary: Code(s): M79.7 - Fibromyalgia Category: Medical Plan: Discussed management of fibromyalgia with patient. Is a noninflammatory, non- autoimmune central afferent processing disorder leading to a diffuse pain syndrome. I suggested evaluation by a therapist to evaluate for any underlying anxiety/depression. Try to follow sleep hygiene practices. Consider a referral for a sleep study to rule out LLOYD by her PCP . Patient would benefit from increased physical activity, either through formal physical therapy or by joining a gym. Advised patient that she should start activity slowly and increase as tolerated. Consider low-impact exercises such as walking, swimming, aqua therapy stretching, yoga. I had started patient on duloxetine. She has not been able to tolerate it. Stopped duloxetine Plan I spent 26 minutes reviewing patient's chart, evaluating patient, counseling patient and documenting in the chart Orders: Orders Complement C3 3 Months M32.9 - Systemic lupus erythematosus, unspecified C Reactive Protein 3 Months M32.9 - Systemic lupus erythematosus, unspecified Protein Creatinine Ratio, Ur 3 Months M32.9 - Systemic lupus erythematosus, unspecified UA w Microscopic 3 Months M32.9 - Systemic lupus erythematosus, unspecified Complete Blood Count Auto Diff 3 Months M32.9 - Systemic lupus erythematosus, unspecified Anti DNA DS Antibody 3 Months M32.9 - Systemic lupus erythematosus, unspecified Erythrocyte Sedimentation Rate 3 Months M32.9 - Systemic lupus erythematosus, unspecified Complement C4 3 Months M32.9 - Systemic lupus erythematosus, unspecified Comprehensive Met. Panel 3 Months M32.9 - Systemic lupus erythematosus, unspecified Coding Level of Care Code Est Pt Level 4 (33354) Diagnoses Systemic lupus erythematosus, unspecified SLE type, unspecified organ involvement status M32.9 Systemic lupus erythematosus type: unspecified Systemic lupus erythematosus organ involvement: unspecified Encounter for monitoring azathioprine therapy Z51.81; Z79.624 Fibromyalgia, primary M79.7
[2024-07-10 11:22] VITALS: BP 140/100; PULSE 78; O2SAT 98; BMI 27.1
== END 2024-07-10 11:53 | disposition home or self-care (01) ==
PROVIDERS: PCP Physician Assistant; Visit Provider Student in an Organized Health Care Education/Training Program
DX: M32.9 Systemic lupus erythematosus, unspecified (principal); Z51.81 Encounter for therapeutic drug level monitoring; Z79.624 Long term (current) use of inhibitors of nucleotide synthesis; M79.7 Fibromyalgia
CPT/HCPCS: 99214

== ENCOUNTER 2024-08-14 11:24 | Outpatient (AMB) | payer OTHER, SELFPAY ==
--- NOTE | 2024-08-14 11:26 | A.OFFVIS_ITS ---
Intake Visit Reasons: FMLA Paperwork Intake Note: Patient presents for FMLA paperwork. Doctor Leslye Newberry didn't need any vitals. Allergies naproxen [From Aleve] Allergy (Severe, Verified 08/14/24 11:29) Rash sulfasalazine Allergy (Severe, Verified 08/14/24 11:29) redness and itching nitrofurantoin [From Macrobid] Allergy (Verified 08/14/24 11:29) Rash Sulfa (Sulfonamide Antibiotics) Allergy (Verified 08/14/24 11:29) Rash belimumab [From Benlysta] Adverse Reaction (Intermediate, Verified 08/14/24 11:29) Fatigue methotrexate Adverse Reaction (Intermediate, Verified 08/14/24 11:29) Fatigued Medication List - Last Reconciled 08/15/24 by Leslye Newberry MD albuterol sulfate 90 mcg/actuation 1 inh inhalation QID PRN 30 days amlodipine 2.5 mg PO DAILY azathioprine 150 mg (3 x 50 mg) PO DAILY blood pressure monitor (Blood Pressure Kit) As directed calcium carbonate-vitamin D3 600 mg-10 mcg (400 unit) (Calcium 600 + D(3)) 1 tab PO DAILY 90 days erythromycin 1 appl ophthalmic-Left QID famotidine 20 mg PO BEDTIME levonorgestrel (Mirena) 1 intrauterinely loratadine 10 mg PO DAILY 90 days miconazole nitrate 2% (Miconazole-7) 1 appful vaginal BEDTIME 7 days multivitamin 1 tab PO DAILY prednisone 5 mg PO DAILY sumatriptan succinate (Imitrex) 25 mg PO Q2H PRN 30 days HPI Comments Details: Patient is a 39-year-old female with hypertension, and systemic lupus erythematosus here today for follow up Interval History: Patient last seen 07/10/[address] Klein. At that time she reported her lupus was stable without any rashes or swollen joints. She however continued to complain of generalized fatigue. Today she is here to complete FMLA paperwork Rheumatologic History: SLE dx 2007 Arthritis, malar rash +ALEKSANDAR, low complements, ++SSA MTX DC 09/2022 (fatigue, lightheadedness, GI upset) Azathioprine 10/2022 partially effective Benlysta 04/2023 partially effective. DC 12/2023 worsening fatigue In 2019 she was on hydroxychloroquine and sulfasalazine and she developed a rash with transaminitis, she had a skin biopsy which showed possible drug reaction, she was started on steroids with resolution of her rash and sulfasalazine and hydroxychloroquine were stopped.? Hydroxychloroquine was resumed 02/2022. In 06/2022 patient was admitted to the hospital with diffuse erythematous skin rash, fevers, inflammatory arthritis and transaminitis, symptoms rapidly resolved with steroid taper. This was 2 days after patient started Aleve It was unclear at that point whether patient's rash was due to drug reaction to Aleve verses a lupus rash. Labs when admitted also showed mild proteinuria 450 mg in addition to high WBC (possible concomitant UTI) Current Rheumatology Medication(s): Azathioprine 150 mg daily Prednisolone 5 mg daily [facility] Medical History (Updated 08/15/24 @ 10:03 by Leslye Newberry MD) shelter (current) use of systemic steroids SLE (systemic lupus erythematosus) Hypertension Migraines Cervical cancer screening PVCs (premature ventricular contractions) Vasovagal syncope Surgical History History of surgery History of surgical biopsy Family History Father No problems noted. Mother Bipolar 1 disorder Chronic mental illness Family history of thyroid problem Maternal Grandmother Hypertension Maternal Grandfather No problems noted. 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 [employer] Current occupational exposures/hazards: No Cognitive needs: No Hearing needs: No Vision needs: Yes Female Reproductive History Menstrual Age of Menarche: 11 Review of Systems Const Details: Review of Systems Constitutional: Denies fever, chills, weight loss ENT: Denies vision changes, eye pain or eye redness, dental caries, dry mouth GI: Denies nausea, vomiting, diarrhea, abdominal pain, change in BM Pulm: Denies SOB, ESPARZA, hemoptysis, wheezing Cards: Denies chest pain, palpitations Skin: Denies Raynaud's, rash, nail changes, photosensitivity, GLAZE CARRIER: Denies headaches, weakness, paresthesias, recurrent falls MSK: as per HPI All other systems reviewed and are unremarkable except noted above Physical Exam Vital signs reviewed Physical Examination CONSTITUITIONAL Patient alert and cooperative. Well appearing and in no apparent painful distress HEENT Conjunctiva and sclera clear. ?Pupils equal round and reactive to light. ?No lymphadenopathy. ? CHEST/RESPIRATORY SYSTEM Normal respiratory effort and able to speak in complete sentences. ?Clear to auscultation bilaterally. ?No crackles, rales, rhonchi, wheezes heard. CARDIAC SYSTEM Regular rate and rhythm. ?S1 and S2 heard no murmurs. 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 No deformities noted. ?No synovitis noted to the MCPs, PIPs or DIPs. ?No tenderness to palpation of these joints. Wrists: ?Full range of motion at the wrists without pain. ?No tenderness to palpation or synovitis noted to the wrists. Elbows: Full range of motion without pain. No tenderness, weakness, swelling, increased warmth or erythema. Shoulders: Full range of motion without pain. No tenderness, weakness, swelling, increased warmth or erythema. Hips: Full range of motion without pain. Hip bursa: No tenderness to palpation Knees: ?Full range of motion. ?No tenderness, swelling, increased warmth or erythema.?No effusion or crepitations Ankles: Full range of motion. ?No tenderness, swelling, increased warmth or erythema.? Feet: ?Negative squeeze test. ?No tenderness to palpation or swelling of the MTPs. Tender points:?No tenderness to palpation of the bilateral trapezius, supraspinatus, greater trochanters, anterior costochondral junctions, bilateral gluteal areas, bilateral suboccipital muscle insertions SKIN Skin intact without rashes. Results Reviewed Results Reviewed: Laboratory Tests 04/20/24 07:50 WBC 7.9 RBC 4.08 L Hgb 13.5 Hct 39.5 Plt Count 275 ESR 7 Sodium 140 Potassium 3.4 Chloride 105 Carbon Dioxide 26 BUN 12 Creatinine 0.87 Calcium 9.6 D AST 22 ALT 20 Alkaline Phosphatase 83 C-Reactive Protein 0.31 Laboratory Tests 04/20/24 07:43 Urine Nitrite Negative Urine RBC 0-2 U Random Total Protein < 7 Protein/Creatinin Ratio normal 03/19/22 07:32 Rheumatoid Factor 58.8 H ALEKSANDAR Screen POSITIVE A ALEKSANDAR Titer 1:640 H SS-A/Ro Antibody >8.0 POS A Beta-2-GPI IgG Ab <2.0 Beta-2-GPI IgA Ab <2.0 Beta-2-GPI IgM Ab <2.0 Anti-Cardiolipin IgG Ab <2.0 Anti-Cardiolipin IgM Ab <2.0 09/28/23 01/04/24 04/20/24 14:08 10:31 07:50 Double Strand DNA Ab <1 <1 <1 Complement C3 84 143 141 Complement C4 13 L 21 21 Assessment & Plan Assessment & Plan (1) SLE (systemic lupus erythematosus): Comment: dx 2007 MTX DC 09/2022 (fatigue, lightheadedness, GI upset) Azathioprine 10/2022 partially effective Benlysta 04/2023 partially effective. DC 12/2023 worsening fatigue Plaquenil - ?rash Code(s): M32.9 - Systemic lupus erythematosus, unspecified Category: Medical Qualifiers: Systemic lupus erythematosus type: unspecified Systemic lupus erythematosus organ involvement: unspecified Qualified Code(s): M32.9 - Systemic lupus erythematosus, unspecified Plan: #SLE Patient with SLE currently in remission. 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 Category: Medical Plan: #Long-term Use of Steroids Discussed with patient the risks and benefits of steroid for managing the rheumatic condition Benefits include: - Reduced pain, improved mobility, increased participation in activities, and decreased progression of disease Risks include: - GI upset, potential ultrasound worsening or formation (especially in patients > 65 years old), elevated blood pressure/worsening hypertension, elevated blood sugar/worsening diabetes control, worsening of bone density, elevated lipids/worsening triglycerides, cataract formation, weight gain Recommended using proton pump inhibitors (PPIs) for the duration of steroid use to reduce the risk of gastric ulcers and vitamin-D daily to reduce the risk of osteoporosis Labs checked: ?A1c, T spot, hepatitis-B and C serologies Pneumocystis jiroveci prophylaxis: ?Patient with risk factors including steroids greater than 50 mg for more than 30 days, age greater than 60 years, and lung involvement from underlying rheumatic disease requires prophylaxis and will be given so Plan I spent 20 minutes reviewing the record and labs, taking a history, examining the patient, discussing the treatment plan and documenting in the medical record Orders: Orders Complement C3 10/09/24 M32. - Systemic lupus erythematosus, unspecified Complement C4 10/09/24 M3.9 - Systemic lupus erythematosus, unspecified Comprehensive Met. Panel 10/09/242. - Systemic lupus erythematosus, unspecified Hepatitis A,B,C Profile 10/09/242. - Systemic lupus erythematosus, unspecified C Reactive Protein 10/09/242. - Systemic lupus erythematosus, unspecified Anti DNA DS Antibody 10/09/24 M32.9 - Systemic lupus erythematosus, unspecified Erythrocyte Sedimentation Rate 10/09/24 M32. - Systemic lupus erythematosus, unspecified Protein Creatinine Ratio, Ur 10/09/24 M32. - Systemic lupus erythematosus, unspecified UA w Microscopic 10/09/24 M32.9 - Systemic lupus erythematosus, unspecified Complete Blood Count Auto Diff 10/09/242. - Systemic lupus erythematosus, unspecified T Spot TB 10/09/242. 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
== END 2024-08-14 11:54 | disposition home or self-care (01) ==
PROVIDERS: PCP Physician Assistant; Visit Provider Student in an Organized Health Care Education/Training Program
DX: M32.9 Systemic lupus erythematosus, unspecified (principal); Z51.81 Encounter for therapeutic drug level monitoring; Z79.624 Long term (current) use of inhibitors of nucleotide synthesis; Z79.52 Long term (current) use of systemic steroids
CPT/HCPCS: 99213

== ENCOUNTER 2024-09-12 08:27 | Outpatient (AMB) | payer OTHER, SELFPAY ==
[2024-09-12 08:29] VITALS: BP 132/84; PULSE 74; TEMP 36.3; O2SAT 99; BMI 28.9
--- NOTE | 2024-09-12 08:29 | A.OFFPC_ITS ---
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[employer] Required: No Accompanied by: Self / Same As Patient Allergies naproxen [From Aleve] Allergy (Severe, Verified 09/12/24 08:46) Rash sulfasalazine Allergy (Severe, Verified 09/12/24 08:46) redness and itching nitrofurantoin [From Macrobid] Allergy (Verified 09/12/24 08:46) Rash Sulfa (Sulfonamide Antibiotics) Allergy (Verified 09/12/24 08:46) Rash belimumab [From Benlysta] Adverse Reaction (Intermediate, Verified 09/12/24 08:46) Fatigue methotrexate Adverse Reaction (Intermediate, Verified 09/12/24 08:46) Fatigued Medication List - Last Reconciled 09/12/24 by Vignesh Lauren PA-C albuterol sulfate 90 mcg/actuation 1 inh inhalation QID PRN 30 days amlodipine 2.5 mg PO DAILY azathioprine 150 mg (3 x 50 mg) PO DAILY blood pressure monitor (Blood Pressure Kit) As directed calcium carbonate-vitamin D3 600 mg-10 mcg (400 unit) (Calcium 600 + D(3)) 1 tab PO DAILY 90 days famotidine 20 mg PO BEDTIME levonorgestrel (Mirena) 1 intrauterinely loratadine 10 mg PO DAILY 90 days multivitamin 1 tab PO DAILY prednisone 5 mg PO DAILY sumatriptan succinate (Imitrex) 25 mg PO Q2H PRN 30 days Tobacco use date assessed: 09/12/24 Dental Screening Dental Screen Date: 09/12/24 Did you have a dental visit in the last 12 months?: Yes Did you have a dental problem in the last 6 months where you did not have access to dental care?: No Was dental information given to patient?: Patient has dentist HPI f/u HTN HPI Details Patient is a 39-year-old female here today for a follow-up visit. . Patient has a fast history significant for sjogrens syndrome, migraines, au toimmune hepatitis, PVCs, presyncope ?cocnerns--> ? . ?? ?SLE/? Sjodrens/fibromyalgia:? She is not have followed by Rheumatology and has started a new disease modifying drug.? Does report side effects from the medicine though are fairly tolerable. She still does report pain in her joints and some sleep is nice related to her lupus. Often having call lot of work due to being fatigued in into much pain. She uses Tylenol for her pain at this time. She continues on low-dose prednisone. Fortunately still has pains related to her autoimmune and fibromyalgia. She has tried Cymbalta though felt it was not effective. We did discuss the possibility of trying new fibromyalgia medication = ?. Hypertension: Blood pressure today in office acceptable today. Continues on amlodipine 2.5 mg. Advised to monitor blood pressure to ensure within appropriate range. ? .. ? GERD: Patient reports famotidine has been working for her nighttime GERD symptoms. .. Mood disorder: Has been reached out by mental health therapy though did answer phone call. She is interested in starting therapy. 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 Mother Bipolar 1 disorder Chronic mental illness Family history of thyroid problem Maternal Grandmother Hypertension Maternal Grandfather No problems noted. 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 1. Little interest or pleasure in doing things: more than half the days 2. Feeling down, depressed, or hopeless: more than half the days 3. Trouble falling or staying asleep, or sleeping too much: more than half the days 4. Feeling tired or having little energy: nearly every day 5. Poor appetite or overeating: nearly every day 6. Feeling bad about yourself - or that you are a failure or have let yourself or your family down: nearly every day 7. Trouble concentrating on things, such as reading the newspaper or watching television: nearly every day 8. Moving or speaking so slowly that other people could have noticed. Or the opposite - being so fidgety or restless that you have been moving around a lot more than usual: nearly every day 9. Thoughts that you would be better off or of hurting yourself in some way: not at all Total score: 21 Depression Screening Interpretation: Positive Depression Screening Done: Yes 66198 - PHQ-9 Billing: Yes Source: Developed by Drs. Luis Barahona, Kadie Senior, Shahid Baez and colleagues, with an educational minor from [employer]. Thrive Questionnaire Date Thrive assessed: 09/12/24 I am a: Patient What is your living situation today?: I have a steady place to live Within the past 12 months, did the food you bought not last and you didn't have the money to get more?: Never true Within the past 12 months, did you worry whether your food would run out before you got money to buy more?: Never true Do you have trouble paying for medicines?: No Do you have trouble getting transportation to medical appointments?: No Do you have trouble paying your heating and electricity bill?: No Do you have trouble taking care of your child, family member or friend?: No Do you have trouble with day-to-day activities such as bathing, preparing meals, shopping, managing finances, etc.?: No Are you currently unemployed and looking for a job?: No Are you interested in more education?: No Please select the resources that you would like help with: None Currently or been in a relationship where the following occur: No concerns reported THRIVE Score: 0 AUDIT C Alcohol Use Questionnaire (AUDIT-C) 1. How often do you have a drink containing alcohol?: Never 3. How often do you have six or more drinks on one occasion?: Never Total Score: 0 LUCA-7 AMB Questionnaire LUCA-7 Date LUCA - 7 assessed: 09/12/24 Feeling nervous, anxious, or on edge: 0 = Not at all Not being able to stop or control worryin = Nearly every day Worrying too much about different things: 3 = Nearly every day Trouble relaxin = Nearly every day Being so restless that it is hard to sit still: 2 = More than half the days Becoming easily annoyed or irritable: 0 = Not at all Feeling afraid as if something awful might happen: 1 = Several days Total LUCA-7 score (0-4 normal; 5-9 mild; 10-14 moderate; 15-21 severe): 12 Source: Developed by Drs. Luis Barahona, Kadie Senior, Shahid Baez and colleagues, with an educational minor from [employer]. LUCA-7 Assessment Billing LUCA-7 Assessment Tool: LUCA-7 Assessment 96081 Review of Systems Const Denies headache(s) Eyes Denies loss of vision ENT Denies vertigo, Denies dizziness, Denies headache(s) and Denies sore throat Card Denies chest pain, Denies leg edema and Denies lightheadedness Resp Denies cough, Denies hemoptysis and Denies wheezing GI Denies abdominal pain, Denies melena, Denies constipation, Denies diarrhea and Denies vomiting Denies urinary frequency, Denies dysuria and Denies urinary urgency Musc Denies arthralgias, Denies joint swelling, Denies numbness and Denies tingling Neuro Denies Abnormal speech present, Denies behavioral changes, Denies vertigo, Denies dizziness, Denies headache(s), Denies loss of vision, Denies memory loss, Denies numbness and Denies tingling Psych Denies anxiety, Denies behavioral changes, Denies depression, Denies memory loss and Denies panic attacks Luis A/Lymph Denies easy bleeding and Denies easy bruising Aller/Immun Denies wheezing Physical exam (Primary Care) Vital Signs: Last Vital Signs Temp 97.3 F 09/12/24 08:29 Pulse 74 09/12/24 08:29 BP 132/84 09/12/24 08:29 Pulse Ox 99 09/12/24 08:29 Oxygen Delivery Method Room Air 09/12/24 08:29 BMI result Body Mass Index 28.9 Tobacco/Smoking Status: Tobacco use Status Tobacco use date assessed 09/12/24 09/12/24 08:40 Patient Tobacco Use Status Never used Tobacco 09/12/24 08:40 e-Cigarette/Vaping Use Never Used 09/12/24 08:40 PHQ-9: PHQ-9 Score PHQ-9: Total score 21 09/12/24 08:43 Depression Screening Interpretation: Positive Thrive Assessment: Date of Thrive Assessment Date Thrive assessed 09/12/24 09/12/24 08:40 Currently or been in a relationship where the following occur: No concerns reported Const General: healthy appearing, no acute distress, alert and awake Nutritional Appearance: well nourished Orientation/consciousness: oriented to person, oriented to place and oriented to time HENMT Ears: TM's normal bilaterally General nose exam: Normal nasal mucous membranes and turbinates present Eyes Conjunctivae: conjunctivae normal Sclerae: sclerae normal Pupils: Equal, round and reactive pupils present Neck Neck: Yes no lymphadenopathy and Yes no JVD Thyroid: Thyroid normal Carotids: no bruits Resp Effort & Inspection: normal respiratory effort and not tachypneic Auscultation: no crackles, no rales, no rhonchi and no wheezes Cardio Rate: regular rate Rhythm: regular rhythm Heart sounds: no murmurs and normal S1 and S2 GI Palpation (GI): Soft to palpation, nontender, no hepatomegaly and no splenomegaly Auscultation: normal bowel sounds Skin General skin exam: no rashes or lesions noted and dry skin Neuro General: oriented to person, oriented to place and oriented to time Cranial nerves: Yes Equal, round and reactive pupils present Speech: No Abnormal speech present Gait exam (Neuro): Normal gait present Motor exam (neuro): no tremor noted Extrem Right upper extremity: full ROM Left upper extremity: full ROM Right lower extremity: full ROM; no edema Left lower extremity: full ROM; no edema Psych Mental Status: mental status grossly normal Speech and movement: Normal speech and movement present Affect: normal affect Attitude: cooperative Thought process: Normal thought process present Coding Level of Care Code Est Pt Level 4 (43462) Diagnoses Systemic lupus erythematosus, unspecified SLE type, unspecified organ involvement status M32.9 Systemic lupus erythematosus organ involvement: unspecified Systemic lupus erythematosus type: unspecified Primary hypertension I10 Hypertension type: primary hypertension Fibromyalgia M79.7 Mood disorder F39 Additional Codes LUCA-7 Assessment Billing - LUCA-7 Assessment Tool: LUCA-7 Assessment 05650 ([id number]) PHQ-9 - 38771 - PHQ-9 Billing: Yes ([id number]) Assessment & Plan Assessment & Plan (1) SLE (systemic lupus erythematosus): Comment: dx 2007 MTX DC 09/2022 (fatigue, lightheadedness, GI upset) Azathioprine 10/2022 partially effective Benlysta 04/2023 partially effective. DC 12/2023 worsening fatigue Plaquenil - ?rash Code(s): M32.9 - Systemic lupus erythematosus, unspecified Category: Medical Qualifiers: Systemic lupus erythematosus organ involvement: unspecified Systemic lupus erythematosus type: unspecified Qualified Code(s): M32.9 - Systemic lupus erythematosus, unspecified Plan: As per HPI (2) HTN (hypertension): Code(s): I10 - Essential (primary) hypertension Category: Medical Qualifiers: Hypertension type: primary hypertension Qualified Code(s): I10 - Essential (primary) hypertension Plan: Patient's blood pressure acceptable today in office. Will continue current dose of amlodipine 2.5 mg. Goal blood pressures to remain below 140/90 (3) Fibromyalgia: Code(s): M79.7 - Fibromyalgia Category: Medical Plan: As per HPI patient continues to have pain related to her fibromyalgia. We did discuss being more physically active and trying mental health therapy as a treatment to her fibromyalgia. We did discuss new medication out on the market for fibromyalgia she will consider. (4) Mood disorder: Code(s): F39 - Unspecified mood [affective] disorder Category: Medical Plan: Patient's PHQ-9 score positive for depression and luca 7 score positive for anxiety. Patient interested in mental health therapy
== END 2024-09-12 09:14 | disposition home or self-care (01) ==
LOC: HO.HMCH 08:27
PROVIDERS: PCP Physician Assistant; Visit Provider Physician Assistant
DX: M32.9 Systemic lupus erythematosus, unspecified (principal); I10 Essential (primary) hypertension; M79.7 Fibromyalgia; F39 Unspecified mood [affective] disorder

== ENCOUNTER → 2024-09-12 08:27 | Outpatient (BNVA) | payer OTHER, SELFPAY | PROVIDERS: PCP Physician Assistant; Visit Provider Physician Assistant | DX: M32.9 Systemic lupus erythematosus, unspecified (principal); I10 Essential (primary) hypertension; M79.7 Fibromyalgia; F39 Unspecified mood [affective] disorder; Z79.899 Other long term (current) drug therapy | CPT/HCPCS: 96127 ==

== ENCOUNTER 2024-10-05 07:40 | Outpatient (REF) | payer OTHER, SELFPAY ==
[2024-10-05 08:17] LABS: MANUAL DIFF FLAG NO
[2024-10-05 08:59] LABS: Basophils Absolute Auto 0.1 X10*3/uL (0.0-0.2); Basophils Percent Auto 0.8 % (0-2); Eosinophils Percent Auto 0.4 % (0-4); Hematocrit 40.8 % (37.0-47.0); Hemoglobin 13.5 g/dl (12.0-16.0); Imm Gran Abs Auto 0.02 X10*3/uL (0.00-0.03); Imm Gran Pct Auto 0.3 % (0.0-0.4); Lymphocytes Absolute Auto 1.5 X10*3/uL (1.2-4.9); Lymphocytes Percent Auto 20.4 % (20-40); Mean Corpuscular HGB Conc 33.1 g/dl (31.0-35.0); Mean Corpuscular Hemoglobin 32.3 pg (27.0-33.0); Mean Corpuscular Volume 97.6 fL (80.0-98.0); Mean Platelet Volume 11.7 fL (9.4-12.3); Monocytes Absolute Auto 0.4 X10*3/uL (0.1-1.2); Monocytes Percent Auto 6.1 % (2-11); Neutrophils Absolute Auto 5.2 x10*3/uL (2.0-8.3); Platelet Count 240 X10*3/uL (160-400); Red Blood Count 4.18 X10*6/uL (4.20-5.50); Red Cell Distribution Width 12.3 % (11.0-16.0); White Blood Count 7.2 X10*3/uL (4.8-10.8)
[2024-10-05 09:10] LABS: Appearance Urine Clear; Color Urine Dark Yellow; Glucose Urine UA Negative (Negative); Leukocyte Esterase Urine Negative (Negative); Nitrite Urine Negative (Negative); PH 5.5 (5.0-9.0); Specific Gravity - Urine >= 1.030 (1.005-1.025); Urine Blood Negative (Negative); Urine Ketones Trace mg/dL (Negative); Urine Protein Negative (Neg-Trace)
[2024-10-05 09:13] LABS: Bacteria Urine 1+ (None Seen); Hyaline Casts Urine 0-2 /LPF (0-2); RBC Urine 0-2 /HPF (0-2); WBC Urine 0-5 /HPF (0-5)
[2024-10-05 09:40] LABS: Alanine Aminotransferase 27 U/L (0-31); Albumin Level 3.9 g/dL (3.5-5.0); Alkaline Phosphatase 85 U/L (39-117); Anion Gap 10 (12-20); Aspartate Amino Transferase 23 U/L (5-31); Bilirubin Total 0.3 mg/dL (0.0-1.0); Blood Urea Nitrogen 22 mg/dL (9-16); C Reactive Protein 0.51 mg/dL (< or = 0.50); Calcium 9.3 mg/dL (8.4-10.2); Carbon Dioxide 28 mmol/L (22-29); Chloride 110 mmol/L (96-108); Estimated Glomerular Filt Rate > 60; Glucose Random 101 mg/dL (60-115); Potassium 4.2 mmol/L (3.3-5.1); Sodium 144 mmol/L (135-145); Total Protein 7.1 g/dL (6.5-8.0)
[2024-10-05 09:47] LABS: Erythrocyte Sedimentation Rate 11 MM/HR (0-20)
[2024-10-05 09:51] LABS: Creatinine Urine 268.62 mg/dL; Protein/Creatinine Ratio, Ur 0.05 (<0.2); Total Protein Urine Random 13 mg/dL (<12)
[2024-10-07 08:15] LABS: HBS Num1 0.35 mIU/mL (0-7.99); HBsAGNum1 0.28 S/CO (0.00-0.99); Hepatitis B Core Antibody Nonreactive (Nonreactive); Hepatitis B Surface Antigen Negative (Negative); ~HepC Num1 0.43 S/CO (0.00-0.79); ~Hepatitis B Surface Antibody NONREACTIVE (Nonreactive); ~Hepatitis C Antibody Nonreactive (Nonreactive)
[2024-10-08 08:11] LABS: Hepatitis A Antibody IgM 0.34 Index (0-0.79); ~Hepatitis A Antibody IgM Nonreactive (Nonreactive)
[2024-10-08 15:48] LABS: Complement C3 158 mg/dL (83-193)
[2024-10-08 17:37] LABS: Anti DNA DS Antibody <1 IU/mL
== END 2024-10-05 07:41 | disposition home or self-care (01) ==
LOC: HO.LAB 07:40
PROVIDERS: PCP Physician Assistant; Visit Provider Student in an Organized Health Care Education/Training Program
DX: M32.9 Systemic lupus erythematosus, unspecified (principal)
CPT/HCPCS: 36415; 80053; 81001; 82570; 84156; 85025; 85652; 86140; 86160; 86225; 86704; 86706; 86709; 86803; 87340

== ENCOUNTER 2024-10-09 06:48 | Outpatient (REF) | payer OTHER, SELFPAY ==
[2024-10-12 10:08] LABS: TS Negative Control Passed; TS Panel A 0; TS Panel B 0; TS Positive Control Passed; TSpotTB Negative (Negative)
== END 2024-10-09 06:49 | disposition home or self-care (01) ==
LOC: HO.LAB 06:48
PROVIDERS: PCP Physician Assistant; Visit Provider Student in an Organized Health Care Education/Training Program
DX: M32.9 Systemic lupus erythematosus, unspecified (principal)
CPT/HCPCS: 36415; 86481

== ENCOUNTER 2024-10-18 15:05 | Outpatient (AMB) | payer OTHER, SELFPAY ==
--- NOTE | 2024-10-18 15:07 | MHC.OFFVIS ---
Vital Signs 10/18/24 15:08 Height 5 ft 5 in Weight 174 lb 9.698 oz BMI 29.1 BP 118/70 Blood Pressure Location Lt brachial Position Sitting Pulse 108 H Pulse Source Pulse Oximeter Pulse Oximetry (%) 98 Oxygen Delivery Method Room Air Intake Visit Reasons: SLE/ Intake Note: Patient presents for follow up on SLE and lab review. She was last seen in the office on 08/14/[address] Newberry. Allergies naproxen [From Aleve] Allergy (Severe, Verified 10/18/24 15:11) Rash sulfasalazine Allergy (Severe, Verified 10/18/24 15:11) redness and itching nitrofurantoin [From Macrobid] Allergy (Verified 10/18/24 15:11) Rash Sulfa (Sulfonamide Antibiotics) Allergy (Verified 10/18/24 15:11) Rash belimumab [From Benlysta] Adverse Reaction (Intermediate, Verified 10/18/24 15:11) Fatigue methotrexate Adverse Reaction (Intermediate, Verified 10/18/24 15:11) Fatigued Medication List - Last Reconciled 10/18/24 by Leslye Newberry MD albuterol sulfate 90 mcg/actuation 1 inh inhalation QID PRN 30 days amlodipine 2.5 mg PO DAILY azathioprine 150 mg (3 x 50 mg) PO DAILY blood pressure monitor (Blood Pressure Kit) As directed calcium carbonate-vitamin D3 600 mg-10 mcg (400 unit) (Calcium 600 + D(3)) 1 tab PO DAILY 90 days famotidine 20 mg PO BEDTIME levonorgestrel (Mirena) 1 intrauterinely loratadine 10 mg PO DAILY 90 days milnacipran (Savella) 12.5 mg PO BID 7 days milnacipran (Savella) 50 mg PO BID 30 days multivitamin 1 tab PO DAILY prednisone 5 mg PO DAILY sumatriptan succinate (Imitrex) 25 mg PO Q2H PRN 30 days HPI Comments Details: Patient is a 39-year-old female with hypertension, and systemic lupus erythematosus here today for follow up Interval History: Patient last seen 08/14/2024 with me. At that time she was filling out FMLA paperwork and her disease was stable. Rheumatologic History: SLE dx 2007 Arthritis, malar rash +ALEKSANDAR, low complements, ++SSA MTX DC 09/2022 (fatigue, lightheadedness, GI upset) Azathioprine 10/2022 partially effective Benlysta 04/2023 partially effective. DC 12/2023 worsening fatigue In 2018 she was on hydroxychloroquine and sulfasalazine and she developed a rash with transaminitis, she had a skin biopsy which showed possible drug reaction, she was started on steroids with resolution of her rash and sulfasalazine and hydroxychloroquine were stopped.? Hydroxychloroquine was resumed 02/2022. In 06/2022 patient was admitted to the hospital with diffuse erythematous skin rash, fevers, inflammatory arthritis and transaminitis, symptoms rapidly resolved with steroid taper. This was 2 days after patient started Aleve It was unclear at that point whether patient's rash was due to drug reaction to Aleve verses a lupus rash. Labs when admitted also showed mild proteinuria 450 mg in addition to high WBC (possible concomitant UTI) Current Rheumatology Medication(s): Azathioprine 150 mg daily Prednisone 5 mg daily [facility] [place] Medical History (Updated 10/18/24 @ 15:36 by Leslye Newberry MD) [facility] (current) use of systemic steroids SLE (systemic lupus erythematosus) Hypertension Migraines Cervical cancer screening PVCs (premature ventricular contractions) Vasovagal syncope Surgical History History of surgery History of surgical biopsy Family History Father No problems noted. Mother Bipolar 1 disorder Chronic mental illness Family history of thyroid problem Maternal Grandmother Hypertension Maternal Grandfather No problems noted. 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 [employer] Current occupational exposures/hazards: No Cognitive needs: No Hearing needs: No Vision needs: Yes (Glasses) Female Reproductive History Menstrual Age of Menarche: 11 Review of Systems Const Details: Review of Systems Constitutional: Denies fever, chills, weight loss ENT: Denies vision changes, eye pain or eye redness, dental caries, dry mouth GI: Denies nausea, vomiting, diarrhea, abdominal pain, change in BM Pulm: Denies SOB, ESPARZA, hemoptysis, wheezing Cards: Denies chest pain, palpitations Skin: Denies Raynaud's, rash, nail changes, photosensitivity, 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 Well appearing and in no apparent painful distress HEENT Conjunctiva and sclera clear. ?Pupils equal round and reactive to light. ?No lymphadenopathy. ? CHEST/RESPIRATORY SYSTEM Normal respiratory effort and able to speak in complete sentences. ?Clear to auscultation bilaterally. ?No crackles, rales, rhonchi, wheezes heard. CARDIAC SYSTEM Regular rate and rhythm. ?S1 and S2 heard no murmurs. ?Radial pulses intact bilaterally MSK Hands: ?Good geriatric assistant strength bilaterally. No deformities noted. ?No synovitis noted to the MCPs, PIPs or DIPs. ?No tenderness to palpation of these joints. Wrists: ?Full range of motion at the wrists without pain. ?No tenderness to palpation or synovitis noted to the wrists. Elbows: Full range of motion without pain. No tenderness, weakness, swelling, increased warmth or erythema. Shoulders: Full range of motion without pain. No tenderness, weakness, swelling, increased warmth or erythema. Hips: Full range of motion without pain. Hip bursa: No tenderness to palpation Knees: ?Full range of motion. ?No tenderness, swelling, increased warmth or erythema.?No effusion or crepitations Ankles: Full range of motion. ?No tenderness, swelling, increased warmth or erythema.? Feet: ?Negative squeeze test. ?No tenderness to palpation or swelling of the MTPs. Tender points:?No tenderness to palpation of the bilateral trapezius, supraspinatus, greater trochanters, anterior costochondral junctions, bilateral gluteal areas, bilateral suboccipital muscle insertions SKIN Skin intact without rashes. Results Reviewed Results Reviewed: Laboratory Tests 04/20/24 10/05/24 07:50 08:17 WBC 7.2 RBC 4.18 L Hgb 13.5 Hct 40.8 Plt Count 240 ESR 11 Sodium 144 Potassium 4.2 D Chloride 110 H Carbon Dioxide 28 BUN 22 H Creatinine 0.96 Calcium 9.3 Total Bilirubin 0.3 AST 23 ALT 27 C-Reactive Protein 0.31 0.51 H Urine tests 10/05/24 08:16 Urine Color Dark Yellow Urine Appearance Clear Urine pH 5.5 Ur Specific Riddle >= 1.030 H Urine Protein Negative Urine Blood Negative Protein/Creatinin Ratio 0.05 Immunology labs 10/05/24 08:17 Double Strand DNA Ab <1 Complement C3 158 Complement C4 21 Infectious serologies 10/05/24 10/09/24 08:17 06:59 Hepatitis A IgM Ab Nonreactive Hep Bs Antigen Negative Hep Bs Antibody NONREACTIVE Hep B Core Total Ab Nonreactive Hepatitis C Ab (EIA) Nonreactive TB Test (T-Spot) Com Negative Assessment & Plan Assessment & Plan (1) SLE (systemic lupus erythematosus): Comment: dx 2008 MTX DC 09/2022 (fatigue, lightheadedness, GI upset) Azathioprine 10/2022 partially effective Benlysta 04/2023 partially effective. DC 12/2023 worsening fatigue Plaquenil - ?rash Code(s): M32.9 - Systemic lupus erythematosus, unspecified Category: Medical Qualifiers: Systemic lupus erythematosus type: unspecified Systemic lupus erythematosus organ involvement: unspecified Qualified Code(s): M32.9 - Systemic lupus erythematosus, unspecified Plan: #SLE Patient is a 39-year-old female with SLE here today for follow up. Lupus currently in remission with no evidence of active inflammation or synovitis on examination. 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 Category: Medical Plan: #Long-term Use of Steroids Discussed with patient the risks and benefits of steroid for managing the rheumatic condition Benefits include: - Reduced pain, improved mobility, increased participation in activities, and decreased progression of disease Risks include: - GI upset, potential ultrasound worsening or formation (especially in patients > 65 years old), elevated blood pressure/worsening hypertension, elevated blood sugar/worsening diabetes control, worsening of bone density, elevated lipids/worsening triglycerides, cataract formation, weight gain Recommended using proton pump inhibitors (PPIs) for the duration of steroid use to reduce the risk of gastric ulcers and vitamin-D daily to reduce the risk of osteoporosis Labs checked: ?A1c, T spot, hepatitis-B and C serologies Pneumocystis jiroveci prophylaxis: ?Patient with risk factors including steroids greater than 50 mg for more than 30 days, age greater than 60 years, and lung involvement from underlying rheumatic disease requires prophylaxis and will be given so (3) Encounter for monitoring azathioprine therapy: Code(s): Z51.81 - Encounter for therapeutic drug level monitoring; Z79.624 - 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 - Reduced pain, maintenance of remission and reduction of flares Risks include: - Bone marrow suppression, GI upset, lymphoma, hepatotoxicity, pancreatitis, hypersensitivity syndrome Drug monitoring: CBC every 4 weeks for the 1st 3 months then CBC BMP LFTs every 3 months Avoid concomitant sulfasalazine, allopurinol or febuxostat Plan I spent 30 minutes reviewing the record and labs, taking a history, examining the patient, discussing the treatment plan, ordering diagnostic work up and documenting in the medical record Orders: Orders Complement C3 4 Months . - Systemic lupus erythematosus, unspecified Complement C4 4 Months . - Systemic lupus erythematosus, unspecified Anti DNA DS Antibody 4 Months M3. - Systemic lupus erythematosus, unspecified Comprehensive Met. Panel 4 Months . - Systemic lupus erythematosus, unspecified C Reactive Protein 4 Months M3. - Systemic lupus erythematosus, unspecified Erythrocyte Sedimentation Rate 4 Months M3. - Systemic lupus erythematosus, unspecified Protein Creatinine Ratio, Ur 4 Months 2. - Systemic lupus erythematosus, unspecified Complete Blood Count Auto Diff 4 Months . - Systemic lupus erythematosus, unspecified UA w Microscopic 4 Months .9 - Systemic lupus erythematosus, unspecified Medications: Changed From prednisone 5 mg PO DAILY 30 tabs 3RF M32.9 - Systemic lupus erythematosus, unspecified To prednisone 2.5 mg (1/2 x 5 mg) PO DAILY 90 days 45 tabs 1RF M32.9 - Systemic lupus erythematosus, unspecified Refilled azathioprine 150 mg (3 x 50 mg) PO DAILY 270 tabs 1RF M32.9 - Systemic lupus erythematosus, unspecified Coding Level of Care Code Est Pt Level 4 (77339) Complex EM visit Add On G2211 Diagnoses Systemic lupus erythematosus, unspecified SLE type, unspecified organ involvement status M32.9 Systemic lupus erythematosus type: unspecified Systemic lupus erythematosus organ involvement: unspecified 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
[2024-10-18 15:08] VITALS: BP 118/70; PULSE 108; O2SAT 98; BMI 29.1
== END 2024-10-18 15:40 | disposition home or self-care (01) ==
LOC: HO.RHE 15:05
PROVIDERS: PCP Physician Assistant; Visit Provider Student in an Organized Health Care Education/Training Program
DX: M32.9 Systemic lupus erythematosus, unspecified (principal); Z79.52 Long term (current) use of systemic steroids; Z51.81 Encounter for therapeutic drug level monitoring; Z79.624 Long term (current) use of inhibitors of nucleotide synthesis
CPT/HCPCS: 99214

== ENCOUNTER → 2024-10-18 15:05 | Outpatient (BNVA) | payer OTHER, SELFPAY | PROVIDERS: PCP Physician Assistant; Visit Provider Student in an Organized Health Care Education/Training Program ==

== ENCOUNTER → 2024-10-24 10:17 | Outpatient (BNVA) | payer OTHER, SELFPAY | PROVIDERS: PCP Physician Assistant; Visit Provider Advanced Practice Midwife ==

== ENCOUNTER 2024-12-23 10:59 | Emergency (ER) | payer OTHER, SELFPAY ==
--- NOTE | ~2024-12-23 | XR_ITS ---
EXAMINATION: XR HAND 3 OR MORE VIEWS LEFT HISTORY: pain, injury COMPARISON: Correlation is made to plain films of the left wrist dated 04/01/2016. FINDINGS: Three views of the left hand are submitted. Osseous mineralization is normal. There is no fracture or dislocation. The joint spaces are preserved. There is mild soft tissue swelling over the middle phalanx of the ring finger. XR/XR hand LT min 3V IMPRESSION: Soft tissue swelling of the 4th finger. No osseous abnormality is identified. Electronically signed by: Luis Jean MD 12/23/2024 12:25 PM EDT
--- NOTE | 2024-12-23 11:55 | ED.GENADULT ---
HPI - General Adult General Chief complaint: Wound/Laceration Stated complaint: l ring finger laceration Time Seen by Provider: 12/23/24 13:23 Source: patient and RN notes reviewed Mode of arrival: ambulatory Limitations: no limitations History of Present Illness ED Provider: Whit García PA-C HPI narrative: This is a 39-year-old female who presents emergency department with complaints of laceration to her left 4th digit. Patient states that while she was at home moving a bureau, a mirror fell and landed onto her left 4th digit. Patient sustained a laceration from this. She reports no numbness and tingling into the distal aspect of her finger. Denies previous injury to her hand in the past. She is right-hand dominant. No other complaints or concerns at this time. MD complaint: Laceration Onset (ago): hour(s) Radiation: non-radiation Quality: aching Pain Consistency: constant Relieving factors: none Exacerbating factors: none Associated symptoms: denies other symptoms Treatments prior to arrival: none Related Data Home Medications ?Medication ?Instructions ?Recorded ?Confirmed levonorgestrel 21 mcg/24 hr (up to See Rx Instructions .Route .COMPLEX 05/11/22 10/18/24 8 years) 52 mg intrauterine device (Mirena) multivitamin 1 tab PO DAILY 07/15/22 10/18/24 Previous Rx's ?Medication ?Instructions ?Recorded blood pressure monitor (Blood #1 ea 11/23/21 Pressure Kit) famotidine 20 mg tablet 20 mg PO BEDTIME #90 tabs 04/11/23 sumatriptan succinate 25 mg tablet 25 mg PO Q2H PRN Migraine Headache 11/24/23 (Imitrex) 30 days #9 tabs albuterol sulfate 90 mcg/actuation 1 inh inhalation QID PRN shortness 01/11/24 aerosol inhaler of breath or wheezing 30 days #8.5 grams amlodipine 2.5 mg tablet 2.5 mg PO DAILY #90 tabs 01/11/24 loratadine 10 mg tablet 10 mg PO DAILY 90 days #90 tabs 02/19/24 calcium 600 mg (as 1 tab PO DAILY 90 days #90 tabs 05/17/24 carbonate)-vitamin D3 10 mcg (400 unit) tablet (Calcium 600 + D(3)) milnacipran 12.5 mg tablet 12.5 mg PO BID 7 days #14 tabs 09/17/24 (Savella) milnacipran 50 mg tablet (Savella) 50 mg PO BID 30 days #60 tabs 09/17/24 azathioprine 50 mg tablet 150 mg (3 x 50 mg) PO DAILY #270 10/18/24 tabs prednisone 5 mg tablet 2.5 mg (1/2 x 5 mg) PO DAILY 90 10/18/24 days #45 tabs amoxicillin 875 mg-potassium 1 tab PO BID 7 days #14 tabs 12/23/24 clavulanate 125 mg tablet Allergies Allergy/AdvReac Type Severity Reaction Status Date / Time naproxen (From Aleve) Allergy Severe Rash Verified 12/23/24 12:01 sulfasalazine Allergy Severe redness Verified 12/23/24 12:01 and itching nitrofurantoin (From Allergy Rash Verified 12/23/24 12:01 Macrobid) Sulfa (Sulfonamide Allergy Rash Verified 12/23/24 12:01 Antibiotics) belimumab (From Benlysta) AdvReac Intermediate Fatigue Verified 12/23/24 12:01 methotrexate AdvReac Intermediate Fatigued Verified 12/23/24 12:01 Review of Systems Review of Systems: Yes all other systems are reviewed and are negative Constitutional: Constitutional: Reports as per [facility] Past Medical History Medical History (Updated 12/23/24 @ 15:02 by KETURAH Dwyer) 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 Mother Bipolar 1 disorder Chronic mental illness Family history of thyroid problem Maternal Grandmother Hypertension Maternal Grandfather No problems noted. 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 [employer] Current occupational exposures/hazards: No Cognitive needs: No Hearing needs: No Vision needs: Yes (Glasses) Physical Exam ED Vital Signs: Vital Signs - 24 hr 12/23/24 11:57 12/23/24 15:18 Temperature 97.8 F 98.2 F Pulse Rate 71 83 Respiratory Rate 16 16 Blood Pressure 135/74 145/77 H Pulse Oximetry 99 98 Oxygen Delivery Method Room Air Room Air BMI result Body Mass Index 29.0 Const General: cooperative, comfortable and no acute distress Orientation/consciousness: patient oriented x3 Limitations: no limitations HENMT Head: Yes normal to inspection, Yes normocephalic and Yes atraumatic Ears: hearing grossly normal bilaterally General nose exam: Normal external nose present Face and sinus: Yes normal facial exam Mouth: Normal oral and palatal mucosa present, oropharynx normal and moist mucous membranes Throat: Yes posterior oropharynx normal Eyes General: appearance normal, both eyes and all related structures Eyelids: Yes eyelids normal Conjunctivae: conjunctivae normal Sclerae: sclerae normal Pupils: Equal, round and reactive pupils present EOM: EOMs intact bilaterally Neck Neck: Yes normal visual inspection, Yes full ROM and Yes no lymphadenopathy Lymphatic: no lymphadenopathy noted Chest Chest palpation & inspection: normal inspection of the chest Resp Effort & Inspection: normal respiratory effort and able to speak in complete sentences Cardio Rate: regular rate Rhythm: regular rhythm GI Inspection: Yes normal to inspection Skin General skin exam: no rashes or lesions noted Trauma: no lacerations or abrasions Wounds: no wounds Neuro General: patient oriented x3 and moves all extremities Cranial nerves: Yes Equal, round and reactive pupils present Extrem Other: Left digit, 4th digit, palmar aspect, there is a 4 cm partial-thickness laceration noted. No active bleeding. Full ROM of the DIP and PIP. Distal sensation and circulation intact. General: Yes normal to inspection Right upper extremity: normal to inspection Left upper extremity: normal to inspection Right lower extremity: normal to inspection Left lower extremity: normal to inspection Course Course Course Narrative: RME performed by Candice Null PA-C. Patient is a 39 year old assigned female at presenting to the emergency department with a left ring finger injury. Patient states that a mirror came down like a hatchet on her finger. Detailed physical exam and review of systems are deferred to the regulatory coordinator. Imaging ordered. Patient placed back in the waiting room pending room availability and results. Medications Administered Discontinued Medications Generic Name Dose Route Start Last Admin Trade Name Alicia PRN Reason Stop Dose Admin Diphtheria/Tetanus/Acell Pertussis 0.5 ml 12/23/24 11:58 12/23/24 15:00 Diphth,Pertus(Acell),Tet Adult 0.5 Ml Syringe IM 12/23/24 11:59 0.5 ml .ONCE ONE Administration Lidocaine HCl 5 ml 12/23/24 13:40 12/23/24 14:53 Lidocaine Hcl 1 % Mpf 5 Ml Vial SUBCUT 12/23/24 13:41 5 ml ONCE ONE Administration Procedures Laceration Laceration 1: Side (If applicable): left Size (cm): 4 Description: linear Depth: simple, single layer Local Anesthetic: lidocaine 1% Amount of anesthesia used (mL): 5 Pre-repair: wound explored, irrigated extensively and deep structures intact Skin layer closed with: nylon Size (cm): 6-0 Number of sutures: 6 Technique: simple, interrupted Medical Decision Making Medical Decision Making [facility] Narrative: This is a 39-year-old female who presents emergency department with concerns for laceration to 4th digit. On arrival, 4 cm laceration noted to the remaining suture repair. X-rays were obtained revealing no acute bony abnormality. She has full ROM. No tendon involvement. Wound was repaired using 6 sutures. See procedure note for detail. Given strict return precautions. Tetanus was updated in the department today as last was given in 2014. No other complaints or concerns at this time. Differential Diagnosis Differential Diagnoses: The differential diagnosis associated with the presentation includes Laceration, contusion, foreign body, fracture Admission/Observation Consideration of admission/observation: Escalation of care including admission/observation considered Lab Data [facility] Lab Attestation statement: I reviewed the patient's lab results. Radiology Impression Discussion of test interpretation with radiology: I have reviewed the radiologist's reading. Radiologist Impression: EXAMINATION: XR HAND 3 OR MORE VIEWS LEFT HISTORY: pain, injury COMPARISON: Correlation is made to plain films of the left wrist dated 04/01/2016. FINDINGS: Three views of the left hand are submitted. Osseous mineralization is normal. There is no fracture or dislocation. The joint spaces are preserved. There is mild soft tissue swelling over the middle phalanx of the ring finger. XR/XR hand LT min 3V IMPRESSION: Soft tissue swelling of the 4th finger. No osseous abnormality is identified. Electronically signed by: Luis Jean MD 12/23/2024 12:25 PM EDT RP Dictated By: Luis Jean MD Signed By: <Electronically signed External Record Review External record reviewed: Inpatient record, Office record, Outpatient record, Prior outpatient labs, Prior outpatient radiology, Primary care record and Outside ED record Discharge Plan Discharge Clinical Impression: Laceration of finger Patient Disposition: Home, Self-Care Instructions: Care For Your Stitches (ED), Finger Laceration (ED) Additional Instructions: You were seen in the emergency department after lacerating your finger. We had applied 6 sutures to your finger. Please have these removed in 10-14 days. You may follow-up here or follow-up with your primary care physician. You may take Tylenol and or ibuprofen as needed for pain and symptoms. Not submerge wound. You may gently rinse wound with warm soapy water tomorrow. Take prescribed antibiotic as directed, finish the entire course. Your x-ray does not show any bony abnormalities. Keep close eye on your wound, if any increased redness, swelling, fevers, chills, drainage occur, please seek emergent care. If any new or worsening symptoms occur including but not limited to these above symptoms, please return for re-evaluation. Prescriptions: New amoxicillin-pot clavulanate 875-125 mg tablet 1 tab PO BID 7 Days Qty: 14 0RF No Action famotidine 20 mg tablet 20 mg PO BEDTIME Qty: 90 1RF sumatriptan succinate [Imitrex] 25 mg tablet 25 mg PO Q2H PRN (Reason: Migraine Headache) 30 Days Qty: 9 1RF Rx Instructions: take 1 tab at onset of headache; if no relief may repeat 1 tab after at least 2 hrs; max = 4 tabs/24 hr PO amlodipine 2.5 mg tablet 2.5 mg PO DAILY Qty: 90 3RF loratadine 10 mg tablet 10 mg PO DAILY 90 Days Qty: 90 1RF calcium carbonate-vitamin D3 [Calcium 600 + D(3)] 600 mg-10 mcg (400 unit) tablet 1 tab PO DAILY 90 Days Qty: 90 2RF Savella 12.5 mg tablet 12.5 mg PO BID 7 Days Qty: 14 0RF Savella 50 mg tablet 50 mg PO BID 30 Days Qty: 60 1RF multivitamin Tablet 1 tab PO DAILY (DME) blood pressure monitor [Blood Pressure Kit] Kit See Rx Instructions .Route Qty: 1 0RF Rx Instructions: As directed albuterol sulfate 90 mcg/actuation HFA aerosol inhaler 1 inh inhalation QID PRN (Reason: shortness of breath or wheezing) 30 Days Qty: 8.5 0RF Mirena 20 mcg/24 hours (8 yrs) 52 mg intrauterine device See Rx Instructions .ROUTE .COMPLEX Rx Instructions: 1 intrauterinely prednisone 5 mg tablet 2.5 mg PO DAILY 90 Days Qty: 45 1RF azathioprine 50 mg tablet 150 mg PO DAILY Qty: 270 1RF Stand Alone Forms: Work/School Release Interventions: ED Discharge Assessment Last Done: 12/23/24 15:18 Discharge Date/Time: 12/23/24 15:19 Print Language: Turkish
[2024-12-23 11:57] VITALS: BP 135/74; PULSE 71; RESP 16; TEMP 36.6; O2SAT 99; BMI 29.0
--- OUTSIDE RECORDS SUMMARY | 2024-12-23 14:30 | XMS_ITS | Patient Health Record ---
Author Organization [facility] Address [address] [place] [address] Care Team Providers Care Second Hand Paper Machine Name Role Phone Vignesh Lauren Primary Care Provider Unavailab Luis Paula Unavailable [phone] ELVIA LUZ Unavailable Unavailable Allergies Allergen (clinical drug ingredient) Drug/Non Drug Allergy documented on EMR Reaction Allergy Type Onset Date Status sulfacetamide Sulfacetamide Sodium Unknown Drug Allergy Active sulfasalazine sulfasalazine (uncoded) Rash,jaundice, hepatitis Allergy Active Reason For Referral No Information Medications Medication SIG (Take, Route, Fr equency, Duration) Notes Start Date End Date Status Calcium 600 MG 1 tablet with meals Orally Once a day Active Vitamin D-3 1000 UNIT 1 capsule Orally O nce a day for 30 day(s) Active Pilocarpine HCl 5 MG 1 tablet Orally once a day Active Immunizations Vaccine Route Administration Date Status Comme nts Influenza Unknown 04/11/2018 Administered Social History Tobacco Use: Social History Observation Description Date Details (start date - stop date) Never Smoker NA - NA Tobacco Use/Smoking Question Answer Notes Patient is a nonsmoker Alcohol Screen Question Answer Notes Did you have a drink contain ing alcohol in the past year? Yes How often did you have a dri nk containing alcohol in the past year? Monthly or less (1 point) How many drinks did you have on a typical day when you were drinking in the past year? 1 or 2 drinks (0 point) How often did you have 6 or more drinks on one occasion in the past year? 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 Plan Of Treatment No Information Insurance Providers Payer Name Payer Address Payer Phone Subscriber Number Group Number Insured Name Patient Relationship to Insured Coverage Start Date Coverage End Date [facility] [address] [facility] [place] [phone] [id number] MILO MULTANI Self - patient is the insured Medical (General) History Medical History History ICD Code Denies [place],DM,CVA,Lung disease,renal dise ase Sjogren's Disease Sulfasalazine-induced jaundi ce, hepatitis, and rash in 11/2018--resolved--- workup of liver diseases otherwise negative including imaging studies, viral serologies, Monospot, and autoimmune studies Surgical History Surgery Date(Month/Year) Right arm biopsy for the skin rash from Sulfaslazine 2018
[2024-12-23] MEDS: Lidocaine HCl 1 % MPF 5 ML VIAL SUBCUT (14:53)
[2024-12-23] MEDS: Diphth,Pertus(ACell),Tet Adult 0.5 ML SYRINGE IM (15:00)
[2024-12-23 15:18] VITALS: BP 145/77; PULSE 83; RESP 16; TEMP 36.8; O2SAT 98
== END 2024-12-23 15:19 | disposition home or self-care (01) ==
PROVIDERS: Emergency Provider Emergency Medicine; PCP Physician Assistant
DX: S61.215A Laceration without foreign body of left ring finger without damage to nail, initial encounter (principal); W20.8XXA Other cause of strike by thrown, projected or falling object, initial encounter; M79.645 Pain in left finger(s); Y93.E9 Activity, other interior property and clothing maintenance; Y92.032 Bedroom in apartment as the place of occurrence of the external cause; Y99.8 Other external cause status; Z23 Encounter for immunization
CPT/HCPCS: 12042; 73130; 90471; 90715; 99282; 99284; J2003

== ENCOUNTER → 2024-12-23 11:58 | Outpatient (BNV) | payer OTHER, SELFPAY | PROVIDERS: PCP Physician Assistant; Visit Provider Radiology Diagnostic Radiology | DX: M79.89 Other specified soft tissue disorders (principal) | CPT/HCPCS: 73130 ==

== ENCOUNTER 2025-01-03 08:15 | Outpatient (AMB) | payer OTHER, SELFPAY ==
[2025-01-03 08:17] VITALS: BP 140/82; PULSE 81; TEMP 36.3; O2SAT 99; BMI 29.5
--- NOTE | 2025-01-03 08:17 | A.OFFPC_ITS ---
Vital Signs 3 01/03/25 08:17 Height 5 ft 5 in Weight 177 lb 4 oz BMI 29.5 BP 140/82 H Blood Pressure Location Lt brachial Position Sitting Pulse 81 Pulse Source Pulse Oximeter Temp 97.3 F Temp Source Temporal Artery Scan Pulse Oximetry (%) 99 Oxygen Delivery Method Room Air Intake Visit Reasons: [facility] 12/23 6 sutures removal in finger Allergies naproxen (From Aleve) Allergy (Severe, Verified 01/03/25 08:20) Rash sulfasalazine Allergy (Severe, Verified 01/03/25 08:20) redness and itching nitrofurantoin (From Macrobid) Allergy (Verified 01/03/25 08:20) Rash Sulfa (Sulfonamide Antibiotics) Allergy (Verified 01/03/25 08:20) Rash belimumab (From Benlysta) Adverse Reaction (Intermediate, Verified 01/03/25 08:20) Fatigue methotrexate Adverse Reaction (Intermediate, Verified 01/03/25 08:20) Fatigued Tobacco use date assessed: 09/12/24 Dental Screening Dental Screen Date: 09/12/24 Did you have a dental visit in the last 12 months?: Yes Did you have a dental problem in the last 6 months where you did not have access to dental care?: No Was dental information given to patient?: Patient has dentist HPI HPI Comments 2 History of Present Illness0 Details 39 y/o Female patient who presents to e clinic today for EDF. Pt was admitted at [facility] on 12/23 for an evaluation and treatment of small laceration left 4th digit. She presents today for Suture removal. 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 Mother Bipolar 1 disorder Chronic mental illness Family history of thyroid problem Maternal Grandmother Hypertension Maternal Grandfather No problems noted. 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 1. Little interest or pleasure in doing things: not at all 2. Feeling down, depressed, or hopeless: not at all 3. Trouble falling or staying asleep, or sleeping too much: not at all 4. Feeling tired or having little energy: several days 5. Poor appetite or overeating: more than half the days 6. Feeling bad about yourself - or that you are a failure or have let yourself or your family down: not at all 7. Trouble concentrating on things, such as reading the newspaper or watching television: more than half the days 8. Moving or speaking so slowly that other people could have noticed. Or the opposite - being so fidgety or restless that you have been moving around a lot more than usual: not at all 9. Thoughts that you would be better off or of hurting yourself in some way: not at all Total score: 5 Source: Developed by Drs. Luis Barahona, Kadie Senior, Shahid Baez and colleagues, with an educational minor from [employer]. Thrive Questionnaire Date Thrive assessed: 12/29/24 I am a: Patient What is your living situation today?: I have a steady place to live Within the past 12 months, did the food you bought not last and you didn't have the money to get more?: Sometimes True Within the past 12 months, did you worry whether your food would run out before you got money to buy more?: Often true Do you have trouble paying for medicines?: Yes Do you have trouble getting transportation to medical appointments?: No Do you have trouble paying your heating and electricity bill?: Yes Do you have trouble taking care of your child, family member or friend?: No Do you have trouble with day-to-day activities such as bathing, preparing meals, shopping, managing finances, etc.?: Yes Are you currently unemployed and looking for a job?: No Are you interested in more education?: I choose not to answer this question Please select the resources that you would like help with: Housing/[facility], Food and Paying for medicine Currently or been in a relationship where the following occur: No concerns reported THRIVE Score: 3 AUDIT C Alcohol Use Questionnaire (AUDIT-C) 1. How often do you have a drink containing alcohol?: Never 3. How often do you have six or more drinks on one occasion?: Never Total Score: 0 LUCA-7 AMB Questionnaire LUCA-7 Date LUCA - 7 assessed: 09/12/24 Feeling nervous, anxious, or on edge: 1 = Several days Not being able to stop or control worryin = Several days Worrying too much about different things: 1 = Several days Trouble relaxin = Several days Being so restless that it is hard to sit still: 1 = Several days Becoming easily annoyed or irritable: 1 = Several days Feeling afraid as if something awful might happen: 0 = Not at all Total LUCA-7 score (0-4 normal; 5-9 mild; 10-14 moderate; 15-21 severe): 6 Source: Developed by Drs. Luis Barahona, Kadie Senior, Shahid Baez and colleagues, with an educational minor from [employer]. Review of Systems Const All systems reviewed & are unremarkable except as noted in HPI and below Physical exam (Primary Care) Vital Signs: Last Vital Signs Temp 97.3 F 01/03/25 08:17 Pulse 81 01/03/25 08:17 BP 140/82 H 01/03/25 08:17 Pulse Ox 99 01/03/25 08:17 Oxygen Delivery Method Room Air 01/03/25 08:17 BMI result Body Mass Index 29.5 Tobacco/Smoking Status: Tobacco use Status Tobacco use date assessed 09/12/24 01/03/25 08:21 Patient Tobacco Use Status Never used Tobacco 01/03/25 08:21 e-Cigarette/Vaping Use Never Used 01/03/25 08:21 PHQ-9: PHQ-9 Score PHQ-9: Total score 5 01/03/25 08:21 Thrive Assessment: Date of Thrive Assessment Date Thrive assessed 12/29/24 01/03/25 08:21 Currently or been in a relationship where the following occur: No concerns reported Const General: no acute distress Orientation/consciousness: patient oriented x3 Neuro General: patient oriented x3, gait normal and moves all extremities Extrem Hand/finger images: 2 1. Removed 6 sutures, wound clean and healing well. Psych Speech and movement: Normal speech and movement present Coding Level of Care Code Est Pt Level 4 (02003) Diagnoses Encounter for removal of sutures Z48.02 Time Spent (min) 20 Assessment & Plan Assessment & Plan (1) Encounter for removal of sutures: Code(s): Z48.02 - Encounter for removal of sutures Category: Medical Plan: All sutures removed with no complications - Pt tolerated procedure well. Wound clean and dry.
--- OUTSIDE RECORDS SUMMARY | 2025-01-03 08:17 | XMS_ITS | Patient Health Record ---
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 Plan Of Treatment No Information Insurance Providers Payer Name Payer Address Payer Phone Subscriber Number Group Number Insured Name Patient Relationship to Insured Coverage Start Date Coverage End Date [facility] [address] [facility] [place] [phone] [id number] MILO MULTANI Self - patient is the insured Medical (General) History Medical History History ICD Code Denies [place],DM,CVA,Lung disease,renal dise ase Sjogren's Disease Sulfasalazine-induced jaundi ce, hepatitis, and rash in 11/2018--resolved--- workup of liver diseases otherwise negative including imaging studies, viral serologies, Monospot, and autoimmune studies Surgical History Surgery Date(Month/Year) Right arm biopsy for the skin rash from Sulfaslazine 2018
== END 2025-01-03 08:55 | disposition home or self-care (01) ==
LOC: HO.HMCH 08:15
PROVIDERS: PCP Physician Assistant; Visit Provider Nurse Practitioner Family
DX: Z48.02 Encounter for removal of sutures (principal)

== ENCOUNTER 2025-01-13 07:42 | Outpatient (AMB) | payer OTHER, SELFPAY ==
--- OUTSIDE RECORDS SUMMARY | 2025-01-13 07:45 | XMS_ITS | Patient Health Record ---
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 Plan Of Treatment No Information Insurance Providers Payer Name Payer Address Payer Phone Subscriber Number Group Number Insured Name Patient Relationship to Insured Coverage Start Date Coverage End Date [facility] [address] [facility] [place] [phone] [id number] MILO MULTANI Self - patient is the insured Medical (General) History Medical History History ICD Code Denies [place],DM,CVA,Lung disease,renal dise ase Sjogren's Disease Sulfasalazine-induced jaundi ce, hepatitis, and rash in 11/2018--resolved--- workup of liver diseases otherwise negative including imaging studies, viral serologies, Monospot, and autoimmune studies Surgical History Surgery Date(Month/Year) Right arm biopsy for the skin rash from Sulfaslazine 2018
--- NOTE | 2025-01-13 08:02 | A.OFFPC_ITS ---
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 Accompanied by: Self / Same As Patient Allergies naproxen (From Aleve) Allergy (Severe, Verified 01/13/25 08:10) Rash sulfasalazine Allergy (Severe, Verified 01/13/25 08:10) redness and itching nitrofurantoin (From Macrobid) Allergy (Verified 01/13/25 08:10) Rash Sulfa (Sulfonamide Antibiotics) Allergy (Verified 01/13/25 08:10) Rash belimumab (From Benlysta) Adverse Reaction (Intermediate, Verified 01/13/25 08:10) Fatigue methotrexate Adverse Reaction (Intermediate, Verified 01/13/25 08:10) Fatigued Medication List - Last Reconciled 01/13/25 by Vignesh Lauren PA-C albuterol sulfate 90 mcg/actuation 1 inh inhalation QID PRN 30 days amlodipine 2.5 mg PO DAILY azathioprine 150 mg (3 x 50 mg) PO DAILY blood pressure monitor (Blood Pressure Kit) As directed calcium carbonate-vitamin D3 600 mg-10 mcg (400 unit) (Calcium 600 + D(3)) 1 tab PO DAILY 90 days famotidine 20 mg PO BEDTIME levonorgestrel (Mirena) 1 intrauterinely loratadine 10 mg PO DAILY 90 days multivitamin 1 tab PO DAILY prednisone 2.5 mg (1/2 x 5 mg) PO DAILY 90 days sumatriptan succinate (Imitrex) 25 mg PO Q2H PRN 30 days Tobacco use date assessed: 09/12/24 Dental Screening Dental Screen Date: 09/12/24 HPI Annual Exam HPI Details Patient is a 39-year-old female here today for an annual physical . Patient has a fast history significant for sjogrens syndrome, migraines, autoimmune hepatitis, PVCs, presyncope ?cocnerns--> She also experiences intermittent pain at the tips of her fingers and toes, which she suspects may be related to her lupus. ? . ?? ?SLE/? Sjodrens/fibromyalgia:? She is not have followed by Rheumatology and has started a new disease modifying drug.? Does report side effects from the medicine though are fairly tolerable. Her prednisone has been recently reduced to 2.5 mg. She still does report pain in her joints and some sleep is nice related to her lupus. Often having call lot of work due to being fatigued in into much pain. She uses Tylenol for her pain at this time. She continues on low-dose prednisone. Fortunately still has pains related to her autoimmune disease and fibromyalgia. ?. Hypertension: Blood pressure today in office acceptable today. Continues on am lodipine 2.5 mg. Today blood pressure reading of 136/82 mmHg. She experiences peripheral edema, particularly in the feet, which may be exacerbated by her antihypertensive medication. PLAN: Will transition her to lisinopril 5 mg and hold amlodipine due to pedal edema ? .. ? GERD: Patient reports famotidine has been working for her nighttime GERD symptoms. .. Mood disorder: Has been reached out by mental health therapy though did answer phone call. She is interested in starting therapy. Vaccine: UTD with COVID vaccine , UTD with flu, up-to-date tetanus vaccine .. 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 Mother Bipolar 1 disorder Chronic mental illness Family history of thyroid problem Maternal Grandmother Hypertension Maternal Grandfather No problems noted. 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 [employer] Current occupational exposures/hazards: No Cognitive needs: No Hearing needs: No Vision needs: Yes (Glasses) Female Reproductive History Menstrual Age of Menarche: 11 Questionnaire Thrive Questionnaire Date Thrive assessed: 12/29/24 I am a: Patient What is your living situation today?: I have a steady place to live Within the past 12 months, did the food you bought not last and you didn't have the money to get more?: Sometimes True Within the past 12 months, did you worry whether your food would run out before you got money to buy more?: Often true Do you have trouble paying for medicines?: Yes Do you have trouble getting transportation to medical appointments?: No Do you have trouble paying your heating and electricity bill?: Yes Do you have trouble taking care of your child, family member or friend?: No Do you have trouble with day-to-day activities such as bathing, preparing meals, shopping, managing finances, etc.?: Yes Are you currently unemployed and looking for a job?: No Are you interested in more education?: I choose not to answer this question Currently or been in a relationship where the following occur: No concerns reported THRIVE Score: 3 LUCA-7 AMB Questionnaire LUCA-7 Date LUCA - 7 assessed: 09/12/24 Source: Developed by Drs. Luis Barahona, Kadie Senior, Shahid Baez and colleagues, with an educational minor from [employer]. Review of Systems Const Denies body aches, Denies chills, Denies excessive sweating, Denies fatigue, Denies fever(s) and Denies headache(s) Eyes Denies blurry vision ENT Denies dysphagia, Denies vertigo, Denies dizziness, Denies headache(s), Denies hearing loss and Denies tinnitus Card Denies chest pain, Denies chest pain with activity, Denies syncope, Denies irregular heart rhythm and Denies dyspnea Resp Denies chest congestion, Denies cough, Denies hemoptysis, Denies dyspnea and Denies wheezing GI Denies abdominal pain, Denies melena, Denies hematochezia, Denies coffee ground emesis, Denies dysphagia, Denies diarrhea, Denies nausea and Denies vomiting Denies urinary frequency, Denies dysuria, Denies urinary hesitancy and Denies urinary urgency Musc Denies arthralgias, Denies limited range of motion, Denies muscle cramps and Denies muscle weakness Skin/Breast Denies rash and Denies skin ulcer Neuro Denies Abnormal speech present, Denies confusion, Denies vertigo, Denies dizziness, Denies syncope, Denies headache(s), Denies memory loss and Denies seizure-like activity Psych Denies anxiety, Denies confusion, Denies depression, Denies memory loss, Denies panic attacks and Denies paranoia Endo Denies excessive sweating, Denies fatigue, Denies flushing, Denies polydipsia and Denies polyuria Aller/Immun Denies wheezing Physical exam (Primary Care) Vital Signs: Last Vital Signs Pulse 74 01/13/25 08:03 BP 136/82 01/13/25 08:03 Pulse Ox 98 01/13/25 08:03 Oxygen Delivery Method Room Air 01/13/25 08:03 BMI result Body Mass Index 29.3 Tobacco/Smoking Status: Tobacco use Status Tobacco use date assessed 09/12/24 01/13/25 08:08 Patient Tobacco Use Status Never used Tobacco 01/13/25 08:08 e-Cigarette/Vaping Use Never Used 01/13/25 08:08 Thrive Assessment: Date of Thrive Assessment Date Thrive assessed 12/29/24 01/13/25 08:08 Currently or been in a relationship where the following occur: No concerns reported Const General: cooperative, comfortable, no acute distress, alert and awake; No confusion Orientation/consciousness: oriented to person, oriented to place, patient oriented x3 and No confusion HENMT Head: Yes normocephalic Ears: external ears normal and TM's normal bilaterally Face and sinus: No sinus tenderness Mouth: Normal oral and palatal mucosa present and tongue normal Teeth and gingiva: dentition normal and gingiva normal Throat: Yes posterior oropharynx normal, Yes tonsils normal and Yes uvula midline Eyes Conjunctivae: conjunctivae normal Sclerae: sclerae normal Pupils: Equal, round and reactive pupils present EOM: EOMs intact bilaterally Direct Ophthalmoscopy: No no photophobia Neck Neck: Yes no lymphadenopathy, No tender and Yes no JVD Thyroid: Thyroid normal Carotids: no bruits Chest Chest palpation & inspection: no tenderness Resp Effort & Inspection: normal respiratory effort, no audible wheezes, not labored and no stridor Auscultation: no crackles, no rales, no rhonchi and no wheezes Cardio Jugular venous distension: no JVD Rate: regular rate, not bradycardic and not tachycardic Rhythm: regular rhythm Bruits: no carotid bruits Peripheral pulses: Peripheral pulses 2+ throughout GI Inspection: Yes normal to inspection, No abdominal wall ecchymosis and No visible herniation Palpation (GI): Soft to palpation, nontender, no guarding, not rigid and No hepatosplenomegaly present Auscultation: normoactive bowel sounds General: Yes no CVA tenderness Back/Spine/Pelvis Back: no CVA tenderness and No back tenderness Cervical Spine: cervical ROM normal Thoracic/Lumbar Spine: thoracic and lumbar spine normal to inspection, straight leg raise negative bilaterally, No thoraco-lumbar ROM limited and No lumbar spinal tenderness Skin Lesions: no lesions Rashes: no rashes Wounds: no wounds Neuro General: oriented to person, oriented to place, patient oriented x3, CN's II-XI intact bilaterally and No confusion Cranial nerves: Yes Equal, round and reactive pupils present and Yes Normal accommodation reflex present Cognition (Neuro): normal cognition Speech: No Abnormal speech present Gait exam (Neuro): Normal gait present Motor exam (neuro): 5/5 motor strength present throughout Extrem Right upper extremity: full ROM; no cyanosis Left upper extremity: full ROM; no cyanosis Right lower extremity: no edema Left lower extremity: no edema Psych Appearance: grossly normal Mental Status: mental status grossly normal Affect: normal affect Attitude: cooperative Thought process: Normal thought process present Coding Level of Care Code Est Pt Prev Care 40-64y(97205) Diagnoses Annual physical exam Z00.00 Systemic lupus erythematosus, unspecified SLE type, unspecified organ involvement status M32.9 Systemic lupus erythematosus organ involvement: unspecified Systemic lupus erythematosus type: unspecified Primary hypertension I10 Hypertension type: primary hypertension Paresthesia of both hands R20.2 Nerve pain M79.2 Assessment & Plan Assessment & Plan (1) Annual physical exam: Code(s): Z00.00 - Encounter for general adult medical examination without abnormal findings Category: Medical Plan: As per HPI (2) SLE (systemic lupus erythematosus): Comment: dx 2008 MTX DC 09/2022 (fatigue, lightheadedness, GI upset) Azathioprine 10/2022 partially effective Benlysta 04/2023 partially effective. DC 12/2023 worsening fatigue Plaquenil - ?rash Code(s): M32.9 - Systemic lupus erythematosus, unspecified Category: Medical Qualifiers: Systemic lupus erythematosus organ involvement: unspecified Systemic lupus erythematosus type: unspecified Qualified Code(s): M32.9 - Systemic lupus erythematosus, unspecified Plan: As per HPI- continues to follow [facility]. Continues on low-dose prednisone and azathioprine. Still complains of fatigue, joint stiffness and pain worse in the mornings ect.. (3) HTN (hypertension): Code(s): I10 - Essential (primary) hypertension Category: Medical Qualifiers: Hypertension type: primary hypertension Qualified Code(s): I10 - Essential (primary) hypertension Plan: Patient's blood pressure acceptable today in office. She has noted pedal edema thus will hold amlodipine and to start lisinopril 5 mg for blood pressure control. Goal blood pressures to remain below 140/90 (4) Paresthesia of both hands: Code(s): R20.2 - Paresthesia of skin Category: Medical Plan: Patient has been experiencing burning like pains in both hands, will send for EMG and nerve velocity testing of the upper extremities to evaluate for carpal tunnel syndrome. (5) Nerve pain: Code(s): M79.2 - Neuralgia and neuritis, unspecified Category: Medical Plan: Patient also reporting nerve type burning pain in her toes, will send for EMG testing of the lower extremity to evaluate for neuropathy. We did discuss medications such as Neurontin, Cymbalta and Lyrica in the possible side effects. She was willing to try vitamin B6 for nerve type pain. We also hope that changing amlodipine will reduce her lower extremity willing in help reduce her nerve type pain Orders: Orders NE electromyogram (EMG) 01/13/25 R20.2 - Paresthesia of skin NE electromyogram (EMG) 01/13/25 M79.2 - Neuralgia and neuritis, unspecified NE nerve conduction velocity 01/13/25 R20.2 - Paresthesia of skin Medications: New lisinopril 5 mg PO DAILY 90 tabs 1RF 90 days I10 - Essential (primary) hypertension pyridoxine (vitamin B6) 50 mg PO DAILY 30 tabs 3RF 30 days R20.2 - Paresthesia of skin On Hold amlodipine Hold Comment: Doctor's Order 2.5 mg PO DAILY 90 tabs 3RF I10 - Essential (primary) hypertension
[2025-01-13 08:03] VITALS: BP 136/82; PULSE 74; O2SAT 98; BMI 29.3
== END 2025-01-13 08:42 | disposition home or self-care (01) ==
LOC: HO.HMCH 07:43
PROVIDERS: PCP Physician Assistant; Visit Provider Physician Assistant
DX: Z00.00 Encounter for general adult medical examination without abnormal findings (principal); M32.9 Systemic lupus erythematosus, unspecified; I10 Essential (primary) hypertension; R20.2 Paresthesia of skin; M79.2 Neuralgia and neuritis, unspecified

== ENCOUNTER 2025-01-29 09:03 | Outpatient (REF) | payer OTHER, SELFPAY ==
--- OUTSIDE RECORDS SUMMARY | 2025-01-29 09:21 | XMS_ITS | Patient Health Record ---
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 Plan Of Treatment No Information Insurance Providers Payer Name Payer Address Payer Phone Subscriber Number Group Number Insured Name Patient Relationship to Insured Coverage Start Date Coverage End Date [facility] [address] [facility] [place] [phone] [id number] MILO MULTANI Self - patient is the insured Medical (General) History Medical History History ICD Code Denies [place],DM,CVA,Lung disease,renal dise ase Sjogren's Disease Sulfasalazine-induced jaundi ce, hepatitis, and rash in 11/2018--resolved--- workup of liver diseases otherwise negative including imaging studies, viral serologies, Monospot, and autoimmune studies Surgical History Surgery Date(Month/Year) Right arm biopsy for the skin rash from Sulfaslazine 2018
== END 2025-01-29 09:04 | disposition home or self-care (01) ==
LOC: HO.MAMMO 09:03
PROVIDERS: PCP Physician Assistant; Visit Provider Physician Assistant
DX: Z12.31 Encounter for screening mammogram for malignant neoplasm of breast (principal)
CPT/HCPCS: 77063; 77067

== ENCOUNTER → 2025-01-29 09:15 | Outpatient (BNV) | payer OTHER, SELFPAY | PROVIDERS: PCP Physician Assistant; Visit Provider Radiology Body Imaging | DX: Z12.31 Encounter for screening mammogram for malignant neoplasm of breast (principal) | CPT/HCPCS: 77063; 77067 ==

== ENCOUNTER 2025-01-30 15:06 | Outpatient (REF) | payer OTHER, SELFPAY ==
--- OUTSIDE RECORDS SUMMARY | 2025-01-30 15:09 | XMS_ITS | Patient Health Record ---
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 Plan Of Treatment No Information Insurance Providers Payer Name Payer Address Payer Phone Subscriber Number Group Number Insured Name Patient Relationship to Insured Coverage Start Date Coverage End Date [facility] [address] [facility] [place] [phone] [id number] MILO MULTANI Self - patient is the insured Medical (General) History Medical History History ICD Code Denies [place],DM,CVA,Lung disease,renal dise ase Sjogren's Disease Sulfasalazine-induced jaundi ce, hepatitis, and rash in 11/2018--resolved--- workup of liver diseases otherwise negative including imaging studies, viral serologies, Monospot, and autoimmune studies Surgical History Surgery Date(Month/Year) Right arm biopsy for the skin rash from Sulfaslazine 2018
[2025-01-30 15:26] LABS: MANUAL DIFF FLAG NO
[2025-01-30 16:02] LABS: Hematocrit 39.8 % (37.0-47.0); Hemoglobin 13.5 g/dl (12.0-16.0); Imm Gran Abs Auto 0.02 X10*3/uL (0.00-0.03); Imm Gran Pct Auto 0.2 % (0.0-0.4); Lymphocytes Absolute Auto 1.2 X10*3/uL (1.2-4.9); Mean Corpuscular HGB Conc 33.9 g/dl (31.0-35.0); Mean Corpuscular Hemoglobin 31.9 pg (27.0-33.0); Mean Corpuscular Volume 94.1 fL (80.0-98.0); NRBC Abs Auto 0.000 X10*3/uL (0.0-0.012); NRBC Pct Auto 0.0 /100WBC (0.0-0.2); Platelet Count 259 X10*3/uL (160-400); Red Blood Count 4.23 X10*6/uL (4.20-5.50); White Blood Count 8.1 X10*3/uL (4.8-10.8)
[2025-01-30 16:05] LABS: Appearance Urine Cloudy; Glucose Urine UA Negative (Negative); PH 6.0 (5.0-9.0); Specific Gravity - Urine >= 1.030 (1.005-1.025); UMIC TRIGGER UA YES
[2025-01-30 16:24] LABS: Total Protein Urine Random 68 mg/dL (<12)
[2025-01-30 16:28] LABS: Alanine Aminotransferase 43 U/L (0-31); Albumin Level 4.4 g/dL (3.5-5.0); Alkaline Phosphatase 88 U/L (39-117); Anion Gap 11 (12-20); Aspartate Amino Transferase 29 U/L (5-31); Blood Urea Nitrogen 19 mg/dL (9-16); Calcium 9.4 mg/dL (8.4-10.2); Carbon Dioxide 26 mmol/L (22-29); Chloride 108 mmol/L (96-108); Estimated Glomerular Filt Rate 50; Potassium 4.1 mmol/L (3.3-5.1); Sodium 141 mmol/L (135-145); Total Protein 7.6 g/dL (6.5-8.0)
[2025-01-30 16:34] LABS: Protein/Creatinine Ratio, Ur 0.00 (<0.2)
== END 2025-01-30 15:07 | disposition home or self-care (01) ==
LOC: HO.LAB 15:06
PROVIDERS: PCP Physician Assistant; Visit Provider Student in an Organized Health Care Education/Training Program
DX: M32.9 Systemic lupus erythematosus, unspecified (principal)
CPT/HCPCS: 36415; 80053; 81001; 82570; 84156; 85025; 85652; 86140; 86160; 86225

== ENCOUNTER 2025-02-04 10:32 | Outpatient (AMB) | payer OTHER, SELFPAY ==
--- NOTE | 2025-02-04 10:50 | A.OFFVIS_ITS ---
Vital Signs 02/04/25 10:56 Height 5 ft 5 in Weight 173 lb 4.533 oz BMI 28.8 BP 138/82 Blood Pressure Location Rt brachial Position Sitting Pulse 89 Pulse Source Pulse Oximeter Pulse Oximetry (%) 97 Oxygen Delivery Method Room Air Intake Visit Reasons: follow up Intake Note: Patient presents for SLE follow up. Allergies naproxen (From Aleve) Allergy (Severe, Verified 02/04/25 10:54) Rash sulfasalazine Allergy (Severe, Verified 02/04/25 10:54) redness and itching nitrofurantoin (From Macrobid) Allergy (Verified 02/04/25 10:54) Rash Sulfa (Sulfonamide Antibiotics) Allergy (Verified 02/04/25 10:54) Rash belimumab (From Benlysta) Adverse Reaction (Intermediate, Verified 02/04/25 10:54) Fatigue methotrexate Adverse Reaction (Intermediate, Verified 02/04/25 10:54) Fatigued Medication List - Last Reconciled 02/04/25 by Leslye Newberry MD albuterol sulfate 90 mcg/actuation 1 inh inhalation QID PRN 30 days amlodipine 2.5 mg PO DAILY Held on 01/13/25. Instructions: Doctor's Order azathioprine 150 mg (3 x 50 mg) PO DAILY blood pressure monitor (Blood Pressure Kit) As directed calcium carbonate-vitamin D3 600 mg-10 mcg (400 unit) (Calcium 600 + D(3)) 1 tab PO DAILY 90 days famotidine 20 mg PO BEDTIME levonorgestrel (Mirena) 1 intrauterinely lisinopril 5 mg PO DAILY 90 days loratadine 10 mg PO DAILY 90 days multivitamin 1 tab PO DAILY prednisone 2.5 mg (1/2 x 5 mg) PO DAILY 90 days pyridoxine (vitamin B6) 50 mg PO DAILY 30 days sumatriptan succinate (Imitrex) 25 mg PO Q2H PRN 30 days HPI Comments Details: Patient is a 40-year-old female with hypertension, and systemic lupus erythematosus here today for follow up Interval History: Patient last seen 10/18/24 with me - On azathioprine 150mg daily and prednisone 5mg daily - No new complaints - no signs or symptoms of active disease - Prednisone decreased to 2.5mg daily Today - On azathioprine 150mg daily and prednisone 2.5mg daily - Has not been feeling great: joint pain - wrists, fingers, elbows, shoulders, back of the neck radiating to the shoulders, arch of the feet, shins - Has tried Tylenol which does not help, bought a new massage tool which also doesn't help - Nausea with the azathioprine Rheumatologic History: SLE dx 2008 Arthritis, malar rash +ALEKSANDAR, low complements, ++SSA MTX DC 09/2022 (fatigue, lightheadedness, GI upset) Azathioprine 10/2022 partially effective Benlysta 04/2023 partially effective. DC 12/2023 worsening fatigue In 2018 she was on hydroxychloroquine and sulfasalazine and she developed a rash with transaminitis, she had a skin biopsy which showed possible drug reaction, she was started on steroids with resolution of her rash and sulfasalazine and hydroxychloroquine were stopped.? Hydroxychloroquine was resumed 02/2022. In 06/2022 patient was admitted to the hospital with diffuse erythematous skin rash, fevers, inflammatory arthritis and transaminitis, symptoms rapidly resolved with steroid taper. This was 2 days after patient started Aleve It was unclear at that point whether patient's rash was due to drug reaction to Aleve verses a lupus rash. Labs when admitted also showed mild proteinuria 450 mg in addition to high WBC (possible concomitant UTI) Current Rheumatology Medication(s): Azathioprine 150 mg daily Prednisone 2.5 mg daily [facility] Medical History Encounter for removal of sutures alf (current) use of systemic steroids SLE (systemic lupus erythematosus) Hypertension Migraines Cervical cancer screening PVCs (premature ventricular contractions) Vasovagal syncope Surgical History History of surgery History of surgical biopsy Family History Father No problems noted. Mother Bipolar 1 disorder Chronic mental illness Family history of thyroid problem Maternal Grandmother Hypertension Maternal Grandfather No problems noted. 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 [employer] Current occupational exposures/hazards: No Cognitive needs: No Hearing needs: No Vision needs: Yes (Glasses) Female Reproductive History Menstrual Age of Menarche: 11 Review of Systems Const Details: Review of Systems Constitutional: Denies fever, chills, weight loss ENT: Denies vision changes, eye pain or eye redness, dental caries, dry mouth GI: Denies vomiting, diarrhea, abdominal pain, change in BM Pulm: Denies SOB, ESPARZA, hemoptysis, wheezing Cards: Denies chest pain, palpitations Skin: Denies nail changes, photosensitivity, 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 Well appearing and in no apparent painful distress HEENT Conjunctiva and sclera clear. No lymphadenopathy. CHEST/RESPIRATORY SYSTEM Normal respiratory effort and able to speak in complete sentences. Clear to auscultation bilaterally. No crackles, rales, rhonchi, wheezes heard. CARDIAC SYSTEM Regular rate and rhythm. S1 and S2 heard no murmurs. Radial pulses intact bilaterally MSK Hands * Right Hand: Able to make a fist. No swelling or tenderness to palpation of these joints. No deformities noted. * Left Hand: Able to make a fist. No swelling or tenderness to palpation of these joints. No deformities noted. Wrists * Right Wrist: Full ROM. 70 degrees of wrist flexion, 80 degrees of wrist extension. No swelling or TTP * Left Wrist: Full ROM. 70 degrees of wrist flexion, 80 degrees of wrist extension. No swelling or TTP Elbows * Right Elbow: Full ROM. No swelling or TTP. No TTP of the medial and lateral epicondyles * Left Elbow: Full ROM. No swelling or TTP. No TTP of the medial and lateral epicondyles Shoulders * Right shoulder: Full ROM. No swelling noted. No TTP of the AC joint, subacromial bursa or posterior shoulder * Left shoulder: Full ROM. No swelling noted. No TTP of the AC joint, subacromial bursa or posterior shoulder Hip bursa: Tenderness to palpation on the right. No TTP on the left Knees * Right knee: Full ROM. No swelling noted. No TTP of the knee joint lie or pes anserine bursa * Left knee: Full ROM. No swelling noted. No TTP of the knee joint lie or pes anserine bursa. Ankles * Right ankle: Good ankle dorsiflexion and plantar flexion. No swelling. No TTP of the ankle joint * Left ankle: Good ankle dorsiflexion and plantar flexion. No swelling. No TTP of the ankle joint Feet * Right foot: Negative squeeze test * Left foot: Negative squeeze test Tender points? * No tenderness to palpation of the bilateral trapezius, supraspinatus, anterior costochondral junctions, bilateral suboccipital muscle insertions SKIN No rashes Vital Signs: Last Vital Signs Pulse 89 02/04/25 10:56 BP 138/82 02/04/25 10:56 Pulse Ox 97 02/04/25 10:56 Oxygen Delivery Method Room Air 02/04/25 10:56 BMI result Body Mass Index 28.8 Results Reviewed Results Reviewed: Laboratory Tests 10/05/24 01/30/25 08:17 15:23 WBC 8.1 RBC 4.23 Hgb 13.5 Hct 39.8 Plt Count 259 ESR 14 Sodium 141 Potassium 4.1 Chloride 108 Carbon Dioxide 26 BUN 19 H Creatinine 1.19 AST 23 29 ALT 27 43 H C-Reactive Protein 0.51 H 0.59 H Laboratory Tests 01/30/25 15:23 Double Strand DNA Ab <1 Complement C3 160 Complement C4 22 Laboratory Tests 01/30/25 15:17 Urine Protein 100 (2+) H Urine Blood Negative Ur Leukocyte Esterase Moderate (2+) H Urine WBC >50 H Protein/Creatinin Ratio 0.00 Assessment & Plan Assessment & Plan (1) SLE (systemic lupus erythematosus): Comment: dx 2008 MTX DC 09/2022 (fatigue, lightheadedness, GI upset) Azathioprine 10/2022 partially effective Benlysta 04/2023 partially effective. DC 12/2023 worsening fatigue Plaquenil - ?rash Code(s): M32.9 - Systemic lupus erythematosus, unspecified Category: Medical Qualifiers: Systemic lupus erythematosus organ involvement: unspecified Systemic lupus erythematosus type: unspecified Qualified Code(s): M32.9 - Systemic lupus erythematosus, unspecified Plan: #SLE Patient is a 40-year-old female with SLE here today for follow up. Lupus currently in remission with no evidence of active inflammation or synovitis on examination. Plan - Continue azathioprine 150mg daily - Prednisone to 2.5mg daily - RTC 4 months - Labs before visit: CBC, CMP, ESR, CRP, C3, C4, dsDNA, UA, UPC (2) Cystitis: Code(s): N30.90 - Cystitis, unspecified without hematuria Plan: #Cystitis UA with WBC and positive leukocyte esterase Recently on antibiotics and thinks this may be the reason for the UTI Plan - Cephalexin 500mg bid (3) Fibromyalgia, primary: Code(s): M79.7 - Fibromyalgia Category: Medical Plan: #Fibromyalgia Patient's current pain is possibly related to fibromyalgia, though she does not have the classic tender points the recent ACR criteria talks more about somatic symptom scores and pain scores We will trial low dose naltrexone to see if this helps (4) Encounter for monitoring azathioprine therapy: Code(s): Z51.81 - Encounter for therapeutic drug level monitoring; Z79.624 - 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 (current) use of systemic steroids Category: Medical Plan: #Long-term Use of Steroids Discussed with patient the risks and benefits of steroid for managing the rheumatic condition Benefits include: - Reduced pain, improved mobility, increased participation in activities, and decreased progression of disease Risks include: - GI upset, potential ultrasound worsening or formation (especially in patients > 65 years old), elevated blood pressure/worsening hypertension, elevated blood sugar/worsening diabetes control, worsening of bone density, elevated lipids/worsening triglycerides, cataract formation, weight gain Recommended using proton pump inhibitors (PPIs) for the duration of steroid use to reduce the risk of gastric ulcers and vitamin-D daily to reduce the risk of osteoporosis Labs checked: ?A1c, T spot, hepatitis-B and C serologies Pneumocystis jiroveci prophylaxis: ?Patient with risk factors including steroids greater than 50 mg for more than 30 days, age greater than 60 years, and lung in volvement from underlying rheumatic disease requires prophylaxis and will be given so Plan I spent 30 minutes reviewing the record and labs, taking a history, examining the patient, discussing the treatment plan, ordering diagnostic work up and documenting in the medical record Medications: New cephalexin 500 mg PO BID 14 caps 0RF 7 days N30.90 - Cystitis, unspecified without hematuria naltrexone 50 mg PO QWEEK 5 tabs 5RF 30 days M32.9 - Systemic lupus erythematosus, unspecified, M79.7 - Fibromyalgia Coding Level of Care Code Est Pt Level 4 (64584) Complex EM visit Add On G2211 Diagnoses Systemic lupus erythematosus, unspecified SLE type, unspecified organ involvement status M32.9 Systemic lupus erythematosus organ involvement: unspecified Systemic lupus erythematosus type: unspecified Cystitis N30.90 Fibromyalgia, primary M79.7 Encounter for monitoring azathioprine therapy Z51.81; Z79.624 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
[2025-02-04 10:56] VITALS: BP 138/82; PULSE 89; O2SAT 97; BMI 28.8
--- OUTSIDE RECORDS SUMMARY | 2025-02-04 11:37 | XMS_ITS | Patient Health Record ---
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 Plan Of Treatment No Information Insurance Providers Payer Name Payer Address Payer Phone Subscriber Number Group Number Insured Name Patient Relationship to Insured Coverage Start Date Coverage End Date [facility] [address] [facility] [place] [phone] [id number] MILO MULTANI Self - patient is the insured Medical (General) History Medical History History ICD Code Denies DE,DM,CVA,Lung disease,renal dise ase Sjogren's Disease Sulfasalazine-induced jaundi ce, hepatitis, and rash in 11/2018--resolved--- workup of liver diseases otherwise negative including imaging studies, viral serologies, Monospot, and autoimmune studies Surgical History Surgery Date(Month/Year) Right arm biopsy for the skin rash from Sulfaslazine 2018
== END 2025-02-04 11:37 | disposition home or self-care (01) ==
LOC: HO.RHES 10:33
PROVIDERS: PCP Physician Assistant; Visit Provider Student in an Organized Health Care Education/Training Program
DX: M32.9 Systemic lupus erythematosus, unspecified (principal); N30.90 Cystitis, unspecified without hematuria; M79.7 Fibromyalgia; Z51.81 Encounter for therapeutic drug level monitoring; Z79.624 Long term (current) use of inhibitors of nucleotide synthesis; Z79.52 Long term (current) use of systemic steroids
CPT/HCPCS: 99214; G2211

== ENCOUNTER 2025-02-18 09:22 | Outpatient (REF) | payer OTHER, SELFPAY ==
--- NOTE | 2025-02-18 09:25 | EMG_ITS ---
Patient Complaints: Paresthesia of bilateral upper extremity Procedure done: NCV / EMG Bilateral median and ulnar motor and sensory studies were performed bilateral radial sensory and median and lateral antecubital brachial sensory studies were performed in EMG needle examination was performed. Impression: Mild bilateral ulnar neuropathy across cubital tunnel MTDD
--- OUTSIDE RECORDS SUMMARY | 2025-02-18 09:48 | XMS_ITS | Patient Health Record ---
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 Plan Of Treatment No Information Insurance Providers Payer Name Payer Address Payer Phone Subscriber Number Group Number Insured Name Patient Relationship to Insured Coverage Start Date Coverage End Date [facility] [address] [facility] [place] [phone] [id number] MILO MULTANI Self - patient is the insured Medical (General) History Medical History History ICD Code Denies [place],DM,CVA,Lung disease,renal dise ase Sjogren's Disease Sulfasalazine-induced jaundi ce, hepatitis, and rash in 11/2018--resolved--- workup of liver diseases otherwise negative including imaging studies, viral serologies, Monospot, and autoimmune studies Surgical History Surgery Date(Month/Year) Right arm biopsy for the skin rash from Sulfaslazine 2018
== END 2025-02-18 09:23 | disposition home or self-care (01) ==
LOC: HO.NEURO 09:22
PROVIDERS: PCP Physician Assistant; Visit Provider Physician Assistant
DX: R20.2 Paresthesia of skin (principal); M79.2 Neuralgia and neuritis, unspecified
CPT/HCPCS: 95886; 95913

== ENCOUNTER → 2025-02-18 09:25 | Outpatient (BNV) | payer OTHER, SELFPAY | PROVIDERS: PCP Physician Assistant; Visit Provider Psychiatry & Neurology Neurology | DX: R20.2 Paresthesia of skin (principal) | CPT/HCPCS: 95886; 95913 ==

== ENCOUNTER 2025-02-20 08:57 | Outpatient (AMB) | payer OTHER, SELFPAY ==
--- NOTE | 2025-02-20 09:26 | A.OFFVIS_ITS ---
Vital Signs 02/20/25 09:38 Height 5 ft 5 in Weight 170 lb 13.732 oz BMI 28.4 BP 124/80 Blood Pressure Location Rt brachial Position Sitting Pulse 82 Pulse Source Pulse Oximeter Pulse Oximetry (%) 99 Oxygen Delivery Method Room Air Intake Visit Reasons: f/u SLE Intake Note: Patient presents for SLE follow up. Allergies naproxen (From Aleve) Allergy (Severe, Verified 02/20/25 09:37) Rash sulfasalazine Allergy (Severe, Verified 02/20/25 09:37) redness and itching nitrofurantoin (From Macrobid) Allergy (Verified 02/20/25 09:37) Rash Sulfa (Sulfonamide Antibiotics) Allergy (Verified 02/20/25 09:37) Rash belimumab (From Benlysta) Adverse Reaction (Intermediate, Verified 02/20/25 09:37) Fatigue methotrexate Adverse Reaction (Intermediate, Verified 02/20/25 09:37) Fatigued Medication List - Last Reconciled 02/20/25 by Leslye Newberry MD albuterol sulfate 90 mcg/actuation 1 inh inhalation QID PRN 30 days amlodipine 2.5 mg PO DAILY Held on 01/13/25. Instructions: Doctor's Order azathioprine 150 mg (3 x 50 mg) PO DAILY blood pressure monitor (Blood Pressure Kit) As directed calcium carbonate-vitamin D3 600 mg-10 mcg (400 unit) (Calcium 600 + D(3)) 1 tab PO DAILY 90 days cephalexin 500 mg PO BID 7 days famotidine 20 mg PO BEDTIME levonorgestrel (Mirena) 1 intrauterinely lisinopril 5 mg PO DAILY 90 days loratadine 10 mg PO DAILY 90 days multivitamin 1 tab PO DAILY naltrexone 4.5 mg PO .nightly prednisone 2.5 mg (1/2 x 5 mg) PO DAILY 90 days pyridoxine (vitamin B6) 50 mg PO DAILY 30 days sumatriptan succinate (Imitrex) 25 mg PO Q2H PRN 30 days HPI Comments Details: Patient is a 40-year-old female with hypertension, and systemic lupus erythematosus here today for follow up Interval History: Patient last seen 02/04/25 with me - On azathioprine 150mg daily and prednisone 5mg daily - Has not been feeling great: joint pain - wrists, fingers, elbows, shoulders, back of the neck radiating to the shoulders, arch of the feet, shins - Has tried Tylenol which does not help, bought a new massage tool which also doesn't help - Nausea with the azathioprine - No signs of active SLE - Started low dose naltrexone (50mg once a week) Today - On azathioprine 150mg daily and prednisone 5mg daily. Naltrexone 50mg weekly - Doing okay - Naltrexone causing GI upset - Does not some improvement on naltrexone - Completed keflex for UTI Rheumatologic History: SLE dx 2008 Arthritis, malar rash +ALEKSANDAR, low complements, ++SSA MTX DC 09/2022 (fatigue, lightheadedness, GI upset) Azathioprine 10/2022 partially effective Benlysta 04/2023 partially effective. DC 12/2023 worsening fatigue In 2018 she was on hydroxychloroquine and sulfasalazine and she developed a rash with transaminitis, she had a skin biopsy which showed possible drug reaction, she was started on steroids with resolution of her rash and sulfasalazine and hydroxychloroquine were stopped.? Hydroxychloroquine was resumed 02/2022. In 06/2022 patient was admitted to the hospital with diffuse erythematous skin rash, fevers, inflammatory arthritis and transaminitis, symptoms rapidly resolved with steroid taper. This was 2 days after patient started Aleve It was unclear at that point whether patient's rash was due to drug reaction to Aleve verses a lupus rash. Labs when admitted also showed mild proteinuria 450 mg in addition to high WBC (possible concomitant UTI) Current Rheumatology Medication(s): Azathioprine 150 mg daily Prednisone 2.5 mg daily Naltrexone 50mg weekly [facility] Medical History Encounter for removal of sutures detention (current) use of systemic steroids SLE (systemic lupus erythematosus) Hypertension Migraines Cervical cancer screening PVCs (premature ventricular contractions) Vasovagal syncope Surgical History History of surgery History of surgical biopsy Family History Father No problems noted. Mother Bipolar 1 disorder Chronic mental illness Family history of thyroid problem Maternal Grandmother Hypertension Maternal Grandfather No problems noted. 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 [employer] Current occupational exposures/hazards: No Cognitive needs: No Hearing needs: No Vision needs: Yes (Glasses) Female Reproductive History Menstrual Age of Menarche: 11 Review of Systems Const Details: Review of Systems Constitutional: Denies fever, chills, weight loss ENT: Denies vision changes, eye pain or eye redness, dental caries, dry mouth GI: Denies vomiting, diarrhea, abdominal pain, change in BM Pulm: Denies SOB, ESPARZA, hemoptysis, wheezing Cards: Denies chest pain, palpitations Skin: Denies nail changes, photosensitivity, 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 Well appearing and in no apparent painful distress MSK Hands * Right Hand: Able to make a fist. No swelling or tenderness to palpation of these joints. No deformities noted. * Left Hand: Able to make a fist. No swelling or tenderness to palpation of these joints. No deformities noted. Wrists * Right Wrist: Full ROM. 70 degrees of wrist flexion, 80 degrees of wrist extension. No swelling or TTP * Left Wrist: Full ROM. 70 degrees of wrist flexion, 80 degrees of wrist extension. No swelling or TTP Elbows * Right Elbow: Full ROM. No swelling or TTP. No TTP of the medial and lateral epicondyles * Left Elbow: Full ROM. No swelling or TTP. No TTP of the medial and lateral epicondyles Shoulders * Right shoulder: Full ROM. No swelling noted. No TTP of the AC joint, subacromial bursa or posterior shoulder * Left shoulder: Full ROM. No swelling noted. No TTP of the AC joint, subacromial bursa or posterior shoulder Knees * Right knee: Full ROM. No swelling noted. No TTP of the knee joint lie or pes anserine bursa * Left knee: Full ROM. No swelling noted. No TTP of the knee joint lie or pes anserine bursa. Ankles * Right ankle: Good ankle dorsiflexion and plantar flexion. No swelling. No TTP of the ankle joint * Left ankle: Good ankle dorsiflexion and plantar flexion. No swelling. No TTP of the ankle joint Feet * Right foot: Negative squeeze test * Left foot: Negative squeeze test Tender points? * No tenderness to palpation of the bilateral trapezius, supraspinatus, anterior costochondral junctions, bilateral suboccipital muscle insertions SKIN No rashes Vital Signs: Last Vital Signs Pulse 82 02/20/25 09:38 BP 124/80 02/20/25 09:38 Pulse Ox 99 02/20/25 09:38 Oxygen Delivery Method Room Air 02/20/25 09:38 BMI result Body Mass Index 28.4 Results Reviewed Results Reviewed: Laboratory Tests 10/05/24 01/30/25 08:17 15:23 WBC 8.1 RBC 4.23 Hgb 13.5 Hct 39.8 Plt Count 259 ESR 14 Sodium 141 Potassium 4.1 Chloride 108 Carbon Dioxide 26 BUN 19 H Creatinine 1.19 AST 23 29 ALT 27 43 H C-Reactive Protein 0.51 H 0.59 H Laboratory Tests 01/30/25 15:23 Double Strand DNA Ab <1 Complement C3 160 Complement C4 22 Laboratory Tests 01/30/25 15:17 Urine Protein 100 (2+) H Urine Blood Negative Ur Leukocyte Esterase Moderate (2+) H Urine WBC >50 H Protein/Creatinin Ratio 0.00 Assessment & Plan Assessment & Plan (1) SLE (systemic lupus erythematosus): Comment: dx 2007 MTX DC 09/2022 (fatigue, lightheadedness, GI upset) Azathioprine 10/2022 partially effective Benlysta 04/2023 partially effective. DC 12/2023 worsening fatigue Plaquenil - ?rash Code(s): M32.9 - Systemic lupus erythematosus, unspecified Category: Medical Qualifiers: Systemic lupus erythematosus type: unspecified Systemic lupus erythematosus organ involvement: unspecified Qualified Code(s): M32.9 - Systemic lupus erythematosus, unspecified Plan: #SLE Patient is a 40-year-old female with SLE here today for follow up. Lupus currently in remission with no evidence of active inflammation or synovitis on examination. 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 - Reduced pain, maintenance of remission and reduction of flares Risks include: - Bone marrow suppression, GI upset, lymphoma, hepatotoxicity, pancreatitis, hypersensitivity syndrome Drug monitoring: CBC every 4 weeks for the 1st 3 months then CBC BMP LFTs every 3 months Avoid concomitant sulfasalazine, allopurinol or febuxostat (4) detention (current) use of systemic steroids: Code(s): Z79.52 - detention (current) use of systemic steroids Category: Medical Plan: #Long-term Use of Steroids Discussed with patient the risks and benefits of steroid for managing the rheumatic condition Benefits include: - Reduced pain, improved mobility, increased participation in activities, and decreased progression of disease Risks include: - GI upset, potential ultrasound worsening or formation (especially in patients > 65 years old), elevated blood pressure/worsening hypertension, elevated blood sugar/worsening diabetes control, worsening of bone density, elevated lip ids/worsening triglycerides, cataract formation, weight gain Recommended using proton pump inhibitors (PPIs) for the duration of steroid use to reduce the risk of gastric ulcers and vitamin-D daily to reduce the risk of osteoporosis Labs checked: ?A1c, T spot, hepatitis-B and C serologies Pneumocystis jiroveci prophylaxis: ?Patient with risk factors including steroids greater than 50 mg for more than 30 days, age greater than 60 years, and lung involvement from underlying rheumatic disease requires prophylaxis and will be given so Plan I spent 30 minutes reviewing the record and labs, taking a history, examining the patient, discussing the treatment plan, ordering diagnostic work up and documenting in the medical record Medications: New naltrexone 4.5 mg PO .nightly 90 caps 1RF M79.7 - Fibromyalgia Refilled azathioprine 150 mg (3 x 50 mg) PO DAILY 270 tabs 1RF M32.9 - Systemic lupus erythematosus, unspecified prednisone 2.5 mg (1/2 x 5 mg) PO DAILY 45 tabs 1RF 90 days M32.9 - Systemic lupus erythematosus, unspecified Discontinued cephalexin Discontinued Reason: Patient Completed Course 500 mg PO BID 7 days 14 caps 0RF N30.90 - Cystitis, unspecified without hematuria naltrexone Discontinued Reason: Doctor's Order 50 mg PO QWEEK 30 days 5 tabs 5RF M32.9 - Systemic lupus erythematosus, unspecified, M79.7 - Fibromyalgia Coding Level of Care Code Est Pt Level 4 (35125) Complex EM visit Add On G2211 Diagnoses Systemic lupus erythematosus, unspecified SLE type, unspecified organ involvement status M32.9 Systemic lupus erythematosus type: unspecified Systemic lupus erythematosus organ involvement: unspecified Fibromyalgia, primary M79.7 Encounter for monitoring azathioprine therapy Z51.81; Z79.624 detention (current) use of systemic steroids Z79.52
[2025-02-20 09:38] VITALS: BP 124/80; PULSE 82; O2SAT 99; BMI 28.4
--- OUTSIDE RECORDS SUMMARY | 2025-02-20 09:48 | XMS_ITS | Patient Health Record ---
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 Plan Of Treatment No Information Insurance Providers Payer Name Payer Address Payer Phone Subscriber Number Group Number Insured Name Patient Relationship to Insured Coverage Start Date Coverage End Date [facility] [address] [facility] [place] [phone] [id number] MILO MULTANI Self - patient is the insured Medical (General) History Medical History History ICD Code Denies PA,DM,CVA,Lung disease,renal dise ase Sjogren's Disease Sulfasalazine-induced jaundi ce, hepatitis, and rash in 11/2018--resolved--- workup of liver diseases otherwise negative including imaging studies, viral serologies, Monospot, and autoimmune studies Surgical History Surgery Date(Month/Year) Right arm biopsy for the skin rash from Sulfaslazine 2018
== END 2025-02-20 10:03 | disposition home or self-care (01) ==
LOC: HO.RHES 08:58
PROVIDERS: PCP Physician Assistant; Visit Provider Student in an Organized Health Care Education/Training Program
DX: M32.9 Systemic lupus erythematosus, unspecified (principal); M79.7 Fibromyalgia; Z51.81 Encounter for therapeutic drug level monitoring; Z79.624 Long term (current) use of inhibitors of nucleotide synthesis; Z79.52 Long term (current) use of systemic steroids
CPT/HCPCS: 99214; G2211

== ENCOUNTER 2025-03-24 08:52 | Outpatient (AMB) | payer OTHER, SELFPAY ==
--- NOTE | 2025-03-24 08:57 | A.OFFVIS_ITS ---
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: Intelligence Intern Present Accompanied by: Self / Same As Patient Allergies naproxen (From Aleve) Allergy (Severe, Verified 03/24/25 09:14) Rash sulfasalazine Allergy (Severe, Verified 03/24/25 09:14) redness and itching nitrofurantoin (From Macrobid) Allergy (Verified 03/24/25 09:14) Rash Sulfa (Sulfonamide Antibiotics) Allergy (Verified 03/24/25 09:14) Rash belimumab (From Benlysta) Adverse Reaction (Intermediate, Verified 03/24/25 09:14) Fatigue methotrexate Adverse Reaction (Intermediate, Verified 03/24/25 09:14) Fatigued Medication List - Last Reconciled 03/24/25 by Lori May CNM albuterol sulfate 90 mcg/actuation 1 inh inhalation QID PRN 30 days amlodipine 2.5 mg PO DAILY Held on 01/13/25. Instructions: Doctor's Order azathioprine 150 mg (3 x 50 mg) PO DAILY blood pressure monitor (Blood Pressure Kit) As directed calcium carbonate-vitamin D3 600 mg-10 mcg (400 unit) (Calcium 600 + D(3)) 1 tab PO DAILY 90 days famotidine 20 mg PO BEDTIME levonorgestrel (Mirena) 1 intrauterinely lisinopril 5 mg PO DAILY 90 days loratadine 10 mg PO DAILY 90 days multivitamin 1 tab PO DAILY naltrexone 4.5 mg PO .nightly prednisone 2.5 mg (1/2 x 5 mg) PO DAILY 90 days pyridoxine (vitamin B6) 50 mg PO DAILY 30 days sumatriptan succinate (Imitrex) 25 mg PO Q2H PRN 30 days Is last menstrual period known: Yes Last menstrual period: 02/04/25 Post menopausal: No Patient : No HPI HPI 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 She has a Mirena IUD since 2020 it is not giving her any difficulty. She normally does not get a period but she got a period in January. She normally uses menstrual cups but could not find her so had to use pads. She works on keeping herself and family healthy by watching diet , w veges, protein, and limiting carbs. She enjoys activities like boxing and volleyball and has been reminding herself to do more stretching. She is not really worried about STIs this time. She is on the prednisone mcc low dose for her lupus which is managing things well for her. We discussed today the option of increasing the frequency of her Pap smears because of this. She is attending OT for her arms and working on stretches. Her mammogram this summer noted dense breasts and she was recommended to have a breast ultrasound and she will be speaking with her primary care office to follow-up on this. 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 Mother Bipolar 1 disorder Chronic mental illness Family history of thyroid problem Maternal Grandmother Hypertension Maternal Grandfather No problems noted. 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 [employer] Current occupational exposures/hazards: No Cognitive needs: No Hearing needs: No Vision needs: Yes (Glasses) Female Reproductive History Menstrual Age of Menarche: 11 Duration of menses: 3-5 days Date of last menstrual period: 02/04/25 control method: progestin IUCD (Mirena) Total pregnancies: 1 Full term: 1 Date of last pap smear: 09/24/20 (negative pap smear,negative hpv ) History of abnormal pap smear: No Date of Mammogram: 01/29/25 (bi rad 1) Physical Exam Const General: healthy appearing, comfortable, no acute distress, well developed and alert Nutritional Appearance: average body habitus Orientation/consciousness: patient oriented x3 Limitations: no limitations HEENT Head: Yes normocephalic Neck Neck: Yes normal visual inspection Thyroid: Thyroid normal Chest Chest palpation & inspection: normal inspection of the chest Breast/axilla inspection: normal inspection of the breasts and normal inspection of the axillae Breast/axilla palpation: normal palpation of the breasts and normal palpation of the axillae Resp Effort & Inspection: normal respiratory effort GI Inspection: Yes normal to inspection, No Abdominal wall edema and No distended Palpation (GI): Soft to palpation and nontender Other: Healthy appearing vagina and cervix with normal appearing scant white secretions. Multiparous cervix pointing downwards but string of Mirena visible and palpable uterus small mobile anteverted nontender adnexa nontender. good tone with Kegel as well General: Yes bladder normal to palpation External Female Exam: normal external appearance and normal appearance of the urethra Speculum Exam - Vagina: normal appearance of the vagina, normal palpation and normal vaginal discharge Speculum Exam - Cervix: normal appearance of the cervix, normal palpation and nontender Bimanual exam- vagina & uterus: normal bimanual exam, normal palpation, uterine size normal, bladder normal to palpation, consistency normal, normal palpation, uterine mobility normal, uterine shape normal, No Cervical tenderness present, non-tender and no cervical motion tenderness Bimanual Exam- Adnexa, other: normal adnexae, no masses, normal and No adnexal tenderness Neuro General: patient oriented x3 Assessment & Plan Assessment & Plan (1) Cervical cancer screening: Comment: 09/24/20 pap= neg, neg hpv.; Pap done 03/24/2025 secondary to long-term steroid use. Code(s): Z12.4 - Encounter for screening for malignant neoplasm of cervix Category: Medical (2) Presence of 52 mg levonorgestrel-releasing intrauterine device (IUD): Comment: Mirena IUS inserted 02/25/22, IUD check 03/24/2025 having no issues with it. Code(s): Z97.5 - Presence of (intrauterine) contraceptive device Category: Social Hx (3) Breast cancer screening: Comment: See mammogram, dense breasts, patient states she was told to discuss ultrasound screening with her primary and she will be following up with that... Code(s): Z12.39 - Encounter for other screening for malignant neoplasm of breast Category: Medical Qualifiers: Breast cancer screening modality: mammogram Qualified Code(s): Z12.31 - Encounter for screening mammogram for malignant neoplasm of breast (4) Encounter for screening examination for sexually transmitted disease: Code(s): Z11.3 - Encounter for screening for infections with a predominantly sexual mode of transmission Category: Medical (5) Well woman exam with routine gynecological exam: Code(s): Z01.419 - Encounter for gynecological examination (general) (routine) without abnormal findings Category: Medical (6) 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 Discussed all the issues listed and mentioned in HPI.. She is happy with the IUD at serving her well at this stage. She is acutely aware of all things contributing and related to her health she has been aware that sometimes her apartment nurse ejaculate can smell very sweet he is a diabetic and she wonders if that is sometimes contributes to an imbalance in her vaginal yobany discussed possible quick rinse with plain water in the shower if she is concerned that this may be an issue she is not really worried about STDs but because I offered a Pap smear at her sooner interval secondary to her long- term steroid use she accepted STI screening at the same time just to cover all bases. She will be following up with her primary care provider about the mammography recommendation she was told about related to her dense breasts. She was told th at needed to come through her primary. She is continuing with all of her efforts in self care and health. Coding Level of Care Code Est Pt Prev Care 40-64y(26340) Diagnoses Cervical cancer screening Z12.4 Presence of 52 mg levonorgestrel-releasing intrauterine device (IUD) Z97.5 Encounter for screening mammogram for malignant neoplasm of breast Z12.31 Breast cancer screening modality: mammogram Encounter for screening examination for sexually transmitted disease Z11.3 Well woman exam with routine gynecological exam Z01.419 care home (current) use of systemic steroids Z79.52
[2025-03-24 09:17] VITALS: BP 122/72; BMI 27.6
--- OUTSIDE RECORDS SUMMARY | 2025-03-24 09:19 | XMS_ITS | Patient Health Record ---
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 Plan Of Treatment No Information Insurance Providers Payer Name Payer Address Payer Phone Subscriber Number Group Number Insured Name Patient Relationship to Insured Coverage Start Date Coverage End Date [facility] [address] [facility] [place] [id number] MILO MULTANI Self - patient is the insured Medical (General) History Medical History History ICD Code Denies [place],DM,CVA,Lung disease,renal dise ase Sjogren's Disease Sulfasalazine-induced jaundi ce, hepatitis, and rash in 11/2018--resolved--- workup of liver diseases otherwise negative including imaging studies, viral serologies, Monospot, and autoimmune studies Surgical History Surgery Date(Month/Year) Right arm biopsy for the skin rash from Sulfaslazine 2018
== END 2025-03-24 09:51 | disposition home or self-care (01) ==
LOC: HO.HWS 08:52
PROVIDERS: PCP Physician Assistant; Visit Provider Advanced Practice Midwife
DX: Z01.419 Encounter for gynecological examination (general) (routine) without abnormal findings (principal); Z12.4 Encounter for screening for malignant neoplasm of cervix; Z97.5 Presence of (intrauterine) contraceptive device; Z12.31 Encounter for screening mammogram for malignant neoplasm of breast; Z11.3 Encounter for screening for infections with a predominantly sexual mode of transmission; Z79.52 Long term (current) use of systemic steroids
CPT/HCPCS: 99396; 99459

== ENCOUNTER 2025-03-24 08:52 | Outpatient (REF) | payer OTHER, SELFPAY ==
[2025-03-24 15:33] LABS: Bacterial Vaginosis PCR NEGATIVE (Negative); Candida Group PCR NOT DETECTED (Not Detect); Candida glab krusei PCR NOT DETECTED (Not Detect); Trichomonas vaginalis PCR NOT DETECTED (Not Detect)
[2025-03-24 16:05] LABS: CT PCR NOT DETECTED (Not Detect.); NG PCR NOT DETECTED (Not Detect.)
== END 2025-03-24 08:53 | disposition home or self-care (01) ==
LOC: HO.LNP 08:52
PROVIDERS: PCP Physician Assistant; Visit Provider Advanced Practice Midwife
DX: Z01.419 Encounter for gynecological examination (general) (routine) without abnormal findings (principal); Z12.31 Encounter for screening mammogram for malignant neoplasm of breast; Z20.2 Contact with and (suspected) exposure to infections with a predominantly sexual mode of transmission; Z97.5 Presence of (intrauterine) contraceptive device; Z79.52 Long term (current) use of systemic steroids
CPT/HCPCS: 81515; 87491; 87591; 87626; 88175

== ENCOUNTER 2025-03-27 09:45 | Outpatient (REF) | payer OTHER, SELFPAY ==
--- NOTE | ~2025-03-27 | US_ITS ---
EXAMINATION: US SCREENING ULTRASOUND BREAST, BILATERAL CLINICAL INFORMATION: Dense breasts on mammography. Screening ultrasound. COMPARISON: Priors on PACS. TECHNIQUE: Ultrasound is performed using grayscale imaging and color Doppler. Imaging is performed to include the four quadrants and retroareolar region. Both breasts are imaged. FINDINGS: Right breast: Targeted color Doppler ultrasound in the upper outer quadrant lower outer quadrant upper inner quadrant demonstrates normal fibroglandular breast tissue. Targeted color Doppler ultrasound in the lower inner quadrant demonstrates a hypoechoic oval parallel circumscribed solid mass at 4:00 7 cm from the nipple measuring 13 x 8 x 4 mm with morphology of a probable fibroadenoma. Left breast: There is no suspicious finding by ultrasound. There is no solid mass or focal architectural abnormality. US/US breast BI complete IMPRESSION: Left: Negative. Right: Probable fibroadenoma at 4:00 7 cm from the nipple on ultrasound. Recommend 6 month follow-up ultrasound for further evaluation of stability. ASSESSMENT: Category 3: Probably benign RECOMMENDATION: 6 Month F/U This patient's information was entered into a reminder system with a target due date for their next mammogram. Electronically signed by: Nita Richard DO 03/27/2025 11:37 AM EDT
--- OUTSIDE RECORDS SUMMARY | 2025-03-27 10:52 | XMS_ITS | Patient Health Record ---
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 Plan Of Treatment No Information Insurance Providers Payer Name Payer Address Payer Phone Subscriber Number Group Number Insured Name Patient Relationship to Insured Coverage Start Date Coverage End Date [facility] [address] [facility] [place] [phone] [id number] MILO MULTANI Self - patient is the insured Medical (General) History Medical History History ICD Code Denies [place],DM,CVA,Lung disease,renal dise ase Sjogren's Disease Sulfasalazine-induced jaundi ce, hepatitis, and rash in 11/2018--resolved--- workup of liver diseases otherwise negative including imaging studies, viral serologies, Monospot, and autoimmune studies Surgical History Surgery Date(Month/Year) Right arm biopsy for the skin rash from Sulfaslazine 2018
== END 2025-03-27 09:46 | disposition home or self-care (01) ==
LOC: HO.MAMMO 09:45
PROVIDERS: Visit Provider Physician Assistant
DX: R92.30 Dense breasts, unspecified (principal)
CPT/HCPCS: 76641

== ENCOUNTER → 2025-03-27 10:00 | Outpatient (BNV) | payer OTHER, SELFPAY | PROVIDERS: Visit Provider Internal Medicine | DX: R92.30 Dense breasts, unspecified (principal) | CPT/HCPCS: 76641 ==

== ENCOUNTER 2025-04-16 12:50 | Outpatient (RCR) | payer OTHER, SELFPAY ==
--- NOTE | 2025-03-11 14:33 | MHC.OT.EP ---
[facility] [address] [facility] [phone] F: [phone] F: [phone] Occupational Therapy Plan of Care Patient Name: Wolf Elias Date of Evaluation: 03/11/25 Diagnosis: B CTS Pain Location: B arms Pain Score: 7 Pain Scale Used: Numeric (0 - 10) Aggravating Factors: Alleviating Factors: Assessment: Pt is a 40 yr old R hand dominant female who has been experiencing pain and numbness down the ulnar side of her B FA's and hands, for quite a few mos. She had an EMG which showed mild ulnar nerve entrapments at the elbow. She presents today w/ full AROM, (+) tinels at B elbows, weakness, and decreased functional use of her UE's. Pt would benefit from skilled OT therapy to address these deficits and return her to her PLOF. Pt has a hx of lupus and HBP Frequency and Duration: The patient will be seen 2xs a week for 4 weeks Short Term Goals: Pt will adhere to HEP Pt will be complaint w/ jt. 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 Thank you once again for your referral.
--- NOTE | 2025-04-16 13:24 | MHC.OT.DC ---
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
== END 2025-04-16 13:24 | disposition home or self-care (01) ==
LOC: HO.OT 12:50
PROVIDERS: PCP Physician Assistant; Visit Provider Physician Assistant
DX: R20.2 Paresthesia of skin (principal)
CPT/HCPCS: 97110; 97112; 97140; 97165; 97535

== ENCOUNTER 2025-04-23 10:34 | Outpatient (AMB) | payer OTHER, SELFPAY ==
--- NOTE | 2025-04-23 10:58 | A.OFFVIS_ITS ---
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 She reports she works at a [employer] so she is typing all day, by the end of her shifts she is at he worse. She also reports she sleeps on her sides so she wakes up with numbness. Expresses difficulty with heavy lifting and prying because leaning on the elbows is painful. She is interested in surgery, left hand first, if neeed. 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 She reports she works at a [employer] so she is typing all day, by the end of her shifts she is at he worse. She also reports she sleeps on her sides so she wakes up with numbness. Expresses difficulty with heavy lifting and praying because leaning on the elbows is painful. She is interested in surgery, left hand first, if neeed. 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 Mother Bipolar 1 disorder Chronic mental illness Family history of thyroid problem Maternal Grandmother Hypertension Maternal Grandfather No problems noted. 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 Good APB muscle firing and good finger cross. Vascular: Capillary refill brisk. ROM: Patient can make a fist and extend all their digits. Skin: No lacerations or abrasions noted. General: No ecchymosis. No erythema or evidence of infection. Assessment & Plan Assessment & Plan (1) Cubital tunnel syndrome, bilateral: Code(s): G56.23 - Lesion of ulnar nerve, bilateral upper limbs Category: Medical Plan 1. Left cubital tunnel syndrome Symptoms intermittent, daily, worse at night I educated the patient about the condition. I discussed both operative and nonoperative treatment options. The patient would like to proceed with surgery. The risks and benefits of operative treatment were discussed with the patient and the patient wishes to proceed with surgery. These risks include, but are not limited to, risk of damage to blood vessels, nerves, tendons, infection, recurrence, incomplete relief of preoperative symptoms, persistent pain, possible need for further surgery, and the risks associated with regional blocks and/or anesthesia. Plan is to take the patient to the operating room at some point in the next few weeks for the following procedures: 1. Left cubital tunnel release under local All of the preoperative paperwork including the consent was discussed today. All of the patient's questions were answered in the clinic today. The patient understands that they will be in contact with our regional vice president surgical sales to discuss scheduling their procedure. Of note, the patient does take prednisone and azathioprine for lupus, we will need to contact her director phone to determine the appropriate course for holding this medication both pre and postoperatively Patient denies diabetes, blood thinners, asthma, heart issues, lung issues, kidney issues, or current smoking. Coding Level of Care Code New Pt Level 4 (75857) Diagnoses Cubital tunnel syndrome, bilateral G56.23
--- OUTSIDE RECORDS SUMMARY | 2025-04-23 13:08 | XMS_ITS | Patient Health Record ---
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 Plan Of Treatment No Information Insurance Providers Payer Name Payer Address Payer Phone Subscriber Number Group Number Insured Name Patient Relationship to Insured Coverage Start Date Coverage End Date [facility] [address] [facility] [place] [phone] [id number] MILO MULTANI Self - patient is the insured Medical (General) History Medical History History ICD Code Denies [place],DM,CVA,Lung disease,renal dise ase Sjogren's Disease Sulfasalazine-induced jaundi ce, hepatitis, and rash in 11/2018--resolved--- workup of liver diseases otherwise negative including imaging studies, viral serologies, Monospot, and autoimmune studies Surgical History Surgery Date(Month/Year) Right arm biopsy for the skin rash from Sulfaslazine 2019
== END 2025-04-23 11:21 | disposition home or self-care (01) ==
LOC: HO.HOS 10:35
PROVIDERS: PCP Physician Assistant
DX: G56.23 Lesion of ulnar nerve, bilateral upper limbs (principal)
CPT/HCPCS: 99204

== ENCOUNTER 2025-05-20 10:04 | Outpatient (AMB) | payer OTHER, SELFPAY ==
--- NOTE | 2025-05-20 10:17 | A.OFFVIS_ITS ---
Vital Signs 05/20/25 10:18 Height 5 ft 5 in Weight 166 lb BMI 27.6 Intake Visit Reasons: Preop LT cubital 05/26/25 AR Intake Note: Wolf 40 yr old right hand dominant female who works at [employer] , presents today for her pre-op visit for her left cubital release with Dr Snyder that is scheduled for 05/26/2025. Consent reviewed and signed. Allergies naproxen (From Aleve) Allergy (Severe, Verified 05/20/25 10:22) Rash sulfasalazine Allergy (Severe, Verified 05/20/25 10:22) redness and itching nitrofurantoin (From Macrobid) Allergy (Intermediate, Verified 05/20/25 10:31) Rash Sulfa (Sulfonamide Antibiotics) Allergy (Intermediate, Verified 05/20/25 10:31) Rash belimumab (From Benlysta) Adverse Reaction (Intermediate, Verified 05/20/25 10:22) Fatigue methotrexate Adverse Reaction (Intermediate, Verified 05/20/25 10:36) Fatigue HPI HPI Preop LT cubital 05/26/25 AR: Details: Wolf is a 40 year old right hand dominant woman who presents to discuss her bilateral cubital tunnel syndrome. She complains of numbness in her bilateral ring & small fingers, L>R. Symptoms intermittent, but daily, worse at night or first thing in the mornings. She also complains of pain in her elbows with flexion and says this makes some tasks more difficult, such as praying. She has Lupus & Fibromyalgia. She says her Compliance Field Technician said she does not need to hold any medications prior to surgery. 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 Mother Bipolar 1 disorder Chronic mental illness Family history of thyroid problem Maternal Grandmother Hypertension Maternal Grandfather No problems noted. 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 [employer] Current occupational exposures/hazards: No Cognitive needs: No Hearing needs: No Vision needs: Yes (Glasses) Female Reproductive History Menstrual Age of Menarche: 11 Review of Systems Const All systems reviewed & are unremarkable except as noted in HPI and below Physical Exam Vital Signs: BMI result Body Mass Index 27.6 Const General: cooperative, healthy appearing and no acute distress Orientation/consciousness: patient oriented x3 HEENT Head: Yes normocephalic and Yes atraumatic Eyes EOM: EOMs intact bilaterally Resp Effort & Inspection: normal respiratory effort and able to speak in complete sentences Cardio Jugular venous distension: no JVD Skin General skin exam: turgor normal Rashes: no rashes Neuro General: patient oriented x3 Extrem Other: Evaluation of Left Upper Extremity: The patient is alert, oriented, and in no acute distress Neuro: Median, Ulnar, Radial nerves motor and sensory intact and sensation is normal to the tips of all digits Vascular: Cap refill brisk ROM: She can make a fist and extend all her digits Skin: No lacerations or abrasions. General: No Ecchymosis. No Erythema or evidence of infection. Nerve Conduction Study: Impression: Mild bilateral ulnar neuropathy across cubital tunnel Dictated By: Kaylynn Amaya MD 02/18/25 Psych Appearance: grossly normal Affect: normal affect Attitude: cooperative Assessment & Plan Assessment & Plan (1) Cubital tunnel syndrome, bilateral: Code(s): G56.23 - Lesion of ulnar nerve, bilateral upper limbs Category: Medical (2) assisted (current) use of systemic steroids: Code(s): Z79.52 - assisted (current) use of systemic steroids Category: Medical (3) SLE (systemic lupus erythematosus): Comment: dx 2007 MTX DC 09/2022 (fatigue, lightheadedness, GI upset) Azathioprine 10/2022 partially effective Benlysta 04/2023 partially effective. DC 12/2023 worsening fatigue Plaquenil - ?rash Code(s): M32.9 - Systemic lupus erythematosus, unspecified Category: Medical Qualifiers: Systemic lupus erythematosus organ involvement: unspecified Systemic lupus erythematosus type: unspecified Qualified Code(s): M32.9 - Systemic lupus erythematosus, unspecified (4) Fibromyalgia, primary: Code(s): M79.7 - Fibromyalgia Category: Medical Plan Assessment & Plan: 1. Left cubital tunnel syndrome, mild Symptoms intermittent, but daily, worse at night I educated her about this condition I discussed operative and non-operative treatment options The patient would like to proceed with surgery The risks and benefits of operative treatment were discussed with the patient and the patient wishes to proceed with surgery. These risks include, but are not limited to risk of damage to blood vessels, nerves, tendons, infection, re currence, incomplete relief of preoperative symptoms, persistent pain, possible need for further surgery and the risks associated with regional blocks and anesthesia. The plan is to take the patient to the operating room sometime on 05/26/25 for the following procedures: 1. Left cubital tunnel release, under general All of the preoperative paperwork including the consent was reviewed today. All the patient's questions were answered. The patient understands that they will be contacted by our nursing scheduler soon to schedule this procedure She denies Diabetes, blood thinners, asthma, heart, lung, kidney issues She has Lupus and is on Azathioprine & Prednisone. She says she spoke with her Compliance Field Technician and does not need to hold any medications prior to surgery. Vanessa has confirmed this with the rheumatology. 2. Right cubital tunnel syndrome, mild Symptoms intermittent, but daily, worse at night We can discuss treatment when her left side has healed Scribed for Joanna Snyder MD by Price Hoff, medical transcription supervisor, on 05/20/25 at 10:35 AM, EST. 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
[2025-05-20 10:18] VITALS: BMI 27.6
--- OUTSIDE RECORDS SUMMARY | 2025-05-20 12:11 | XMS_ITS | Patient Health Record ---
Author Organization [facility] Address [address] [place] [address] Care Team Providers Care Wool Spotter Name Role Phone Vignesh Lauren Primary Care Provider Unavailab Luis Paula Unavailable [phone] ELVIA LUZ Unavailable Unavailable Allergies Allergen (clinical drug ingredient) Drug/Non Drug Allergy documented on EMR Reaction Allergy Type Onset Date Status sulfasalazine sulfasalazine (uncoded) Rash,jaundice, hepatitis Allergy Active sulfacetamide Sulfacetamide Sodium Unknown Drug Allergy Active Reason For Referral No Information Medications Medication SIG (Take, Route, Frequency, Duration) Notes Start Date End Date Status Calcium 600 MG Tablet 1 tablet with meal s Orally Once a day Active Vitamin D-3 1000 UNIT Capsule 1 capsule Orally Once a day; Duration: 30 day(s) Active Pilocarpine HCl 5 MG Tablet 1 tablet Ora lly once a day Active Immunizations Vaccine Route Administration Date Status Comme nts Influenza Unknown 04/11/2018 Administered Social History Tobacco Use: Social History Observation Description Date Details (start date - stop date) Never Smoker NA - NA Social History Drugs/Alcohol: Social Info Question Answer Notes Alcohol Screen Did you have a drink containing alcohol in the past year? Yes How often did you have a drink containing alcohol in the past year? Monthly or less (1 point) How many drinks did you have on a typical day when you were drinking in the past year? 1 or 2 drinks (0 point) How often did you have 6 or more drinks on one occasion in the past year? 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 Plan Of Treatment No Information Insurance Providers Payer Name Payer Address Payer Phone Subscriber Number Group Number Insured Name Patient Relationship to Insured Coverage Start Date Coverage End Date [facility] [address] [facility] [place] [phone] [id number] MILO MULTANI Self - patient is the insured Medical (General) History Medical History History ICD Code Denies NE,DM,CVA,Lung disease,renal dise ase Sjogren's Disease Sulfasalazine-induced jaundi ce, hepatitis, and rash in 11/2018--resolved--- workup of liver diseases otherwise negative including imaging studies, viral serologies, Monospot, and autoimmune studies Surgical History Surgery Date(Month/Year) Right arm biopsy for the skin rash from Sulfaslazine 2019
== END 2025-05-20 11:01 | disposition home or self-care (01) ==
LOC: HO.HOS 10:05
PROVIDERS: PCP Physician Assistant; Visit Provider Orthopaedic Surgery
DX: G56.22 Lesion of ulnar nerve, left upper limb (principal); M32.9 Systemic lupus erythematosus, unspecified; M79.7 Fibromyalgia; Z79.52 Long term (current) use of systemic steroids
CPT/HCPCS: 99024

== ENCOUNTER 2025-05-26 11:20 | Day surgery (SDC) | payer OTHER, SELFPAY ==
--- OUTSIDE RECORDS SUMMARY | 2025-04-25 07:33 | XMS_ITS | Patient Health Record ---
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
[2025-05-20 10:35] VITALS: BMI 27.6
--- NOTE | 2025-05-20 11:30 | P.CONAN_ITS ---
Documented by User: Ashley Hitchcock NP 05/20/25 11:32 HPI - Anesthesia Eval Consult details Narrative: 40 yr old female for left Cubital Tunnel Release On daily low dose prednisone for pain 2/2 SLE, fibromyalgia GERD on H2 silvana [facility] Active Problems Active Problems: All Active Problems (Updated 05/20/25 @ 10:30 by Tessie Rodriguez RN) Cubital tunnel syndrome, bilateral (Acute) Right elbow pain (Acute) Left elbow pain (Acute) Dense breast tissue on mammogram (Acute) Ulnar neuropathy of both upper extremities (Acute) Nerve pain (Acute) Paresthesia of both hands (Acute) Mood disorder (Acute) Somnolence, daytime (Acute) Witnessed episode of apnea (Acute) Bronchitis (Acute) Breast cancer screening (Acute) Fibromyalgia, primary (Acute) High risk medication use (Acute) Skin lesion of cheek (Acute) Malaise (Acute) SLE (systemic lupus erythematosus) (Acute) Presence of 52 mg levonorgestrel-releasing intrauterine device (IUD) (Acute) control counseling (Acute) GERD (gastroesophageal reflux disease) (Acute) HTN (hypertension) (Acute) Annual physical exam (Acute) Easy bruising (Acute) Encounter for removal of sutures (Acute) 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 Mother Bipolar 1 disorder Chronic mental illness Family history of thyroid problem Maternal Grandmother Hypertension Maternal Grandfather No problems noted. Maternal Aunt CAD (coronary artery disease) Sister Depression Bipolar 1 disorder Brother Depression Depression with anxiety Surgical History Surgical History History of surgery History of surgical biopsy Social History Social History Household Members: Spouse Housing: House Do you presently have visiting nurse or other home services: No Alcohol intake: former Patient Tobacco Use Status: Never used Tobacco e-Cigarette/Vaping Use: Never Used Second Hand Smoke Exposure: No Use of substances other than those prescribed or required for medical reasons: No Are you DNR?: No Advance Directives: No Advance Directives Information Provided: Yes Patient : No (HCG neg today) service: No Current occupational status: employed 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 [employer] Current occupational exposures/hazards: No Cognitive needs: No Hearing needs: No Vision needs: Yes (Glasses) Meds Allergies Allergy/AdvReac Type Severity Reaction Status Date / Time naproxen (From Aleve) Allergy Severe Rash Verified 05/20/25 10:22 sulfasalazine Allergy Severe redness Verified 05/20/25 10:22 and itching nitrofurantoin (From Allergy Intermediate Rash Verified 05/20/25 10:31 Macrobid) Sulfa (Sulfonamide Allergy Intermediate Rash Verified 05/20/25 10:31 Antibiotics) belimumab (From Benlysta) AdvReac Intermediate Fatigue Verified 05/20/25 10:22 methotrexate AdvReac Intermediate Fatigue Verified 05/20/25 10:36 Home Medications ?Medication ?Instructions ?Recorded ?Confirmed ?Last Taken ?Type levonorgestrel (Mirena) See Rx Instructions .Route . COMPLEX 05/11/22 03/24/25 Unknown History multivitamin 1 tab PO DAILY 07/15/2204/2707/14/22 History Exam Height,Weight and Vital Signs: Height 5 ft 5 in Weight 75.296 kg Pertinent Lab Results Pertinent Lab Results: Laboratory Tests 01/30/25 15:23 WBC 8.1 RBC 4.23 Hgb 13.5 Hct 39.8 Plt Count 259 Sodium 141 Potassium 4.1 BUN 19 H Creatinine 1.19 Documented by User: Shiloh Maher MD 05/26/25 15:18 [facility] Past Medical History Medical History Fibromyalgia GERD (gastroesophageal reflux disease) Encounter for removal of sutures residential (current) use of systemic steroids SLE (systemic lupus erythematosus) Hypertension Migraines Cervical cancer screening PVCs (premature ventricular contractions) Vasovagal syncope Family History Family History Father No problems noted. Mother Bipolar 1 disorder Chronic mental illness Family history of thyroid problem Maternal Grandmother Hypertension Maternal Grandfather No problems noted. Maternal Aunt CAD (coronary artery disease) Sister Depression Bipolar 1 disorder Brother Depression Depression with anxiety Family history of problems with anesthesia: No Surgical History Surgical History History of surgery History of surgical biopsy History of Problems with Anesthesia: No Social History Social History Household Members: Spouse Housing: House Do you presently have visiting nurse or other home services: No Alcohol intake: former Patient Tobacco Use Status: Never used Tobacco e-Cigarette/Vaping Use: Never Used Second Hand Smoke Exposure: No Use of substances other than those prescribed or required for medical reasons: No Are you DNR?: No Advance Directives: No Advance Directives Information Provided: Yes Patient : No (HCG neg today) service: No Current occupational status: employed 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 [employer] Current occupational exposures/hazards: No Cognitive needs: No Hearing needs: No Vision needs: Yes (Glasses) Meds Allergies Allergy/AdvReac Type Severity Reaction Status Date / Time naproxen (From Aleve) Allergy Severe Rash Verified 05/20/25 10:22 sulfasalazine Allergy Severe redness Verified 05/20/25 10:22 and itching nitrofurantoin (From Allergy Intermediate Rash Verified 05/20/25 10:31 Macrobid) Sulfa (Sulfonamide Allergy Intermediate Rash Verified 05/20/25 10:31 Antibiotics) belimumab (From Benlysta) AdvReac Intermediate Fatigue Verified 05/20/25 10:22 methotrexate AdvReac Intermediate Fatigue Verified 05/20/25 10:36 Home Medications ?Medication ?Instructions ?Recorded ?Confirmed ?Last Taken ?Type levonorgestrel (Mirena) See Rx Instructions .Route . COMPLEX 05/11/22 03/24/25 Unknown History multivitamin 1 tab PO DAILY 07/15/2204/2707/14/22 History Exam Airway Mallampati Class: II TM Dist: >3cm Neck ROM: Full Heart: rrr Lungs: cta Assessment and Plan Assessment Anesthesia Assessment: Anesthesia Plan Discussed and Chart Reviewed Final Anesthetic Review Family History of Problems with Anesthesia: No History of Problems with Anesthesia: No NPO: Yes ASA Class: III Final Preanesthetic Review: No Changes in Pt Med Stat, Meds/Allgs Chart Reviewed, Consent Obtained/Reviewed and Anes Risks/Benef Reviewed Patient Risk: Intermediate Procedure Risk: Intermediate Anesthetic Plan Anesthetic Plan: GA and Agree w/ Assess. and Plan
--- NOTE | 2025-05-26 10:48 | P.OP_ITS ---
Operative Note Operative Note Date of Service: 05/26/25 Narrative: Operative Note Narrative: Preop diagnosis: 1. Left Cubital tunnel syndrome Postop diagnosis: Same Procedure: 1. Left Cubital Tunnel Release Surgeon: Joanna Snyder MD [employer] Supervisor: None Anesthesia: General Anesthesia Findings: Thickening and fibrosis about the ulnar nerve at the cubital tunnel, with narrowing in the distal aspect of the cubital tunnel. Implants: none Tourniquet time: 17 minutes EBL: 5.0 ml Specimen: none Drains: None Complications: None Disposition: Brought to the recovery room in stable condition Plan: Follow-up in 10-14 days for wound check, and suture removal Indications: The patient is 40 years old with left cubital tunnel syndrome . The risks and benefits of operative treatment, including but not limited to risk of damage to blood vessels, nerves, tendons, infection, recurrence, persistent pain or numbness, incomplete resolution of preoperative symptoms, or need for further surgery were discussed with the patient and they wished to proceed with surgery. Procedure: Once consent was obtained patient was brought back to the operating suite and placed in the operating table in a supine position. Perioperative antibiotics and anesthesia was administered by the anesthesia team. The limb was prepped and draped in a standard surgical fashion, and a sterile tourniquet applied to the proximal aspect of the left upper extremity. The limb was elevated exsanguinated with Esmarch bandage and the tourniquet inflated to 250 mm of mercury for a total tourniquet time of 17 minutes. A 6 cm gently curved but longitudinally oriented incision was made centered over the cubital tunnel of the left upper extremity. Incision was made through the skin to the subcutaneous tissues using a # 15 Blade. I then dissected down to the level of the medial epicondyle and the cubital tunnel using tenotomy scissors. Care was taken to protect the medial antebrachial cutaneous nerve. The ulnar nerve was identified just posterior to the medial intermuscular septum. The ulnar nerve was released in a proximal to distal direction using tenotomy in iris scissors while directly visualizing and protecting the ulnar nerve. Thickening and fibrosis was appreciated about the ulnar nerve as it passed through the cubital tunnel. The ulnar nerve was assessed as I passed the elbow through full flexion and extension and was found to remain stable within its groove. At this point the tourniquet was deflated and hemostasis obtained with a brief period of local pressure and bipolar electrocautery. The wound was copiously irrigated with normal saline. The subcutaneous layer was closed with 4-0 Vicryl suture, and the skin edges were reapproximated with 5-0 nylon suture. The wound was infiltrated with some 1% lidocaine with epinephrine for postop pain control and sterile dressings were applied. The patient appears to have tolerated the procedure well and with no complications. All digits were well vascularized at the conclusion of the case.
--- NOTE | 2025-05-26 10:48 | MHC.SHP ---
Pre-Procedural Eval Section A - 24 Hr Update-Section A only Date of Service: 05/26/25 The patient is an INPATIENT: No Changes since office visit: No Cold of Flu in the past 2 weeks, No New Medical Problems, No Changes in Medication and No Patient answered all questions The patient has been examined within 24 hours of the surgical procedure. The History & Physical has been completed within 30 days and I have reviewed it.: Yes Section B - Complete if H&P > 30 days Chief Complaint: Lesion of ulnar nerve, left upper limb Allergies: Allergies Allergy/AdvReac Type Severity Reaction Status Date / Time naproxen (From Aleve) Allergy Severe Rash Verified 05/20/25 10:22 sulfasalazine Allergy Severe redness Verified 05/20/25 10:22 and itching nitrofurantoin (From Allergy Intermediate Rash Verified 05/20/25 10:31 Macrobid) Sulfa (Sulfonamide Allergy Intermediate Rash Verified 05/20/25 10:31 Antibiotics) belimumab (From Benlysta) AdvReac Intermediate Fatigue Verified 05/20/25 10:22 methotrexate AdvReac Intermediate Fatigue Verified 05/20/25 10:36 Plan I have reviewed the history and physical and performed a pertinent physical examination on my patient. No changes have occurred unless specified. Time Spent With Patient Time: Total time managing care of this patient today ____ minutes.
[2025-05-26 12:33] VITALS: BMI 28.5
[2025-05-26 12:41] VITALS: BP 145/74; PULSE 79; RESP 18; TEMP 37; O2SAT 97
[2025-05-26 12:42] LABS: UPreg QC Valid YES
[2025-05-26] MEDS: Lactated Ringers 1,000 ML 100 ML IVCONT (12:50)
[2025-05-26 16:51] VITALS: BP 115/73; PULSE 82; RESP 12; TEMP 36.4; O2SAT 100
[2025-05-26 16:55] VITALS: BP 116/80; PULSE 84; RESP 15; O2SAT 100
[2025-05-26 17:00] VITALS: BP 132/76; PULSE 73; RESP 12; O2SAT 100
[2025-05-26 17:05] VITALS: BP 136/71; PULSE 78; RESP 14; O2SAT 100
[2025-05-26 17:15] VITALS: BP 129/80; PULSE 75; RESP 11; TEMP 36.1; O2SAT 100
== END 2025-05-26 17:16 | disposition home or self-care (01) ==
PROVIDERS: Nurse Practitioner; PCP Physician Assistant; Visit Provider Orthopaedic Surgery
PROC: (CPT 64718; principal; 2025-05-26 14:30)
DX: G56.22 Lesion of ulnar nerve, left upper limb (principal); R20.0 Anesthesia of skin; M25.522 Pain in left elbow; M25.521 Pain in right elbow; M79.7 Fibromyalgia; M32.9 Systemic lupus erythematosus, unspecified; I10 Essential (primary) hypertension; I49.3 Ventricular premature depolarization; R55 Syncope and collapse; Z79.52 Long term (current) use of systemic steroids; Z79.624 Long term (current) use of inhibitors of nucleotide synthesis; Z79.899 Other long term (current) drug therapy; Z88.1 Allergy status to other antibiotic agents; Z88.2 Allergy status to sulfonamides; Z88.8 Allergy status to other drugs, medicaments and biological substances
CPT/HCPCS: 64718; 81025; J0131; J0690; J2004; J2405; J2704; J3010

== ENCOUNTER → 2025-05-26 11:20 | Outpatient (BNV) | payer OTHER, SELFPAY | PROVIDERS: PCP Physician Assistant; Visit Provider Orthopaedic Surgery | DX: G56.22 Lesion of ulnar nerve, left upper limb (principal) | CPT/HCPCS: 64718 ==

== ENCOUNTER 2025-06-04 12:02 | Outpatient (REF) | payer OTHER, SELFPAY ==
[2025-06-04 12:20] LABS: MANUAL DIFF FLAG NO
[2025-06-04 12:47] LABS: Hematocrit 38.8 % (37.0-47.0); Hemoglobin 13.2 g/dl (12.0-16.0); Imm Gran Abs Auto 0.02 X10*3/uL (0.00-0.03); Imm Gran Pct Auto 0.3 % (0.0-0.4); Lymphocytes Absolute Auto 1.0 X10*3/uL (1.2-4.9); Mean Corpuscular HGB Conc 34.0 g/dl (31.0-35.0); Mean Corpuscular Hemoglobin 32.8 pg (27.0-33.0); Mean Corpuscular Volume 96.3 fL (80.0-98.0); NRBC Abs Auto 0.000 X10*3/uL (0.0-0.012); NRBC Pct Auto 0.0 /100WBC (0.0-0.2); Platelet Count 307 X10*3/uL (160-400); Red Blood Count 4.03 X10*6/uL (4.20-5.50); White Blood Count 6.0 X10*3/uL (4.8-10.8)
[2025-06-04 12:50] LABS: Appearance Urine Clear; Glucose Urine UA Negative (Negative); PH 5.5 (5.0-9.0); Specific Gravity - Urine 1.025 (1.005-1.025); UMIC TRIGGER UACC YES
[2025-06-04 13:03] LABS: UACC Culture Trigger YES
[2025-06-04 13:37] LABS: Alanine Aminotransferase 33 U/L (0-31); Albumin Level 4.1 g/dL (3.5-5.0); Alkaline Phosphatase 94 U/L (39-117); Anion Gap 9 (12-20); Aspartate Amino Transferase 26 U/L (5-31); Blood Urea Nitrogen 11 mg/dL (9-16); Calcium 9.1 mg/dL (8.4-10.2); Carbon Dioxide 27 mmol/L (22-29); Chloride 107 mmol/L (96-108); Estimated Glomerular Filt Rate > 60; Potassium 3.4 mmol/L (3.3-5.1); Sodium 140 mmol/L (135-145); Total Protein 7.2 g/dL (6.5-8.0)
[2025-06-04 13:51] LABS: Protein/Creatinine Ratio, Ur 0.07 (<0.2); Total Protein Urine Random 27 mg/dL (<12)
== END 2025-06-04 12:03 | disposition home or self-care (01) ==
LOC: HO.LAB 12:02
PROVIDERS: PCP Physician Assistant; Visit Provider Student in an Organized Health Care Education/Training Program
DX: M32.9 Systemic lupus erythematosus, unspecified (principal)
CPT/HCPCS: 36415; 80053; 81001; 82570; 84156; 85025; 85652; 86140; 86160; 86225; 87086

== ENCOUNTER 2025-06-10 09:48 | Outpatient (AMB) | payer OTHER, SELFPAY ==
--- NOTE | 2025-06-10 10:07 | A.OFFVIS_ITS ---
Vital Signs 06/10/25 10:13 Height 5 ft 5 in Weight 177 lb 11.081 oz BMI 29.6 BP 124/80 Blood Pressure Location Lt brachial Position Sitting Pulse 92 Pulse Source Pulse Oximeter Pulse Oximetry (%) 98 Oxygen Delivery Method Room Air Intake Visit Reasons: 4 Months Intake Note: Patient presents today for SLE follow up and test results. 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 Information Interpreted: non-clinical & clinical Accompanied by: Self / Same As Patient Allergies naproxen (From Aleve) Allergy (Severe, Verified 06/10/25 10:12) Rash sulfasalazine Allergy (Severe, Verified 06/10/25 10:12) redness and itching nitrofurantoin (From Macrobid) Allergy (Intermediate, Verified 06/10/25 10:12) Rash Sulfa (Sulfonamide Antibiotics) Allergy (Intermediate, Verified 06/10/25 10:12) Rash belimumab (From Benlysta) Adverse Reaction (Intermediate, Verified 06/10/25 10:12) Fatigue methotrexate Adverse Reaction (Intermediate, Verified 06/10/25 10:12) Fatigue Medication List - Last Reconciled 06/10/25 by Leslye Newberry MD albuterol sulfate 90 mcg/actuation 1 inh inhalation QID PRN 30 days amlodipine 2.5 mg PO DAILY Held on 01/13/25. Instructions: Doctor's Order azathioprine 150 mg (3 x 50 mg) PO DAILY blood pressure monitor (Blood Pressure Kit) As directed calcium carbonate-vitamin D3 600 mg-10 mcg (400 unit) (Calcium 600 + D(3)) 1 tab PO DAILY 90 days famotidine 20 mg PO BEDTIME ibuprofen 600 mg PO Q6-8H PRN [left Elbow brace As directed] levonorgestrel (Mirena) 1 intrauterinely lisinopril 5 mg PO DAILY 90 days loratadine 10 mg PO DAILY 90 days multivitamin 1 tab PO DAILY naltrexone 4.5 mg PO .nightly ondansetron HCl 8 mg PO Q12H PRN prednisone 2.5 mg (1/2 x 5 mg) PO DAILY 90 days pyridoxine (vitamin B6) 50 mg PO DAILY 30 days [Right elbow brace As directed] sumatriptan succinate (Imitrex) 25 mg PO Q2H PRN 30 days HPI Comments Details: Patient is a 40-year-old female with hypertension, and systemic lupus erythematosus here today for follow up Interval History: Patient last seen 02/20/25 with me - On azathioprine 150mg daily and prednisone 5mg daily. Naltrexone 50mg weekly - Doing okay - Naltrexone causing GI upset - Does note some improvement on naltrexone - Completed keflex for UTI - Weekly naltrexone changed to nightly Today - On azathioprine 150mg daily and prednisone 5mg daily, naltrexone 4.5mg nightly - Doing better overall especially at night but the naltrexone causes nausea - Hair thinning - Still seeing her period, monthly Rheumatologic History: SLE dx 2007 Arthritis, malar rash +ALEKSANDAR, low complements, ++SSA MTX DC 09/2022 (fatigue, lightheadedness, GI upset) Azathioprine 10/2022 partially effective Benlysta 04/2023 partially effective. DC 12/2023 worsening fatigue In 2018 she was on hydroxychloroquine and sulfasalazine and she developed a rash with transaminitis, she had a skin biopsy which showed possible drug reaction, she was started on steroids with resolution of her rash and sulfasalazine and hydroxychloroquine were stopped.? Hydroxychloroquine was resumed 02/2022. In 06/2022 patient was admitted to the hospital with diffuse erythematous skin rash, fevers, inflammatory arthritis and transaminitis, symptoms rapidly resolved with steroid taper. This was 2 days after patient started Aleve It was unclear at that point whether patient's rash was due to drug reaction to Aleve verses a lupus rash. 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 Mother Bipolar 1 disorder Chronic mental illness Family history of thyroid problem Maternal Grandmother Hypertension Maternal Grandfather No problems noted. 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 [employer] Current occupational exposures/hazards: No Cognitive needs: No Hearing needs: No Vision needs: Yes (Glasses) Female Reproductive History Menstrual Age of Menarche: 11 Review of Systems Narrative Review of Systems Constitutional: Denies fever, chills, weight loss ENT: Denies vision changes, eye pain or eye redness, dental caries, dry mouth GI: +nausea Pulm: Denies SOB, ESPARZA, hemoptysis, wheezing Cards: Denies chest pain, palpitations Skin: Denies Raynaud's, rash, nail changes, photosensitivity, ECHO VASCULAR TECHNOLOGIST: Denies headaches, weakness, paresthesias, recurrent falls MSK: as per HPI All other systems reviewed and are unremarkable except noted above Physical Exam Exam Exam: Vital signs reviewed Physical Examination CONSTITUITIONAL Patient alert and cooperative. Well appearing and in no apparent painful distress MSK Hands * Right Hand: Able to make a fist. No swelling or tenderness to palpation of the MCPs, PIPs or DIPs. No deformities noted. * Left Hand: Able to make a fist. No swelling or tenderness to palpation of the MCPs, PIPs or DIPs. No deformities noted. Wrists * Right Wrist: Full ROM to flexion and extension. No swelling or TTP * Left Wrist: Full ROM to flexion and extension. No swelling or TTP Elbows * Right Elbow: Full ROM. No swelling or TTP. No TTP of the medial epicondyle. No TTP of the lateral epicondyle * Left Elbow: Full ROM. No swelling or TTP. No TTP of the medial epicondyle. No TTP of the lateral epicondyle Shoulders * Right shoulder: Full ROM. No swelling noted. No TTP of the AC joint. No TTP of the subacromial bursa. No TTP of the posterior shoulder * Left shoulder: Full ROM. No swelling noted. No TTP of the AC joint. No TTP of the subacromial bursa. No TTP of the posterior shoulder Hips * Right hip: Good ROM. No pain elicited with hip flexion/internal rotation/external rotation * Left hip: Good ROM. No pain elicited with hip flexion/internal rotation/external rotation Hip bursa: Tenderness to palpation bilaterally Knees * Right knee: Full ROM. No swelling noted. No TTP of the knee joint line. No TTP of pes anserine bursa * Left knee: Full ROM. No swelling noted. TTP of the knee joint line (mild). No TTP of pes anserine bursa. Ankles * Right ankle: Good ankle dorsiflexion and plantar flexion. No swelling. No TTP of the ankle joint * Left ankle: Good ankle dorsiflexion and plantar flexion. No swelling. No TTP of the ankle joint Feet * Right foot: Negative squeeze test * Left foot: Negative squeeze test Tender points? * No tenderness to palpation of the bilateral trapezius, supraspinatus, anterior costochondral junctions, bilateral suboccipital muscle insertions SKIN No rashes Vital Signs: Last Vital Signs Pulse 92 06/10/25 10:13 BP 124/80 06/10/25 10:13 Pulse Ox 98 06/10/25 10:13 Oxygen Delivery Method Room Air 06/10/25 10:13 BMI result Body Mass Index 29.6 Results Reviewed Results Reviewed: Laboratory Tests 01/30/25 06/04/25 15:23 12:18 WBC 6.0 RBC 4.03 L Hgb 13.2 Hct 38.8 Plt Count 307 ESR 19 Sodium 140 Potassium 3.4 Chloride 107 Carbon Dioxide 27 BUN 11 Creatinine 0.83 AST 26 ALT 33 H C-Reactive Protein 0.59 H 0.71 H Laboratory Tests 06/04/25 12:18 Double Strand DNA Ab <1 Complement C3 164 Complement C4 21 Laboratory Tests 06/04/25 12:10 Urine Color Dark Yellow Urine pH 5.5 Urine Protein Trace Urine Blood Negative Protein/Creatinin Ratio 0.07 Assessment & Plan Assessment & Plan (1) SLE (systemic lupus erythematosus): Comment: dx 2007 MTX DC 09/2022 (fatigue, lightheadedness, GI upset) Azathioprine 10/2022 partially effective Benlysta 04/2023 partially effective. DC 12/2023 worsening fatigue Plaquenil - ?rash Code(s): M32.9 - Systemic lupus erythematosus, unspecified Category: Medical Qualifiers: Systemic lupus erythematosus type: unspecified Systemic lupus e rythematosus organ involvement: unspecified Qualified Code(s): M32.9 - Systemic lupus erythematosus, unspecified Plan: #SLE Patient is a 40-year-old female with SLE here today for follow up. Lupus currently in remission with no evidence of active inflammation or synovitis on examination. 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 Category: Medical Plan: #Long-term Use of Steroids Discussed with patient the risks and benefits of steroid for managing the rheumatic condition Benefits include: - Reduced pain, improved mobility, increased participation in activities, and decreased progression of disease Risks include: - GI upset, potential ultrasound worsening or formation (especially in patients > 65 years old), elevated blood pressure/worsening hypertension, elevated blood sugar/worsening diabetes control, worsening of bone density, elevated lipids/worsening triglycerides, cataract formation, weight gain Recommended using proton pump inhibitors (PPIs) for the duration of steroid use to reduce the risk of gastric ulcers and vitamin-D daily to reduce the risk of osteoporosis Labs checked: ?A1c, T spot, hepatitis-B and C serologies Pneumocystis jiroveci prophylaxis: ?Patient with risk factors including steroids greater than 50 mg for more than 30 days, age greater than 60 years, and lung involvement from underlying rheumatic disease requires prophylaxis and will be given so Plan I spent 25 minutes reviewing the record and labs, taking a history, examining the patient, discussing the treatment plan, ordering diagnostic work up and documenting in the medical record Orders: Orders Complete Blood Count Auto Diff 6 Months M32.9 - Systemic lupus erythematosus, unspecified Complement C3 6 Months M32.9 - Systemic lupus erythematosus, unspecified Aspartate Amino Transferase 6 Months M32.9 - Systemic lupus erythematosus, unspecified UA ClnCatch+Micro w/rflx Cult 6 Months M32.9 - Systemic lupus erythematosus, unspecified Erythrocyte Sedimentation Rate 6 Months M32.9 - Systemic lupus erythematosus, unspecified Protein Creatinine Ratio, Ur 6 Months M32. - Systemic lupus erythematosus, unspecified Alanine Aminotransferase 6 Months M32.9 - Systemic lupus erythematosus, unspecified Complement C4 6 Months M32.9 - Systemic lupus erythematosus, unspecified Creatinine 6 Months M32.9 - Systemic lupus erythematosus, unspecified Anti DNA DS Antibody 6 Months M32.9 - Systemic lupus erythematosus, unspecified C Reactive Protein 6 Months M32.9 - Systemic lupus erythematosus, unspecified Medications: Changed From prednisone 2.5 mg (1/2 x 5 mg) PO DAILY 90 days 45 tabs 1RF M32.9 - Systemic lupus erythematosus, unspecified To prednisone 2.5 mg PO DAILY 90 tabs 1RF 90 days M32.9 - Systemic lupus mirna thematosus, unspecified Refilled naltrexone 4.5 mg PO .nightly 90 caps 1RF M79.7 - Fibromyalgia Coding Level of Care Code Est Pt Level 3 (69300) Add On Problem Visit Only Diagnoses Systemic lupus erythematosus, unspecified SLE type, unspecified organ involvement status M32.9 Systemic lupus erythematosus type: unspecified Systemic lupus erythematosus organ involvement: unspecified Fibromyalgia, primary M79.7 Encounter for monitoring azathioprine therapy Z51.81; 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
[2025-06-10 10:13] VITALS: BP 124/80; PULSE 92; O2SAT 98; BMI 29.6
--- OUTSIDE RECORDS SUMMARY | 2025-06-10 11:43 | XMS_ITS | Patient Health Record ---
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
== END 2025-06-10 10:34 | disposition home or self-care (01) ==
LOC: HO.RHES 09:49
PROVIDERS: PCP Physician Assistant; Visit Provider Student in an Organized Health Care Education/Training Program
DX: M32.9 Systemic lupus erythematosus, unspecified (principal); M79.7 Fibromyalgia; Z51.81 Encounter for therapeutic drug level monitoring; Z79.624 Long term (current) use of inhibitors of nucleotide synthesis; Z79.52 Long term (current) use of systemic steroids
CPT/HCPCS: 99213; G2211

== ENCOUNTER 2025-06-11 12:40 | Outpatient (AMB) | payer OTHER, SELFPAY ==
--- NOTE | 2025-06-11 12:47 | MHC.OFFVIS ---
Vital Signs 06/11/25 12:50 Height 5 ft 5 in Weight 177 lb BMI 29.5 Intake Visit Reasons: PO LT cubital 05/26/25 AR Intake Note: Wolf is a 40 year old right hand dominant female who presents today for a Post-Operative Visit status post Left Cubital Tunnel Release, DOS: 05/26/[address] Snyder. At today's visit she reports that she is having left elbow pain that radiates into the fingers. Patient reports she is doing well. Denies numbness, tingling, finger locking. Patient is not taking any pain medications at this time. Sutures removed and steri strips applied. Allergies naproxen (From Aleve) Allergy (Severe, Verified 06/10/25 10:12) Rash sulfasalazine Allergy (Severe, Verified 06/10/25 10:12) redness and itching nitrofurantoin (From Macrobid) Allergy (Intermediate, Verified 06/10/25 10:12) Rash Sulfa (Sulfonamide Antibiotics) Allergy (Intermediate, Verified 06/10/25 10:12) Rash belimumab (From Benlysta) Adverse Reaction (Intermediate, Verified 06/10/25 10:12) Fatigue methotrexate Adverse Reaction (Intermediate, Verified 06/10/25 10:12) Fatigue HPI HPI PO LT cubital 05/26/25 AR: Details: Wolf is a 40 year old right hand dominant female who presents today for a Post-Operative Visit status post Left Cubital Tunnel Release, DOS: 05/26/[address] Snyder. At today's visit she reports that she is having left elbow pain that radiates into the fingers. Denies any ongoing numbness or tingling in the left hand. No other acute complaints or concerns at this time. Patient reports she is doing well. Denies numbness, tingling, finger locking. Patient is not taking any pain medications at this time. Sutures removed and steri strips applied. 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 Mother Bipolar 1 disorder Chronic mental illness Family history of thyroid problem Maternal Grandmother Hypertension Maternal Grandfather No problems noted. 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 [employer] Current occupational exposures/hazards: No Cognitive needs: No Hearing needs: No Vision needs: Yes (Glasses) Female Reproductive History Menstrual Age of Menarche: 11 Review of Systems Const All systems reviewed & are unremarkable except as noted in HPI and below Physical Exam Vital Signs: BMI result Body Mass Index 29.5 Const General: cooperative, healthy appearing and no acute distress Orientation/consciousness: patient oriented x3 HEENT Head: Yes normocephalic and Yes atraumatic Eyes EOM: EOMs intact bilaterally Resp Effort & Inspection: normal respiratory effort and able to speak in complete sentences Cardio Jugular venous distension: no JVD Skin General skin exam: turgor normal Rashes: no rashes Neuro General: patient oriented x3 Extrem Other: Evaluation of Left Upper Extremity: The patient is alert, oriented, and in no acute distress Neuro: Median, Ulnar, Radial nerves motor and sensory intact and sensation is normal to the tips of all digits Vascular: Cap refill brisk ROM: She can make a fist and extend all her digits Skin: Well approximated and well healing incision site noted on medial left elbow No lacerations or abrasions. General: No Ecchymosis. No Erythema or evidence of infection. Psych Appearance: grossly normal Affect: normal affect Attitude: cooperative Assessment & Plan Assessment & Plan (1) Cubital tunnel syndrome, bilateral: Code(s): G56.23 - Lesion of ulnar nerve, bilateral upper limbs Category: Medical Plan 1. Bilateral cubital tunnel syndrome Status post left cubital tunnel release DOS 05/26/2025 With good symptomatic resolution postoperatively Patient appears to be recovering well postoperatively Patient is educated about the typical recovery course No under water times one-week, 2 lb weight limit x2 weeks Patient appears to be recovering very well, and requires no further acute follow-up with us postoperatively Patient is educated and worrisome signs and symptoms, and should call us if they experience any of these, including but not limited to redness, swelling, increased pain, and discharge Patient will follow-up in 8 weeks to discuss right-sided cubital tunnel release, can not booked sooner than that due to anesthesia Patient understands this and is amenable to this plan Coding Level of Care Code Global (43266) Diagnoses Cubital tunnel syndrome, bilateral G56.23
[2025-06-11 12:50] VITALS: BMI 29.5
--- OUTSIDE RECORDS SUMMARY | 2025-06-11 16:51 | XMS_ITS | Patient Health Record ---
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 Section Notes: Nonsmoker; no sig alcohol Problems Problem Type SNOMED Code ICD Code Onset Dates Problem Status W/U Status Risk Notes Problem Inflammatory disease of liver ([id number]) Toxic liver disease with hepatitis, 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 Plan Of Treatment No Information Insurance Providers Payer Name Payer Address Payer Phone Subscriber Number Group Number Insured Name Patient Relationship to Insured Coverage Start Date Coverage End Date [facility] [address] [place] [phone] [id number] MILO MULTANI Self - patient is the insured Medical (General) History Medical History History ICD Code Denies ID,DM,CVA,Lung disease,renal dise ase Sjogren's Disease Sulfasalazine-induced jaundi ce, hepatitis, and rash in 11/2018--resolved--- workup of liver diseases otherwise negative including imaging studies, viral serologies, Monospot, and autoimmune studies Surgical History Surgery Date(Month/Year) Right arm biopsy for the skin rash from Sulfaslazine 2019
== END 2025-06-11 14:49 | disposition home or self-care (01) ==
LOC: HO.HOS 12:41
PROVIDERS: PCP Physician Assistant
DX: G56.23 Lesion of ulnar nerve, bilateral upper limbs (principal)
CPT/HCPCS: 99024